=== PATIENT | female | born 1985 | race Caucasian/White ===

== ENCOUNTER 2021-10-23 22:48 | Inpatient (IN) | payer OTHER, MEDICAID, SELFPAY ==
[2021-10-23 22:56] VITALS: BP 143/85; PULSE 89; RESP 16; TEMP 36.6; O2SAT 99; BMI 27.4
[2021-10-23] MEDS: LORazepam 1 MG TABLET PO (23:15)
--- NOTE | 2021-10-23 23:35 | ED.PSYCH ---
HPI - Psych General Chief Complaint: Psychiatric Symptoms Stated Complaint: anxiety Time Seen by Provider: 10/23/21 23:09 Source: EMS and police Mode of arrival: EMS Limitations: other History of Present Illness HPI Narrative: This is a 36-year-old female unknown medical history presenting via ambulance with EMS and police on board who state patient is having emotional dysregulation, she is hypo verbal, and depressed. Patient was placed on a Section 12 by police. Patient appears anxious, refusing to answer questions. When I ask her if she has any medical complaints she nods her head no. She appears to be in no acute distress. When I asked her if she suicidal she nods her head no. Related Data Home Medications Medication Instructions Recorded Confirmed multivitamin with folic acid 400 1 tab PO DAILY 10/23/21 10/23/21 mcg tablet (Daily-Galina (with folic acid)) multivitamin with folic acid 400 1 tab PO DAILY 10/23/21 10/23/21 mcg tablet (Daily-Galina (with folic acid)) olanzapine 5 mg tablet 1 tab PO DAILY PRN 10/23/21 10/23/21 sertraline 25 mg tablet 1 tab PO DAILY 10/23/21 10/24/21 trazodone 50 mg tablet 1 tab PO BEDTIME PRN 10/23/21 10/24/21 Allergies Allergy/AdvReac Type Severity Reaction Status Date / Time Sulfa (Sulfonamide AdvReac Rash Verified 10/23/21 23:08 Antibiotics) Review of Systems Review of Systems: Patient refusing to answer questions however nodding her head no when I ask her if she has any medical complaints. Yes Unobtainable due to mental status PMFSH Past Medical History Attestation statement: The following information was validated with the patient. Source: old records reviewed and nursing notes reviewed Social History Social History Advance Directives: No Physical Exam Vital Signs: Vital Signs: Last Vital Signs Temp 97.8 F 10/23/21 22:56 Pulse 89 10/23/21 22:56 Resp 16 10/23/21 22:56 BP 143/85 H 10/23/21 22:56 Pulse Ox 99 10/23/21 22:56 BMI result Body Mass Index 27.4 Vital signs stable Appearance: Alert.? Awake. No acute distress.? Head: Normocephalic, atraumatic, no step-offs or deformities Eyes: Pupils equal, round and reactive to light.? ENT: Pharynx normal.? Neck: Normal inspection.? Neck supple.? CVS: Normal heart rate and rhythm.? Pulses normal.? Respiratory: No respiratory distress.? Breath sounds normal.? Abdomen: Soft and nontender.? Skin: Skin warm and dry.? Normal skin color.? Normal skin turgor.? Extremities: No lower extremity edema.? No calf ttp. 5/5 strength to bilateral upper and lower extremities Neuro: Awake, alert, moving all extremities. Patient refusing to answer questions however she is answering with head nods when appropriate. Ambulating with steady gait Course Reevaluation(s) Reevaluation #1: CBC with a slight microcytic anemia. No leukocytosis. No acute electrolyte abnormalities requiring intervention. Urine positive for infection, no cva tenderness unlikley pylo. Patient will be started on Ceftin 250 mg p.o. b.i.d. x7 days. Urine toxicology negative. Ethanol negative. COVID negative. At this time patient will be placed in physician observation to allow more time to be evaluated by the behavioral health team. At time observation was started patient common cooperative no acute distress. Still refusing to answer questions. Will continue to monitor Time: 00:52 MDM - Psych MDM Narrative Medical decision making narrative: 2309 36-year-old female presents for emotional dysregulation, depression, and hypo verbal via ambulance and the police. Refusing to answer questions, only answering with head nods. Physical examination for a female refusing to answer questions only answering with head nods appears to be in no acute distress awake, alert. Appears anxious. Regular rate and rhythm. Lungs clear. Abdomen soft nontender nondistended. Neuro exam nonfocal ambulating with steady gait. Plan at this time is medical clearance, Ativan. Evaluation by the behavioral health team. Medical Records Attestation: I reviewed the patient's medical records. Lab Data Attestation: I reviewed the patient's lab results. Result diagrams: 10/24/21 00:07 10/24/21 00:07 Labs: Lab Results 10/23/21 10/23/21 10/23/21 Range/Units 23:28 23:28 23:28 WBC (4.8-10.8) X10*3/uL RBC (4.20-5.50) X10*6/uL Hgb (12.0-16.0) g/dl Hct (37.0-47.0) % MCV (80.0-98.0) fL MCH (27.0-33.0) pg MCHC (31.0-35.0) g/dl RDW (11.0-16.0) % Plt Count (160-400) X10*3/uL MPV (9.4-12.3) fL Immature Gran % (Auto) (0.0-0.4) % Neut % (Auto) (45-73) % Lymph % (Auto) (20-40) % [place] % (Auto) (2-11) % Eos % (Auto) (0-4) % Baso % (Auto) (0-2) % Lymph # (Auto) (1.2-4.9) X10*3/uL [place] # (Auto) (0.1-1.2) X10*3/uL Eos # (Auto) (0.0-0.4) X10*3/uL Baso # (Auto) (0.0-0.2) X10*3/uL Abs Immat Gran (auto) (0.00-0.03) X10*3/uL Absolute Neuts (auto) (2.0-8.3) x10*3/uL Absolute Nucleated RBC (0.0-0.012) X10*3/uL Nucleated RBC % (auto) (0.0-0.2) /100WBC Sodium (135-145) mmol/L Potassium (3.3-5.1) mmol/L Chloride (96-108) mmol/L Carbon Dioxide (22-29) mmol/L Anion Gap (12-20) BUN (9-16) mg/dL Creatinine (0.5-1.4) mg/dL Estim Creat Clear Calc Estimated GFR Random Glucose (60-115) mg/dL Calcium (8.4-10.2) mg/dL Total Bilirubin (0.0-1.0) mg/dL AST (5-31) U/L ALT (0-31) U/L Alkaline Phosphatase (39-117) U/L Total Protein (6.5-8.0) g/dL Albumin (3.5-5.0) g/dL Urine Color DK YELLOW Urine Appearance CLOUDY Urine pH 6.0 (5.0-8.0) Ur Specific [place] >= 1.030 H (1.005-1.025) Urine Protein 2+ H (NEG-TRACE) MG/DL Urine Glucose (UA) NEG (NEG) MG/DL Urine Ketones 15 (NEG) MG/DL Urine Blood 3+ H (NEG) Urine Nitrite POS H (NEG) Ur Leukocyte Esterase 2+ H (NEG) Urine RBC TNTC H (0) /HPF Urine WBC 1-4 (0-4) /HPF Ur Squamous Epith Cells 4+ /LPF Urine Bacteria 4+ /LPF Urine Mucus 2+ /LPF Urine Test NEGATIVE (NEGATIVE) Urine Opiates Screen (Not Detect) Urine Fentanyl Screen (Not Detect) Ur Barbiturates Screen (Not Detect) Ur Phencyclidine Scrn (Not Detect) Ur Amphetamines Screen (Not Detect) U Benzodiazepines Scrn (Not Detect) Urine Cocaine Screen (Not Detect) U Marijuana (THC) Screen (Not Detect) Ethyl Alcohol mg/dL COVID-19 (LUCIANO) Negative (Negative) COVID-19 Clin Com See Note 10/23/21 10/24/21 10/24/21 Range/Units 23:28 00:07 00:07 WBC 7.2 (4.8-10.8) X10*3/uL RBC 4.37 (4.20-5.50) X10*6/uL Hgb 10.4 L (12.0-16.0) g/dl Hct 32.6 L (37.0-47.0) % MCV 74.6 L (80.0-98.0) fL MCH 23.8 L (27.0-33.0) pg MCHC 31.9 (31.0-35.0) g/dl RDW 21.4 H (11.0-16.0) % Plt Count 345 (160-400) X10*3/uL MPV 9.9 (9.4-12.3) fL Immature Gran % (Auto) 0.3 (0.0-0.4) % Neut % (Auto) 72.9 (45-73) % Lymph % (Auto) 18.0 L (20-40) % [place] % (Auto) 8.3 (2-11) % Eos % (Auto) 0.1 (0-4) % Baso % (Auto) 0.4 (0-2) % Lymph # (Auto) 1.3 (1.2-4.9) X10*3/uL [place] # (Auto) 0.6 (0.1-1.2) X10*3/uL Eos # (Auto) 0.0 (0.0-0.4) X10*3/uL Baso # (Auto) 0.0 (0.0-0.2) X10*3/uL Abs Immat Gran (auto) 0.02 (0.00-0.03) X10*3/uL Absolute Neuts (auto) 5.2 (2.0-8.3) x10*3/uL Absolute Nucleated RBC 0.000 (0.0-0.012) X10*3/uL Nucleated RBC % (auto) 0.0 (0.0-0.2) /100WBC Sodium 139 (135-145) mmol/L Potassium 3.6 (3.3-5.1) mmol/L Chloride 106 (96-108) mmol/L Carbon Dioxide 24 (22-29) mmol/L Anion Gap 13 (12-20) BUN 8 L (9-16) mg/dL Creatinine 0.61 (0.5-1.4) mg/dL Estim Creat Clear Calc 131.1 Estimated GFR > 60 Random Glucose 118 H (60-115) mg/dL Calcium 9.4 (8.4-10.2) mg/dL Total Bilirubin 1.1 H (0.0-1.0) mg/dL AST 26 (5-31) U/L ALT 23 (0-31) U/L Alkaline Phosphatase 49 (39-117) U/L Total Protein 7.4 (6.5-8.0) g/dL Albumin 4.2 (3.5-5.0) g/dL Urine Color Urine Appearance Urine pH (5.0-8.0) Ur Specific [place] (1.005-1.025) Urine Protein (NEG-TRACE) MG/DL Urine Glucose (UA) (NEG) MG/DL Urine Ketones (NEG) MG/DL Urine Blood (NEG) Urine Nitrite (NEG) Ur Leukocyte Esterase (NEG) Urine RBC (0) /HPF Urine WBC (0-4) /HPF Ur Squamous Epith Cells /LPF Urine Bacteria /LPF Urine Mucus /LPF Urine Test (NEGATIVE) Urine Opiates Screen Not Detected (Not Detect) Urine Fentanyl Screen Not Detected (Not Detect) Ur Barbiturates Screen Not Detected (Not Detect) Ur Phencyclidine Scrn Not Detected (Not Detect) Ur Amphetamines Screen Not Detected (Not Detect) U Benzodiazepines Scrn Not Detected (Not Detect) Urine Cocaine Screen Not Detected (Not Detect) U Marijuana (THC) Screen Not Detected (Not Detect) Ethyl Alcohol mg/dL COVID-19 (LUCIANO) (Negative) COVID-19 Clin Com 10/24/21 Range/Units 00:07 WBC (4.8-10.8) X10*3/uL RBC (4.20-5.50) X10*6/uL Hgb (12.0-16.0) g/dl Hct (37.0-47.0) % MCV (80.0-98.0) fL MCH (27.0-33.0) pg MCHC (31.0-35.0) g/dl RDW (11.0-16.0) % Plt Count (160-400) X10*3/uL MPV (9.4-12.3) fL Immature Gran % (Auto) (0.0-0.4) % Neut % (Auto) (45-73) % Lymph % (Auto) (20-40) % [place] % (Auto) (2-11) % Eos % (Auto) (0-4) % Baso % (Auto) (0-2) % Lymph # (Auto) (1.2-4.9) X10*3/uL [place] # (Auto) (0.1-1.2) X10*3/uL Eos # (Auto) (0.0-0.4) X10*3/uL Baso # (Auto) (0.0-0.2) X10*3/uL Abs Immat Gran (auto) (0.00-0.03) X10*3/uL Absolute Neuts (auto) (2.0-8.3) x10*3/uL Absolute Nucleated RBC (0.0-0.012) X10*3/uL Nucleated RBC % (auto) (0.0-0.2) /100WBC Sodium (135-145) mmol/L Potassium (3.3-5.1) mmol/L Chloride (96-108) mmol/L Carbon Dioxide (22-29) mmol/L Anion Gap (12-20) BUN (9-16) mg/dL Creatinine (0.5-1.4) mg/dL Estim Creat Clear Calc Estimated GFR Random Glucose (60-115) mg/dL Calcium (8.4-10.2) mg/dL Total Bilirubin (0.0-1.0) mg/dL AST (5-31) U/L ALT (0-31) U/L Alkaline Phosphatase (39-117) U/L Total Protein (6.5-8.0) g/dL Albumin (3.5-5.0) g/dL Urine Color Urine Appearance Urine pH (5.0-8.0) Ur Specific [place] (1.005-1.025) Urine Protein (NEG-TRACE) MG/DL Urine Glucose (UA) (NEG) MG/DL Urine Ketones (NEG) MG/DL Urine Blood (NEG) Urine Nitrite (NEG) Ur Leukocyte Esterase (NEG) Urine RBC (0) /HPF Urine WBC (0-4) /HPF Ur Squamous Epith Cells /LPF Urine Bacteria /LPF Urine Mucus /LPF Urine Test (NEGATIVE) Urine Opiates Screen (Not Detect) Urine Fentanyl Screen (Not Detect) Ur Barbiturates Screen (Not Detect) Ur Phencyclidine Scrn (Not Detect) Ur Amphetamines Screen (Not Detect) U Benzodiazepines Scrn (Not Detect) Urine Cocaine Screen (Not Detect) U Marijuana (THC) Screen (Not Detect) Ethyl Alcohol < 10 mg/dL COVID-19 (LUCIANO) (Negative) COVID-19 Clin Com Critical Care Time Critical Care Time Critical Care Time: No Discharge Plan Discharge Clinical Impression: Depression, UTI (urinary tract infection) Patient Disposition: Still a Patient Instructions: Urinary Tract Infection in Women (ED), Depression (ED) Additional Instructions: Please discharge patient home on antibiotics for UTI receiving Ceftin here. Prescriptions: No Action trazodone 50 mg tablet 1 tab PO BEDTIME PRN (Reason: insomnia) 0RF olanzapine 5 mg tablet 1 tab PO DAILY PRN (Reason: Agitation) 0RF sertraline 25 mg tablet 1 tab PO DAILY 0RF multivitamin with folic acid [Daily-Galina (with folic acid)] 400 mcg tablet 1 tab PO DAILY 0RF multivitamin with folic acid [Daily-Galina (with folic acid)] 400 mcg tablet 1 tab PO DAILY 0RF
[2021-10-23 23:37] LABS: Appearance Urine CLOUDY; Color Urine DK YELLOW; Glucose Urine UA NEG (NEG); Leukocyte Esterase Urine 2+ (NEG); Nitrite Urine POS (NEG); Specific Gravity - Urine >= 1.030 (1.005-1.025); Urine Blood 3+ (NEG); Urine Ketones 15 MG/DL (NEG); Urine Protein 2+ MG/DL (NEG-TRACE)
[2021-10-23 23:52] LABS: COVID-19 Test Negative (Negative)
[2021-10-23 23:55] LABS: Amphetamine Screen Urine Not Detected (Not Detect); Bacteria Urine 4+ /LPF; Barbiturates, Urine Not Detected (Not Detect); Benzodiazepines Screen Urine Not Detected (Not Detect); Cannabinoid Screen Urine Not Detected (Not Detect); Cocaine Screen Urine Not Detected (Not Detect); Fentanyl, urine Not Detected (Not Detect); Mucus Urine 2+ /LPF; Opiate Screen Urine Not Detected (Not Detect); Phencyclidine Screen Urine Not Detected (Not Detect); RBC Urine TNTC /HPF (0); Squamous Epithelial Cell Urine 4+ /LPF
[2021-10-24] LABS: UPreg QC Valid YES; Urine Pregnancy NEGATIVE (NEGATIVE)
[2021-10-24 00:12] LABS: MANUAL DIFF FLAG NO
[2021-10-24 00:13] LABS: Basophils Percent Auto 0.4 % (0-2); Eosinophils Percent Auto 0.1 % (0-4); Hematocrit 32.6 % (37.0-47.0); Hemoglobin 10.4 g/dl (12.0-16.0); Imm Gran Abs Auto 0.02 X10*3/uL (0.00-0.03); Imm Gran Pct Auto 0.3 % (0.0-0.4); Lymphocytes Absolute Auto 1.3 X10*3/uL (1.2-4.9); Mean Corpuscular HGB Conc 31.9 g/dl (31.0-35.0); Mean Corpuscular Hemoglobin 23.8 pg (27.0-33.0); Mean Corpuscular Volume 74.6 fL (80.0-98.0); Mean Platelet Volume 9.9 fL (9.4-12.3); Monocytes Absolute Auto 0.6 X10*3/uL (0.1-1.2); Monocytes Percent Auto 8.3 % (2-11); Neutrophils Absolute Auto 5.2 x10*3/uL (2.0-8.3); Neutrophils Percent Auto 72.9 % (45-73); Platelet Count 345 X10*3/uL (160-400); Red Blood Count 4.37 X10*6/uL (4.20-5.50); Red Cell Distribution Width 21.4 % (11.0-16.0); White Blood Count 7.2 X10*3/uL (4.8-10.8)
[2021-10-24 00:24] LABS: Ethanol < 10 mg/dL
[2021-10-24 00:27] LABS: Alanine Aminotransferase 23 U/L (0-31); Albumin Level 4.2 g/dL (3.5-5.0); Alkaline Phosphatase 49 U/L (39-117); Anion Gap 13 (12-20); Aspartate Amino Transferase 26 U/L (5-31); Bilirubin Total 1.1 mg/dL (0.0-1.0); Blood Urea Nitrogen 8 mg/dL (9-16); Calcium 9.4 mg/dL (8.4-10.2); Carbon Dioxide 24 mmol/L (22-29); Chloride 106 mmol/L (96-108); Creatinine Clr Calc Pharmacy 131.1; Estimated Glomerular Filt Rate > 60; Glucose Random 118 mg/dL (60-115); Potassium 3.6 mmol/L (3.3-5.1); Sodium 139 mmol/L (135-145); Total Protein 7.4 g/dL (6.5-8.0)
[2021-10-24] MEDS: Ibuprofen 600 MG TABLET PO (04:09)
--- NOTE | 2021-10-24 06:25 | PC.NURSE ---
Patient slept intermittently, depressed and tearful, + for UTI, Ceftin 250 mg BID ordered/administered first dose last night, [facility] referral completed/confirmed pending ETA, behavior non concerning, med rec completed/patient off her medication for months/Psych consult ordered to review meds, medication compliant, VSS, will continue to monitor.
[2021-10-24 06:33] VITALS: BP 140/79; PULSE 74; RESP 14; TEMP 36.6; O2SAT 99
--- NOTE | 2021-10-24 07:14 | PC.NURSE ---
patient appears to remain asleep at present respirations are even and unlabored patient appears in no distress
--- NOTE | 2021-10-24 07:40 | PHA.MEDREC ---
Pharmacy Consult ? Medication Reconciliation Pharmacy has reviewed the medication reconciliation completed by Amrik. Georgina Oneill, PorshaD
[2021-10-24 17:42] VITALS: BP 125/84; PULSE 84; RESP 18; TEMP 36.8; O2SAT 99
[2021-10-24 20:20] VITALS: BP 146/89; PULSE 96; RESP 18; TEMP 36.7; O2SAT 95; BMI 25.6
[2021-10-24] MEDS: OLANZapine 10 MG TABLET PO (20:44)
[2021-10-24] MEDS: Loperamide HCl 2 MG CAPSULE PO (21:02)
[2021-10-24] MEDS: Acetaminophen 325 MG TABLET 650 MG PO (21:06)
[2021-10-24] MEDS: hydrOXYzine HCL 25 MG TABLET PO (22:05)
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
[2021-10-25] MEDS: hydrOXYzine HCL 50 MG TABLET PO ×2 (04:14→19:17)
[2021-10-25] MEDS: LORazepam 1 MG TABLET 2 MG PO (04:14)
[2021-10-25] MEDS: OLANZapine ODT 10 MG TAB.RAPDIS TRANSLINGU (13:07)
[2021-10-25] MEDS: Multivitamin TABLET 1 TAB PO (13:07)
[2021-10-25] MEDS: Ferrous Sulfate 324 MG TABLET.DR PO (13:57)
[2021-10-25] MEDS: Ibuprofen 600 MG TABLET PO (14:02)
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
[2021-10-25] MEDS: hydrOXYzine HCL 25 MG TABLET PO (22:02)
[2021-10-25 22:10] VITALS: BP 156/89; PULSE 91; RESP 18; TEMP 36.6; O2SAT 97
[2021-10-26] MEDS: Ibuprofen 600 MG TABLET PO ×2 (00:59→17:38)
[2021-10-26] MEDS: Melatonin 3 MG TABLET 6 MG PO (01:29)
[2021-10-26 08:28] VITALS: BP 130/70; PULSE 86; RESP 15; TEMP 36.4; O2SAT 99
[2021-10-26] MEDS: Ferrous Sulfate 324 MG TABLET.DR PO (10:02)
[2021-10-26] MEDS: Multivitamin TABLET 1 TAB PO (10:02)
[2021-10-26] MEDS: hydrOXYzine HCL 50 MG TABLET PO ×3 (11:38→21:28)
--- NOTE | 2021-10-26 15:26 | HO.PSYCHPN ---
Subjective Subjective Date of Service: 10/26/21 Reason For Visit: Anjali Interim History: pt hyper-intense, seeking out MD. angry, irritable, verbally aggressive, condescending, demanding. states she has 3 diagnoses only: highly intelligent, anxiety, and a little ADHD for sprinkles. states she will not take lithium and demands it be cancelled. she explains she does not need to take it. MD attempts to engage pt in discussion on the [place] for the Rx but pt talks over MD, yelling at MD that all she needs is sertraline and that MD should prescribe her sertraline, then stomps out of room. MD entirely unable to get a word in edgewise to even begin a rational discussion with pt. pt noted to glare at MD each time within direct line of sight and door slamming in the immediate time surrounding visual encounters. per staff, pt slept until 1 pm yesterday, c/o cramps. ibuprofen was helpful. pleasant and isolative. difficulty falling asleep last night. upset and agitated that lithium had been Rx'ed. per staff, paranoid and delusional that her friends and others have arranged for her to be hospitalized bcse they like to play games. Mental Status Exam Mental Status Exam Narrative: hospital nate, disheveled. not cooperative. pacing, hypermotoric, agitated, strong gesticulations. speech incr in rate, loudness, amount. decr latency. thoughts loose, wandering. affect hyper-intense, labile, constricted. mood not assessed, SI/HI/AVH not assessed. Diagnostics Vital Signs (24Hr): Vital Signs - 24 hr 10/25/21 22:10 10/26/21 08:28 Temperature 97.9 F 97.6 F Pulse Rate 91 86 Respiratory Rate 18 15 Blood Pressure 156/89 H 130/70 Pulse Oximetry 97 99 BMI result Body Mass Index 25.6 Labs Results: 10/24/21 00:07 10/24/21 00:07 Medications Medications Current Medications Acetaminophen (Acetaminophen 325 Mg Tablet) 650 mg PO Q6H PRN PRN Reason: Headache/Pain Mild Scale (1-3) Last Admin: 10/24/21 21:06 Dose: 650 mg Documented by: Al Hydroxide/Mg Hydroxide (Magnesium Hydrox/Alum Hydrox 30 Ml Oral.Susp) 30 ml PO Q6H PRN PRN Reason: Heartburn/Nausea Cefuroxime Axetil (Cefuroxime Axetil 250 Mg Tablet) 250 mg PO BID [facility] Last Admin: 10/26/21 10:02 Dose: 250 mg Documented by: Ferrous Sulfate (Ferrous Sulfate 324 Mg Tablet.Dr) 324 mg PO DAILY [facility] Last Admin: 10/26/21 10:02 Dose: 324 mg Documented by: Hydroxyzine HCl (Hydroxyzine Hcl 25 Mg Tablet) 25 mg PO BEDTIME PRN PRN Reason: Anxiety Last Admin: 10/25/21 22:02 Dose: 25 mg Documented by: Hydroxyzine HCl (Hydroxyzine Hcl 50 Mg Tablet) 50 mg PO Q4H PRN PRN Reason: anxiety/agitation Last Admin: 10/26/21 11:38 Dose: 50 mg Documented by: Ibuprofen (Ibuprofen 600 Mg Tablet) 600 mg PO Q6H PRN PRN Reason: cramps Last Admin: 10/26/21 00:59 Dose: 600 mg Documented by: [place] Carbonate ([place] Carbonate Er 450 Mg Tablet.Er) 450 mg PO BID [facility] Last Admin: 10/26/21 10:02 Dose: Not Given Documented by: Loperamide HCl (Loperamide Hcl 2 Mg Capsule) 2 mg PO Q6H PRN PRN Reason: Diarrhea Last Admin: 10/24/21 21:02 Dose: 2 mg Documented by: Magnesium Hydroxide (Milk Of Magnesia 30 Ml Oral.Susp) 30 ml PO DAILY PRN PRN Reason: Constipation Multivitamins/Vitamin C (Multivitamin Tablet) 1 tab PO DAILY [facility] Last Admin: 10/26/21 10:02 Dose: 1 tab Documented by: Nicotine Polacrilex (Nicotine Polacrilex 2 Mg Gum) 2 mg BUCCAL Q2H PRN PRN Reason: Nicotine Cravings Olanzapine (Olanzapine Odt 10 Mg Tab.Rapdis) 10 mg TRANSLINGU BID PRN PRN Reason: agitation Last Admin: 10/25/21 13:07 Dose: 10 mg Documented by: Olanzapine (Olanzapine 10 Mg Tablet) 10 mg PO BEDTIME [facility] Last Admin: 10/25/21 22:08 Dose: Not Given Documented by: Trazodone HCl (Trazodone Hcl 50 Mg Tablet) 50 mg PO BEDTIME PRN PRN Reason: Insomnia Allergies Allergies Allergy/AdvReac Type Severity Reaction Status Date / Time Sulfa (Sulfonamide AdvReac Rash Verified 10/23/21 23:08 Antibiotics) Assessment & Plan Assessment & Plan (1) Anjali: Status: Acute Code(s): F30.9 - Manic episode, unspecified (2) UTI (urinary tract infection): Status: Acute Code(s): N39.0 - Urinary tract infection, site not specified Plan anjali - olanzapine. stopped zoloft as could be manigenic. added lithium 10/25, which pt has been declining, angrily. UTI - antibx control anjali, collect collateral. I spent __20____ minutes with the patient and/or on the patient floor today, greater than?50% of which was spent counseling/coordinating care. Reason for contiued inpatient stay Substantial Risk for: harm to self, harm to others and inability to function
[2021-10-26] MEDS: Acetaminophen 325 MG TABLET 650 MG PO (15:32)
[2021-10-26] MEDS: Loperamide HCl 2 MG CAPSULE PO (17:02)
[2021-10-26 20:27] VITALS: BP 126/86; PULSE 87; RESP 18; TEMP 36.7; O2SAT 99
[2021-10-27] MEDS: hydrOXYzine HCL 25 MG TABLET PO (00:05)
[2021-10-27] MEDS: Melatonin 3 MG TABLET 9 MG PO (00:34)
[2021-10-27] MEDS: Multivitamin TABLET 1 TAB PO (08:30)
[2021-10-27] MEDS: Ferrous Sulfate 324 MG TABLET.DR PO (08:30)
[2021-10-27] MEDS: hydrOXYzine HCL 50 MG TABLET PO ×3 (08:31→23:50)
[2021-10-27 09:00] VITALS: BP 130/81; PULSE 92; RESP 18; TEMP 36.6; O2SAT 97
[2021-10-27] MEDS: Loperamide HCl 2 MG CAPSULE PO (13:24)
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
[2021-10-27 20:00] VITALS: BP 129/77; PULSE 112; RESP 18; TEMP 36.6; O2SAT 98
[2021-10-27] MEDS: Acetaminophen 325 MG TABLET 650 MG PO (20:21)
[2021-10-28] MEDS: Ibuprofen 600 MG TABLET PO (01:13)
[2021-10-28] MEDS: Loperamide HCl 2 MG CAPSULE PO ×2 (01:30→18:39)
[2021-10-28 08:15] VITALS: BP 114/65; PULSE 78; RESP 18; TEMP 36.4; O2SAT 99
[2021-10-28] MEDS: Multivitamin TABLET 1 TAB PO (08:24)
[2021-10-28] MEDS: hydrOXYzine HCL 50 MG TABLET PO ×3 (08:24→21:04)
[2021-10-28] MEDS: Ferrous Sulfate 324 MG TABLET.DR PO (08:24)
[2021-10-28] MEDS: OLANZapine ODT 10 MG TAB.RAPDIS TRANSLINGU (11:44)
--- NOTE | 2021-10-28 15:11 | HO.PSYCHPN ---
Subjective Subjective Date of Service: 10/28/21 Reason For Visit: Anjali Interim History: As per staff- loud and labile at some points, asking for a diaper ref mentrual pads. Poor sleep and paranoid ref room mate- accepted olanzapine. Ongoing frustration around med regimen- aware that discussing overall medication regimen with her primary team in the context of a three-day notice is important and appropriate. Adamantly denies thoughts of suicide or hurting others. Medication Compliance: No Side effects from medications: No Attending Groups: No Review of Systems Acute medical concerns: No Review of Systems Review of Systems Yes all other systems are reviewed and are negative Mental Status Exam Mental Status Exam Narrative: In sensory room. Appropriate dress. Fair hygiene. Organized. Pressured and intense. Irritable and frustrated. Denied depression. Denied SI or HI. Denied overt paranoia or hallucinations on the unit. Diagnostics Vital Signs (24Hr): Vital Signs - 24 hr 10/27/21 20:00 10/28/21 08:15 Temperature 97.9 F 97.6 F Pulse Rate 112 H 78 Respiratory Rate 18 18 Blood Pressure 129/77 114/65 Pulse Oximetry 98 99 BMI result Body Mass Index 25.6 Labs Results: 10/24/21 00:07 10/24/21 00:07 Medications Medications Current Medications Acetaminophen (Acetaminophen 325 Mg Tablet) 650 mg PO Q6H PRN PRN Reason: Headache/Pain Mild Scale (1-3) Last Admin: 10/27/21 20:21 Dose: 650 mg Documented by: Al Hydroxide/Mg Hydroxide (Magnesium Hydrox/Alum Hydrox 30 Ml Oral.Susp) 30 ml PO Q6H PRN PRN Reason: Heartburn/Nausea Cefuroxime Axetil (Cefuroxime Axetil 250 Mg Tablet) 250 mg PO BID [facility] Last Admin: 10/28/21 08:23 Dose: 250 mg Documented by: Ferrous Sulfate (Ferrous Sulfate 324 Mg Tablet.) 324 mg PO DAILY [facility] Last Admin: 10/28/21 08:24 Dose: 324 mg Documented by: Hydroxyzine HCl (Hydroxyzine Hcl 25 Mg Tablet) 25 mg PO BEDTIME PRN PRN Reason: Anxiety Last Admin: 10/27/21 00:05 Dose: 25 mg Documented by: Hydroxyzine HCl (Hydroxyzine Hcl 50 Mg Tablet) 50 mg PO Q4H PRN PRN Reason: anxiety/agitation Last Admin: 10/28/21 08:24 Dose: 50 mg Documented by: Ibuprofen (Ibuprofen 600 Mg Tablet) 600 mg PO Q6H PRN PRN Reason: cramps Last Admin: 10/28/21 01:13 Dose: 600 mg Documented by: [place] Carbonate ([place] Carbonate Er 450 Mg Tablet.Er) 450 mg PO BID [facility] Last Admin: 10/28/21 10:33 Dose: Not Given Documented by: Loperamide HCl (Loperamide Hcl 2 Mg Capsule) 2 mg PO Q6H PRN PRN Reason: Diarrhea Last Admin: 10/28/21 01:30 Dose: 2 mg Documented by: Magnesium Hydroxide (Milk Of Magnesia 30 Ml Oral.Susp) 30 ml PO DAILY PRN PRN Reason: Constipation Melatonin (Melatonin 3 Mg Tablet) 9 mg PO BEDTIME [facility] Last Admin: 10/27/21 00:34 Dose: 9 mg Documented by: Multivitamins/Vitamin C (Multivitamin Tablet) 1 tab PO DAILY [facility] Last Admin: 10/28/21 08:24 Dose: 1 tab Documented by: Nicotine Polacrilex (Nicotine Polacrilex 2 Mg Gum) 2 mg BUCCAL Q2H PRN PRN Reason: Nicotine Cravings Olanzapine (Olanzapine Odt 10 Mg Tab.Rapdis) 10 mg TRANSLINGU BID PRN PRN Reason: agitation Last Admin: 10/28/21 11:44 Dose: 10 mg Documented by: Olanzapine (Olanzapine 10 Mg Tablet) 10 mg PO BEDTIME [facility] Last Admin: 10/27/21 22:12 Dose: Not Given Documented by: Trazodone HCl (Trazodone Hcl 50 Mg Tablet) 50 mg PO BEDTIME PRN PRN Reason: Insomnia Allergies Allergies Allergy/AdvReac Type Severity Reaction Status Date / Time Sulfa (Sulfonamide AdvReac Rash Verified 10/23/21 23:08 Antibiotics) Assessment & Plan Assessment & Plan (1) Anjali: Status: Acute Code(s): F30.9 - Manic episode, unspecified (2) UTI (urinary tract infection): Status: Acute Code(s): N39.0 - Urinary tract infection, site not specified Plan anjali - olanzapine. stopped zoloft as could be manigenic. added lithium 10/25, which pt has been declining, angrily. UTI - antibx control anjali, collect collateral. 10/28: no changes to treatment plan. Declining lithium. Three-day notice expires Friday10/29/2021 I spent minutes with the patient and/or on the patient floor today, greater than?50% of which was spent counseling/coordinating care. Reason for contiued inpatient stay Substantial Risk for: inability to function
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
[2021-10-28 18:00] VITALS: BP 129/72; PULSE 75; RESP 18; TEMP 36.6; O2SAT 98
[2021-10-28] MEDS: Melatonin 3 MG TABLET 9 MG PO (21:02)
[2021-10-28] MEDS: LORazepam 1 MG TABLET 2 MG PO (22:28)
[2021-10-29] MEDS: Multivitamin TABLET 1 TAB PO (09:04)
[2021-10-29] MEDS: Ferrous Sulfate 324 MG TABLET.DR PO (09:04)
[2021-10-29 09:53] VITALS: BP 124/69; PULSE 77; RESP 18; TEMP 36.6; O2SAT 100
[2021-10-29] MEDS: Ibuprofen 600 MG TABLET PO ×2 (12:07→21:29)
[2021-10-29] MEDS: lamoTRIgine 25 MG TABLET PO ×2 (12:54→21:43)
[2021-10-29] MEDS: hydrOXYzine HCL 50 MG TABLET PO ×3 (14:15→23:38)
--- NOTE | 2021-10-29 14:24 | HO.PSYCHPN ---
Subjective Subjective Date of Service: 10/29/21 Reason For Visit: Anjali Interim History: pt seen twice, both times with PASTOR morocho. pt generally labile, irritable, angry, accusatory, derisive. pt demanding to be put back on sertraline and states in return would be willing to start lamictal. informs pt that zoloft is not indicated for her at the moment, as she appears to be in a manic episode, and she denies anjali and states she has PTSD and her current state is a manifestation of that. informs pt that lamictal is not an adequately evidence-based mood stabilizer and he would recommend she take lithium, tegretol, or depakote. she declines to take all three. initially the decision is made to discharge pt as the discussion broke down and pt unilaterally left the interview. pt reconsidered and during subsequent interview pt agreed to take lamictal without sertraline. she denied any h/o SJS or other adverse rxn to lamictal and reported having taken it for a long time and at many doses. she agreed to start it at 25 mg BID, somewhat higher than recommended starting dose. she withdrew her 3-day notice. per staff, 3-day notice up today. denies dep/SI/HI/AVH. anx 10. pacing, exercising, listening to music. after 1030 pm got angry and agitated. slept after having gotten ativan 2 mg. Mental Status Exam Mental Status Exam Narrative: [facility], [facility]. minimally cooperative. pacing, hypermotoric, agitated, strong gesticulations. speech incr in rate, loudness, amount. decr latency. thoughts loose, wandering. affect hyper-intense, labile, constricted. mood not assessed, SI/HI/AVH not assessed. Diagnostics Vital Signs (24Hr): Vital Signs - 24 hr 10/28/21 18:00 10/29/21 09:53 Temperature 97.8 F 97.8 F Pulse Rate 75 77 Respiratory Rate 18 18 Blood Pressure 129/72 124/69 Pulse Oximetry 98 100 BMI result Body Mass Index 25.6 Labs Results: 10/24/21 00:07 10/24/21 00:07 Medications Medications Current Medications Acetaminophen (Acetaminophen 325 Mg Tablet) 650 mg PO Q6H PRN PRN Reason: Headache/Pain Mild Scale (1-3) Last Admin: 10/27/21 20:21 Dose: 650 mg Documented by: Al Hydroxide/Mg Hydroxide (Magnesium Hydrox/Alum Hydrox 30 Ml Oral.Susp) 30 ml PO Q6H PRN PRN Reason: Heartburn/Nausea Cefuroxime Axetil (Cefuroxime Axetil 250 Mg Tablet) 250 mg PO BID [facility] Last Admin: 10/29/21 09:04 Dose: 250 mg Documented by: Ferrous Sulfate (Ferrous Sulfate 324 Mg Tablet.) 324 mg PO DAILY [facility] Last Admin: 10/29/21 09:04 Dose: 324 mg Documented by: Hydroxyzine HCl (Hydroxyzine Hcl 25 Mg Tablet) 25 mg PO BEDTIME PRN PRN Reason: Anxiety Last Admin: 10/27/21 00:05 Dose: 25 mg Documented by: Hydroxyzine HCl (Hydroxyzine Hcl 50 Mg Tablet) 50 mg PO Q4H PRN PRN Reason: anxiety/agitation Last Admin: 10/29/21 14:15 Dose: 50 mg Documented by: Ibuprofen (Ibuprofen 600 Mg Tablet) 600 mg PO Q6H PRN PRN Reason: cramps Last Admin: 10/29/21 12:07 Dose: 600 mg Documented by: Lamotrigine (Lamotrigine 25 Mg Tablet) 25 mg PO BID [facility] Last Admin: 10/29/21 12:54 Dose: 25 mg Documented by: Loperamide HCl (Loperamide Hcl 2 Mg Capsule) 2 mg PO Q6H PRN PRN Reason: Diarrhea Last Admin: 10/28/21 18:39 Dose: 2 mg Documented by: Magnesium Hydroxide (Milk Of Magnesia 30 Ml Oral.Susp) 30 ml PO DAILY PRN PRN Reason: Constipation Melatonin (Melatonin 3 Mg Tablet) 9 mg PO BEDTIME [facility] Last Admin: 10/28/21 21:02 Dose: 9 mg Documented by: Multivitamins/Vitamin C (Multivitamin Tablet) 1 tab PO DAILY [facility] Last Admin: 10/29/21 09:04 Dose: 1 tab Documented by: Nicotine Polacrilex (Nicotine Polacrilex 2 Mg Gum) 2 mg BUCCAL Q2H PRN PRN Reason: Nicotine Cravings Olanzapine (Olanzapine Odt 10 Mg Tab.Rapdis) 10 mg TRANSLINGU BID PRN PRN Reason: agitation Last Admin: 10/28/21 11:44 Dose: 10 mg Documented by: Olanzapine (Olanzapine 5 Mg Tablet) 5 mg PO BEDTIME [facility] Trazodone HCl (Trazodone Hcl 50 Mg Tablet) 50 mg PO BEDTIME PRN PRN Reason: Insomnia Allergies Allergies Allergy/AdvReac Type Severity Reaction Status Date / Time Sulfa (Sulfonamide AdvReac Rash Verified 10/23/21 23:08 Antibiotics) Assessment & Plan Assessment & Plan (1) Anjali: Status: Acute Code(s): F30.9 - Manic episode, unspecified (2) UTI (urinary tract infection): Status: Acute Code(s): N39.0 - Urinary tract infection, site not specified Plan anjali - olanzapine. stopped zoloft as could be manigenic. added lithium 10/25, which pt has been declining, angrily. rescinded 3-day notice 10/29, started lamictal 25 BID. UTI - antibx control anjali, collect collateral. I spent __35____ minutes with the patient and/or on the patient floor today, greater than?50% of which was spent counseling/coordinating care. Reason for contiued inpatient stay Substantial Risk for: inability to function and rapid decompensation
[2021-10-29] MEDS: OLANZapine ODT 10 MG TAB.RAPDIS TRANSLINGU (17:28)
[2021-10-29 20:15] VITALS: BP 113/62; PULSE 92; RESP 18; TEMP 36.4; O2SAT 100
[2021-10-29] MEDS: Melatonin 3 MG TABLET 9 MG PO (21:29)
[2021-10-30] MEDS: OLANZapine ODT 10 MG TAB.RAPDIS TRANSLINGU ×3 (00:31→22:32)
[2021-10-30] MEDS: Ferrous Sulfate 324 MG TABLET.DR PO (08:34)
[2021-10-30] MEDS: Multivitamin TABLET 1 TAB PO (08:35)
[2021-10-30] MEDS: lamoTRIgine 25 MG TABLET PO ×2 (08:35→21:14)
[2021-10-30 08:51] VITALS: BP 118/87; PULSE 84; RESP 18; TEMP 36.3; O2SAT 98
[2021-10-30] MEDS: hydrOXYzine HCL 50 MG TABLET PO ×3 (11:45→22:31)
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
[2021-10-30 19:50] VITALS: BP 126/86; PULSE 82; RESP 18; TEMP 36.8; O2SAT 99
[2021-10-30] MEDS: Melatonin 3 MG TABLET 9 MG PO (21:15)
[2021-10-30] MEDS: OLANZapine 5 MG TABLET PO (21:15)
[2021-10-30] MEDS: hydrOXYzine HCL 25 MG TABLET PO (22:31)
[2021-10-30] MEDS: diphenhydrAMINE HCL 50 MG/ML VIAL IM (23:00)
[2021-10-30] MEDS: Haloperidol Lactate 5 MG/ML VIAL IM (23:02)
[2021-10-30] MEDS: LORazepam 2 MG/ML VIAL IM (23:02)
--- NOTE | 2021-10-30 23:27 | PC.NURSE ---
At approximately 2230, Pt became extremely agitated and was threatening several peers on unit. Security was called and present on the unit. inbound call center agent provider Mely ordered IM medication restraint. Pt went to room voluntarily and received IM medication with no issues.
[2021-10-31 10:17] VITALS: BP 134/63; PULSE 102; RESP 17; TEMP 36.8; O2SAT 98
[2021-10-31] MEDS: lamoTRIgine 25 MG TABLET PO (10:18)
[2021-10-31] MEDS: Ferrous Sulfate 324 MG TABLET.DR PO (10:18)
[2021-10-31] MEDS: Multivitamin TABLET 1 TAB PO (10:18)
[2021-10-31] MEDS: hydrOXYzine HCL 50 MG TABLET PO (14:08)
--- NOTE | 2021-10-31 15:09 | P.PNPSI_ITS ---
Subjective Subjective Date of Service: 10/31/21 Reason For Visit: Anjali Interim History: pt seen with SW present, at her request. generally abrasive, rejecting, insulting, and critical. once again after some confrontational conversation pt unilaterally leaves the interview. SW contacts MD later in the day and states that pt was willing to try some of the recommendations MD had made during the interivew, such as trying tegretol instead of lamictal for mood stabilization and adding cogentin to olanzapine to reduce what sounds like akathisia. per staff, 3-day up tomorrow. talkative, pleasant with staff. anx 2. 10-10:30 pm screaming, threatening peers. received haldol, ativan, and benadryl IM. paranoid her roommate is trying to kill her so roommate slept in the sensory r oom. Mental Status Exam Mental Status Exam Narrative: [facility], disheveled. minimally cooperative. hypermotoric, agitated, strong gesticulations. speech incr in rate, loudness, amount. decr latency. thoughts loose, wandering. affect hyper-intense, labile, constricted. mood unable to be assessed, SI/HI/AVH not expressed. Diagnostics Vital Signs (24Hr): Vital Signs - 24 hr 10/30/21 19:50 10/31/21 10:17 Temperature 98.2 F 98.2 F Pulse Rate 82 102 H Respiratory Rate 18 17 Blood Pressure 126/86 134/63 Pulse Oximetry 99 98 BMI result Body Mass Index 25.6 Labs Results: 10/24/21 00:07 10/24/21 00:07 Medications Medications Current Medications Acetaminophen (Acetaminophen 325 Mg Tablet) 650 mg PO Q6H PRN PRN Reason: Headache/Pain Mild Scale (1-3) Last Admin: 10/27/21 20:21 Dose: 650 mg Documented by: Al Hydroxide/Mg Hydroxide (Magnesium Hydrox/Alum Hydrox 30 Ml Oral.Susp) 30 ml PO Q6H PRN PRN Reason: Heartburn/Nausea Benztropine Mesylate (Benztropine Mesylate 1 Mg Tablet) 1 mg PO BEDTIME [facility] Carbamazepine (Carbamazepine Er 200 Mg Tab.Er.12h) 200 mg PO BID [facility] Ferrous Sulfate (Ferrous Sulfate 324 Mg Tablet.) 324 mg PO DAILY [facility] Last Admin: 10/31/21 10:18 Dose: 324 mg Documented by: Hydroxyzine HCl (Hydroxyzine Hcl 25 Mg Tablet) 25 mg PO BEDTIME PRN PRN Reason: Anxiety Last Admin: 10/30/21 22:31 Dose: 25 mg Documented by: Hydroxyzine HCl (Hydroxyzine Hcl 50 Mg Tablet) 50 mg PO Q4H PRN PRN Reason: anxiety/agitation Last Admin: 10/31/21 14:08 Dose: 50 mg Documented by: Ibuprofen (Ibuprofen 600 Mg Tablet) 600 mg PO Q6H PRN PRN Reason: cramps Last Admin: 10/29/21 21:29 Dose: 600 mg Documented by: Loperamide HCl (Loperamide Hcl 2 Mg Capsule) 2 mg PO Q6H PRN PRN Reason: Diarrhea Last Admin: 10/28/21 18:39 Dose: 2 mg Documented by: Magnesium Hydroxide (Milk Of Magnesia 30 Ml Oral.Susp) 30 ml PO DAILY PRN PRN Reason: Constipation Melatonin (Melatonin 3 Mg Tablet) 9 mg PO BEDTIME ON LICENSE OF [facility] Last Admin: 10/30/21 21:15 Dose: 9 mg Documented by: Multivitamins/Vitamin C (Multivitamin Tablet) 1 tab PO DAILY [facility] Last Admin: 10/31/21 10:18 Dose: 1 tab Documented by: Nicotine Polacrilex (Nicotine Polacrilex 2 Mg Gum) 2 mg BUCCAL Q2H PRN PRN Reason: Nicotine Cravings Olanzapine (Olanzapine Odt 10 Mg Tab.Rapdis) 10 mg TRANSLINGU BID PRN PRN Reason: agitation Last Admin: 10/30/21 22:32 Dose: 10 mg Documented by: Olanzapine (Olanzapine 5 Mg Tablet) 5 mg PO BEDTIME [facility] Last Admin: 10/30/21 21:15 Dose: 5 mg Documented by: Trazodone HCl (Trazodone Hcl 50 Mg Tablet) 50 mg PO BEDTIME PRN PRN Reason: Insomnia Allergies Allergies Allergy/AdvReac Type Severity Reaction Status Date / Time Sulfa (Sulfonamide AdvReac Rash Verified 10/23/21 23:08 Antibiotics) Assessment & Plan Assessment & Plan (1) Anjali: Status: Acute Code(s): F30.9 - Manic episode, unspecified (2) UTI (urinary tract infection): Status: Acute Code(s): N39.0 - Urinary tract infection, site not specified Plan anjali - olanzapine. stopped zoloft as could be manigenic. added lithium 10/25, which pt has been declining, angrily. rescinded 3-day notice 10/29, started lamictal 25 BID on 10/29. titration per label suggests 25 mg/day x 2 wks, then 50 mg/day x 2 wks. 10/31 pt agreed to tegretol trial, started at 200 BID 10/31. lamictal DCed 10/31. cogentin 1 mg added to HS to counteract what sounds like perhaps akathisia. UTI - antibx control anjali, collect collateral. pt refusing lithium, depakote. I spent ___35___ minutes with the patient and/or on the patient floor today, greater than?50% of which was spent counseling/coordinating care. Reason for contiued inpatient stay Substantial Risk for: harm to others, inability to function and rapid decompensation
[2021-10-31] MEDS: Loperamide HCl 2 MG CAPSULE PO (15:49)
[2021-10-31] MEDS: carBAMazepine ER 200 MG TAB.ER.12H PO ×2 (15:56→21:25)
[2021-10-31] MEDS: OLANZapine ODT 10 MG TAB.RAPDIS TRANSLINGU (18:11)
[2021-10-31 21:16] VITALS: BP 136/80; PULSE 105; TEMP 36.6; O2SAT 98
[2021-10-31] MEDS: Benztropine Mesylate 1 MG TABLET PO (21:25)
[2021-10-31] MEDS: OLANZapine 5 MG TABLET PO (21:25)
[2021-10-31] MEDS: Melatonin 3 MG TABLET 9 MG PO (21:25)
[2021-11-01 08:44] VITALS: BP 123/76; PULSE 78; RESP 17; TEMP 36.6; O2SAT 98
[2021-11-01] MEDS: carBAMazepine ER 200 MG TAB.ER.12H PO (08:47)
[2021-11-01] MEDS: Multivitamin TABLET 1 TAB PO (08:47)
[2021-11-01] MEDS: Ferrous Sulfate 324 MG TABLET.DR PO (08:47)
[2021-11-01 10:59] VITALS: BMI 26.2
[2021-11-01] MEDS: hydrOXYzine HCL 50 MG TABLET PO ×2 (13:44→17:21)
--- NOTE | 2021-11-01 14:25 | P.PNPSI_ITS ---
Subjective Subjective Date of Service: 11/01/21 Reason For Visit: Shamar Interim History: seen with PASTOR morocho. pt much more calm and personable today. no verbal attacks, nearly pleasant with MD. states she is feeling better than she has for 20 years. agreeable to keep her zyprexa and cogentin as they are for the time being - cogentin may have been marginally helpful for akathisia - but to increase tegretol from 200 BID to 300 BID. no other requests or complaints. wants to remain here until she is reliably better. per staff, slept well. less labile, irritable, and reactive. taking tegretol, pleasant, appreciative. Mental Status Exam Mental Status Exam Narrative: hospital nate, disheveled. cooperative. mild fidgetiness. speech incr in rate, amount. decr latency. thoughts more linear and logical. affect hyper- intense, non-labile, constricted. mood described as stable, SI/HI/AVH not expressed. Diagnostics Vital Signs (24Hr): Vital Signs - 24 hr 10/31/21 21:16 11/01/21 08:44 Temperature 97.9 F 97.8 F Pulse Rate 105 H 78 Respiratory Rate 17 Blood Pressure 136/80 123/76 Pulse Oximetry 98 98 BMI result Body Mass Index 26.2 Labs Results: 10/24/21 00:07 10/24/21 00:07 Medications Medications Current Medications Acetaminophen (Acetaminophen 325 Mg Tablet) 650 mg PO Q6H PRN PRN Reason: Headache/Pain Mild Scale (1-3) Last Admin: 10/27/21 20:21 Dose: 650 mg Documented by: Al Hydroxide/Mg Hydroxide (Magnesium Hydrox/Alum Hydrox 30 Ml Oral.Susp) 30 ml PO Q6H PRN PRN Reason: Heartburn/Nausea Benztropine Mesylate (Benztropine Mesylate 1 Mg Tablet) 1 mg PO BEDTIME [facility] Last Admin: 10/31/21 21:25 Dose: 1 mg Documented by: Carbamazepine (Carbamazepine Er 100 Mg Tab.Er.12h) 300 mg PO BID [facility] Ferrous Sulfate (Ferrous Sulfate 324 Mg Tablet.) 324 mg PO DAILY [facility] Last Admin: 11/01/21 08:47 Dose: 324 mg Documented by: Hydroxyzine HCl (Hydroxyzine Hcl 25 Mg Tablet) 25 mg PO BEDTIME PRN PRN Reason: Anxiety Last Admin: 10/30/21 22:31 Dose: 25 mg Documented by: Hydroxyzine HCl (Hydroxyzine Hcl 50 Mg Tablet) 50 mg PO Q4H PRN PRN Reason: anxiety/agitation Last Admin: 11/01/21 13:44 Dose: 50 mg Documented by: Ibuprofen (Ibuprofen 600 Mg Tablet) 600 mg PO Q6H PRN PRN Reason: cramps Last Admin: 10/29/21 21:29 Dose: 600 mg Documented by: Loperamide HCl (Loperamide Hcl 2 Mg Capsule) 2 mg PO Q6H PRN PRN Reason: Diarrhea Last Admin: 10/31/21 15:49 Dose: 2 mg Documented by: Magnesium Hydroxide (Milk Of Magnesia 30 Ml Oral.Susp) 30 ml PO DAILY PRN PRN Reason: Constipation Melatonin (Melatonin 3 Mg Tablet) 9 mg PO BEDTIME [facility] Last Admin: 10/31/21 21:25 Dose: 9 mg Documented by: Multivitamins/Vitamin C (Multivitamin Tablet) 1 tab PO DAILY [facility] Last Admin: 11/01/21 08:47 Dose: 1 tab Documented by: Nicotine Polacrilex (Nicotine Polacrilex 2 Mg Gum) 2 mg BUCCAL Q2H PRN PRN Reason: Nicotine Cravings Olanzapine (Olanzapine Odt 10 Mg Tab.Rapdis) 10 mg TRANSLINGU BID PRN PRN Reason: agitation Last Admin: 10/31/21 18:11 Dose: 10 mg Documented by: Olanzapine (Olanzapine 5 Mg Tablet) 5 mg PO BEDTIME [facility] Last Admin: 10/31/21 21:25 Dose: 5 mg Documented by: Trazodone HCl (Trazodone Hcl 50 Mg Tablet) 50 mg PO BEDTIME PRN PRN Reason: Insomnia Allergies Allergies Allergy/AdvReac Type Severity Reaction Status Date / Time Sulfa (Sulfonamide AdvReac Rash Verified 10/23/21 23:08 Antibiotics) Assessment & Plan Assessment & Plan (1) Shamar: Status: Acute Code(s): F30.9 - Manic episode, unspecified (2) UTI (urinary tract infection): Status: Acute Code(s): N39.0 - Urinary tract infection, site not specified Plan shamar - olanzapine. stopped zoloft as could be manigenic. added lithium 10/25, which pt has been declining, angrily. rescinded 3-day notice 10/29, started lamictal 25 BID on 10/29. titration per label suggests 25 mg/day x 2 wks, then 50 mg/day x 2 wks. 10/31 pt agreed to tegretol trial, started at 200 BID 10/31. lamictal DCed 10/31. cogentin 1 mg added to HS to counteract what sounds like perhaps akathisia. tegretol increased to 300 BID as of 11/01. UTI - antibx control shamar, collect collateral. pt refusing lithium, depakote. I spent ___35___ minutes with the patient and/or on the patient floor today, greater than?50% of which was spent counseling/coordinating care. Reason for contiued inpatient stay Substantial Risk for: inability to function and rapid decompensation
[2021-11-01] MEDS: OLANZapine ODT 10 MG TAB.RAPDIS TRANSLINGU (15:20)
[2021-11-01 21:00] VITALS: BP 110/60; PULSE 83; TEMP 36.6; O2SAT 99
[2021-11-01] MEDS: carBAMazepine ER 100 MG TAB.ER.12H 300 MG PO (21:14)
[2021-11-01] MEDS: OLANZapine 5 MG TABLET PO (21:14)
[2021-11-01] MEDS: Melatonin 3 MG TABLET 9 MG PO (21:14)
[2021-11-01] MEDS: Benztropine Mesylate 1 MG TABLET PO (21:15)
[2021-11-02] MEDS: hydrOXYzine HCL 25 MG TABLET PO (01:02)
[2021-11-02 08:00] VITALS: BP 127/66; PULSE 100; TEMP 36.6; O2SAT 99
[2021-11-02] MEDS: Multivitamin TABLET 1 TAB PO (09:09)
[2021-11-02] MEDS: carBAMazepine ER 100 MG TAB.ER.12H 300 MG PO ×2 (09:09→20:51)
[2021-11-02] MEDS: Ferrous Sulfate 324 MG TABLET.DR PO (09:09)
[2021-11-02] MEDS: Acetaminophen 325 MG TABLET 650 MG PO (12:12)
--- NOTE | 2021-11-02 13:02 | P.PNPSI_ITS ---
Subjective Subjective Date of Service: 11/02/21 Reason For Visit: Anjali Interim History: pt seen with PASTOR. somewhat loose and pressured. states her mood continues better, she is in more control. states she slept a little too much last night, doesn't want to have to sleep more than 8 hours or so. advised to be patient with current dosing and plan to meet again on friday to evaluate progress and adjust meds. per staff, 3-day up 11/07. feeling better. less labile, pacing. attending groups. angry with new patient for causing a ruckus all night. Mental Status Exam Mental Status Exam Narrative: hospital nate, disheveled. cooperative. mild fidgetiness. speech incr in rate, amount. decr latency. thoughts loose, tangential. affect hyper-intense, non-labile, constricted. mood described as stable, SI/HI/AVH not expressed. Diagnostics Vital Signs (24Hr): Vital Signs - 24 hr 11/01/21 21:00 11/02/21 08:00 Temperature 97.9 F 97.8 F Pulse Rate 83 100 Blood Pressure 110/60 127/66 Pulse Oximetry 99 99 BMI result Body Mass Index 26.2 Labs Results: 10/24/21 00:07 10/24/21 00:07 Medications Medications Current Medications Acetaminophen (Acetaminophen 325 Mg Tablet) 650 mg PO Q6H PRN PRN Reason: Headache/Pain Mild Scale (1-3) Last Admin: 11/02/21 12:12 Dose: 650 mg Documented by: Al Hydroxide/Mg Hydroxide (Magnesium Hydrox/Alum Hydrox 30 Ml Oral.Susp) 30 ml PO Q6H PRN PRN Reason: Heartburn/Nausea Benztropine Mesylate (Benztropine Mesylate 1 Mg Tablet) 1 mg PO BEDTIME [facility] Last Admin: 11/01/21 21:15 Dose: 1 mg Documented by: Carbamazepine (Carbamazepine Er 100 Mg Tab.Er.12h) 300 mg PO BID [facility] Last Admin: 11/02/21 09:09 Dose: 300 mg Documented by: Ferrous Sulfate (Ferrous Sulfate 324 Mg Tablet.) 324 mg PO DAILY [facility] Last Admin: 11/02/21 09:09 Dose: 324 mg Documented by: Hydroxyzine HCl (Hydroxyzine Hcl 25 Mg Tablet) 25 mg PO BEDTIME PRN PRN Reason: Anxiety Last Admin: 11/02/21 01:02 Dose: 25 mg Documented by: Hydroxyzine HCl (Hydroxyzine Hcl 50 Mg Tablet) 50 mg PO Q4H PRN PRN Reason: anxiety/agitation Last Admin: 11/01/21 13:44 Dose: 50 mg Documented by: Ibuprofen (Ibuprofen 600 Mg Tablet) 600 mg PO Q6H PRN PRN Reason: cramps Last Admin: 10/29/21 21:29 Dose: 600 mg Documented by: Loperamide HCl (Loperamide Hcl 2 Mg Capsule) 2 mg PO Q6H PRN PRN Reason: Diarrhea Last Admin: 10/31/21 15:49 Dose: 2 mg Documented by: Magnesium Hydroxide (Milk Of Magnesia 30 Ml Oral.Susp) 30 ml PO DAILY PRN PRN Reason: Constipation Melatonin (Melatonin 3 Mg Tablet) 9 mg PO BEDTIME [facility] Last Admin: 11/01/21 21:14 Dose: 9 mg Documented by: Multivitamins/Vitamin C (Multivitamin Tablet) 1 tab PO DAILY [facility] Last Admin: 11/02/21 09:09 Dose: 1 tab Documented by: Nicotine Polacrilex (Nicotine Polacrilex 2 Mg Gum) 2 mg BUCCAL Q2H PRN PRN Reason: Nicotine Cravings Olanzapine (Olanzapine Odt 10 Mg Tab.Rapdis) 10 mg TRANSLINGU BID PRN PRN Reason: agitation Last Admin: 11/01/21 15:20 Dose: 10 mg Documented by: Olanzapine (Olanzapine 5 Mg Tablet) 5 mg PO BEDTIME [facility] Last Admin: 11/01/21 21:14 Dose: 5 mg Documented by: Trazodone HCl (Trazodone Hcl 50 Mg Tablet) 50 mg PO BEDTIME PRN PRN Reason: Insomnia Allergies Allergies Allergy/AdvReac Type Severity Reaction Status Date / Time Sulfa (Sulfonamide AdvReac Rash Verified 10/23/21 23:08 Antibiotics) Assessment & Plan Assessment & Plan (1) Anjali: Status: Acute Code(s): F30.9 - Manic episode, unspecified (2) UTI (urinary tract infection): Status: Acute Code(s): N39.0 - Urinary tract infection, site not specified Plan anjali - olanzapine. stopped zoloft as could be manigenic. added lithium 10/25, which pt has been declining, angrily. rescinded 3-day notice 10/29, started lamictal 25 BID on 10/29. titration per label suggests 25 mg/day x 2 wks, then 50 mg/day x 2 wks. 10/31 pt agreed to tegretol trial, started at 200 BID 10/31. lamictal DCed 10/31. cogentin 1 mg added to HS to counteract what sounds like perhaps akathisia. tegretol increased to 300 BID as of 11/01. plan to keep meds as they are through the weekend, reassess on friday. UTI - antibx control anjali, collect collateral. pt refusing lithium, depakote. I spent __25____ minutes with the patient and/or on the patient floor today, greater than?50% of which was spent counseling/coordinating care. Reason for contiued inpatient stay Substantial Risk for: harm to self, harm to others, inability to function and rapid decompensation
[2021-11-02] MEDS: hydrOXYzine HCL 50 MG TABLET PO (14:06)
[2021-11-02] MEDS: Ibuprofen 600 MG TABLET PO (15:46)
[2021-11-02] MEDS: OLANZapine ODT 10 MG TAB.RAPDIS TRANSLINGU (15:46)
[2021-11-02] MEDS: LORazepam 1 MG TABLET 2 MG PO (17:06)
[2021-11-02 18:00] VITALS: BP 129/69; PULSE 100; RESP 17; TEMP 36.6; O2SAT 99
[2021-11-02] MEDS: Melatonin 3 MG TABLET 9 MG PO (20:52)
[2021-11-02] MEDS: Benztropine Mesylate 1 MG TABLET PO (20:54)
[2021-11-02] MEDS: OLANZapine 5 MG TABLET PO (20:54)
[2021-11-03] MEDS: Multivitamin TABLET 1 TAB PO (08:23)
[2021-11-03] MEDS: Ferrous Sulfate 324 MG TABLET.DR PO (08:23)
[2021-11-03] MEDS: carBAMazepine ER 100 MG TAB.ER.12H 300 MG PO ×2 (08:24→21:36)
[2021-11-03 08:30] VITALS: BP 126/79; PULSE 98; RESP 20; TEMP 36.4; O2SAT 98
--- NOTE | 2021-11-03 10:52 | HO.PSYCHPN ---
Subjective Subjective Date of Service: 11/03/21 Reason For Visit: Anjali Subjective Notes: Conditional Voluntary Interim History: The nursing staff reported the patient has been pacing in the hallway at times. She slept well but she looked confused early in the morning. On interview the patient denies exacerbation of anjali but she looks slightly readable. She was angry Vish's she could not sleep well due to her roommate who was a little loud. No safety concerns. Mental Status Exam Mental Status Exam Patient Appearance: Well Grooomed Patient Orientation: Person and Situation Level of Consciousness: Awake Mood Description: Withdrawn Affect Description: Labile Patient Cognition Impaired: No Ability to Follow Directions: Good Speech Pattern: Clear Hallucinations: None Delusions: Not Present Thought Process: Distracted Thought Content: positive for [place] and positive for Circumstantial Judgement: Fair Diagnostics Vital Signs (24Hr): Vital Signs - 24 hr 11/02/21 18:00 11/03/21 08:30 Temperature 97.8 F 97.5 F Pulse Rate 100 98 Respiratory Rate 17 20 Blood Pressure 129/69 126/79 Pulse Oximetry 99 98 BMI result Body Mass Index 26.2 Labs Results: 10/24/21 00:07 10/24/21 00:07 Medications Medications Current Medications Acetaminophen (Acetaminophen 325 Mg Tablet) 650 mg PO Q6H PRN PRN Reason: Headache/Pain Mild Scale (1-3) Last Admin: 11/02/21 12:12 Dose: 650 mg Documented by: Al Hydroxide/Mg Hydroxide (Magnesium Hydrox/Alum Hydrox 30 Ml Oral.Susp) 30 ml PO Q6H PRN PRN Reason: Heartburn/Nausea Benztropine Mesylate (Benztropine Mesylate 1 Mg Tablet) 1 mg PO BEDTIME [facility] Last Admin: 11/02/21 20:54 Dose: 1 mg Documented by: Carbamazepine (Carbamazepine Er 100 Mg Tab.Er.12h) 300 mg PO BID [facility] Last Admin: 11/03/21 08:24 Dose: 300 mg Documented by: Ferrous Sulfate (Ferrous Sulfate 324 Mg Tablet.) 324 mg PO DAILY [facility] Last Admin: 11/03/21 08:23 Dose: 324 mg Documented by: Hydroxyzine HCl (Hydroxyzine Hcl 25 Mg Tablet) 25 mg PO BEDTIME PRN PRN Reason: Anxiety Last Admin: 11/02/21 01:02 Dose: 25 mg Documented by: Hydroxyzine HCl (Hydroxyzine Hcl 50 Mg Tablet) 50 mg PO Q4H PRN PRN Reason: anxiety/agitation Last Admin: 11/02/21 14:06 Dose: 50 mg Documented by: Ibuprofen (Ibuprofen 600 Mg Tablet) 600 mg PO Q6H PRN PRN Reason: cramps Last Admin: 11/02/21 15:46 Dose: 600 mg Documented by: Loperamide HCl (Loperamide Hcl 2 Mg Capsule) 2 mg PO Q6H PRN PRN Reason: Diarrhea Last Admin: 10/31/21 15:49 Dose: 2 mg Documented by: Magnesium Hydroxide (Milk Of Magnesia 30 Ml Oral.Susp) 30 ml PO DAILY PRN PRN Reason: Constipation Melatonin (Melatonin 3 Mg Tablet) 9 mg PO BEDTIME [facility] Last Admin: 11/02/21 20:52 Dose: 9 mg Documented by: Multivitamins/Vitamin C (Multivitamin Tablet) 1 tab PO DAILY [facility] Last Admin: 11/03/21 08:23 Dose: 1 tab Documented by: Nicotine Polacrilex (Nicotine Polacrilex 2 Mg Gum) 2 mg BUCCAL Q2H PRN PRN Reason: Nicotine Cravings Olanzapine (Olanzapine Odt 10 Mg Tab.Rapdis) 10 mg TRANSLINGU BID PRN PRN Reason: agitation Last Admin: 11/02/21 15:46 Dose: 10 mg Documented by: Olanzapine (Olanzapine 5 Mg Tablet) 5 mg PO BEDTIME [facility] Last Admin: 11/02/21 20:54 Dose: 5 mg Documented by: Trazodone HCl (Trazodone Hcl 50 Mg Tablet) 50 mg PO BEDTIME PRN PRN Reason: Insomnia Allergies Allergies Allergy/AdvReac Type Severity Reaction Status Date / Time Sulfa (Sulfonamide AdvReac Rash Verified 10/23/21 23:08 Antibiotics) Assessment & Plan Assessment & Plan (1) Anjali: Status: Acute Code(s): F30.9 - Manic episode, unspecified (2) UTI (urinary tract infection): Status: Acute Code(s): N39.0 - Urinary tract infection, site not specified Plan anjali - olanzapine. stopped zoloft as could be manigenic. added lithium 10/25, which pt has been declining, angrily. rescinded 3-day notice 10/29, started lamictal 25 BID on 10/29. titration per label suggests 25 mg/day x 2 wks, then 50 mg/day x 2 wks. 10/31 pt agreed to tegretol trial, started at 200 BID 10/31. lamictal DCed 10/31. cogentin 1 mg added to HS to counteract what sounds like perhaps akathisia. tegretol increased to 300 BID as of 11/01. plan to keep meds as they are through the weekend, reassess on friday. UTI - antibx control anjali, collect collateral. pt refusing lithium, depakote. I spent __20____ minutes with the patient and/or on the patient floor today, greater than?50% of which was spent counseling/coordinating care. Reason for contiued inpatient stay Substantial Risk for: inability to function, rapid decompensation and med/psych decompensation
[2021-11-03] MEDS: OLANZapine ODT 10 MG TAB.RAPDIS TRANSLINGU ×2 (13:56→19:46)
[2021-11-03] MEDS: hydrOXYzine HCL 50 MG TABLET PO (16:39)
[2021-11-03 19:24] VITALS: BP 120/79; PULSE 96; RESP 20; TEMP 36.6; O2SAT 98
[2021-11-03] MEDS: Melatonin 3 MG TABLET 9 MG PO (21:35)
[2021-11-03] MEDS: Benztropine Mesylate 1 MG TABLET PO (21:36)
[2021-11-03] MEDS: OLANZapine 5 MG TABLET PO (21:36)
[2021-11-04] MEDS: Ferrous Sulfate 324 MG TABLET.DR PO (09:35)
[2021-11-04] MEDS: Multivitamin TABLET 1 TAB PO (09:35)
[2021-11-04] MEDS: carBAMazepine ER 100 MG TAB.ER.12H 300 MG PO ×2 (09:36→20:52)
[2021-11-04 10:00] VITALS: BP 119/87; PULSE 100; RESP 20; TEMP 36.1; O2SAT 99
[2021-11-04] MEDS: OLANZapine ODT 10 MG TAB.RAPDIS TRANSLINGU ×2 (10:42→14:13)
--- NOTE | 2021-11-04 14:08 | P.PNPSI_ITS ---
Subjective Subjective Date of Service: 11/04/21 Reason For Visit: Anjali Subjective Notes: Conditional Voluntary Interim History: The nursing staff reported the patient has been more irritable and angry with other peers. Today on interview she was angry and sad, she explained that she used to go to charge with her children on Friday and now she is here. She does not want to take any that is addictive so she agreed to take Zyprexa Zydis x1 to see how it works for her anxiety. Mental Status Exam Mental Status Exam Patient Appearance: Appropriate Patient Orientation: Person and Situation Level of Consciousness: Appropriate Patient Behavior: Guarded and Aggressive Mood Description: Labile Affect Description: Constricted Patient Cognition Impaired: No Ability to Follow Directions: Good Speech Pattern: Clear Hallucinations: None Delusions: Not Present Thought Process: Illogical and Distracted Thought Content: positive for [place] and positive for Tangential Judgement: Fair Diagnostics Vital Signs (24Hr): Vital Signs - 24 hr 11/03/21 19:24 11/04/21 10:00 Temperature 97.9 F 97.0 F Pulse Rate 96 100 Respiratory Rate 20 20 Blood Pressure 120/79 119/87 Pulse Oximetry 98 99 BMI result Body Mass Index 26.2 Labs Results: 10/24/21 00:07 10/24/21 00:07 Medications Medications Current Medications Acetaminophen (Acetaminophen 325 Mg Tablet) 650 mg PO Q6H PRN PRN Reason: Headache/Pain Mild Scale (1-3) Last Admin: 11/02/21 12:12 Dose: 650 mg Documented by: Al Hydroxide/Mg Hydroxide (Magnesium Hydrox/Alum Hydrox 30 Ml Oral.Susp) 30 ml PO Q6H PRN PRN Reason: Heartburn/Nausea Benztropine Mesylate (Benztropine Mesylate 1 Mg Tablet) 1 mg PO BEDTIME [facility] Last Admin: 11/03/21 21:36 Dose: 1 mg Documented by: Carbamazepine (Carbamazepine Er 100 Mg Tab.Er.12h) 300 mg PO BID [facility] Last Admin: 11/04/21 09:36 Dose: 300 mg Documented by: Ferrous Sulfate (Ferrous Sulfate 324 Mg Tablet.) 324 mg PO DAILY [facility] Last Admin: 11/04/21 09:35 Dose: 324 mg Documented by: Hydroxyzine HCl (Hydroxyzine Hcl 25 Mg Tablet) 25 mg PO BEDTIME PRN PRN Reason: Anxiety Last Admin: 11/02/21 01:02 Dose: 25 mg Documented by: Hydroxyzine HCl (Hydroxyzine Hcl 50 Mg Tablet) 50 mg PO Q4H PRN PRN Reason: anxiety/agitation Last Admin: 11/03/21 16:39 Dose: 50 mg Documented by: Ibuprofen (Ibuprofen 600 Mg Tablet) 600 mg PO Q6H PRN PRN Reason: cramps Last Admin: 11/02/21 15:46 Dose: 600 mg Documented by: Loperamide HCl (Loperamide Hcl 2 Mg Capsule) 2 mg PO Q6H PRN PRN Reason: Diarrhea Last Admin: 10/31/21 15:49 Dose: 2 mg Documented by: Magnesium Hydroxide (Milk Of Magnesia 30 Ml Oral.Susp) 30 ml PO DAILY PRN PRN Reason: Constipation Melatonin (Melatonin 3 Mg Tablet) 9 mg PO BEDTIME [facility] Last Admin: 11/03/21 21:35 Dose: 9 mg Documented by: Multivitamins/Vitamin C (Multivitamin Tablet) 1 tab PO DAILY [facility] Last Admin: 11/04/21 09:35 Dose: 1 tab Documented by: Nicotine Polacrilex (Nicotine Polacrilex 2 Mg Gum) 2 mg BUCCAL Q2H PRN PRN Reason: Nicotine Cravings Olanzapine (Olanzapine Odt 10 Mg Tab.Rapdis) 10 mg TRANSLINGU BID PRN PRN Reason: agitation Last Admin: 11/04/21 10:42 Dose: 10 mg Documented by: Olanzapine (Olanzapine 5 Mg Tablet) 5 mg PO BEDTIME [facility] Last Admin: 11/03/21 21:36 Dose: 5 mg Documented by: Olanzapine (Olanzapine Odt 10 Mg Tab.Rapdis) 10 mg TRANSLINGU ONCE ONE Stop: 11/04/21 14:07 Trazodone HCl (Trazodone Hcl 50 Mg Tablet) 50 mg PO BEDTIME PRN PRN Reason: Insomnia Allergies Allergies Allergy/AdvReac Type Severity Reaction Status Date / Time Sulfa (Sulfonamide AdvReac Rash Verified 10/23/21 23:08 Antibiotics) Assessment & Plan Assessment & Plan (1) Anjali: Status: Acute Code(s): F30.9 - Manic episode, unspecified (2) UTI (urinary tract infection): Status: Acute Code(s): N39.0 - Urinary tract infection, site not specified Plan anjali - olanzapine. stopped zoloft as could be manigenic. added lithium 10/25, which pt has been declining, angrily. rescinded 3-day notice 10/29, started lamictal 25 BID on 10/29. titration per label suggests 25 mg/day x 2 wks, then 50 mg/day x 2 wks. 10/31 pt agreed to tegretol trial, started at 200 BID 10/31. lamictal DCed 10/31. cogentin 1 mg added to HS to counteract what sounds like perhaps akathisia. tegretol increased to 300 BID as of 11/01. plan to keep meds as they are through the weekend, reassess on friday. UTI - antibx control anjali, collect collateral. pt refusing lithium, depakote. Try 1 time Zydis 10 now I spent __20____ minutes with the patient and/or on the patient floor today, greater than?50% of which was spent counseling/coordinating care. Reason for contiued inpatient stay Substantial Risk for: inability to function, rapid decompensation and med/psych decompensation
[2021-11-04] MEDS: hydrOXYzine HCL 50 MG TABLET PO (20:01)
[2021-11-04 20:43] VITALS: BP 119/60; PULSE 94; RESP 16; TEMP 36.4; O2SAT 99
[2021-11-04] MEDS: OLANZapine 5 MG TABLET PO (20:52)
[2021-11-04] MEDS: Benztropine Mesylate 1 MG TABLET PO (20:52)
[2021-11-04] MEDS: Melatonin 3 MG TABLET 9 MG PO (20:52)
[2021-11-05 08:12] VITALS: BP 116/59; PULSE 79; RESP 18; TEMP 36.4; O2SAT 99
[2021-11-05] MEDS: carBAMazepine ER 100 MG TAB.ER.12H 300 MG PO ×2 (08:14→20:52)
[2021-11-05] MEDS: Multivitamin TABLET 1 TAB PO (08:15)
[2021-11-05] MEDS: Ferrous Sulfate 324 MG TABLET.DR PO (08:15)
[2021-11-05] MEDS: OLANZapine ODT 10 MG TAB.RAPDIS TRANSLINGU ×2 (09:58→16:50)
--- NOTE | 2021-11-05 11:58 | HO.PSYCHPN ---
Subjective Subjective Date of Service: 11/05/21 Reason For Visit: Anjali Subjective Notes: Conditional Voluntary Interim History: The nursing staff reported the patient was irritable since yesterday. She took Zydis with good effect in the afternoon and she was slightly sedated the night. She slept well. On interview she feels less irritable, we discussed options and she agreed increase Zyprexa tonight and check Tegretol tomorrow morning. Mental Status Exam Mental Status Exam Patient Appearance: Well Grooomed Patient Orientation: Person and Situation Level of Consciousness: Awake Patient Behavior: Appropriate Mood Description: Calm Affect Description: Constricted Patient Cognition Impaired: No Ability to Follow Directions: Good Speech Pattern: Clear Hallucinations: None Delusions: Not Present Thought Process: Linear Thought Content: positive for [place] and positive for Circumstantial Judgement: Fair Diagnostics Vital Signs (24Hr): Vital Signs - 24 hr 11/04/21 20:43 11/05/21 08:12 Temperature 97.6 F 97.6 F Pulse Rate 94 79 Respiratory Rate 16 18 Blood Pressure 119/60 116/59 L Pulse Oximetry 99 99 BMI result Body Mass Index 26.2 Labs Results: 10/24/21 00:07 10/24/21 00:07 Medications Medications Current Medications Acetaminophen (Acetaminophen 325 Mg Tablet) 650 mg PO Q6H PRN PRN Reason: Headache/Pain Mild Scale (1-3) Last Admin: 11/02/21 12:12 Dose: 650 mg Documented by: Al Hydroxide/Mg Hydroxide (Magnesium Hydrox/Alum Hydrox 30 Ml Oral.Susp) 30 ml PO Q6H PRN PRN Reason: Heartburn/Nausea Benztropine Mesylate (Benztropine Mesylate 1 Mg Tablet) 1 mg PO BEDTIME [facility] Last Admin: 11/04/21 20:52 Dose: 1 mg Documented by: Carbamazepine (Carbamazepine Er 100 Mg Tab.Er.12h) 300 mg PO BID [facility] Last Admin: 11/05/21 08:14 Dose: 300 mg Documented by: Ferrous Sulfate (Ferrous Sulfate 324 Mg Tablet.) 324 mg PO DAILY [facility] Last Admin: 11/05/21 08:15 Dose: 324 mg Documented by: Hydroxyzine HCl (Hydroxyzine Hcl 25 Mg Tablet) 25 mg PO BEDTIME PRN PRN Reason: Anxiety Last Admin: 11/02/21 01:02 Dose: 25 mg Documented by: Hydroxyzine HCl (Hydroxyzine Hcl 50 Mg Tablet) 50 mg PO Q4H PRN PRN Reason: anxiety/agitation Last Admin: 11/04/21 20:01 Dose: 50 mg Documented by: Ibuprofen (Ibuprofen 600 Mg Tablet) 600 mg PO Q6H PRN PRN Reason: cramps Last Admin: 11/02/21 15:46 Dose: 600 mg Documented by: Loperamide HCl (Loperamide Hcl 2 Mg Capsule) 2 mg PO Q6H PRN PRN Reason: Diarrhea Last Admin: 10/31/21 15:49 Dose: 2 mg Documented by: Magnesium Hydroxide (Milk Of Magnesia 30 Ml Oral.Susp) 30 ml PO DAILY PRN PRN Reason: Constipation Melatonin (Melatonin 3 Mg Tablet) 9 mg PO BEDTIME [facility] Last Admin: 11/04/21 20:52 Dose: 9 mg Documented by: Multivitamins/Vitamin C (Multivitamin Tablet) 1 tab PO DAILY [facility] Last Admin: 11/05/21 08:15 Dose: 1 tab Documented by: Nicotine Polacrilex (Nicotine Polacrilex 2 Mg Gum) 2 mg BUCCAL Q2H PRN PRN Reason: Nicotine Cravings Olanzapine (Olanzapine Odt 10 Mg Tab.Rapdis) 10 mg TRANSLINGU BID PRN PRN Reason: agitation Last Admin: 11/05/21 09:58 Dose: 10 mg Documented by: Trazodone HCl (Trazodone Hcl 50 Mg Tablet) 50 mg PO BEDTIME PRN PRN Reason: Insomnia Allergies Allergies Allergy/AdvReac Type Severity Reaction Status Date / Time Sulfa (Sulfonamide AdvReac Rash Verified 10/23/21 23:08 Antibiotics) Assessment & Plan Assessment & Plan (1) Anjali: Status: Acute Code(s): F30.9 - Manic episode, unspecified (2) UTI (urinary tract infection): Status: Acute Code(s): N39.0 - Urinary tract infection, site not specified Plan anjali - olanzapine. stopped zoloft as could be manigenic. added lithium 10/25, which pt has been declining, angrily. rescinded 3-day notice 10/29, started lamictal 25 BID on 10/29. titration per label suggests 25 mg/day x 2 wks, then 50 mg/day x 2 wks. 10/31 pt agreed to tegretol trial, started at 200 BID 10/31. lamictal DCed 10/31. cogentin 1 mg added to HS to counteract what sounds like perhaps akathisia. tegretol increased to 300 BID as of 11/01. plan to keep meds as they are through the weekend, reassess on friday. UTI - antibx control anjali, collect collateral. pt refusing lithium, depakote. 11/05/2021 Zyprexa increased up to 10 mg p.o. q.h.s., keep Zydis p.r.n. and get a Tegretol level for tomorrow morning. I spent minutes with the patient and/or on the patient floor today, greater than?50% of which was spent counseling/coordinating care. Reason for contiued inpatient stay Substantial Risk for: inability to function, rapid decompensation and med/psych decompensation
[2021-11-05] MEDS: hydrOXYzine HCL 50 MG TABLET PO (15:11)
[2021-11-05 20:05] VITALS: BP 108/65; PULSE 84; RESP 16; TEMP 36.4; O2SAT 97
[2021-11-05] MEDS: Benztropine Mesylate 1 MG TABLET PO (20:52)
[2021-11-05] MEDS: Melatonin 3 MG TABLET 9 MG PO (20:52)
[2021-11-05] MEDS: OLANZapine 10 MG TABLET PO (20:52)
[2021-11-06] MEDS: OLANZapine ODT 10 MG TAB.RAPDIS TRANSLINGU ×2 (03:07→13:52)
[2021-11-06] MEDS: Ferrous Sulfate 324 MG TABLET.DR PO (08:53)
[2021-11-06] MEDS: carBAMazepine ER 100 MG TAB.ER.12H 300 MG PO (08:53)
[2021-11-06] MEDS: Multivitamin TABLET 1 TAB PO (08:53)
[2021-11-06 09:53] VITALS: BP 112/75; PULSE 89; RESP 17; TEMP 36.3; O2SAT 99
[2021-11-06] MEDS: hydrOXYzine HCL 50 MG TABLET PO ×2 (11:36→17:46)
[2021-11-06 13:20] LABS: Carbamazepine Tegretol 7.4 mcg/mL (5.0-12.0)
--- NOTE | 2021-11-06 14:05 | HO.PSYCHPN ---
Subjective Subjective Date of Service: 11/06/21 Reason For Visit: Anjali Interim History: pt seen with SW. pt pressured, irritable, delusional, critical, dismissive, condescending. in short, back to how she was early last week. she appears to tell MD to do whatever he thinks he needs to do and then gets up and unilaterally exits the interview. per staff, 3-day up tomorrow. showered, having positive interactions with others. feels safe. mild depression of 3/10. anxiety 5/10. watching TV, pacing, listening to music. sleeping well, non-sensical at times. c/o AH last night of people screaming. Mental Status Exam Mental Status Exam Narrative: hospital nate, disheveled. minimally cooperative. hypermotoric, agitated, strong gesticulations. speech incr in rate, loudness, amount. decr latency. thoughts loose, wandering, delusional. affect hyper-intense, labile, constricted. mood unable to be assessed, SI/HI/AVH not expressed. Diagnostics Vital Signs (24Hr): Vital Signs - 24 hr 11/05/21 20:05 11/06/21 09:53 Temperature 97.6 F 97.4 F Pulse Rate 84 89 Respiratory Rate 16 17 Blood Pressure 108/65 112/75 Pulse Oximetry 97 99 BMI result Body Mass Index 26.2 Labs Results: 10/24/21 00:07 10/24/21 00:07 Labs: Laboratory Results - last 48 hr 11/06/21 08:54 Carbamazepine 7.4 Medications Medications Current Medications Acetaminophen (Acetaminophen 325 Mg Tablet) 650 mg PO Q6H PRN PRN Reason: Headache/Pain Mild Scale (1-3) Last Admin: 11/02/21 12:12 Dose: 650 mg Documented by: Al Hydroxide/Mg Hydroxide (Magnesium Hydrox/Alum Hydrox 30 Ml Oral.Susp) 30 ml PO Q6H PRN PRN Reason: Heartburn/Nausea Benztropine Mesylate (Benztropine Mesylate 1 Mg Tablet) 1 mg PO BEDTIME [facility] Last Admin: 11/05/21 20:52 Dose: 1 mg Documented by: Carbamazepine (Carbamazepine Er 200 Mg Tab.Er.12h) 400 mg PO BID [facility] Ferrous Sulfate (Ferrous Sulfate 324 Mg Tablet.) 324 mg PO DAILY [facility] Last Admin: 11/06/21 08:53 Dose: 324 mg Documented by: Hydroxyzine HCl (Hydroxyzine Hcl 25 Mg Tablet) 25 mg PO BEDTIME PRN PRN Reason: Anxiety Last Admin: 11/02/21 01:02 Dose: 25 mg Documented by: Hydroxyzine HCl (Hydroxyzine Hcl 50 Mg Tablet) 50 mg PO Q4H PRN PRN Reason: anxiety/agitation Last Admin: 11/06/21 11:36 Dose: 50 mg Documented by: Ibuprofen (Ibuprofen 600 Mg Tablet) 600 mg PO Q6H PRN PRN Reason: cramps Last Admin: 11/02/21 15:46 Dose: 600 mg Documented by: Loperamide HCl (Loperamide Hcl 2 Mg Capsule) 2 mg PO Q6H PRN PRN Reason: Diarrhea Last Admin: 10/31/21 15:49 Dose: 2 mg Documented by: Magnesium Hydroxide (Milk Of Magnesia 30 Ml Oral.Susp) 30 ml PO DAILY PRN PRN Reason: Constipation Melatonin (Melatonin 3 Mg Tablet) 9 mg PO BEDTIME [facility] Last Admin: 11/05/21 20:52 Dose: 9 mg Documented by: Multivitamins/Vitamin C (Multivitamin Tablet) 1 tab PO DAILY [facility] Last Admin: 11/06/21 08:53 Dose: 1 tab Documented by: Nicotine Polacrilex (Nicotine Polacrilex 2 Mg Gum) 2 mg BUCCAL Q2H PRN PRN Reason: Nicotine Cravings Olanzapine (Olanzapine Odt 10 Mg Tab.Rapdis) 10 mg TRANSLINGU BID PRN PRN Reason: agitation Last Admin: 11/06/21 13:52 Dose: 10 mg Documented by: Olanzapine (Olanzapine 10 Mg Tablet) 10 mg PO BEDTIME [facility] Last Admin: 11/05/21 20:52 Dose: 10 mg Documented by: Trazodone HCl (Trazodone Hcl 50 Mg Tablet) 50 mg PO BEDTIME PRN PRN Reason: Insomnia Allergies Allergies Allergy/AdvReac Type Severity Reaction Status Date / Time Sulfa (Sulfonamide AdvReac Rash Verified 10/23/21 23:08 Antibiotics) Assessment & Plan Assessment & Plan (1) Anjali: Status: Acute Code(s): F30.9 - Manic episode, unspecified (2) UTI (urinary tract infection): Status: Acute Code(s): N39.0 - Urinary tract infection, site not specified Plan anjali - olanzapine. stopped zoloft as could be manigenic. added lithium 10/25, which pt has been declining, angrily. rescinded 3-day notice 10/29, started lamictal 25 BID on 10/29. titration per label suggests 25 mg/day x 2 wks, then 50 mg/day x 2 wks. 10/31 pt agreed to tegretol trial, started at 200 BID 10/31. lamictal DCed 10/31. cogentin 1 mg added to HS to counteract what sounds like perhaps akathisia. tegretol increased to 300 BID as of 11/01. pt worse 11/06 than previous, tegretol dosing increased to 400 mg BID. UTI - antibx control anjali, collect collateral. pt refusing lithium, depakote. 11/05/2021 Zyprexa increased up to 10 mg p.o. q.h.s., keep Zydis p.r.n. and get a Tegretol level for tomorrow morning. I spent ____20__ minutes with the patient and/or on the patient floor today, greater than?50% of which was spent counseling/coordinating care. Reason for contiued inpatient stay Substantial Risk for: inability to function and rapid decompensation
[2021-11-06] MEDS: carBAMazepine ER 200 MG TAB.ER.12H 400 MG PO (19:58)
[2021-11-06] MEDS: Melatonin 3 MG TABLET 9 MG PO (19:58)
[2021-11-06] MEDS: Benztropine Mesylate 1 MG TABLET PO (19:58)
[2021-11-06] MEDS: OLANZapine 10 MG TABLET PO (19:58)
[2021-11-06 20:04] VITALS: BP 118/80; PULSE 110; RESP 18; TEMP 36.8; O2SAT 95
[2021-11-07 06:00] VITALS: BP 97/46; PULSE 90; RESP 16; TEMP 36.3; O2SAT 98
[2021-11-07] MEDS: carBAMazepine ER 200 MG TAB.ER.12H 400 MG PO ×2 (09:01→20:32)
[2021-11-07] MEDS: Multivitamin TABLET 1 TAB PO (09:01)
[2021-11-07] MEDS: Ferrous Sulfate 324 MG TABLET.DR PO (09:02)
[2021-11-07] MEDS: hydrOXYzine HCL 50 MG TABLET PO (12:41)
--- NOTE | 2021-11-07 18:44 | P.PNPSI_ITS ---
Subjective Subjective Date of Service: 11/07/21 Reason For Visit: Anjali Interim History: pt seen with SW. more personable today than yesterday. has retracted her 3-day and signed another. feels her mood has improved a bit since yesterday. willing to invest the time here to get her medications right so she doesn't need to return. c/o weight gain with zyprexa, agrees to trial of neuroleptic less likely to cause weight gain. pt tells MD, dealer's choice as MD attempts to engage her in a discussion to choose a particular agent. per staff, 3-day up today. per staff, pt was up and down all night. she informed staff she felt she slept well. anx 10/16. med-compliant. Mental Status Exam Mental Status Exam Narrative: hospital nate, disheveled. cooperative. mild fidgetiness. speech incr in rate, amount. decr latency. thoughts more linear and logical. affect hyper-intense, min-labile, constricted. mood described as better than yesterday, SI/HI/AVH not expressed. Diagnostics Vital Signs (24Hr): Vital Signs - 24 hr 11/06/21 20:04 11/07/21 06:00 Temperature 98.3 F 97.3 F Pulse Rate 110 H 90 Respiratory Rate 18 16 Blood Pressure 118/80 97/46 L Pulse Oximetry 95 98 BMI result Body Mass Index 26.2 Labs Results: 10/24/21 00:07 10/24/21 00:07 Labs: Laboratory Results - last 48 hr 11/06/21 08:54 Carbamazepine 7.4 Medications Medications Current Medications Acetaminophen (Acetaminophen 325 Mg Tablet) 650 mg PO Q6H PRN PRN Reason: Headache/Pain Mild Scale (1-3) Last Admin: 11/02/21 12:12 Dose: 650 mg Documented by: Al Hydroxide/Mg Hydroxide (Magnesium Hydrox/Alum Hydrox 30 Ml Oral.Susp) 30 ml PO Q6H PRN PRN Reason: Heartburn/Nausea Benztropine Mesylate (Benztropine Mesylate 1 Mg Tablet) 1 mg PO BEDTIME [facility] Last Admin: 11/06/21 19:58 Dose: 1 mg Documented by: Benztropine Mesylate (Benztropine Mesylate 1 Mg Tablet) 1 mg PO BEDTIME [facility] Carbamazepine (Carbamazepine Er 200 Mg Tab.Er.12h) 400 mg PO BID [facility] Last Admin: 11/07/21 09:01 Dose: 400 mg Documented by: Diphenhydramine HCl (Diphenhydramine Hcl 25 Mg Tablet) 50 mg PO Q4H PRN PRN Reason: EPS Ferrous Sulfate (Ferrous Sulfate 324 Mg Tablet.) 324 mg PO DAILY [facility] Last Admin: 11/07/21 09:02 Dose: 324 mg Documented by: Fluphenazine HCl (Fluphenazine Hcl 5 Mg Tablet) 5 mg PO BEDTIME [facility] Fluphenazine HCl (Fluphenazine Hcl 2.5 Mg Tablet) 2.5 mg PO BEDTIME PRN PRN Reason: insomnia Hydroxyzine HCl (Hydroxyzine Hcl 25 Mg Tablet) 25 mg PO BEDTIME PRN PRN Reason: Anxiety Last Admin: 11/02/21 01:02 Dose: 25 mg Documented by: Hydroxyzine HCl (Hydroxyzine Hcl 50 Mg Tablet) 50 mg PO Q4H PRN PRN Reason: anxiety/agitation Last Admin: 11/07/21 12:41 Dose: 50 mg Documented by: Ibuprofen (Ibuprofen 600 Mg Tablet) 600 mg PO Q6H PRN PRN Reason: cramps Last Admin: 11/02/21 15:46 Dose: 600 mg Documented by: Loperamide HCl (Loperamide Hcl 2 Mg Capsule) 2 mg PO Q6H PRN PRN Reason: Diarrhea Last Admin: 10/31/21 15:49 Dose: 2 mg Documented by: Magnesium Hydroxide (Milk Of Magnesia 30 Ml Oral.Susp) 30 ml PO DAILY PRN PRN Reason: Constipation Melatonin (Melatonin 3 Mg Tablet) 9 mg PO BEDTIME [facility] Last Admin: 11/06/21 19:58 Dose: 9 mg Documented by: Multivitamins/Vitamin C (Multivitamin Tablet) 1 tab PO DAILY [facility] Last Admin: 11/07/21 09:01 Dose: 1 tab Documented by: Nicotine Polacrilex (Nicotine Polacrilex 2 Mg Gum) 2 mg BUCCAL Q2H PRN PRN Reason: Nicotine Cravings Trazodone HCl (Trazodone Hcl 50 Mg Tablet) 50 mg PO BEDTIME PRN PRN Reason: Insomnia Allergies Allergies Allergy/AdvReac Type Severity Reaction Status Date / Time Sulfa (Sulfonamide AdvReac Rash Verified 10/23/21 23:08 Antibiotics) Assessment & Plan Assessment & Plan (1) Anjali: Status: Acute Code(s): F30.9 - Manic episode, unspecified (2) UTI (urinary tract infection): Status: Acute Code(s): N39.0 - Urinary tract infection, site not specified Plan anjali - olanzapine. stopped zoloft as could be manigenic. added lithium 10/25, which pt has been declining, angrily. rescinded 3-day notice 10/29, started lamictal 25 BID on 10/29. titration per label suggests 25 mg/day x 2 wks, then 50 mg/day x 2 wks. 10/31 pt agreed to tegretol trial, started at 200 BID 10/31. lamictal DCed 10/31. cogentin 1 mg added to HS to counteract what sounds like perhaps akathisia. tegretol increased to 300 BID as of 11/01. pt worse 11/06 than previous, tegretol dosing increased to 400 mg BID. UTI - antibx control anjali, collect collateral. pt refusing lithium, depakote. 11/05/2021 Zyprexa increased up to 10 mg p.o. q.h.s., keep Zydis p.r.n. and get a Tegretol level for tomorrow morning. 11/07: zyprexa DCed due to weight gain. prolixin 5 mg QHS started 11/07, along with cogentin 1 mg QHS. I spent ___25___ minutes with the patient and/or on the patient floor today, greater than?50% of which was spent counseling/coordinating care. Reason for contiued inpatient stay Substantial Risk for: inability to function and rapid decompensation
[2021-11-07] MEDS: Ibuprofen 600 MG TABLET PO (18:58)
[2021-11-07] MEDS: Melatonin 3 MG TABLET 9 MG PO (20:32)
[2021-11-07] MEDS: fluPHENAZine HCl 5 MG TABLET PO (20:32)
[2021-11-07] MEDS: Benztropine Mesylate 1 MG TABLET PO (20:33)
[2021-11-07 20:39] VITALS: BP 118/66; PULSE 80; RESP 18; TEMP 36.7; O2SAT 100
[2021-11-08 08:29] VITALS: BP 132/101; PULSE 89; RESP 17; TEMP 36.4; O2SAT 97
[2021-11-08] MEDS: carBAMazepine ER 200 MG TAB.ER.12H 400 MG PO ×2 (08:30→21:09)
[2021-11-08] MEDS: Multivitamin TABLET 1 TAB PO (08:30)
[2021-11-08] MEDS: Ferrous Sulfate 324 MG TABLET.DR PO (08:30)
[2021-11-08] MEDS: Acetaminophen 325 MG TABLET 650 MG PO (15:14)
[2021-11-08 15:27] VITALS: BMI 27.2
--- NOTE | 2021-11-08 15:57 | P.PNPSI_ITS ---
Subjective Subjective Date of Service: 11/08/21 Reason For Visit: Shamar Interim History: asking for friday discharge. reluctantly agrees when both MD and SW encourage her to stay the weekend. makes some comments which appear delusional and likely indicating AH. will check labs friday morning. states she feels better having stopped taking the zyprexa yesterday ebony. denies any side effects from prolixin and cogentin. Mental Status Exam Mental Status Exam Narrative: hospital nate, disheveled. cooperative. mild fidgetiness. speech incr in rate, amount. decr latency. thoughts more linear and logical. paranoid delusions evident. affect hyper-intense, min-labile, constricted. mood described as generally improved, SI/HI/AVH not expressed. Diagnostics Vital Signs (24Hr): Vital Signs - 24 hr 11/07/21 20:39 11/08/21 08:29 Temperature 98.0 F 97.5 F Pulse Rate 80 89 Respiratory Rate 18 17 Blood Pressure 118/66 132/101 H Pulse Oximetry 100 97 BMI result Body Mass Index 27.2 Labs Results: 10/24/21 00:07 10/24/21 00:07 Medications Medications Current Medications Acetaminophen (Acetaminophen 325 Mg Tablet) 650 mg PO Q6H PRN PRN Reason: Headache/Pain Mild Scale (1-3) Last Admin: 11/08/21 15:14 Dose: 650 mg Documented by: Al Hydroxide/Mg Hydroxide (Magnesium Hydrox/Alum Hydrox 30 Ml Oral.Susp) 30 ml PO Q6H PRN PRN Reason: Heartburn/Nausea Benztropine Mesylate (Benztropine Mesylate 1 Mg Tablet) 1 mg PO BEDTIME [facility] Last Admin: 11/07/21 20:33 Dose: 1 mg Documented by: Carbamazepine (Carbamazepine Er 200 Mg Tab.Er.12h) 400 mg PO BID [facility] Last Admin: 11/08/21 08:30 Dose: 400 mg Documented by: Diphenhydramine HCl (Diphenhydramine Hcl 25 Mg Tablet) 50 mg PO Q4H PRN PRN Reason: EPS Ferrous Sulfate (Ferrous Sulfate 324 Mg Tablet.) 324 mg PO DAILY [facility] Last Admin: 11/08/21 08:30 Dose: 324 mg Documented by: Fluphenazine HCl (Fluphenazine Hcl 5 Mg Tablet) 5 mg PO BEDTIME [facility] Last Admin: 11/07/21 20:32 Dose: 5 mg Documented by: Fluphenazine HCl (Fluphenazine Hcl 2.5 Mg Tablet) 2.5 mg PO BEDTIME PRN PRN Reason: insomnia Hydroxyzine HCl (Hydroxyzine Hcl 25 Mg Tablet) 25 mg PO BEDTIME PRN PRN Reason: Anxiety Last Admin: 11/02/21 01:02 Dose: 25 mg Documented by: Hydroxyzine HCl (Hydroxyzine Hcl 50 Mg Tablet) 50 mg PO Q4H PRN PRN Reason: anxiety/agitation Last Admin: 11/07/21 12:41 Dose: 50 mg Documented by: Ibuprofen (Ibuprofen 600 Mg Tablet) 600 mg PO Q6H PRN PRN Reason: cramps Last Admin: 11/07/21 18:58 Dose: 600 mg Documented by: Loperamide HCl (Loperamide Hcl 2 Mg Capsule) 2 mg PO Q6H PRN PRN Reason: Diarrhea Last Admin: 10/31/21 15:49 Dose: 2 mg Documented by: Magnesium Hydroxide (Milk Of Magnesia 30 Ml Oral.Susp) 30 ml PO DAILY PRN PRN Reason: Constipation Melatonin (Melatonin 3 Mg Tablet) 9 mg PO BEDTIME [facility] Last Admin: 11/07/21 20:32 Dose: 9 mg Documented by: Multivitamins/Vitamin C (Multivitamin Tablet) 1 tab PO DAILY [facility] Last Admin: 11/08/21 08:30 Dose: 1 tab Documented by: Nicotine Polacrilex (Nicotine Polacrilex 2 Mg Gum) 2 mg BUCCAL Q2H PRN PRN Reason: Nicotine Cravings Trazodone HCl (Trazodone Hcl 50 Mg Tablet) 50 mg PO BEDTIME PRN PRN Reason: Insomnia Allergies Allergies Allergy/AdvReac Type Severity Reaction Status Date / Time Sulfa (Sulfonamide AdvReac Rash Verified 10/23/21 23:08 Antibiotics) Assessment & Plan Assessment & Plan (1) Shamar: Status: Acute Code(s): F30.9 - Manic episode, unspecified (2) UTI (urinary tract infection): Status: Acute Code(s): N39.0 - Urinary tract infection, site not specified Plan shamar - olanzapine. stopped zoloft as could be manigenic. added lithium 10/25, which pt has been declining, angrily. rescinded 3-day notice 10/29, started lamictal 25 BID on 10/29. titration per label suggests 25 mg/day x 2 wks, then 50 mg/day x 2 wks. 10/31 pt agreed to tegretol trial, started at 200 BID 10/31. lamictal DCed 10/31. cogentin 1 mg added to HS to counteract what sounds like perhaps akathisia. tegretol increased to 300 BID as of 11/01. pt worse 11/06 than previous, tegretol dosing increased to 400 mg BID. UTI - antibx control shamar, collect collateral. pt refusing lithium, depakote. 11/05/2021 Zyprexa increased up to 10 mg p.o. q.h.s., keep Zydis p.r.n. and get a Tegretol level for tomorrow morning. 11/07: zyprexa DCed due to weight gain. prolixin 5 mg QHS started 11/07, along with cogentin 1 mg QHS. 11/08: happy with changes, although presents as somewhat paranoid and delusional. planning for friday DC. I spent ___25___ minutes with the patient and/or on the patient floor today, greater than?50% of which was spent counseling/coordinating care. Reason for contiued inpatient stay Substantial Risk for: inability to function and rapid decompensation
[2021-11-08 16:45] LABS: Appearance Urine CLEAR; Color Urine YELLOW; Glucose Urine UA NEG (NEG); Leukocyte Esterase Urine NEG (NEG); Nitrite Urine NEG (NEG); Specific Gravity - Urine <= 1.005 (1.005-1.025); Urine Blood NEG (NEG); Urine Ketones NEG (NEG); Urine Protein NEG (NEG-TRACE)
[2021-11-08] MEDS: hydrOXYzine HCL 50 MG TABLET PO (17:12)
[2021-11-08 21:06] VITALS: BP 121/71; PULSE 88; TEMP 36.7; O2SAT 98
[2021-11-08] MEDS: Melatonin 3 MG TABLET 9 MG PO (21:09)
[2021-11-08] MEDS: fluPHENAZine HCl 5 MG TABLET PO (21:09)
[2021-11-08] MEDS: Benztropine Mesylate 1 MG TABLET PO (21:10)
[2021-11-09] MEDS: hydrOXYzine HCL 50 MG TABLET PO (05:54)
[2021-11-09 09:00] VITALS: BP 149/94; PULSE 85; RESP 17; TEMP 36.4; O2SAT 100
[2021-11-09] MEDS: Acetaminophen 325 MG TABLET 650 MG PO ×2 (09:07→17:00)
[2021-11-09] MEDS: Multivitamin TABLET 1 TAB PO (09:08)
[2021-11-09] MEDS: Ferrous Sulfate 324 MG TABLET.DR PO (09:08)
[2021-11-09] MEDS: carBAMazepine ER 200 MG TAB.ER.12H 400 MG PO ×2 (09:08→20:26)
--- NOTE | 2021-11-09 11:54 | HO.PSYCHPN ---
Subjective Subjective Date of Service: 11/09/21 Reason For Visit: Anjali Interim History: calm, cooperative. in a good mood. seen with SW. reports her mood is relatively stable and she is suffering no side effects from the prolixin and cogentin she is prescribed at . on being asked about her unusual awakenings last night she reported that it was likely just getting used to a new roommate. planning to DC friday. discharge planning discussed with MD and PASTOR. per staff, visible, social, happy, listening to music. feels more stable. less reactive and labile. frequent awakenings last night that felt different than usual. Mental Status Exam Mental Status Exam Narrative: street clothes, adequately groomed. cooperative. no PMA/PMR. speech incr in rate, amount. decr latency. thoughts linear and logical. no paranoid delusions. affect hyper-intense, non-labile, constricted. mood described as generally stable, SI/HI/AVH not expressed. Diagnostics Vital Signs (24Hr): Vital Signs - 24 hr 11/08/21 21:06 11/09/21 09:00 Temperature 98.1 F 97.6 F Pulse Rate 88 85 Respiratory Rate 17 Blood Pressure 121/71 149/94 H Pulse Oximetry 98 100 BMI result Body Mass Index 27.2 Labs Results: 10/24/21 00:07 10/24/21 00:07 Labs: Laboratory Results - last 48 hr 11/08/21 16:35 Urine Color YELLOW Urine Appearance CLEAR Urine pH 6.0 Ur Specific [place] <= 1.005 Urine Protein NEG Urine Glucose (UA) NEG Urine Ketones NEG Urine Blood NEG Urine Nitrite NEG Ur Leukocyte Esterase NEG Medications Medications Current Medications Acetaminophen (Acetaminophen 325 Mg Tablet) 650 mg PO Q6H PRN PRN Reason: Headache/Pain Mild Scale (1-3) Last Admin: 11/09/21 09:07 Dose: 650 mg Documented by: Al Hydroxide/Mg Hydroxide (Magnesium Hydrox/Alum Hydrox 30 Ml Oral.Susp) 30 ml PO Q6H PRN PRN Reason: Heartburn/Nausea Benztropine Mesylate (Benztropine Mesylate 1 Mg Tablet) 1 mg PO BEDTIME [facility] Last Admin: 11/08/21 21:10 Dose: 1 mg Documented by: Carbamazepine (Carbamazepine Er 200 Mg Tab.Er.12h) 400 mg PO BID [facility] Last Admin: 11/09/21 09:08 Dose: 400 mg Documented by: Diphenhydramine HCl (Diphenhydramine Hcl 25 Mg Tablet) 50 mg PO Q4H PRN PRN Reason: EPS Ferrous Sulfate (Ferrous Sulfate 324 Mg Tablet.) 324 mg PO DAILY [facility] Last Admin: 11/09/21 09:08 Dose: 324 mg Documented by: Fluphenazine HCl (Fluphenazine Hcl 5 Mg Tablet) 5 mg PO BEDTIME [facility] Last Admin: 11/08/21 21:09 Dose: 5 mg Documented by: Fluphenazine HCl (Fluphenazine Hcl 2.5 Mg Tablet) 2.5 mg PO BEDTIME PRN PRN Reason: insomnia Hydroxyzine HCl (Hydroxyzine Hcl 25 Mg Tablet) 25 mg PO BEDTIME PRN PRN Reason: Anxiety Last Admin: 11/02/21 01:02 Dose: 25 mg Documented by: Hydroxyzine HCl (Hydroxyzine Hcl 50 Mg Tablet) 50 mg PO Q4H PRN PRN Reason: anxiety/agitation Last Admin: 11/09/21 05:54 Dose: 50 mg Documented by: Ibuprofen (Ibuprofen 600 Mg Tablet) 600 mg PO Q6H PRN PRN Reason: cramps Last Admin: 11/07/21 18:58 Dose: 600 mg Documented by: Loperamide HCl (Loperamide Hcl 2 Mg Capsule) 2 mg PO Q6H PRN PRN Reason: Diarrhea Last Admin: 10/31/21 15:49 Dose: 2 mg Documented by: Magnesium Hydroxide (Milk Of Magnesia 30 Ml Oral.Susp) 30 ml PO DAILY PRN PRN Reason: Constipation Melatonin (Melatonin 3 Mg Tablet) 9 mg PO BEDTIME [facility] Last Admin: 11/08/21 21:09 Dose: 9 mg Documented by: Multivitamins/Vitamin C (Multivitamin Tablet) 1 tab PO DAILY [facility] Last Admin: 11/09/21 09:08 Dose: 1 tab Documented by: Nicotine Polacrilex (Nicotine Polacrilex 2 Mg Gum) 2 mg BUCCAL Q2H PRN PRN Reason: Nicotine Cravings Trazodone HCl (Trazodone Hcl 50 Mg Tablet) 50 mg PO BEDTIME PRN PRN Reason: Insomnia Allergies Allergies Allergy/AdvReac Type Severity Reaction Status Date / Time Sulfa (Sulfonamide AdvReac Rash Verified 10/23/21 23:08 Antibiotics) Assessment & Plan Assessment & Plan (1) Anjali: Status: Acute Code(s): F30.9 - Manic episode, unspecified (2) UTI (urinary tract infection): Status: Acute Code(s): N39.0 - Urinary tract infection, site not specified Plan anjali - olanzapine. stopped zoloft as could be manigenic. added lithium 10/25, which pt has been declining, angrily. rescinded 3-day notice 10/29, started lamictal 25 BID on 10/29. titration per label suggests 25 mg/day x 2 wks, then 50 mg/day x 2 wks. 10/31 pt agreed to tegretol trial, started at 200 BID 10/31. lamictal DCed 10/31. cogentin 1 mg added to HS to counteract what sounds like perhaps akathisia. tegretol increased to 300 BID as of 11/01. pt worse 11/06 than previous, tegretol dosing increased to 400 mg BID. UTI - antibx control anjali, collect collateral. pt refusing lithium, depakote. 11/05/2021 Zyprexa increased up to 10 mg p.o. q.h.s., keep Zydis p.r.n. and get a Tegretol level for tomorrow morning. 11/07: zyprexa DCed due to weight gain. prolixin 5 mg QHS started 11/07, along with cogentin 1 mg QHS. 11/08: happy with changes, although presents as somewhat paranoid and delusional. planning for friday DC. 11/09: less labile, irritable, and paranoid/delusional. continue current mgmt. I spent ___25___ minutes with the patient and/or on the patient floor today, greater than?50% of which was spent counseling/coordinating care. Reason for contiued inpatient stay Substantial Risk for: harm to self, harm to others, inability to function and rapid decompensation
[2021-11-09 14:19] LABS: COVID-19 Test Negative (Negative); IDNOW Serial# 16C4AD1C
[2021-11-09] MEDS: fluPHENAZine HCl 5 MG TABLET PO (20:25)
[2021-11-09] MEDS: Melatonin 3 MG TABLET 9 MG PO (20:26)
[2021-11-09] MEDS: Benztropine Mesylate 1 MG TABLET PO (20:26)
[2021-11-09 20:30] VITALS: BP 113/69; PULSE 76; RESP 16; TEMP 36.6; O2SAT 98
[2021-11-10] MEDS: Ferrous Sulfate 324 MG TABLET.DR PO (08:31)
[2021-11-10] MEDS: carBAMazepine ER 200 MG TAB.ER.12H 400 MG PO ×2 (08:31→21:06)
[2021-11-10] MEDS: Multivitamin TABLET 1 TAB PO (08:32)
[2021-11-10] MEDS: Acetaminophen 325 MG TABLET 650 MG PO (08:33)
[2021-11-10 09:00] VITALS: BP 126/65; PULSE 87; RESP 18; TEMP 36.6; O2SAT 98
--- NOTE | 2021-11-10 09:35 | P.PNPSI_ITS ---
Subjective Subjective Date of Service: 11/10/21 Reason For Visit: Anjali Subjective Notes: Conditional Voluntary and 3 Day Healthcare Proxy: No Guardianship: No Medical Problems Affecting Mental Status: No Interim History: Patient was seen and discussed in rounds today. Records and plans were reviewed. She has put in a 3 day notice. Overall she is doing much better. She is brighter, more calm and feels like a ?new person?. Eating and sleeping adequately. No complaints or side effects. No changes were made today Medication Compliance: Yes Review of Systems Review of Systems Yes all other systems are reviewed and are negative Diagnostics Vital Signs (24Hr): Vital Signs - 24 hr 11/09/21 20:30 11/10/21 09:00 Temperature 97.8 F 97.8 F Pulse Rate 76 87 Respiratory Rate 16 18 Blood Pressure 113/69 126/65 Pulse Oximetry 98 98 BMI result Body Mass Index 27.2 Labs Results: 10/24/21 00:07 10/24/21 00:07 Labs: Laboratory Results - last 48 hr 11/08/21 11/09/21 16:35 13:55 Urine Color YELLOW Urine Appearance CLEAR Urine pH 6.0 Ur Specific [place] <= 1.005 Urine Protein NEG Urine Glucose (UA) NEG Urine Ketones NEG Urine Blood NEG Urine Nitrite NEG Ur Leukocyte Esterase NEG COVID-19 ([facility]) Negative COVID-19 Clin Com See Note Medications Medications Current Medications Acetaminophen (Acetaminophen 325 Mg Tablet) 650 mg PO Q6H PRN PRN Reason: Headache/Pain Mild Scale (1-3) Last Admin: 11/10/21 08:33 Dose: 650 mg Documented by: Al Hydroxide/Mg Hydroxide (Magnesium Hydrox/Alum Hydrox 30 Ml Oral.Susp) 30 ml PO Q6H PRN PRN Reason: Heartburn/Nausea Benztropine Mesylate (Benztropine Mesylate 1 Mg Tablet) 1 mg PO BEDTIME [facility] Last Admin: 11/09/21 20:26 Dose: 1 mg Documented by: Carbamazepine (Carbamazepine Er 200 Mg Tab.Er.12h) 400 mg PO BID [facility] Last Admin: 11/10/21 08:31 Dose: 400 mg Documented by: Diphenhydramine HCl (Diphenhydramine Hcl 25 Mg Tablet) 50 mg PO Q4H PRN PRN Reason: EPS Ferrous Sulfate (Ferrous Sulfate 324 Mg Tablet.) 324 mg PO DAILY [facility] Last Admin: 11/10/21 08:31 Dose: 324 mg Documented by: Fluphenazine HCl (Fluphenazine Hcl 5 Mg Tablet) 5 mg PO BEDTIME [facility] Last Admin: 11/09/21 20:25 Dose: 5 mg Documented by: Fluphenazine HCl (Fluphenazine Hcl 2.5 Mg Tablet) 2.5 mg PO BEDTIME PRN PRN Reason: insomnia Hydroxyzine HCl (Hydroxyzine Hcl 25 Mg Tablet) 25 mg PO BEDTIME PRN PRN Reason: Anxiety Last Admin: 11/02/21 01:02 Dose: 25 mg Documented by: Hydroxyzine HCl (Hydroxyzine Hcl 50 Mg Tablet) 50 mg PO Q4H PRN PRN Reason: anxiety/agitation Last Admin: 11/09/21 05:54 Dose: 50 mg Documented by: Ibuprofen (Ibuprofen 600 Mg Tablet) 600 mg PO Q6H PRN PRN Reason: cramps Last Admin: 11/07/21 18:58 Dose: 600 mg Documented by: Loperamide HCl (Loperamide Hcl 2 Mg Capsule) 2 mg PO Q6H PRN PRN Reason: Diarrhea Last Admin: 10/31/21 15:49 Dose: 2 mg Documented by: Magnesium Hydroxide (Milk Of Magnesia 30 Ml Oral.Susp) 30 ml PO DAILY PRN PRN Reason: Constipation Melatonin (Melatonin 3 Mg Tablet) 9 mg PO BEDTIME [facility] Last Admin: 11/09/21 20:26 Dose: 9 mg Documented by: Multivitamins/Vitamin C (Multivitamin Tablet) 1 tab PO DAILY [facility] Last Admin: 11/10/21 08:32 Dose: 1 tab Documented by: Nicotine Polacrilex (Nicotine Polacrilex 2 Mg Gum) 2 mg BUCCAL Q2H PRN PRN Reason: Nicotine Cravings Trazodone HCl (Trazodone Hcl 50 Mg Tablet) 50 mg PO BEDTIME PRN PRN Reason: Insomnia Allergies Allergies Allergy/AdvReac Type Severity Reaction Status Date / Time Sulfa (Sulfonamide AdvReac Rash Verified 10/23/21 23:08 Antibiotics) Assessment & Plan Assessment & Plan (1) Anjali: Status: Acute Code(s): F30.9 - Manic episode, unspecified (2) UTI (urinary tract infection): Status: Acute Code(s): N39.0 - Urinary tract infection, site not specified Plan anjali - olanzapine. stopped zoloft as could be manigenic. added lithium 10/25, which pt has been declining, angrily. rescinded 3-day notice 10/29, started lamictal 25 BID on 10/29. titration per label suggests 25 mg/day x 2 wks, then 50 mg/day x 2 wks. 10/31 pt agreed to tegretol trial, started at 200 BID 10/31. lamictal DCed 10/31. cogentin 1 mg added to HS to counteract what sounds like perhaps akathisia. tegretol increased to 300 BID as of 11/01. pt worse 11/06 than previous, tegretol dosing increased to 400 mg BID. UTI - antibx control anjali, collect collateral. pt refusing lithium, depakote. 11/05/2021 Zyprexa increased up to 10 mg p.o. q.h.s., keep Zydis p.r.n. and get a Tegretol level for tomorrow morning. 11/07: zyprexa DCed due to weight gain. prolixin 5 mg QHS started 11/07, along with cogentin 1 mg QHS. 11/08: happy with changes, although presents as somewhat paranoid and delusional. planning for friday DC. 11/09: less labile, irritable, and paranoid/delusional. continue current mgmt. 11/10: Continue current regimen plans I spent minutes with the patient and/or on the patient floor today, greater than?50% of which was spent counseling/coordinating care. Reason for contiued inpatient stay Substantial Risk for: med/psych decompensation
[2021-11-10 20:10] VITALS: BP 114/77; PULSE 90; RESP 18; TEMP 36.6; O2SAT 99
[2021-11-10] MEDS: fluPHENAZine HCl 5 MG TABLET PO (21:06)
[2021-11-10] MEDS: Melatonin 3 MG TABLET 9 MG PO (21:06)
[2021-11-10] MEDS: Benztropine Mesylate 1 MG TABLET PO (21:06)
[2021-11-11 08:11] VITALS: BP 124/68; PULSE 77; RESP 18; TEMP 36.6; O2SAT 99
[2021-11-11] MEDS: Ferrous Sulfate 324 MG TABLET.DR PO (08:13)
[2021-11-11] MEDS: carBAMazepine ER 200 MG TAB.ER.12H 400 MG PO ×2 (08:13→21:19)
[2021-11-11] MEDS: Multivitamin TABLET 1 TAB PO (08:13)
[2021-11-11] MEDS: Ibuprofen 600 MG TABLET PO (09:17)
--- NOTE | 2021-11-11 10:14 | P.PNPSI_ITS ---
Subjective Subjective Date of Service: 11/11/21 Reason For Visit: Anjali Subjective Notes: Conditional Voluntary and 3 Day Interim History: Patient was seen and discussed in rounds today. Records and plans were reviewed. She states that she is doing very well and feels that the medication, Zyprexa has been extremely helpful to her. No PRNs have been used. Eating and sleeping well. No side effects reported no changes were made today Review of Systems Review of Systems Yes all other systems are reviewed and are negative Mental Status Exam Mental Status Exam Narrative: street clothes, adequately groomed. cooperative. no PMA/PMR. speech incr in rate, amount. decr latency. thoughts linear and logical. no paranoid delusions. affect hyper-intense, non-labile, constricted. mood described as generally stable, SI/HI/AVH not expressed. Diagnostics Vital Signs (24Hr): Vital Signs - 24 hr 11/10/21 20:10 11/11/21 08:11 Temperature 97.9 F 97.8 F Pulse Rate 90 77 Respiratory Rate 18 18 Blood Pressure 114/77 124/68 Pulse Oximetry 99 99 BMI result Body Mass Index 27.2 Labs Results: 10/24/21 00:07 10/24/21 00:07 Labs: Laboratory Results - last 48 hr 11/09/21 13:55 COVID-19 ([facility]) Negative COVID-19 Clin Com See Note Medications Medications Current Medications Acetaminophen (Acetaminophen 325 Mg Tablet) 650 mg PO Q6H PRN PRN Reason: Headache/Pain Mild Scale (1-3) Last Admin: 11/10/21 08:33 Dose: 650 mg Documented by: Al Hydroxide/Mg Hydroxide (Magnesium Hydrox/Alum Hydrox 30 Ml Oral.Susp) 30 ml PO Q6H PRN PRN Reason: Heartburn/Nausea Benztropine Mesylate (Benztropine Mesylate 1 Mg Tablet) 1 mg PO BEDTIME [facility] Last Admin: 11/10/21 21:06 Dose: 1 mg Documented by: Carbamazepine (Carbamazepine Er 200 Mg Tab.Er.12h) 400 mg PO BID [facility] Last Admin: 11/11/21 08:13 Dose: 400 mg Documented by: Diphenhydramine HCl (Diphenhydramine Hcl 25 Mg Tablet) 50 mg PO Q4H PRN PRN Reason: EPS Ferrous Sulfate (Ferrous Sulfate 324 Mg Tablet.) 324 mg PO DAILY [facility] Last Admin: 11/11/21 08:13 Dose: 324 mg Documented by: Fluphenazine HCl (Fluphenazine Hcl 5 Mg Tablet) 5 mg PO BEDTIME [facility] Last Admin: 11/10/21 21:06 Dose: 5 mg Documented by: Fluphenazine HCl (Fluphenazine Hcl 2.5 Mg Tablet) 2.5 mg PO BEDTIME PRN PRN Reason: insomnia Hydroxyzine HCl (Hydroxyzine Hcl 25 Mg Tablet) 25 mg PO BEDTIME PRN PRN Reason: Anxiety Last Admin: 11/02/21 01:02 Dose: 25 mg Documented by: Hydroxyzine HCl (Hydroxyzine Hcl 50 Mg Tablet) 50 mg PO Q4H PRN PRN Reason: anxiety/agitation Last Admin: 11/09/21 05:54 Dose: 50 mg Documented by: Ibuprofen (Ibuprofen 600 Mg Tablet) 600 mg PO Q6H PRN PRN Reason: cramps Last Admin: 11/11/21 09:17 Dose: 600 mg Documented by: Loperamide HCl (Loperamide Hcl 2 Mg Capsule) 2 mg PO Q6H PRN PRN Reason: Diarrhea Last Admin: 10/31/21 15:49 Dose: 2 mg Documented by: Magnesium Hydroxide (Milk Of Magnesia 30 Ml Oral.Susp) 30 ml PO DAILY PRN PRN Reason: Constipation Melatonin (Melatonin 3 Mg Tablet) 9 mg PO BEDTIME [facility] Last Admin: 11/10/21 21:06 Dose: 9 mg Documented by: Multivitamins/Vitamin C (Multivitamin Tablet) 1 tab PO DAILY [facility] Last Admin: 11/11/21 08:13 Dose: 1 tab Documented by: Nicotine Polacrilex (Nicotine Polacrilex 2 Mg Gum) 2 mg BUCCAL Q2H PRN PRN Reason: Nicotine Cravings Trazodone HCl (Trazodone Hcl 50 Mg Tablet) 50 mg PO BEDTIME PRN PRN Reason: Insomnia Allergies Allergies Allergy/AdvReac Type Severity Reaction Status Date / Time Sulfa (Sulfonamide AdvReac Rash Verified 10/23/21 23:08 Antibiotics) Assessment & Plan Assessment & Plan (1) Anjali: Status: Acute Code(s): F30.9 - Manic episode, unspecified (2) UTI (urinary tract infection): Status: Acute Code(s): N39.0 - Urinary tract infection, site not specified Plan anjali - olanzapine. stopped zoloft as could be manigenic. added lithium 10/25, which pt has been declining, angrily. rescinded 3-day notice 10/29, started lamictal 25 BID on 10/29. titration per label suggests 25 mg/day x 2 wks, then 50 mg/day x 2 wks. 10/31 pt agreed to tegretol trial, started at 200 BID 10/31. lamictal DCed 10/31. cogentin 1 mg added to HS to counteract what sounds like perhaps akathisia. tegretol increased to 300 BID as of 11/01. pt worse 11/06 than previous, tegretol dosing increased to 400 mg BID. UTI - antibx control anjali, collect collateral. pt refusing lithium, depakote. 11/05/2021 Zyprexa increased up to 10 mg p.o. q.h.s., keep Zydis p.r.n. and get a Tegretol level for tomorrow morning. 11/07: zyprexa DCed due to weight gain. prolixin 5 mg QHS started 11/07, along with cogentin 1 mg QHS. 11/08: happy with changes, although presents as somewhat paranoid and delusional. planning for friday DC. 11/09: less labile, irritable, and paranoid/delusional. continue current mgmt. 11/10: Continue current regimen plans 11/11: Continue current plans and regimen. She is looking forward to discharge this week I spent minutes with the patient and/or on the patient floor today, greater than?50% of which was spent counseling/coordinating care. Reason for contiued inpatient stay Substantial Risk for: other
[2021-11-11] MEDS: hydrOXYzine HCL 50 MG TABLET PO (16:10)
[2021-11-11] MEDS: Melatonin 3 MG TABLET 9 MG PO (21:19)
[2021-11-11] MEDS: Benztropine Mesylate 1 MG TABLET PO (21:19)
[2021-11-11] MEDS: fluPHENAZine HCl 5 MG TABLET PO (21:19)
[2021-11-11 21:24] VITALS: PULSE 95; RESP 18; TEMP 36.5; O2SAT 98
[2021-11-12] MEDS: Ferrous Sulfate 324 MG TABLET.DR PO (08:43)
[2021-11-12] MEDS: carBAMazepine ER 200 MG TAB.ER.12H 400 MG PO (08:43)
[2021-11-12] MEDS: Multivitamin TABLET 1 TAB PO (08:43)
[2021-11-12 08:50] LABS: MANUAL DIFF FLAG NO
[2021-11-12 08:53] LABS: Basophils Percent Auto 0.7 % (0-2); Eosinophils Absolute Auto 0.2 X10*3/uL (0.0-0.4); Hematocrit 35.4 % (37.0-47.0); Hemoglobin 10.8 g/dl (12.0-16.0); Imm Gran Abs Auto 0.02 X10*3/uL (0.00-0.03); Imm Gran Pct Auto 0.4 % (0.0-0.4); Lymphocytes Absolute Auto 1.6 X10*3/uL (1.2-4.9); Lymphocytes Percent Auto 29.7 % (20-40); Mean Corpuscular HGB Conc 30.5 g/dl (31.0-35.0); Mean Corpuscular Hemoglobin 24.1 pg (27.0-33.0); Mean Platelet Volume 9.5 fL (9.4-12.3); Monocytes Absolute Auto 0.4 X10*3/uL (0.1-1.2); Monocytes Percent Auto 7.7 % (2-11); Neutrophils Absolute Auto 3.2 x10*3/uL (2.0-8.3); Neutrophils Percent Auto 58.5 % (45-73); Platelet Count 327 X10*3/uL (160-400); Red Blood Count 4.48 X10*6/uL (4.20-5.50); Red Cell Distribution Width 21.4 % (11.0-16.0); White Blood Count 5.4 X10*3/uL (4.8-10.8)
[2021-11-12 09:11] LABS: Alanine Aminotransferase 20 U/L (0-31); Alkaline Phosphatase 45 U/L (39-117); Anion Gap 12 (12-20); Aspartate Amino Transferase 19 U/L (5-31); Bilirubin Direct < 0.2 mg/dL (0.0-0.5); Bilirubin Total 0.3 mg/dL (0.0-1.0); Blood Urea Nitrogen 15 mg/dL (9-16); Calcium 8.9 mg/dL (8.4-10.2); Carbon Dioxide 25 mmol/L (22-29); Chloride 106 mmol/L (96-108); Cholesterol 187 mg/dL; Creatinine Clr Calc Pharmacy 128.5; Estimated Glomerular Filt Rate > 60; Glucose Random 90 mg/dL (60-115); HDL Cholesterol 59 mg/dL; LDL Cholesterol Calculated 116 mg/dl; Potassium 4.9 mmol/L (3.3-5.1); Sodium 138 mmol/L (135-145); Triglycerides 60 mg/dL
[2021-11-12 10:18] VITALS: BP 121/71; PULSE 82; RESP 18; TEMP 36.4; O2SAT 99
[2021-11-12 10:57] LABS: Estimated Average Glucose 94 mg/dL; Hemoglobin A1c % 4.9 %
[2021-11-12 11:17] LABS: Carbamazepine Tegretol 7.6 mcg/mL (5.0-12.0)
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
[2021-11-12] MEDS: hydrOXYzine HCL 50 MG TABLET PO (12:47)
--- NOTE | 2021-11-12 14:18 | PC.NURSE ---
Patient alert, oriented x3. Denies SI/HI, denies AH/VH. Patient reported some anxieties about being able to enter her house- spoke w/ SW. Patient reports she is safe to be discharged. Reviewed belongings, discharge instructions w/ pt- pt verbalized understanding of instructions. No concerns reported.
== END 2021-11-12 14:10 | disposition home or self-care (01) | DRG 753 ==
LOC: HO.ED 10-24 00:47 → HO.PADLT16 10-24 19:52
PROVIDERS: Physician Assistant; Psychiatry & Neurology Psychiatry; Admitting Provider Psychiatry & Neurology Psychiatry; Emergency Provider Student in an Organized Health Care Education/Training Program; Visit Provider Psychiatry & Neurology Psychiatry
DX: F30.9 Manic episode, unspecified (principal); N39.0 Urinary tract infection, site not specified; Z88.2 Allergy status to sulfonamides; Z79.899 Other long term (current) drug therapy
CPT/HCPCS: 36415; 80048; 80053; 80061; 80076; 80156; 80307; 81001; 81003; 81025; 82077; 83036; 85025; 87635; 99285; J1200; J2060

== ENCOUNTER 2021-11-28 19:42 | Inpatient (IN) | payer OTHER, MEDICAID, SELFPAY ==
[2021-11-28 20:01] VITALS: BP 143/87; PULSE 150; RESP 18; TEMP 36.2; O2SAT 97; BMI 28.2
[2021-11-28 20:10] VITALS: RESP 20
[2021-11-28] MEDS: LORazepam 2 MG/ML VIAL IM (20:10)
[2021-11-28] MEDS: diphenhydrAMINE HCL 50 MG/ML VIAL IM (20:10)
[2021-11-28] MEDS: Haloperidol Lactate 5 MG/ML VIAL IM (20:10)
--- NOTE | 2021-11-28 20:14 | ED_ITS ---
HPI - Psych General Chief Complaint: Psychiatric Symptoms Stated Complaint: section 12 AMS Time Seen by Provider: 11/28/21 20:10 Source: EMS Mode of arrival: EMS Limitations: other (Manic) History of Present Illness HPI Narrative: Patient comes to the emergency room via EMS and PD on board. Patient's boyfriend called 911 because the patient was having a manic episode, yelling, throwing things in her apartment. Patient was to be aggressive, manic, not coherent, patient had to be physically restrained. On arrival to the emergency room, patient remained manic, screaming, initially nonverbal, pretending to com municate with made-up sign language Related Data Home Medications Medication Instructions Recorded Confirmed multivitamin with folic acid 400 1 tab PO DAILY 10/23/21 10/23/21 mcg tablet (Daily-Galina (with folic acid)) Previous Rx's Medication Instructions Recorded benztropine 1 mg tablet 1 mg PO BEDTIME 30 days #30 tabs 11/12/21 carbamazepine 200 mg 400 mg PO BID 30 days #120 tabs 11/12/21 tablet,extended release,12 hr ferrous sulfate 324 mg (65 mg 324 mg PO DAILY 30 days #30 tabs 11/12/21 iron) tablet,delayed release fluphenazine HCl 5 mg tablet 5 mg PO BEDTIME 30 days #30 tabs 11/12/21 melatonin 3 mg tablet 9 mg PO BEDTIME 30 days #90 tabs 11/12/21 Allergies Allergy/AdvReac Type Severity Reaction Status Date / Time Sulfa (Sulfonamide AdvReac Rash Verified 10/23/21 23:08 Antibiotics) Review of Systems Review of Systems: Yes Unobtainable due to mental condition [facility] Past Medical History Medical History (Updated 11/28/21 @ 20:27 by Izzy Vargas MD) Depression Anjali Social History Social History Household Members: Unknown / Unable to assess Housing: Unknown / Unable to assess Do you presently have visiting nurse or other home services: No Patient Tobacco Use Status: Never used Tobacco Second Hand Smoke Exposure: No Advance Directives: No Advance Directives Information Provided: No service: No Sexual orientation: Did not discuss. Physical Exam Vital Signs: Vital Signs: Last Vital Signs Temp 97.1 F 11/28/21 20:01 Pulse 150 H 11/28/21 20:01 Resp 18 11/28/21 20:01 BP 143/87 H 11/28/21 20:01 Pulse Ox 97 11/28/21 20:01 O2 Del Method 11/28/21 20:01 BMI result Body Mass Index 28.2 Const: Other: Appearance: Alert. Agitated , not answering any questions, being hostile towards staff and security Eyes: Pupils equal, round and reactive to light. ENT: Pharynx normal. Neck: Normal inspection. CVS tachycardic, normal S1-S2 Respiratory: No respiratory distress. Abdomen: No distention. Skin: Skin warm and dry. Extremities: Moves all extremities Neuro: OCN 2 through 12 grossly intact Psych: Hostile, agitated, combative, trying to communicate inmate up sign language Course Course Course Narrative: Patient is on a Section 12, patient had to be chemically restrained with 2 mg of Ativan, 50 mg of IM Benadryl and 5 mg of Haldol Patient will likely need inpatient treatment. [facility] network consult pending. Physician observation started at 20:15 Sign-out to given to Dr. Holland Discharge Plan Discharge Clinical Impression: Acute psychosis Patient Disposition: Still a Patient Prescriptions: No Action multivitamin with folic acid [Daily-Galina (with folic acid)] 400 mcg tablet 1 tab PO DAILY ferrous sulfate 324 mg (65 mg iron) Tablet,Delayed Release (Dr/Ec) 324 mg PO DAILY 30 Days Qty: 30 0RF benztropine 1 mg Tablet 1 mg PO BEDTIME 30 Days Qty: 30 0RF carbamazepine 200 mg Tablet Extended Release 12 Hr 400 mg PO BID 30 Days Qty: 120 0RF fluphenazine HCl 5 mg Tablet 5 mg PO BEDTIME 30 Days Qty: 30 0RF melatonin 3 mg Tablet 9 mg PO BEDTIME 30 Days Qty: 90 0RF
[2021-11-28 20:23] LABS: COVID-19 Test Negative (Negative)
[2021-11-28 20:25] VITALS: RESP 18
[2021-11-28 20:40] VITALS: PULSE 98; RESP 18; O2SAT 95
[2021-11-28 20:55] VITALS: RESP 18
[2021-11-28 21:10] VITALS: PULSE 83; RESP 18; O2SAT 95
[2021-11-29 01:46] LABS: Appearance Urine HAZY; Color Urine YELLOW; Glucose Urine UA NEG (NEG); Leukocyte Esterase Urine NEG (NEG); Nitrite Urine POS (NEG); Specific Gravity - Urine >= 1.030 (1.005-1.025); Urine Blood NEG (NEG); Urine Ketones 15 MG/DL (NEG); Urine Protein NEG (NEG-TRACE)
[2021-11-29 01:48] LABS: UPreg QC Valid YES; Urine Pregnancy NEGATIVE (NEGATIVE)
[2021-11-29 01:52] LABS: Bacteria Urine 3+ /LPF; Mucus Urine 4+ /LPF; RBC Urine 0-2 /HPF (0); Renal Epithelial Cells Urine 1+ /LPF; Squamous Epithelial Cell Urine 2+ /LPF
[2021-11-29 01:54] VITALS: BP 112/69; PULSE 95; RESP 16; TEMP 36.7; O2SAT 96
[2021-11-29 02:00] LABS: Amphetamine Screen Urine Not Detected (Not Detect); Barbiturates, Urine Not Detected (Not Detect); Benzodiazepines Screen Urine Not Detected (Not Detect); Cannabinoid Screen Urine Not Detected (Not Detect); Cocaine Screen Urine Not Detected (Not Detect); Fentanyl, urine Not Detected (Not Detect); Opiate Screen Urine Not Detected (Not Detect); Phencyclidine Screen Urine Not Detected (Not Detect)
--- NOTE | 2021-11-29 06:10 | PC.NURSE ---
Patient slept though the night, no distress observed/reported, patient was S/p restraint, well engaged with [facility] clinician, disposition section 12 inpatient bed search, patient's thought content is clearing up, coherent, follows direction well, VSS, will continue to monitor.
[2021-11-29 07:37] VITALS: BP 112/79; PULSE 104; RESP 14; TEMP 36.8; O2SAT 98
--- NOTE | 2021-11-29 08:16 | PC.NURSE ---
pt wants to go home, informed of sect 12, pt states she is misdiagnosed bipolar and actually has a diagnosis of highly intelligent , doesn't want to go upstairs as she has done this before and it doesn't help ,
[2021-11-29] MEDS: Multivitamin TABLET 1 TAB PO (09:07)
[2021-11-29] MEDS: carBAMazepine ER 200 MG TAB.ER.12H 400 MG PO ×2 (09:07→21:54)
[2021-11-29] MEDS: Ferrous Sulfate 324 MG TABLET.DR PO (09:07)
[2021-11-29 10:07] LABS: MANUAL DIFF FLAG NO
[2021-11-29 10:11] LABS: Basophils Percent Auto 0.5 % (0-2); Eosinophils Absolute Auto 0.1 X10*3/uL (0.0-0.4); Eosinophils Percent Auto 1.6 % (0-4); Hematocrit 35.8 % (37.0-47.0); Hemoglobin 11.3 g/dl (12.0-16.0); Imm Gran Abs Auto 0.01 X10*3/uL (0.00-0.03); Imm Gran Pct Auto 0.2 % (0.0-0.4); Lymphocytes Absolute Auto 1.5 X10*3/uL (1.2-4.9); Lymphocytes Percent Auto 26.4 % (20-40); Mean Corpuscular HGB Conc 31.6 g/dl (31.0-35.0); Mean Corpuscular Hemoglobin 25.1 pg (27.0-33.0); Mean Corpuscular Volume 79.6 fL (80.0-98.0); Mean Platelet Volume 9.4 fL (9.4-12.3); Monocytes Absolute Auto 0.5 X10*3/uL (0.1-1.2); Monocytes Percent Auto 9.2 % (2-11); Neutrophils Absolute Auto 3.4 x10*3/uL (2.0-8.3); Neutrophils Percent Auto 62.1 % (45-73); Platelet Count 317 X10*3/uL (160-400); Red Cell Distribution Width 18.7 % (11.0-16.0); White Blood Count 5.5 X10*3/uL (4.8-10.8)
[2021-11-29 10:24] LABS: Anion Gap 13 (12-20); Blood Urea Nitrogen 11 mg/dL (9-16); Calcium 9.2 mg/dL (8.4-10.2); Carbon Dioxide 24 mmol/L (22-29); Chloride 101 mmol/L (96-108); Estimated Glomerular Filt Rate > 60; Glucose Random 153 mg/dL (60-115); Potassium 3.5 mmol/L (3.3-5.1); Sodium 134 mmol/L (135-145)
[2021-11-29] MEDS: Ondansetron ODT 4 MG TAB.RAPDIS TRANSLINGU (10:39)
[2021-11-29] MEDS: Loperamide HCl 2 MG CAPSULE PO (13:37)
[2021-11-29 14:57] VITALS: BP 130/82; PULSE 102; RESP 17; TEMP 36.6; O2SAT 97
--- NOTE | 2021-11-29 16:04 | PC.NURSE ---
Patient arrived to [facility] from [facility] at 14:57. Patient has a legal status of a CV, then signed a 3 day notice. Prior to admission per crisis patient was presenting in a manic episode, yelling, and throwing objects in her apartment . Upon arrival to ED patient was agressive, manic, and not coherent . Patient required a restraint of 50 mg of benadryl, 2 mg of ativan, and 5 mg of haldol. Patient is pleasant and cooperative during the admission process. Patient is A & Ox3. Insight into the situation is poor. ?I am only here because I have a misdiagnosis and need to get things right in my body, not my mind. I have a diagnosis of Bipolar but that is not what I have. I have high intelligence and I have done a lot of research on that diagnosis. I am not opposed to medicine but it may not be right for me. I just need to make sure the medications are right for my diagnosis of high intelligence?. Per crisis evaluation patient has been non compliant with meds for sometime. During the interview the patient had appropriate eye contact and speech was within normal limits. Steph was observed to be gesturing with her hands throughout interview. ?I am using this language I made up to communicate with not only my mouth but my eyes so everyone can understand?. When asked what her goals for discharge were, the patient responded ?I need to have the freedom from old diagnosis and to be diagnosed with the correct diagnosis. I do not have bipolar I, I have high intelligence?. Reportedly the only meds that worked were ?ferrous sulfate and multivitamin just like everyone else?. Patient reports ?No Anxiety or depression, just frustration because of the misdiagnosis?. Denies SI/HI/AH/VH. Reports sleeping well and eating well. Patient reported an unknown number of falls prior to admission. When asked how many she replied ?Too many?. Toxicology was negative. Patient denies acute physical complaints at this time. 15 minute safety checks initiated.
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
[2021-11-29] MEDS: fluPHENAZine HCl 5 MG TABLET PO (21:54)
[2021-11-29] MEDS: Benztropine Mesylate 1 MG TABLET PO (21:54)
[2021-11-29] MEDS: traZODone HCL 50 MG TABLET PO (21:54)
[2021-11-29] MEDS: Melatonin 3 MG TABLET 9 MG PO (21:54)
[2021-11-30] MEDS: hydrOXYzine HCL 50 MG TABLET PO ×2 (00:46→11:09)
[2021-11-30] MEDS: carBAMazepine ER 200 MG TAB.ER.12H 400 MG PO ×2 (07:42→21:19)
[2021-11-30] MEDS: Ferrous Sulfate 324 MG TABLET.DR PO (07:43)
[2021-11-30] MEDS: Multivitamin TABLET 1 TAB PO (07:43)
[2021-11-30 07:46] VITALS: BP 130/78; PULSE 110; RESP 17; TEMP 36.5; O2SAT 97
--- NOTE | 2021-11-30 10:29 | P.PNPSI_ITS ---
Subjective Subjective Date of Service: 11/30/21 Reason For Visit: section 12 AMS Interim History: pt seen with SW. calm and cooperative. when speaking also moving her hands in the air in a stereotyped way, as if using sign language. disorganized, unable to engage, unable to answer questions cogently. per staff, signed 3-day notice. taking tegretol and prolixin since arriving. huggins warning provided. denies she has bipolar disorder or any mental illness. Mental Status Exam Mental Status Exam Narrative: Alert. good eye contact. No Tics or Tremors. No abnormal involuntary movements. Pt is mildly agitated, speaking quickly and moving her hands when speaking as if using sign language. Non-pressured speech, spontaneous with regular incr rate and amount, normal loudness and prosody. No prolonged speech latency or dysarthria. affect is hyper-intense, min-labile, anxious. no SI/HI/AVH expressed. Thoughts are disorganized. No known cognitive or memory impairment. Insight/ Judgment poor. Diagnostics Vital Signs (24Hr): Vital Signs - 24 hr 11/29/21 14:57 11/30/21 07:46 Temperature 97.9 F 97.7 F Pulse Rate 102 H 110 H Respiratory Rate 17 17 Blood Pressure 130/82 130/78 Pulse Oximetry 97 97 Oxygen Delivery Method Room Air Room Air BMI result Body Mass Index 28.2 Labs Results: 11/29/21 10:02 11/29/21 10:02 Labs: Laboratory Results - last 48 hr 11/28/21 11/29/21 11/29/21 20:00 01:39 01:39 WBC RBC Hgb Hct MCV MCH MCHC RDW Plt Count MPV Immature Gran % (Auto) Neut % (Auto) Lymph % (Auto) [place] % (Auto) Eos % (Auto) Baso % (Auto) Lymph # (Auto) [place] # (Auto) Eos # (Auto) Baso # (Auto) Abs Immat Gran (auto) Absolute Neuts (auto) Absolute Nucleated RBC Nucleated RBC % (auto) Sodium Potassium Chloride Carbon Dioxide Anion Gap BUN Creatinine Estim Creat Clear Calc Estimated GFR Random Glucose Calcium Urine Color Urine Appearance Urine pH Ur Specific [place] Urine Protein Urine Glucose (UA) Urine Ketones Urine Blood Urine Nitrite Ur Leukocyte Esterase Urine RBC Urine WBC Ur Squamous Epith Cells Ur Renal Epithelial Cell Urine Bacteria Urine Mucus Urine Test NEGATIVE Urine Opiates Screen Not Detected Urine Fentanyl Screen Not Detected Ur Barbiturates Screen Not Detected Ur Phencyclidine Scrn Not Detected Ur Amphetamines Screen Not Detected U Benzodiazepines Scrn Not Detected Urine Cocaine Screen Not Detected U Marijuana (THC) Screen Not Detected COVID-19 ([facility]) Negative COVID-19 Clin Com See Note 11/29/21 11/29/21 11/29/21 01:39 10:02 10:02 WBC 5.5 RBC 4.50 Hgb 11.3 L Hct 35.8 L MCV 79.6 L MCH 25.1 L MCHC 31.6 RDW 18.7 H Plt Count 317 MPV 9.4 Immature Gran % (Auto) 0.2 Neut % (Auto) 62.1 Lymph % (Auto) 26.4 [place] % (Auto) 9.2 Eos % (Auto) 1.6 Baso % (Auto) 0.5 Lymph # (Auto) 1.5 [place] # (Auto) 0.5 Eos # (Auto) 0.1 Baso # (Auto) 0.0 Abs Immat Gran (auto) 0.01 Absolute Neuts (auto) 3.4 Absolute Nucleated RBC 0.000 Nucleated RBC % (auto) 0.0 Sodium 134 L Potassium 3.5 D Chloride 101 Carbon Dioxide 24 Anion Gap 13 BUN 11 Creatinine 0.75 Estim Creat Clear Calc 108.0 Estimated GFR > 60 Random Glucose 153 H Calcium 9.2 Urine Color YELLOW Urine Appearance HAZY Urine pH 6.0 Ur Specific [place] >= 1.030 H Urine Protein NEG Urine Glucose (UA) NEG Urine Ketones 15 Urine Blood NEG Urine Nitrite POS H Ur Leukocyte Esterase NEG Urine RBC 0-2 Urine WBC 5-9 H Ur Squamous Epith Cells 2+ Ur Renal Epithelial Cell 1+ Urine Bacteria 3+ Urine Mucus 4+ Urine Test Urine Opiates Screen Urine Fentanyl Screen Ur Barbiturates Screen Ur Phencyclidine Scrn Ur Amphetamines Screen U Benzodiazepines Scrn Urine Cocaine Screen U Marijuana (THC) Screen COVID-19 ([facility]) COVID-19 Clin Com Medications Medications Current Medications Acetaminophen (Acetaminophen 325 Mg Tablet) 650 mg PO Q6H PRN PRN Reason: Headache/Pain Mild Scale (1-3) Al Hydroxide/Mg Hydroxide (Magnesium Hydrox/Alum Hydrox 30 Ml Oral.Susp) 30 ml PO Q6H PRN PRN Reason: Heartburn/Nausea Benztropine Mesylate (Benztropine Mesylate 1 Mg Tablet) 1 mg PO BEDTIME [facility] Last Admin: 11/29/21 21:54 Dose: 1 mg Carbamazepine (Carbamazepine Er 200 Mg Tab.Er.12h) 400 mg PO BID [facility] Last Admin: 11/30/21 07:42 Dose: 400 mg Ferrous Sulfate (Ferrous Sulfate 324 Mg Tablet.Dr) 324 mg PO DAILY [facility] Last Admin: 11/30/21 07:43 Dose: 324 mg Fluphenazine HCl (Fluphenazine Hcl 5 Mg Tablet) 5 mg PO BEDTIME [facility] Last Admin: 11/29/21 21:54 Dose: 5 mg Fluphenazine HCl (Fluphenazine Hcl 2.5 Mg Tablet) 2.5 mg PO BEDTIME PRN PRN Reason: insomnia Hydroxyzine HCl (Hydroxyzine Hcl 50 Mg Tablet) 50 mg PO Q4H PRN PRN Reason: Anxiety Last Admin: 11/30/21 00:46 Dose: 50 mg Loperamide HCl (Loperamide Hcl 2 Mg Capsule) 2 mg PO Q4H PRN PRN Reason: Loose Stool Magnesium Hydroxide (Milk Of Magnesia 30 Ml Oral.Susp) 30 ml PO DAILY PRN PRN Reason: Constipation Melatonin (Melatonin 3 Mg Tablet) 9 mg PO BEDTIME [facility] Last Admin: 11/29/21 21:54 Dose: 9 mg Multivitamins/Vitamin C (Multivitamin Tablet) 1 tab PO DAILY [facility] Last Admin: 11/30/21 07:43 Dose: 1 tab Nicotine Polacrilex (Nicotine Polacrilex 2 Mg Gum) 4 mg BUCCAL Q2H PRN PRN Reason: Nicotine Cravings Sodium Chloride (Sodium Chloride 0.65 % Nasal 44 Ml Sprbtl) 1 spray NOSTRIL-B Q1H PRN PRN Reason: Dryness Trazodone HCl (Trazodone Hcl 50 Mg Tablet) 50 mg PO BEDTIME PRN PRN Reason: Insomnia Last Admin: 11/29/21 21:54 Dose: 50 mg Allergies Allergies Allergy/AdvReac Type Severity Reaction Status Date / Time Sulfa (Sulfonamide AdvReac Rash Verified 10/23/21 23:08 Antibiotics) Assessment & Plan Assessment & Plan (1) Bipolar 1 disorder: Status: Acute Code(s): F31.9 - Bipolar disorder, unspecified Plan Steph is a 36 y.o. Female who carries a dx of Bipolar I DO. She presented to [facility] on 11/28/21. Pt recently admitted to [facility] on 10/23-11/12/21. During previous admission, she refused lithium, depakote. Pt on olanzapine but this was discontinued due to wt gain. She was stabilized on tegretol 400 mg BID, fluphen azine 5 mg HS. She re-presented to [facility] ED on 11/28/21 due to pt?s boyfriend calling 911 because the patient was having a manic episode, yelling, throwing things in her apartment. 11/29: Pt says she has been med-adherent, unclear. Will continue med regimen from recent discharge on [facility]. 11/30: continue outpt regimen. observe for improvement. I spent __25____ minutes with the patient and/or on the patient floor today, greater than?50% of which was spent counseling/coordinating care. Reason for contiued inpatient stay Substantial Risk for: harm to others, inability to function and rapid decompensation
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
[2021-11-30] MEDS: HaloperidoL 5 MG TABLET 10 MG PO (11:39)
[2021-11-30] MEDS: LORazepam 1 MG TABLET 2 MG PO (11:39)
[2021-11-30 15:22] LABS: Carbamazepine Tegretol 4.5 mcg/mL (5.0-12.0)
[2021-11-30 21:14] VITALS: BP 132/64; PULSE 123; RESP 18; TEMP 36.2; O2SAT 97
[2021-11-30] MEDS: Melatonin 3 MG TABLET 9 MG PO (21:19)
[2021-11-30] MEDS: Benztropine Mesylate 1 MG TABLET PO (21:19)
[2021-11-30] MEDS: fluPHENAZine HCl 5 MG TABLET PO (21:19)
[2021-11-30] MEDS: traZODone HCL 50 MG TABLET PO (21:19)
[2021-12-01] MEDS: Acetaminophen 325 MG TABLET 650 MG PO ×2 (06:17→15:11)
[2021-12-01] MEDS: Ferrous Sulfate 324 MG TABLET.DR PO (08:35)
[2021-12-01] MEDS: carBAMazepine ER 200 MG TAB.ER.12H 400 MG PO ×2 (08:35→22:28)
[2021-12-01] MEDS: Multivitamin TABLET 1 TAB PO (08:35)
[2021-12-01 08:37] VITALS: BP 106/57; PULSE 81; RESP 17; TEMP 36.5; O2SAT 98
[2021-12-01] MEDS: hydrOXYzine HCL 50 MG TABLET PO ×2 (09:43→17:22)
[2021-12-01] MEDS: Loperamide HCl 2 MG CAPSULE PO (09:43)
--- NOTE | 2021-12-01 11:06 | HO.PSYCHPN ---
Subjective Subjective Date of Service: 12/01/21 Reason For Visit: section 12 AMS Subjective Notes: 3 Day Interim History: pt calm and cooperative. pt still disorganized with thoughts, when speaking moving her hands in the air in a stereotyped way, as if using sign language. unable to paticipate in conversation; unable to answer questions; taking tegretol and prolixin since arriving. denies she has bipolar disorder or any mental illness. 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 good eye contact. No Tics or Tremors. No abnormal involuntary movements. Pt is mildly agitated, speaking quickly and moving her hands when speaking as if using sign language. Non-pressured speech, spontaneous with regular incr rate and amount, normal loudness and prosody. No prolonged speech latency or dysarthria. affect is hyper-intense, min-labile, anxious. no SI/HI/AVH expressed. Thoughts are disorganized. No known cognitive or memory impairment. Insight/ Judgment poor. Diagnostics Vital Signs (24Hr): Vital Signs - 24 hr 11/30/21 21:14 12/01/21 08:37 Temperature 97.2 F 97.7 F Pulse Rate 123 H 81 Respiratory Rate 18 17 Blood Pressure 132/64 106/57 L Pulse Oximetry 97 98 Oxygen Delivery Method Room Air Room Air BMI result Body Mass Index 28.2 Labs Results: 11/29/21 10:02 11/29/21 10:02 Labs: Laboratory Results - last 48 hr 11/30/21 14:17 Carbamazepine 4.5 L Medications Medications Current Medications Acetaminophen (Acetaminophen 325 Mg Tablet) 650 mg PO Q6H PRN PRN Reason: Headache/Pain Mild Scale (1-3) Last Admin: 12/01/21 06:17 Dose: 650 mg Al Hydroxide/Mg Hydroxide (Magnesium Hydrox/Alum Hydrox 30 Ml Oral.Susp) 30 ml PO Q6H PRN PRN Reason: Heartburn/Nausea Benztropine Mesylate (Benztropine Mesylate 1 Mg Tablet) 1 mg PO BEDTIME [facility] Last Admin: 11/30/21 21:19 Dose: 1 mg Carbamazepine (Carbamazepine Er 200 Mg Tab.Er.12h) 400 mg PO BID [facility] Last Admin: 12/01/21 08:35 Dose: 400 mg Ferrous Sulfate (Ferrous Sulfate 324 Mg Tablet.Dr) 324 mg PO DAILY [facility] Last Admin: 12/01/21 08:35 Dose: 324 mg Fluphenazine HCl (Fluphenazine Hcl 5 Mg Tablet) 5 mg PO BEDTIME [facility] Last Admin: 11/30/21 21:19 Dose: 5 mg Fluphenazine HCl (Fluphenazine Hcl 2.5 Mg Tablet) 2.5 mg PO BEDTIME PRN PRN Reason: insomnia Hydroxyzine HCl (Hydroxyzine Hcl 50 Mg Tablet) 50 mg PO Q4H PRN PRN Reason: Anxiety Last Admin: 12/01/21 09:43 Dose: 50 mg Loperamide HCl (Loperamide Hcl 2 Mg Capsule) 2 mg PO Q4H PRN PRN Reason: Loose Stool Last Admin: 12/01/21 09:43 Dose: 2 mg Magnesium Hydroxide (Milk Of Magnesia 30 Ml Oral.Susp) 30 ml PO DAILY PRN PRN Reason: Constipation Melatonin (Melatonin 3 Mg Tablet) 9 mg PO BEDTIME [facility] Last Admin: 11/30/21 21:19 Dose: 9 mg Multivitamins/Vitamin C (Multivitamin Tablet) 1 tab PO DAILY [facility] Last Admin: 12/01/21 08:35 Dose: 1 tab Nicotine Polacrilex (Nicotine Polacrilex 2 Mg Gum) 4 mg BUCCAL Q2H PRN PRN Reason: Nicotine Cravings Sodium Chloride (Sodium Chloride 0.65 % Nasal 44 Ml Sprbtl) 1 spray NOSTRIL-B Q1H PRN PRN Reason: Dryness Trazodone HCl (Trazodone Hcl 50 Mg Tablet) 50 mg PO BEDTIME PRN PRN Reason: Insomnia Last Admin: 11/30/21 21:19 Dose: 50 mg Allergies Allergies Allergy/AdvReac Type Severity Reaction Status Date / Time Sulfa (Sulfonamide AdvReac Rash Verified 10/23/21 23:08 Antibiotics) Assessment & Plan Assessment & Plan (1) Bipolar 1 disorder: Status: Acute Code(s): F31.9 - Bipolar disorder, unspecified Plan Steph is a 36 y.o. Female who carries a dx of Bipolar I DO. She presented to [facility] on 11/28/21. Pt recently admitted to [facility] on 10/23-11/12/21. During previous admission, she refused lithium, depakote. Pt on olanzapine but this was discontinued due to wt gain. She was stabilized on tegretol 400 mg BID, fluphenazine 5 mg HS. She re-presented to [facility] ED on 11/28/21 due to pt?s boyfriend calling 911 because the patient was having a manic episode, yelling, throwing things in her apartment. 11/29: Pt says she has been med-adherent, unclear. Will continue med regimen from recent discharge on [facility]. 11/30: continue outpt regimen. observe for improvement. 12/01: continue treatment plan; add urinalysis and reflex culture and sensitivity I spent ____15__ minutes with the patient and/or on the patient floor today, greater than?50% of which was spent counseling/coordinating care. Reason for contiued inpatient stay Substantial Risk for: harm to self, inability to function and med/psych decompensation
[2021-12-01 15:27] LABS: Appearance Urine CLEAR; Color Urine YELLOW; Glucose Urine UA NEG (NEG); Leukocyte Esterase Urine NEG (NEG); Nitrite Urine NEG (NEG); Specific Gravity - Urine 1.015 (1.005-1.025); Urine Blood NEG (NEG); Urine Ketones NEG (NEG); Urine Protein NEG (NEG-TRACE)
[2021-12-01] MEDS: LORazepam 1 MG TABLET 2 MG PO (18:08)
[2021-12-01] MEDS: HaloperidoL 5 MG TABLET 10 MG PO (18:08)
[2021-12-01 22:25] VITALS: BP 112/64; PULSE 86; RESP 16; TEMP 36.2; O2SAT 97
[2021-12-01] MEDS: Melatonin 3 MG TABLET 9 MG PO (22:28)
[2021-12-01] MEDS: traZODone HCL 50 MG TABLET PO (22:28)
[2021-12-01] MEDS: Benztropine Mesylate 1 MG TABLET PO (22:28)
[2021-12-01] MEDS: fluPHENAZine HCl 5 MG TABLET PO (22:28)
[2021-12-02 08:22] VITALS: BP 101/62; PULSE 74; RESP 17; TEMP 36.2; O2SAT 98
[2021-12-02] MEDS: Ferrous Sulfate 324 MG TABLET.DR PO (08:24)
[2021-12-02] MEDS: carBAMazepine ER 200 MG TAB.ER.12H 400 MG PO ×2 (08:24→20:32)
[2021-12-02] MEDS: Multivitamin TABLET 1 TAB PO (08:24)
[2021-12-02] MEDS: hydrOXYzine HCL 50 MG TABLET PO ×2 (09:03→18:04)
--- NOTE | 2021-12-02 12:10 | HO.PSYCHPN ---
Subjective Subjective Date of Service: 12/02/21 Reason For Visit: section 12 AMS Interim History: pt anxious agitated; moving her hands in sterotypic way; rubbing palms on thighs; rocking stating she is anxious and upset; making paranoid statements; wanting to go home; stating others are against her. pt still disorganized with thoughts, when speaking moving her hands in the air in a stereotyped way, as if using sign language. unable to paticipate in conversation; unable to answer questions- making non-sensical responses; taking tegretol and prolixin since arriving. denies she has bipolar disorder or any mental illness. 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 good eye contact. No Tics or Tremors. No abnormal involuntary movements. Pt is agitated, speaking quickly and moving her hands when speaking as if using sign language. Non-pressured speech, spontaneous with regular incr rate and amount, normal loudness and prosody. No prolonged speech latency or dysarthria. affect is hyper-intense, min-labile, anxious. no SI/HI/AVH expressed. Thoughts are disorganized. No known cognitive or memory impairment. Insight/ Judgment poor. Diagnostics Vital Signs (24Hr): Vital Signs - 24 hr 12/01/21 22:25 12/02/21 08:22 Temperature 97.2 F 97.1 F Pulse Rate 86 74 Respiratory Rate 16 17 Blood Pressure 112/64 101/62 Pulse Oximetry 97 98 Oxygen Delivery Method Room Air Room Air BMI result Body Mass Index 28.2 Labs Results: 11/29/21 10:02 11/29/21 10:02 Labs: Laboratory Results - last 48 hr 11/30/21 12/01/21 14:17 12:40 Urine Color YELLOW Urine Appearance CLEAR Urine pH 6.0 Ur Specific [place] 1.015 Urine Protein NEG Urine Glucose (UA) NEG Urine Ketones NEG Urine Blood NEG Urine Nitrite NEG Ur Leukocyte Esterase NEG Carbamazepine 4.5 L Medications Medications Current Medications Acetaminophen (Acetaminophen 325 Mg Tablet) 650 mg PO Q6H PRN PRN Reason: Headache/Pain Mild Scale (1-3) Last Admin: 12/01/21 15:11 Dose: 650 mg Al Hydroxide/Mg Hydroxide (Magnesium Hydrox/Alum Hydrox 30 Ml Oral.Susp) 30 ml PO Q6H PRN PRN Reason: Heartburn/Nausea Benztropine Mesylate (Benztropine Mesylate 1 Mg Tablet) 1 mg PO BEDTIME [facility] Last Admin: 12/01/21 22:28 Dose: 1 mg Carbamazepine (Carbamazepine Er 200 Mg Tab.Er.12h) 400 mg PO BID [facility] Last Admin: 12/02/21 08:24 Dose: 400 mg Ferrous Sulfate (Ferrous Sulfate 324 Mg Tablet.Dr) 324 mg PO DAILY [facility] Last Admin: 12/02/21 08:24 Dose: 324 mg Fluphenazine HCl (Fluphenazine Hcl 5 Mg Tablet) 5 mg PO BEDTIME [facility] Last Admin: 12/01/21 22:28 Dose: 5 mg Fluphenazine HCl (Fluphenazine Hcl 2.5 Mg Tablet) 2.5 mg PO BEDTIME PRN PRN Reason: insomnia Hydroxyzine HCl (Hydroxyzine Hcl 50 Mg Tablet) 50 mg PO Q4H PRN PRN Reason: Anxiety Last Admin: 12/02/21 09:03 Dose: 50 mg Loperamide HCl (Loperamide Hcl 2 Mg Capsule) 2 mg PO Q4H PRN PRN Reason: Loose Stool Last Admin: 12/01/21 09:43 Dose: 2 mg Magnesium Hydroxide (Milk Of Magnesia 30 Ml Oral.Susp) 30 ml PO DAILY PRN PRN Reason: Constipation Melatonin (Melatonin 3 Mg Tablet) 9 mg PO BEDTIME [facility] Last Admin: 12/01/21 22:28 Dose: 9 mg Multivitamins/Vitamin C (Multivitamin Tablet) 1 tab PO DAILY [facility] Last Admin: 12/02/21 08:24 Dose: 1 tab Nicotine Polacrilex (Nicotine Polacrilex 2 Mg Gum) 4 mg BUCCAL Q2H PRN PRN Reason: Nicotine Cravings Sodium Chloride (Sodium Chloride 0.65 % Nasal 44 Ml Sprbtl) 1 spray NOSTRIL-B Q1H PRN PRN Reason: Dryness Trazodone HCl (Trazodone Hcl 50 Mg Tablet) 50 mg PO BEDTIME PRN PRN Reason: Insomnia Last Admin: 12/01/21 22:28 Dose: 50 mg Allergies Allergies Allergy/AdvReac Type Severity Reaction Status Date / Time Sulfa (Sulfonamide AdvReac Rash Verified 10/23/21 23:08 Antibiotics) Assessment & Plan Assessment & Plan (1) Bipolar 1 disorder: Status: Acute Code(s): F31.9 - Bipolar disorder, unspecified Plan Steph is a 36 y.o. Female who carries a dx of Bipolar I DO. She presented to [facility] [place] on 11/28/21. Pt recently admitted to on 10/23-11/12/21. During previous admission, she refused lithium, depakote. Pt on olanzapine but this was discontinued due to wt gain. She was stabilized on tegretol 400 mg BID, fluphenazine 5 mg HS. She re-presented to [facility] [place] [facility] on 11/28/21 due to pt?s boyfriend calling 911 because the patient was having a manic episode, yelling, throwing things in her apartment. 11/29: Pt says she has been med-adherent, unclear. Will continue med regimen from recent discharge on [facility]. 11/30: continue outpt regimen. observe for improvement. 12/01: continue treatment plan; add urinalysis and reflex culture and sensitivity 12/02: haldol 5mg daily prn and ativan 1 mg daily prn for agitation, psychosis I spent ___15___ minutes with the patient and/or on the patient floor today, greater than?50% of which was spent counseling/coordinating care. Reason for contiued inpatient stay Substantial Risk for: harm to self, inability to function and rapid decompensation
[2021-12-02] MEDS: Acetaminophen 325 MG TABLET 650 MG PO (12:18)
[2021-12-02] MEDS: HaloperidoL 5 MG TABLET PO (14:36)
[2021-12-02] MEDS: LORazepam 1 MG TABLET PO (14:36)
[2021-12-02 20:25] VITALS: BP 117/69; PULSE 89; RESP 18; TEMP 36.6; O2SAT 98
[2021-12-02] MEDS: fluPHENAZine HCl 5 MG TABLET PO (20:32)
[2021-12-02] MEDS: Benztropine Mesylate 1 MG TABLET PO (20:32)
[2021-12-02] MEDS: traZODone HCL 50 MG TABLET PO (20:32)
[2021-12-02] MEDS: Melatonin 3 MG TABLET 9 MG PO (20:32)
[2021-12-03] MEDS: carBAMazepine ER 200 MG TAB.ER.12H 400 MG PO ×2 (07:53→20:37)
[2021-12-03] MEDS: Ferrous Sulfate 324 MG TABLET.DR PO (07:54)
[2021-12-03] MEDS: Multivitamin TABLET 1 TAB PO (07:54)
[2021-12-03 08:00] VITALS: BP 122/72; PULSE 107; RESP 16; TEMP 36.1; O2SAT 98
[2021-12-03] MEDS: Loperamide HCl 2 MG CAPSULE PO (09:09)
[2021-12-03] MEDS: HaloperidoL 5 MG TABLET PO ×2 (11:50→12:06)
[2021-12-03] MEDS: LORazepam 1 MG TABLET PO ×3 (11:50→19:20)
--- NOTE | 2021-12-03 12:08 | PC.NURSE ---
Pt became increasingly agitated with staff when she was told she wasn't being discharged today. She started screaming and said I am not staying another night here. If I don't leave now, this entire place will look like ruins. That's not a threat that's a promise sweetheart. Pt was difficult to redirect and she began pushing on the exit doors demanding to be let out. Pt received PRN Ativan 1mg and Haldol 5mg. Pt took the Haldol but the Ativan fell out of the cup and onto the floor, when this RN went to pick it up she dumped water on the ground/on this RN's head. RN wasted the Ativan and retrieved another tab, pt took it without any issues. Dr. Gonzalez notified and ordered an additional Ativan 1mg Haldol 5mg. When this RN offered it to her, pt asked what is this, adderall or ? She took the medication without any issues after that. Pt eventually was able to calm herself down and walk with staff down the [place].
--- NOTE | 2021-12-03 15:13 | P.PNPSI_ITS ---
Subjective Subjective Date of Service: 12/03/21 Reason For Visit: section 12 AMS Interim History: calm and pleasant at first, then largely calm but vaguely threatening verbally once she was told she would not be discharged today. some strange behavior, pouring the contents of her water bottle (water, presumably) onto the table in the interview room and spreading the water across the table, encroaching on MD's laptop computer and paperwork, both positioned on the table at the time. f rankly delusional, referring to herself as wilma and god's (literal) daughter. she walked out of the interview, which was conducted with SW present. per staff, pt was later very agitated, banging on doors, demanding to be discharged, yelling in staff and peer's face, accusing peer of having taken her baby 8 years ago. received haldol 5 and ativan 1 twice in short succession. report from the weekend describes pt as delusional and non-sensical. using hand gestures as if sign language when speaking. tangential. generally taking medications. Mental Status Exam Mental Status Exam Narrative: Alert. good eye contact. No Tics or Tremors. No abnormal involuntary movements. Pt is mildly agitated, speaking quickly and moving her hands when speaking as if using sign language. Non-pressured speech, spontaneous with incr rate and amount, normal loudness and prosody. No prolonged speech latency or dysarthria. affect is hyper-intense, min-labile, irritable. no SI/HI/AVH expressed. Thoughts are disorganized. No known cognitive or memory impairment. Insight/ Judgment poor. Diagnostics Vital Signs (24Hr): Vital Signs - 24 hr 12/02/21 20:25 12/03/21 08:00 Temperature 97.8 F 97 F Pulse Rate 89 107 H Respiratory Rate 18 16 Blood Pressure 117/69 122/72 Pulse Oximetry 98 98 Oxygen Delivery Method Room Air Room Air BMI result Body Mass Index 28.2 Labs Results: 11/29/21 10:02 11/29/21 10:02 Labs: Laboratory Results - last 48 hr 12/01/21 12:40 Urine Color YELLOW Urine Appearance CLEAR Urine pH 6.0 Ur Specific [place] 1.015 Urine Protein NEG Urine Glucose (UA) NEG Urine Ketones NEG Urine Blood NEG Urine Nitrite NEG Ur Leukocyte Esterase NEG Medications Medications Current Medications Acetaminophen (Acetaminophen 325 Mg Tablet) 650 mg PO Q6H PRN PRN Reason: Headache/Pain Mild Scale (1-3) Last Admin: 12/02/21 12:18 Dose: 650 mg Al Hydroxide/Mg Hydroxide (Magnesium Hydrox/Alum Hydrox 30 Ml Oral.Susp) 30 ml PO Q6H PRN PRN Reason: Heartburn/Nausea Benztropine Mesylate (Benztropine Mesylate 1 Mg Tablet) 1 mg PO BEDTIME [facility] Last Admin: 12/02/21 20:32 Dose: 1 mg Carbamazepine (Carbamazepine Er 200 Mg Tab.Er.12h) 400 mg PO BID [facility] Last Admin: 12/03/21 07:53 Dose: 400 mg Ferrous Sulfate (Ferrous Sulfate 324 Mg Tablet.Dr) 324 mg PO DAILY [facility] Last Admin: 12/03/21 07:54 Dose: 324 mg Fluphenazine HCl (Fluphenazine Hcl 5 Mg Tablet) 5 mg PO BEDTIME [facility] Last Admin: 12/02/21 20:32 Dose: 5 mg Fluphenazine HCl (Fluphenazine Hcl 2.5 Mg Tablet) 2.5 mg PO BEDTIME PRN PRN Reason: insomnia Haloperidol (Haloperidol 5 Mg Tablet) 5 mg PO DAILY PRN PRN Reason: Psychosis/delusional thinking Last Admin: 12/03/21 11:50 Dose: 5 mg Hydroxyzine HCl (Hydroxyzine Hcl 50 Mg Tablet) 50 mg PO Q4H PRN PRN Reason: Anxiety Last Admin: 12/02/21 18:04 Dose: 50 mg Loperamide HCl (Loperamide Hcl 2 Mg Capsule) 2 mg PO Q4H PRN PRN Reason: Loose Stool Last Admin: 12/03/21 09:09 Dose: 2 mg Lorazepam (Lorazepam 1 Mg Tablet) 1 mg PO BID PRN PRN Reason: Anxiety Last Admin: 12/03/21 11:50 Dose: 1 mg Magnesium Hydroxide (Milk Of Magnesia 30 Ml Oral.Susp) 30 ml PO DAILY PRN PRN Reason: Constipation Melatonin (Melatonin 3 Mg Tablet) 9 mg PO BEDTIME [facility] Last Admin: 12/02/21 20:32 Dose: 9 mg Multivitamins/Vitamin C (Multivitamin Tablet) 1 tab PO DAILY [facility] Last Admin: 12/03/21 07:54 Dose: 1 tab Nicotine Polacrilex (Nicotine Polacrilex 2 Mg Gum) 4 mg BUCCAL Q2H PRN PRN Reason: Nicotine Cravings Sodium Chloride (Sodium Chloride 0.65 % Nasal 44 Ml Sprbtl) 1 spray NOSTRIL-B Q1H PRN PRN Reason: Dryness Trazodone HCl (Trazodone Hcl 50 Mg Tablet) 50 mg PO BEDTIME PRN PRN Reason: Insomnia Last Admin: 12/02/21 20:32 Dose: 50 mg Allergies Allergies Allergy/AdvReac Type Severity Reaction Status Date / Time Sulfa (Sulfonamide AdvReac Rash Verified 10/23/21 23:08 Antibiotics) Assessment & Plan Assessment & Plan (1) Bipolar 1 disorder: Status: Acute Code(s): F31.9 - Bipolar disorder, unspecified Plan Steph is a 36 y.o. Female who carries a dx of Bipolar I DO. She presented to [facility] on 11/28/21. Pt recently admitted to on 10/23-11/12/21. During previous admission, she refused lithium, depakote. Pt on olanzapine but this was d iscontinued due to wt gain. She was stabilized on tegretol 400 mg BID, fluphenazine 5 mg HS. She re-presented to [facility] on 11/28/21 due to pt?s boyfriend calling 911 because the patient was having a manic episode, yelling, throwing things in her apartment. 11/29: Pt says she has been med-adherent, unclear. Will continue med regimen from recent discharge on . 11/30: continue outpt regimen. observe for improvement. 12/01: continue treatment plan; add urinalysis and reflex culture and sensitivity 12/02: haldol 5mg daily prn and ativan 1 mg daily prn for agitation, psychosis 12/03: haldol 5 and ativan 1 twice in the morning. agitation, screaming in staff and peer's faces, banging on doors, demanding discharge, accusing peer of having stolen her baby 8 years ago and menacing peer, causing her substantial distress. I spent ___35___ minutes with the patient and/or on the patient floor today, greater than?50% of which was spent counseling/coordinating care. Reason for contiued inpatient stay Substantial Risk for: harm to self, harm to others, inability to function and rapid decompensation
[2021-12-03 20:30] VITALS: BP 142/71; PULSE 94; RESP 18; TEMP 36.6; O2SAT 97
[2021-12-03] MEDS: traZODone HCL 50 MG TABLET PO (20:37)
[2021-12-03] MEDS: Melatonin 3 MG TABLET 9 MG PO (20:37)
[2021-12-03] MEDS: Benztropine Mesylate 1 MG TABLET PO (20:37)
[2021-12-03] MEDS: hydrOXYzine HCL 50 MG TABLET PO (20:38)
[2021-12-03] MEDS: fluPHENAZine HCl 5 MG TABLET PO (20:45)
[2021-12-04 08:00] VITALS: BP 118/71; PULSE 83; RESP 16; TEMP 36.7; O2SAT 98
[2021-12-04] MEDS: LORazepam 1 MG TABLET PO ×2 (08:37→14:20)
[2021-12-04] MEDS: Multivitamin TABLET 1 TAB PO (08:37)
[2021-12-04] MEDS: carBAMazepine ER 200 MG TAB.ER.12H 400 MG PO ×2 (08:37→20:23)
[2021-12-04] MEDS: Ferrous Sulfate 324 MG TABLET.DR PO (08:37)
[2021-12-04] MEDS: HaloperidoL 5 MG TABLET PO ×2 (08:38→19:17)
[2021-12-04] MEDS: hydrOXYzine HCL 50 MG TABLET PO ×2 (11:00→19:16)
--- NOTE | 2021-12-04 15:55 | HO.PSYCHPN ---
Subjective Subjective Date of Service: 12/04/21 Reason For Visit: section 12 AMS Interim History: pt seen with PASTOR kurtz. pt reports she is doing reasonably well, denies any side effects from the medications, asks to discharge. informs pt that commitment papers have been filed, which angers pt. explains rationale, which pt does not accept. she makes some negative statements about this creative writer and then leaves the interview room. per staff, pt was access rep yesterday morning. then she was told she was not going to be discharged yesterday, after which time she began screaming loudly on the unit, demanding discharge, demanding staff's badges so she could let herself out, banging on doors. also poured water on staff, yelled in peer's face that the peer had stolen her baby 8 years ago, terrifying said peer. pt's body language and verbalizations were extremely aggressive and menacing. pt slept about 3 hours overnight. med-compliant. screaming in security operations center operator's face as well. Mental Status Exam Mental Status Exam Narrative: Alert. good eye contact. No Tics or Tremors. No abnormal involuntary movements. Pt goes from calm to moderately agitated, speaking quickly and moving her hands when speaking as if using sign language. Non-pressured speech, spontaneous with incr rate and amount, normal to increased loudness, normal prosody. No prolonged speech latency or dysarthria. affect is hyper-intense, mod-labile, irritable. no SI/HI/AVH expressed. Thoughts more organized but remain delusional. No known cognitive or memory impairment. Insight/ Judgment poor. Diagnostics Vital Signs (24Hr): Vital Signs - 24 hr 12/03/21 20:30 12/04/21 08:00 Temperature 97.8 F 98.1 F Pulse Rate 94 83 Respiratory Rate 18 16 Blood Pressure 142/71 H 118/71 Pulse Oximetry 97 98 Oxygen Delivery Method Room Air Room Air BMI result Body Mass Index 28.2 Labs Results: 11/29/21 10:02 11/29/21 10:02 Medications Medications Current Medications Acetaminophen (Acetaminophen 325 Mg Tablet) 650 mg PO Q6H PRN PRN Reason: Headache/Pain Mild Scale (1-3) Last Admin: 12/02/21 12:18 Dose: 650 mg Al Hydroxide/Mg Hydroxide (Magnesium Hydrox/Alum Hydrox 30 Ml Oral.Susp) 30 ml PO Q6H PRN PRN Reason: Heartburn/Nausea Benztropine Mesylate (Benztropine Mesylate 1 Mg Tablet) 1 mg PO BEDTIME [facility] Last Admin: 12/03/21 20:37 Dose: 1 mg Carbamazepine (Carbamazepine Er 200 Mg Tab.Er.12h) 400 mg PO BID [facility] Last Admin: 12/04/21 08:37 Dose: 400 mg Ferrous Sulfate (Ferrous Sulfate 324 Mg Tablet.Dr) 324 mg PO DAILY [facility] Last Admin: 12/04/21 08:37 Dose: 324 mg Fluphenazine HCl (Fluphenazine Hcl 5 Mg Tablet) 5 mg PO BEDTIME [facility] Last Admin: 12/03/21 20:45 Dose: 5 mg Fluphenazine HCl (Fluphenazine Hcl 2.5 Mg Tablet) 2.5 mg PO BEDTIME PRN PRN Reason: insomnia Haloperidol (Haloperidol 5 Mg Tablet) 5 mg PO Q4H PRN PRN Reason: Psychosis/delusional thinking Hydroxyzine HCl (Hydroxyzine Hcl 50 Mg Tablet) 50 mg PO Q4H PRN PRN Reason: Anxiety Last Admin: 12/04/21 11:00 Dose: 50 mg Loperamide HCl (Loperamide Hcl 2 Mg Capsule) 2 mg PO Q4H PRN PRN Reason: Loose Stool Last Admin: 12/03/21 09:09 Dose: 2 mg Lorazepam (Lorazepam 1 Mg Tablet) 1 mg PO BID PRN PRN Reason: Anxiety Last Admin: 12/04/21 14:20 Dose: 1 mg Magnesium Hydroxide (Milk Of Magnesia 30 Ml Oral.Susp) 30 ml PO DAILY PRN PRN Reason: Constipation Melatonin (Melatonin 3 Mg Tablet) 9 mg PO BEDTIME [facility] Last Admin: 12/03/21 20:37 Dose: 9 mg Multivitamins/Vitamin C (Multivitamin Tablet) 1 tab PO DAILY [facility] Last Admin: 12/04/21 08:37 Dose: 1 tab Nicotine Polacrilex (Nicotine Polacrilex 2 Mg Gum) 4 mg BUCCAL Q2H PRN PRN Reason: Nicotine Cravings Sodium Chloride (Sodium Chloride 0.65 % Nasal 44 Ml Sprbtl) 1 spray NOSTRIL-B Q1H PRN PRN Reason: Dryness Trazodone HCl (Trazodone Hcl 50 Mg Tablet) 50 mg PO BEDTIME PRN PRN Reason: Insomnia Last Admin: 12/03/21 20:37 Dose: 50 mg Allergies Allergies Allergy/AdvReac Type Severity Reaction Status Date / Time Sulfa (Sulfonamide AdvReac Rash Verified 10/23/21 23:08 Antibiotics) Assessment & Plan Assessment & Plan (1) Bipolar 1 disorder: Status: Acute Code(s): F31.9 - Bipolar disorder, unspecified Plan Steph is a 36 y.o. Female who carries a dx of Bipolar I DO. She presented [place] [facility] [place]. Pt recently admitted to on 10/23-11/12/21. During previous admission, she refused lithium, depakote. Pt on olanzapine but this was discontinued due to wt gain. She was stabilized on tegretol 400 mg BID, fluphenazine 5 mg HS. She re-presented to [facility] on 11/28/21 due to pt?s boyfriend calling 911 because the patient was having a manic episode, yelling, throwing things in her apartment. 11/29: Pt says she has been med-adherent, unclear. Will continue med regimen from recent discharge on [facility]. 11/30: continue outpt regimen. observe for improvement. 12/01: continue treatment plan; add urinalysis and reflex culture and sensitivity 12/02: haldol 5mg daily prn and ativan 1 mg daily prn for agitation, psychosis 12/03: haldol 5 and ativan 1 twice in the morning. agitation, screaming in staff and peer's faces, banging on doors, demanding discharge, accusing peer of having stolen her baby 8 years ago and menacing peer, causing her substantial distress. 12/04: commitment paperwork filed. labile, delusional, butmore organized. I spent ___45___ minutes with the patient and/or on the patient floor today, greater than?50% of which was spent counseling/coordinating care. Reason for contiued inpatient stay Substantial Risk for: harm to self, inability to function and rapid decompensation
[2021-12-04] MEDS: Benztropine Mesylate 1 MG TABLET PO (20:22)
[2021-12-04] MEDS: fluPHENAZine HCl 5 MG TABLET PO (20:23)
[2021-12-04] MEDS: Melatonin 3 MG TABLET 9 MG PO (20:23)
[2021-12-04 20:26] VITALS: PULSE 91; TEMP 36.6; O2SAT 97
[2021-12-05] MEDS: Magnesium Hydrox/Alum Hydrox 30 ML ORAL.SUSP PO (07:45)
[2021-12-05 08:00] VITALS: BP 125/76; PULSE 94; RESP 16; TEMP 36.4; O2SAT 98
[2021-12-05] MEDS: Ferrous Sulfate 324 MG TABLET.DR PO (08:43)
[2021-12-05] MEDS: carBAMazepine ER 200 MG TAB.ER.12H 400 MG PO ×2 (08:43→20:33)
[2021-12-05] MEDS: Multivitamin TABLET 1 TAB PO (08:43)
[2021-12-05] MEDS: Loperamide HCl 2 MG CAPSULE PO (09:32)
[2021-12-05] MEDS: LORazepam 1 MG TABLET PO ×2 (12:50→19:55)
[2021-12-05] MEDS: HaloperidoL 5 MG TABLET PO ×2 (12:50→19:55)
--- NOTE | 2021-12-05 13:51 | HO.PSYCHPN ---
Subjective Subjective Date of Service: 12/05/21 Reason For Visit: section 12 AMS Interim History: initially calm and cooperative, although as the interview progresses pt gets progressively more irate and dysregulated, ending the interview by standing, yelling, and slamming the door shut. 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 denied any problems with the medications. seen with PASTOR kurtz. per staff, anx 5. redirectable. no longer upset about being kept here. feeling safe, appetite good. less labile on eves. haldol and ativan PRNs helpful. slept. Mental Status Exam Mental Status Exam Narrative: Alert. good eye contact. No Tics or Tremors. No abnormal involuntary movements. Pt goes from calm to agitated, speaking quickly and moving her hands when speaking as if using sign language. Non-pressured speech, spontaneous with incr rate and amount, normal to increased loudness, normal prosody. No prolonged speech latency or dysarthria. affect is hyper-intense, labile, irritable. no SI/HI/AVH expressed. Thoughts more organized but remain delusional. No known cognitive or memory impairment. Insight/ Judgment poor. Diagnostics Vital Signs (24Hr): Vital Signs - 24 hr 12/04/21 20:26 Temperature 97.9 F Pulse Rate 91 Pulse Oximetry 97 Oxygen Delivery Method Room Air BMI result Body Mass Index 28.2 Labs Results: 11/29/21 10:02 11/29/21 10:02 Medications Medications Current Medications Acetaminophen (Acetaminophen 325 Mg Tablet) 650 mg PO Q6H PRN PRN Reason: Headache/Pain Mild Scale (1-3) Last Admin: 12/02/21 12:18 Dose: 650 mg Al Hydroxide/Mg Hydroxide (Magnesium Hydrox/Alum Hydrox 30 Ml Oral.Susp) 30 ml PO Q6H PRN PRN Reason: Heartburn/Nausea Last Admin: 12/05/21 07:45 Dose: 30 ml Benztropine Mesylate (Benztropine Mesylate 1 Mg Tablet) 1 mg PO BEDTIME [facility] Last Admin: 12/04/21 20:22 Dose: 1 mg Carbamazepine (Carbamazepine Er 200 Mg Tab.Er.12h) 400 mg PO BID [facility] Last Admin: 12/05/21 08:43 Dose: 400 mg Ferrous Sulfate (Ferrous Sulfate 324 Mg Tablet.) 324 mg PO DAILY [facility] Last Admin: 12/05/21 08:43 Dose: 324 mg Fluphenazine HCl (Fluphenazine Hcl 5 Mg Tablet) 5 mg PO BEDTIME [facility] Last Admin: 12/04/21 20:23 Dose: 5 mg Fluphenazine HCl (Fluphenazine Hcl 2.5 Mg Tablet) 2.5 mg PO BEDTIME PRN PRN Reason: insomnia Haloperidol (Haloperidol 5 Mg Tablet) 5 mg PO Q4H PRN PRN Reason: Psychosis/delusional thinking Last Admin: 12/05/21 12:50 Dose: 5 mg Hydroxyzine HCl (Hydroxyzine Hcl 50 Mg Tablet) 50 mg PO Q4H PRN PRN Reason: Anxiety Last Admin: 12/04/21 19:16 Dose: 50 mg Loperamide HCl (Loperamide Hcl 2 Mg Capsule) 2 mg PO Q4H PRN PRN Reason: Loose Stool Last Admin: 12/05/21 09:32 Dose: 2 mg Lorazepam (Lorazepam 1 Mg Tablet) 1 mg PO BID PRN PRN Reason: Anxiety Last Admin: 12/05/21 12:50 Dose: 1 mg Magnesium Hydroxide (Milk Of Magnesia 30 Ml Oral.Susp) 30 ml PO DAILY PRN PRN Reason: Constipation Melatonin (Melatonin 3 Mg Tablet) 9 mg PO BEDTIME [facility] Last Admin: 12/04/21 20:23 Dose: 9 mg Multivitamins/Vitamin C (Multivitamin Tablet) 1 tab PO DAILY [facility] Last Admin: 12/05/21 08:43 Dose: 1 tab Nicotine Polacrilex (Nicotine Polacrilex 2 Mg Gum) 4 mg BUCCAL Q2H PRN PRN Reason: Nicotine Cravings Sodium Chloride (Sodium Chloride 0.65 % Nasal 44 Ml Sprbtl) 1 spray NOSTRIL-B Q1H PRN PRN Reason: Dryness Trazodone HCl (Trazodone Hcl 50 Mg Tablet) 50 mg PO BEDTIME PRN PRN Reason: Insomnia Last Admin: 12/03/21 20:37 Dose: 50 mg Allergies Allergies Allergy/AdvReac Type Severity Reaction Status Date / Time Sulfa (Sulfonamide AdvReac Rash Verified 10/23/21 23:08 Antibiotics) Assessment & Plan Assessment & Plan (1) Bipolar 1 disorder: Status: Acute Code(s): F31.9 - Bipolar disorder, unspecified Plan Steph is a 36 y.o. Female who carries a dx of Bipolar I DO. She presented [place] [facility] [place]. Pt recently admitted to [facility] on 10/23-11/12/21. During previous admission, she refused lithium, depakote. Pt on olanzapine but this was discontinued due to wt gain. She was stabilized on tegretol 400 mg BID, fluphenazine 5 mg HS. She re-presented to [facility] on 11/28/21 due to pt?s boyfriend calling 911 because the patient was having a manic episode, yelling, throwing things in her apartment. 11/29: Pt says she has been med-adherent, unclear. Will continue med regimen from recent discharge on [facility]. 11/30: continue outpt regimen. observe for improvement. 12/01: continue treatment plan; add urinalysis and reflex culture and sensitivity 12/02: haldol 5mg daily prn and ativan 1 mg daily prn for agitation, psychosis 12/03: haldol 5 and ativan 1 twice in the morning. agitation, screaming in staff and peer's faces, banging on doors, demanding discharge, accusing peer of having stolen her baby 8 years ago and menacing peer, causing her substantial distress. 12/04: commitment paperwork filed. labile, delusional, but more organized. 12/05: no change from yesterday's presentation. LM for pt's mother at her request ([phone]). I spent ___25___ minutes with the patient and/or on the patient floor today, greater than?50% of which was spent counseling/coordinating care. Reason for contiued inpatient stay Substantial Risk for: harm to self, inability to function and rapid decompensation
[2021-12-05] MEDS: hydrOXYzine HCL 50 MG TABLET PO ×2 (15:45→20:33)
[2021-12-05 20:00] VITALS: BP 120/82; PULSE 91; TEMP 36.6; O2SAT 98
[2021-12-05] MEDS: fluPHENAZine HCl 5 MG TABLET PO (20:33)
[2021-12-05] MEDS: Melatonin 3 MG TABLET 9 MG PO (20:33)
[2021-12-05] MEDS: traZODone HCL 50 MG TABLET PO (20:33)
[2021-12-05] MEDS: Benztropine Mesylate 1 MG TABLET PO (20:33)
[2021-12-06 06:00] VITALS: BP 104/68; PULSE 68; RESP 18; TEMP 36.3; O2SAT 98
[2021-12-06 07:00] VITALS: BMI 27.0
[2021-12-06] MEDS: Ferrous Sulfate 324 MG TABLET.DR PO (08:48)
[2021-12-06] MEDS: carBAMazepine ER 200 MG TAB.ER.12H 400 MG PO ×2 (08:48→20:21)
[2021-12-06] MEDS: Multivitamin TABLET 1 TAB PO (08:49)
[2021-12-06] MEDS: Acetaminophen 325 MG TABLET 650 MG PO (08:49)
[2021-12-06] MEDS: HaloperidoL 5 MG TABLET PO ×3 (10:58→15:33)
[2021-12-06] MEDS: LORazepam 1 MG TABLET PO (11:01)
--- NOTE | 2021-12-06 16:07 | HO.PSYCHPN ---
Subjective Subjective Date of Service: 12/06/21 Reason For Visit: section 12 AMS Interim History: pt calm and cooperative today, at least initially. less labile, more linear in thoughts. remains delusional, believes she is with twins. informed preg test from 7 days ago was neg. pt declines another test today. does end the interview by storming out and slamming the door, although less emphatically than yesterday. per staff, attending groups on days. requesting haldol/ativan. reports she is with twins, of which she is aware bcse she found evelina stickers in her navel. sleeping and eating well. Mental Status Exam Mental Status Exam Narrative: Alert. good eye contact. No Tics or Tremors. No abnormal involuntary movements. Pt goes from calm to somewhat agitated by end of interview, although more slowly than previous. not moving her hands when speaking as if using sign language today. Non-pressured speech, spontaneous with nml rate and amount, normal to increased loudness, normal prosody. No prolonged speech latency or dysarthria. affect is hyper-intense, mod-labile, irritable. no SI/HI/AVH expressed. Thoughts more organized but remain delusional. No known cognitive or memory impairment. Insight/ Judgment poor. Diagnostics Vital Signs (24Hr): Vital Signs - 24 hr 12/05/21 20:00 12/06/21 06:00 Temperature 97.8 F 97.4 F Pulse Rate 91 68 Respiratory Rate 18 Blood Pressure 120/82 104/68 Pulse Oximetry 98 98 Oxygen Delivery Method Room Air Room Air BMI result Body Mass Index 27.0 Labs Results: 11/29/21 10:02 11/29/21 10:02 Medications Medications Current Medications Acetaminophen (Acetaminophen 325 Mg Tablet) 650 mg PO Q6H PRN PRN Reason: Headache/Pain Mild Scale (1-3) Last Admin: 12/06/21 08:49 Dose: 650 mg Al Hydroxide/Mg Hydroxide (Magnesium Hydrox/Alum Hydrox 30 Ml Oral.Susp) 30 ml PO Q6H PRN PRN Reason: Heartburn/Nausea Last Admin: 12/05/21 07:45 Dose: 30 ml Benztropine Mesylate (Benztropine Mesylate 1 Mg Tablet) 1 mg PO BEDTIME [facility] Last Admin: 12/05/21 20:33 Dose: 1 mg Carbamazepine (Carbamazepine Er 200 Mg Tab.Er.12h) 400 mg PO BID [facility] Last Admin: 12/06/21 08:48 Dose: 400 mg Ferrous Sulfate (Ferrous Sulfate 324 Mg Tablet.Dr) 324 mg PO DAILY [facility] Last Admin: 12/06/21 08:48 Dose: 324 mg Fluphenazine HCl (Fluphenazine Hcl 5 Mg Tablet) 5 mg PO BEDTIME [facility] Last Admin: 12/05/21 20:33 Dose: 5 mg Fluphenazine HCl (Fluphenazine Hcl 2.5 Mg Tablet) 2.5 mg PO BEDTIME PRN PRN Reason: insomnia Haloperidol (Haloperidol 5 Mg Tablet) 5 mg PO Q4H PRN PRN Reason: Psychosis/delusional thinking Last Admin: 12/06/21 15:33 Dose: 5 mg Hydroxyzine HCl (Hydroxyzine Hcl 50 Mg Tablet) 50 mg PO Q4H PRN PRN Reason: Anxiety Last Admin: 12/05/21 20:33 Dose: 50 mg Loperamide HCl (Loperamide Hcl 2 Mg Capsule) 2 mg PO Q4H PRN PRN Reason: Loose Stool Last Admin: 12/05/21 09:32 Dose: 2 mg Lorazepam (Lorazepam 1 Mg Tablet) 1 mg PO BID PRN PRN Reason: Anxiety Last Admin: 12/06/21 11:01 Dose: 1 mg Magnesium Hydroxide (Milk Of Magnesia 30 Ml Oral.Susp) 30 ml PO DAILY PRN PRN Reason: Constipation Melatonin (Melatonin 3 Mg Tablet) 9 mg PO BEDTIME [facility] Last Admin: 12/05/21 20:33 Dose: 9 mg Multivitamins/Vitamin C (Multivitamin Tablet) 1 tab PO DAILY [facility] Last Admin: 12/06/21 08:49 Dose: 1 tab Nicotine Polacrilex (Nicotine Polacrilex 2 Mg Gum) 4 mg BUCCAL Q2H PRN PRN Reason: Nicotine Cravings Sodium Chloride (Sodium Chloride 0.65 % Nasal 44 Ml Sprbtl) 1 spray NOSTRIL-B Q1H PRN PRN Reason: Dryness Trazodone HCl (Trazodone Hcl 50 Mg Tablet) 50 mg PO BEDTIME PRN PRN Reason: Insomnia Last Admin: 12/05/21 20:33 Dose: 50 mg Allergies Allergies Allergy/AdvReac Type Severity Reaction Status Date / Time Sulfa (Sulfonamide AdvReac Rash Verified 10/23/21 23:08 Antibiotics) Assessment & Plan Assessment & Plan (1) Bipolar 1 disorder: Status: Acute Code(s): F31.9 - Bipolar disorder, unspecified Plan Steph is a 36 y.o. Female who carries a dx of Bipolar I DO. She presented to [facility] on 11/28/21. Pt recently admitted to on 10/23-11/12/21. During previous admission, she refused lithium, depakote. Pt on olanzapine but this was discontinued due to wt gain. She was stabilized on tegretol 400 mg BID, fluphenazine 5 mg HS. She re-presented to [facility] on 11/28/21 due to pt?s boyfriend calling 911 because the patient was having a manic episode, yelling, throwing things in her apartment. 11/29: Pt says she has been med-adherent, unclear. Will continue med regimen from recent discharge on [facility]3. 11/30: continue outpt regimen. observe for improvement. 12/01: continue treatment plan; add urinalysis and reflex culture and sensitivity 12/02: haldol 5mg daily prn and ativan 1 mg daily prn for agitation, psychosis 12/03: haldol 5 and ativan 1 twice in the morning. agitation, screaming in staff and peer's faces, banging on doors, demanding discharge, accusing peer of having stolen her baby 8 years ago and menacing peer, causing her substantial distress. 12/04: commitment paperwork filed. labile, delusional, but more organized. 12/05: no change from yesterday's presentation. LM for pt's mother at her request ([phone]). 12/06: less volatile. still delusional. spoke with pt's mother for 20+ minutes today, psychoeducation and history collection. I spent ___35___ minutes with the patient and/or on the patient floor today, greater than?50% of which was spent counseling/coordinating care. Reason for contiued inpatient stay Substantial Risk for: harm to self, inability to function and rapid decompensation
[2021-12-06 18:00] VITALS: BP 135/75; PULSE 93; TEMP 36.7; O2SAT 98
[2021-12-06] MEDS: hydrOXYzine HCL 50 MG TABLET PO (18:00)
[2021-12-06] MEDS: Melatonin 3 MG TABLET 9 MG PO (20:20)
[2021-12-06] MEDS: fluPHENAZine HCl 5 MG TABLET PO (20:20)
[2021-12-06] MEDS: traZODone HCL 50 MG TABLET PO (20:21)
[2021-12-06] MEDS: Benztropine Mesylate 1 MG TABLET PO (20:21)
[2021-12-07 08:45] VITALS: BP 120/73; PULSE 77; RESP 18; TEMP 36.4; O2SAT 97
[2021-12-07] MEDS: carBAMazepine ER 200 MG TAB.ER.12H 400 MG PO ×2 (08:46→21:35)
[2021-12-07] MEDS: Multivitamin TABLET 1 TAB PO (08:47)
[2021-12-07] MEDS: Ferrous Sulfate 324 MG TABLET.DR PO (08:47)
[2021-12-07] MEDS: hydrOXYzine HCL 50 MG TABLET PO ×2 (11:40→17:06)
--- NOTE | 2021-12-07 12:41 | HO.PSYCHPN ---
Subjective Subjective Date of Service: 12/07/21 Reason For Visit: section 12 AMS Subjective Notes: Section 7 Interim History: Pt tearful, stating that she agrees with plan to be in the hospital. She reports that she needs medication and will stay here for as long as recommended. She states she will take all medications recommended by treatment team. She reports she would rather do this than going to court. 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 She also states that she does not want her stay in psych unit to affect her children. She denies SI/HI. hypervebal but more organized and slightly improved insight as to need for psychiatric treatment. Medication Compliance: Yes Side effects from medications: No Review of Systems Review of Systems CVS: No c/o chest pain, palpitations, no SOB CO FOUNDER: No c/o dizziness, headache GI: No c/o Nausea, Vomiting, diarrhea, constipation or heartburn Yes Unobtainable due to mental condition Mental Status Exam Mental Status Exam Narrative: Alert. good eye contact. No Tics or Tremors. No abnormal involuntary movements. Behavior: cooperative Speech: Non-pressured speech but hyperverbal, spontaneous with nml rate and amount, normal to increased loudness, normal prosody. No prolonged speech latency or dysarthria. affect is hyper-intense, less labile, tearful. no SI/HI/AVH expressed. Thoughts more organized but remain delusional. Insight/ Judgment improving agreeing to receive psych treatment. Diagnostics Vital Signs (24Hr): Vital Signs - 24 hr 12/06/21 18:00 12/07/21 08:45 Temperature 98.1 F 97.6 F Pulse Rate 93 77 Respiratory Rate 18 Blood Pressure 135/75 120/73 Pulse Oximetry 98 97 Oxygen Delivery Method Room Air Room Air BMI result Body Mass Index 27.0 Labs Results: 11/29/21 10:02 11/29/21 10:02 Medications Medications Current Medications Acetaminophen (Acetaminophen 325 Mg Tablet) 650 mg PO Q6H PRN PRN Reason: Headache/Pain Mild Scale (1-3) Last Admin: 12/06/21 08:49 Dose: 650 mg Al Hydroxide/Mg Hydroxide (Magnesium Hydrox/Alum Hydrox 30 Ml Oral.Susp) 30 ml PO Q6H PRN PRN Reason: Heartburn/Nausea Last Admin: 12/05/21 07:45 Dose: 30 ml Benztropine Mesylate (Benztropine Mesylate 1 Mg Tablet) 1 mg PO BEDTIME [facility] Last Admin: 12/06/21 20:21 Dose: 1 mg Carbamazepine (Carbamazepine Er 200 Mg Tab.Er.12h) 400 mg PO BID [facility] Last Admin: 12/07/21 08:46 Dose: 400 mg Ferrous Sulfate (Ferrous Sulfate 324 Mg Tablet.Dr) 324 mg PO DAILY [facility] Last Admin: 12/07/21 08:47 Dose: 324 mg Fluphenazine HCl (Fluphenazine Hcl 5 Mg Tablet) 5 mg PO BEDTIME [facility] Last Admin: 12/06/21 20:20 Dose: 5 mg Fluphenazine HCl (Fluphenazine Hcl 2.5 Mg Tablet) 2.5 mg PO BEDTIME PRN PRN Reason: insomnia Haloperidol (Haloperidol 5 Mg Tablet) 5 mg PO Q4H PRN PRN Reason: Psychosis/delusional thinking Last Admin: 12/06/21 15:33 Dose: 5 mg Hydroxyzine HCl (Hydroxyzine Hcl 50 Mg Tablet) 50 mg PO Q4H PRN PRN Reason: Anxiety Last Admin: 12/07/21 11:40 Dose: 50 mg Loperamide HCl (Loperamide Hcl 2 Mg Capsule) 2 mg PO Q4H PRN PRN Reason: Loose Stool Last Admin: 12/05/21 09:32 Dose: 2 mg Magnesium Hydroxide (Milk Of Magnesia 30 Ml Oral.Susp) 30 ml PO DAILY PRN PRN Reason: Constipation Melatonin (Melatonin 3 Mg Tablet) 9 mg PO BEDTIME [facility] Last Admin: 12/06/21 20:20 Dose: 9 mg Multivitamins/Vitamin C (Multivitamin Tablet) 1 tab PO DAILY [facility] Last Admin: 12/07/21 08:47 Dose: 1 tab Nicotine Polacrilex (Nicotine Polacrilex 2 Mg Gum) 4 mg BUCCAL Q2H PRN PRN Reason: Nicotine Cravings Sodium Chloride (Sodium Chloride 0.65 % Nasal 44 Ml Sprbtl) 1 spray NOSTRIL-B Q1H PRN PRN Reason: Dryness Trazodone HCl (Trazodone Hcl 50 Mg Tablet) 50 mg PO BEDTIME PRN PRN Reason: Insomnia Last Admin: 12/06/21 20:21 Dose: 50 mg Allergies Allergies Allergy/AdvReac Type Severity Reaction Status Date / Time Sulfa (Sulfonamide AdvReac Rash Verified 10/23/21 23:08 Antibiotics) Assessment & Plan Assessment & Plan (1) Bipolar 1 disorder: Status: Acute Code(s): F31.9 - Bipolar disorder, unspecified Plan Steph is a 36 y.o. Female who carries a dx of Bipolar I DO. She presented to [facility] on 11/28/21. Pt recently admitted to on 10/23-11/12/21. During previous admission, she refused lithium, depakote. Pt on olanzapine but this was discontinued due to wt gain. She was stabilized on tegretol 400 mg BID, fluphenazine 5 mg HS. She re-presented to [facility] ED on 11/28/21 due to pt?s boyfriend calling 911 because the patient was having a manic episode, yelling, throwing things in her apartment. 11/29: Pt says she has been med-adherent, unclear. Will continue med regimen from recent discharge on M3. 11/30: continue outpt regimen. observe for improvement. 12/01: continue treatment plan; add urinalysis and reflex culture and sensitivity 12/02: haldol 5mg daily prn and ativan 1 mg daily prn for agitation, psychosis 12/03: haldol 5 and ativan 1 twice in the morning. agitation, screaming in staff and peer's faces, banging on doors, demanding discharge, accusing peer of having stolen her baby 8 years ago and menacing peer, causing her substantial distress. 12/04: commitment paperwork filed. labile, delusional, but more organized. 12/05: no change from yesterday's presentation. LM for pt's mother at her request ([phone]). 12/06: less volatile. still delusional. spoke with pt's mother for 20+ minutes today, psychoeducation and history collection. 12/07 continue current medications. I spent minutes with the patient and/or on the patient floor today, greater than?50% of which was spent counseling/coordinating care. Reason for contiued inpatient stay Substantial Risk for: inability to function
[2021-12-07 18:00] VITALS: BP 120/81; PULSE 74; RESP 14; TEMP 36.4; O2SAT 98
[2021-12-07] MEDS: Acetaminophen 325 MG TABLET 650 MG PO (19:16)
[2021-12-07] MEDS: fluPHENAZine HCl 5 MG TABLET PO (21:36)
[2021-12-07] MEDS: Melatonin 3 MG TABLET 9 MG PO (21:36)
[2021-12-07] MEDS: Benztropine Mesylate 1 MG TABLET PO (21:36)
[2021-12-08] MEDS: hydrOXYzine HCL 50 MG TABLET PO ×2 (01:07→19:44)
[2021-12-08] MEDS: traZODone HCL 50 MG TABLET PO ×2 (01:07→22:52)
[2021-12-08 08:24] VITALS: BP 118/69; PULSE 70; RESP 16; TEMP 36.4; O2SAT 98
[2021-12-08] MEDS: carBAMazepine ER 200 MG TAB.ER.12H 400 MG PO ×2 (08:42→20:11)
[2021-12-08] MEDS: Multivitamin TABLET 1 TAB PO (08:42)
[2021-12-08] MEDS: Ferrous Sulfate 324 MG TABLET.DR PO (08:42)
[2021-12-08] MEDS: clonazePAM 0.5 MG TABLET PO ×2 (12:42→20:11)
[2021-12-08] MEDS: fluPHENAZine HCl 5 MG TABLET PO (20:10)
[2021-12-08] MEDS: Benztropine Mesylate 1 MG TABLET PO (20:11)
[2021-12-08 21:14] VITALS: BP 148/72; PULSE 94; TEMP 36.6; O2SAT 97
--- NOTE | 2021-12-08 21:50 | HO.PSYCHPN ---
Subjective Subjective Date of Service: 12/08/21 Reason For Visit: section 12 AMS Interim History: Patient seen and discussed with team. Patient evaluated today and upon interview she states I need to sleep, she is agitated about recent change in roommate, says this is affecting her sleep. Pt asks for klonopin 0.5 mg QHS for sleep, no known hx of substance use. In the milieu, patient is safe and visible, social. Says she feels safe. Medication Compliance: Yes Side effects from medications: No Attending Groups: Yes Review of Systems Acute medical concerns: No Medical Review of Systems: unchanged Mental Status Exam Mental Status Exam Narrative: Alert.? good eye contact. No Tics or Tremors. No abnormal involuntary movements. Pt mostly calm. no longer moving her hands when speaking as if using sign language today. Non-pressured speech, spontaneous with nml rate and amount, normal to increased loudness, normal prosody. No prolonged speech latency or dysarthria. affect is hyper-intense, mod-labile, irritable. no SI/HI/AVH expressed.? Thoughts more organized but remain delusional. No known cognitive or memory impairment. Insight/ Judgment poor Diagnostics Vital Signs (24Hr): Vital Signs - 24 hr 12/08/21 21:14 12/09/21 09:00 Temperature 97.9 F 97.8 F Pulse Rate 94 78 Blood Pressure 148/72 H 123/60 Pulse Oximetry 97 98 Oxygen Delivery Method Room Air Room Air BMI result Body Mass Index 27.0 Labs Results: 11/29/21 10:02 11/29/21 10:02 Medications Medications Current Medications Acetaminophen (Acetaminophen 325 Mg Tablet) 650 mg PO Q6H PRN PRN Reason: Headache/Pain Mild Scale (1-3) Last Admin: 12/07/21 19:16 Dose: 650 mg Al Hydroxide/Mg Hydroxide (Magnesium Hydrox/Alum Hydrox 30 Ml Oral.Susp) 30 ml PO Q6H PRN PRN Reason: Heartburn/Nausea Last Admin: 12/09/21 02:48 Dose: 30 ml Benzocaine (Throat Lozenge, Medicated Lozenge) 1 lozenge MUCOUS MEM Q2H PRN PRN Reason: Sore Throat Benztropine Mesylate (Benztropine Mesylate 1 Mg Tablet) 1 mg PO BEDTIME [facility] Last Admin: 12/08/21 20:11 Dose: 1 mg Carbamazepine (Carbamazepine Er 200 Mg Tab.Er.12h) 400 mg PO BID [facility] Last Admin: 12/09/21 09:09 Dose: 400 mg Clonazepam (Clonazepam 0.5 Mg Tablet) 0.5 mg PO BEDTIME [facility] Last Admin: 12/08/21 20:11 Dose: 0.5 mg Ferrous Sulfate (Ferrous Sulfate 324 Mg Tablet.Dr) 324 mg PO DAILY [facility] Last Admin: 12/09/21 09:10 Dose: 324 mg Fluphenazine HCl (Fluphenazine Hcl 5 Mg Tablet) 5 mg PO BEDTIME [facility] Last Admin: 12/08/21 20:10 Dose: 5 mg Fluphenazine HCl (Fluphenazine Hcl 2.5 Mg Tablet) 2.5 mg PO BEDTIME PRN PRN Reason: insomnia Last Admin: 12/09/21 01:53 Dose: 2.5 mg Haloperidol (Haloperidol 5 Mg Tablet) 5 mg PO Q4H PRN PRN Reason: Psychosis/delusional thinking Last Admin: 12/06/21 15:33 Dose: 5 mg Hydroxyzine HCl (Hydroxyzine Hcl 50 Mg Tablet) 50 mg PO Q4H PRN PRN Reason: Anxiety Last Admin: 12/09/21 01:53 Dose: 50 mg Loperamide HCl (Loperamide Hcl 2 Mg Capsule) 2 mg PO Q4H PRN PRN Reason: Loose Stool Last Admin: 12/09/21 07:02 Dose: 2 mg Magnesium Hydroxide (Milk Of Magnesia 30 Ml Oral.Susp) 30 ml PO DAILY PRN PRN Reason: Constipation Melatonin (Melatonin 3 Mg Tablet) 9 mg PO BEDTIME [facility] Last Admin: 12/08/21 22:52 Dose: 9 mg Multivitamins/Vitamin C (Multivitamin Tablet) 1 tab PO DAILY [facility] Last Admin: 12/09/21 09:10 Dose: 1 tab Nicotine Polacrilex (Nicotine Polacrilex 2 Mg Gum) 4 mg BUCCAL Q2H PRN PRN Reason: Nicotine Cravings Sodium Chloride (Sodium Chloride 0.65 % Nasal 44 Ml Sprbtl) 1 spray NOSTRIL-B Q1H PRN PRN Reason: Dryness Trazodone HCl (Trazodone Hcl 50 Mg Tablet) 50 mg PO BEDTIME PRN PRN Reason: Insomnia Last Admin: 12/09/21 01:53 Dose: 50 mg Allergies Allergies Allergy/AdvReac Type Severity Reaction Status Date / Time Sulfa (Sulfonamide AdvReac Rash Verified 10/23/21 23:08 Antibiotics) Assessment & Plan Assessment & Plan (1) Bipolar 1 disorder: Status: Acute Code(s): F31.9 - Bipolar disorder, unspecified Plan Steph is a 36 y.o. Female who carries a dx of Bipolar I DO. She presented to [facility] on 11/28/21. Pt recently admitted to on 10/23-11/12/21. During previous admission, she refused lithium, depakote. Pt on olanzapine but this was discontinued due to wt gain. She was stabilized on tegretol 400 mg BID, fluphenazine 5 mg HS. She re-presented to [facility] on 11/28/21 due to pt?s boyfriend calling 911 because the patient was having a manic episode, yelling, throwing things in her apartment. 11/29: Pt says she has been med-adherent, unclear. Will continue med regimen from recent discharge on M3. 11/30: continue outpt regimen. observe for improvement. 12/01: continue treatment plan; add urinalysis and reflex culture and sensitivity 12/02: haldol 5mg daily prn and ativan 1 mg daily prn for agitation, psychosis 12/03: haldol 5 and ativan 1 twice in the morning. agitation, screaming in staff and peer's faces, banging on doors, demanding discharge, accusing peer of having stolen her baby 8 years ago and menacing peer, causing her substantial distress. 12/04: commitment paperwork filed. labile, delusional, but more organized. 12/05: no change from yesterday's presentation. LM for pt's mother at her request ([phone]). 12/06: less volatile. still delusional. spoke with pt's mother for 20+ minutes today, psychoeducation and history collection. 12/07 continue current medications. 12/08 klonopin 0.5 mg HS I spent minutes with the patient and/or on the patient floor today, greater than?50% of which was spent counseling/coordinating care. Patient educated on: medication risk/benefits and therapeutic strategies Reason for contiued inpatient stay Substantial Risk for: inability to function, rapid decompensation and med/psych decompensation
[2021-12-08] MEDS: Melatonin 3 MG TABLET 9 MG PO (22:52)
[2021-12-09] MEDS: fluPHENAZine HCl 2.5 MG TABLET PO (01:53)
[2021-12-09] MEDS: traZODone HCL 50 MG TABLET PO (01:53)
[2021-12-09] MEDS: hydrOXYzine HCL 50 MG TABLET PO ×2 (01:53→12:53)
[2021-12-09] MEDS: Magnesium Hydrox/Alum Hydrox 30 ML ORAL.SUSP PO (02:48)
[2021-12-09] MEDS: Loperamide HCl 2 MG CAPSULE PO (07:02)
[2021-12-09 09:00] VITALS: BP 123/60; PULSE 78; TEMP 36.6; O2SAT 98
[2021-12-09] MEDS: carBAMazepine ER 200 MG TAB.ER.12H 400 MG PO ×2 (09:09→20:37)
[2021-12-09] MEDS: Multivitamin TABLET 1 TAB PO (09:10)
[2021-12-09] MEDS: Ferrous Sulfate 324 MG TABLET.DR PO (09:10)
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
[2021-12-09] MEDS: clonazePAM 0.5 MG TABLET 0.25 MG PO (16:18)
[2021-12-09] MEDS: Benztropine Mesylate 1 MG TABLET PO (20:36)
[2021-12-09] MEDS: Melatonin 3 MG TABLET 9 MG PO (20:36)
[2021-12-09] MEDS: clonazePAM 0.5 MG TABLET PO (20:36)
[2021-12-09] MEDS: fluPHENAZine HCl 5 MG TABLET PO (20:36)
[2021-12-09 20:40] VITALS: BP 119/69; PULSE 79; TEMP 36.6; O2SAT 98
[2021-12-10 08:20] VITALS: BP 121/74; PULSE 87; RESP 18; TEMP 36.4; O2SAT 99
[2021-12-10] MEDS: carBAMazepine ER 200 MG TAB.ER.12H 400 MG PO ×2 (08:45→20:44)
[2021-12-10] MEDS: Multivitamin TABLET 1 TAB PO (08:45)
[2021-12-10] MEDS: Ferrous Sulfate 324 MG TABLET.DR PO (08:45)
[2021-12-10] MEDS: Loperamide HCl 2 MG CAPSULE PO ×2 (11:11→14:57)
[2021-12-10] MEDS: hydrOXYzine HCL 50 MG TABLET PO ×2 (13:06→20:44)
[2021-12-10] MEDS: clonazePAM 0.5 MG TABLET 0.25 MG PO (16:53)
[2021-12-10 20:26] VITALS: BP 114/75; PULSE 99; RESP 18; TEMP 36.7; O2SAT 96
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
[2021-12-10] MEDS: traZODone HCL 50 MG TABLET PO (20:44)
[2021-12-10] MEDS: fluPHENAZine HCl 2.5 MG TABLET PO (20:44)
[2021-12-10] MEDS: Melatonin 3 MG TABLET 9 MG PO (20:44)
[2021-12-10] MEDS: fluPHENAZine HCl 5 MG TABLET PO (20:44)
[2021-12-10] MEDS: Benztropine Mesylate 1 MG TABLET PO (20:44)
[2021-12-10] MEDS: clonazePAM 0.5 MG TABLET PO (20:44)
[2021-12-11 08:50] VITALS: BP 131/76; PULSE 83; RESP 18; TEMP 36.2; O2SAT 98
[2021-12-11] MEDS: carBAMazepine ER 200 MG TAB.ER.12H 400 MG PO ×2 (09:00→20:05)
[2021-12-11] MEDS: Ferrous Sulfate 324 MG TABLET.DR PO (09:00)
[2021-12-11] MEDS: Multivitamin TABLET 1 TAB PO (09:00)
[2021-12-11] MEDS: hydrOXYzine HCL 50 MG TABLET PO ×2 (11:44→17:18)
[2021-12-11] MEDS: Loperamide HCl 2 MG CAPSULE PO (11:44)
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
[2021-12-11] MEDS: clonazePAM 0.5 MG TABLET 0.25 MG PO (15:01)
[2021-12-11] MEDS: HaloperidoL 5 MG TABLET PO (19:08)
[2021-12-11] MEDS: traZODone HCL 50 MG TABLET PO (20:05)
[2021-12-11] MEDS: fluPHENAZine HCl 2.5 MG TABLET PO (20:05)
[2021-12-11] MEDS: fluPHENAZine HCl 5 MG TABLET PO (20:05)
[2021-12-11] MEDS: clonazePAM 0.5 MG TABLET PO (20:05)
[2021-12-11] MEDS: Benztropine Mesylate 1 MG TABLET PO (20:05)
[2021-12-11] MEDS: Acetaminophen 325 MG TABLET 650 MG PO (20:05)
[2021-12-11] MEDS: Melatonin 3 MG TABLET 9 MG PO (20:05)
[2021-12-11 20:10] VITALS: BP 119/81; PULSE 98; RESP 18; TEMP 36.6; O2SAT 96
[2021-12-12 08:15] VITALS: BP 131/62; PULSE 90; RESP 17; TEMP 36.6; O2SAT 97
[2021-12-12] MEDS: Ferrous Sulfate 324 MG TABLET.DR PO (08:18)
[2021-12-12] MEDS: Multivitamin TABLET 1 TAB PO (08:18)
[2021-12-12] MEDS: hydrOXYzine HCL 50 MG TABLET PO ×3 (08:18→19:51)
[2021-12-12] MEDS: carBAMazepine ER 200 MG TAB.ER.12H 400 MG PO (08:50)
[2021-12-12 09:05] LABS: MANUAL DIFF FLAG NO
[2021-12-12 09:19] LABS: Basophils Percent Auto 0.7 % (0-2); Eosinophils Absolute Auto 0.2 X10*3/uL (0.0-0.4); Eosinophils Percent Auto 3.3 % (0-4); Hematocrit 35.6 % (37.0-47.0); Hemoglobin 11.4 g/dl (12.0-16.0); Imm Gran Abs Auto 0.02 X10*3/uL (0.00-0.03); Imm Gran Pct Auto 0.4 % (0.0-0.4); Lymphocytes Absolute Auto 1.4 X10*3/uL (1.2-4.9); Lymphocytes Percent Auto 30.4 % (20-40); Mean Corpuscular Hemoglobin 25.5 pg (27.0-33.0); Mean Corpuscular Volume 79.6 fL (80.0-98.0); Mean Platelet Volume 10.9 fL (9.4-12.3); Monocytes Absolute Auto 0.4 X10*3/uL (0.1-1.2); Monocytes Percent Auto 7.9 % (2-11); Neutrophils Absolute Auto 2.6 x10*3/uL (2.0-8.3); Neutrophils Percent Auto 57.3 % (45-73); Platelet Count 257 X10*3/uL (160-400); Red Blood Count 4.47 X10*6/uL (4.20-5.50); Red Cell Distribution Width 18.6 % (11.0-16.0); White Blood Count 4.5 X10*3/uL (4.8-10.8)
[2021-12-12 10:04] LABS: Alanine Aminotransferase 18 U/L (0-31); Albumin Level 4.3 g/dL (3.5-5.0); Alkaline Phosphatase 47 U/L (39-117); Anion Gap 10 (12-20); Aspartate Amino Transferase 29 U/L (5-31); Bilirubin Direct < 0.2 mg/dL (0.0-0.5); Bilirubin Total 0.3 mg/dL (0.0-1.0); Blood Urea Nitrogen 16 mg/dL (9-16); Calcium 9.1 mg/dL (8.4-10.2); Carbon Dioxide 28 mmol/L (22-29); Chloride 105 mmol/L (96-108); Creatinine Clr Calc Pharmacy 113.4; Estimated Glomerular Filt Rate > 60; Glucose Random 79 mg/dL (60-115); Potassium 4.4 mmol/L (3.3-5.1); Sodium 139 mmol/L (135-145); Total Protein 7.3 g/dL (6.5-8.0)
[2021-12-12] MEDS: HaloperidoL 5 MG TABLET PO (10:41)
[2021-12-12 11:02] LABS: Carbamazepine Tegretol 6.9 mcg/mL (5.0-12.0)
[2021-12-12] MEDS: carBAMazepine ER 200 MG TAB.ER.12H PO (13:22)
[2021-12-12] MEDS: clonazePAM 0.5 MG TABLET 0.25 MG PO (15:13)
[2021-12-12] MEDS: Loperamide HCl 2 MG CAPSULE PO (15:33)
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
[2021-12-12 20:30] VITALS: BP 136/84; PULSE 94; TEMP 36.3; O2SAT 98
[2021-12-12] MEDS: carBAMazepine ER 200 MG TAB.ER.12H 600 MG PO (20:47)
[2021-12-12] MEDS: Benztropine Mesylate 1 MG TABLET PO (20:48)
[2021-12-12] MEDS: traZODone HCL 50 MG TABLET PO (20:48)
[2021-12-12] MEDS: fluPHENAZine HCl 5 MG TABLET PO (20:48)
[2021-12-12] MEDS: clonazePAM 0.5 MG TABLET PO (20:48)
[2021-12-12] MEDS: Melatonin 3 MG TABLET 9 MG PO (20:48)
[2021-12-13] MEDS: carBAMazepine ER 200 MG TAB.ER.12H 600 MG PO ×2 (08:15→20:27)
[2021-12-13] MEDS: Ferrous Sulfate 324 MG TABLET.DR PO (08:15)
[2021-12-13] MEDS: Multivitamin TABLET 1 TAB PO (08:15)
[2021-12-13 08:41] VITALS: BP 108/70; PULSE 80; RESP 17; TEMP 36.6; O2SAT 97; BMI 27.0
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
[2021-12-13] MEDS: hydrOXYzine HCL 50 MG TABLET PO (15:30)
[2021-12-13] MEDS: Acetaminophen 325 MG TABLET 650 MG PO (16:41)
[2021-12-13] MEDS: HaloperidoL 5 MG TABLET PO (18:38)
[2021-12-13 20:25] VITALS: BP 119/71; PULSE 81; RESP 16; TEMP 36.6; O2SAT 95
[2021-12-13] MEDS: fluPHENAZine HCl 5 MG TABLET PO (20:27)
[2021-12-13] MEDS: Melatonin 3 MG TABLET 9 MG PO (20:27)
[2021-12-13] MEDS: Benztropine Mesylate 1 MG TABLET PO (20:28)
[2021-12-13] MEDS: clonazePAM 0.5 MG TABLET 0.25 MG PO (20:28)
[2021-12-14 08:20] VITALS: BP 117/63; PULSE 74; RESP 17; TEMP 36.3; O2SAT 97
[2021-12-14] MEDS: carBAMazepine ER 200 MG TAB.ER.12H 600 MG PO ×2 (08:35→20:22)
[2021-12-14] MEDS: Ferrous Sulfate 324 MG TABLET.DR PO (08:36)
[2021-12-14] MEDS: Multivitamin TABLET 1 TAB PO (08:36)
[2021-12-14] MEDS: Acetaminophen 325 MG TABLET 650 MG PO (10:12)
[2021-12-14] MEDS: Loperamide HCl 2 MG CAPSULE PO (12:10)
[2021-12-14] MEDS: Sertraline HCL 25 MG TABLET PO (13:24)
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
[2021-12-14] MEDS: clonazePAM 0.5 MG TABLET 0.25 MG PO ×3 (17:29→23:02)
[2021-12-14] MEDS: HaloperidoL 5 MG TABLET PO (17:29)
[2021-12-14 19:55] VITALS: BP 123/69; PULSE 89; RESP 16; TEMP 36.2; O2SAT 98
[2021-12-14] MEDS: Melatonin 3 MG TABLET 9 MG PO (20:22)
[2021-12-14] MEDS: Benztropine Mesylate 1 MG TABLET PO (20:22)
[2021-12-14] MEDS: fluPHENAZine HCl 5 MG TABLET PO (20:22)
[2021-12-14] MEDS: traZODone HCL 50 MG TABLET PO (23:02)
[2021-12-15 08:07] VITALS: BP 120/65; PULSE 70; RESP 18; TEMP 36.2; O2SAT 98
[2021-12-15] MEDS: hydrOXYzine HCL 50 MG TABLET PO ×3 (08:08→17:35)
[2021-12-15] MEDS: carBAMazepine ER 200 MG TAB.ER.12H 600 MG PO ×2 (08:08→20:06)
[2021-12-15] MEDS: Multivitamin TABLET 1 TAB PO (08:09)
[2021-12-15] MEDS: Ferrous Sulfate 324 MG TABLET.DR PO (08:09)
[2021-12-15] MEDS: Sertraline HCL 25 MG TABLET PO (08:09)
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
[2021-12-15] MEDS: Loperamide HCl 2 MG CAPSULE PO (16:28)
[2021-12-15] MEDS: HaloperidoL 5 MG TABLET PO (17:39)
[2021-12-15] MEDS: Acetaminophen 325 MG TABLET 650 MG PO (18:23)
[2021-12-15 19:58] VITALS: BP 124/78; PULSE 84; RESP 18; TEMP 36.3; O2SAT 96
[2021-12-15] MEDS: traZODone HCL 50 MG TABLET PO (20:06)
[2021-12-15] MEDS: Benztropine Mesylate 1 MG TABLET PO (20:06)
[2021-12-15] MEDS: fluPHENAZine HCl 5 MG TABLET PO (20:06)
[2021-12-15] MEDS: Melatonin 3 MG TABLET 9 MG PO (20:07)
[2021-12-16 06:00] VITALS: BP 120/71; PULSE 80; RESP 18; TEMP 36.5; O2SAT 95
[2021-12-16] MEDS: Multivitamin TABLET 1 TAB PO (07:59)
[2021-12-16] MEDS: carBAMazepine ER 200 MG TAB.ER.12H 600 MG PO ×2 (07:59→22:54)
[2021-12-16] MEDS: Ferrous Sulfate 324 MG TABLET.DR PO (07:59)
[2021-12-16] MEDS: Sertraline HCL 25 MG TABLET PO (07:59)
[2021-12-16] MEDS: Acetaminophen 325 MG TABLET 650 MG PO ×3 (08:47→22:57)
[2021-12-16] MEDS: hydrOXYzine HCL 50 MG TABLET PO (08:47)
[2021-12-16] MEDS: Loperamide HCl 2 MG CAPSULE PO ×2 (08:48→14:25)
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
[2021-12-16] MEDS: Ibuprofen 600 MG TABLET PO (18:29)
[2021-12-16 20:15] VITALS: BP 112/62; PULSE 66; RESP 18; TEMP 36.6; O2SAT 98
[2021-12-16] MEDS: Benztropine Mesylate 1 MG TABLET PO (22:54)
[2021-12-16] MEDS: fluPHENAZine HCl 5 MG TABLET PO (22:54)
[2021-12-16] MEDS: Melatonin 3 MG TABLET 9 MG PO (22:54)
[2021-12-16] MEDS: traZODone HCL 50 MG TABLET PO (22:54)
[2021-12-17 08:09] VITALS: BP 124/69; PULSE 80; RESP 16; TEMP 36.6; O2SAT 95
[2021-12-17] MEDS: carBAMazepine ER 200 MG TAB.ER.12H 600 MG PO ×2 (08:10→22:31)
[2021-12-17] MEDS: Acetaminophen 325 MG TABLET 650 MG PO ×2 (08:11→20:39)
[2021-12-17] MEDS: Ferrous Sulfate 324 MG TABLET.DR PO (08:12)
[2021-12-17] MEDS: Multivitamin TABLET 1 TAB PO (08:12)
[2021-12-17] MEDS: Sertraline HCL 25 MG TABLET PO (08:12)
[2021-12-17] MEDS: Ibuprofen 600 MG TABLET PO ×2 (10:26→21:22)
[2021-12-17] MEDS: hydrOXYzine HCL 50 MG TABLET PO (10:26)
[2021-12-17] MEDS: Loperamide HCl 2 MG CAPSULE PO (11:05)
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
[2021-12-17 20:50] VITALS: BP 133/89; PULSE 83; RESP 16; TEMP 36.8; O2SAT 97
[2021-12-17] MEDS: traZODone HCL 50 MG TABLET PO (22:32)
[2021-12-17] MEDS: Melatonin 3 MG TABLET 9 MG PO (22:32)
[2021-12-17] MEDS: fluPHENAZine HCl 5 MG TABLET PO (22:33)
[2021-12-17] MEDS: Benztropine Mesylate 1 MG TABLET PO (22:33)
[2021-12-18] MEDS: Ferrous Sulfate 324 MG TABLET.DR PO (08:10)
[2021-12-18] MEDS: carBAMazepine ER 200 MG TAB.ER.12H 600 MG PO ×2 (08:10→20:43)
[2021-12-18] MEDS: Multivitamin TABLET 1 TAB PO (08:10)
[2021-12-18] MEDS: Sertraline HCL 25 MG TABLET PO (08:10)
[2021-12-18] MEDS: Acetaminophen 325 MG TABLET 650 MG PO ×2 (08:11→18:26)
[2021-12-18] MEDS: Loperamide HCl 2 MG CAPSULE PO (09:12)
[2021-12-18 09:20] VITALS: BP 117/81; PULSE 80; RESP 18; TEMP 36.5; O2SAT 97
[2021-12-18] MEDS: hydrOXYzine HCL 50 MG TABLET PO ×2 (10:53→20:44)
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
[2021-12-18] MEDS: Ibuprofen 600 MG TABLET PO (15:08)
--- NOTE | 2021-12-18 15:33 | PC.NURSE ---
Patient signed conditional voluntary.
[2021-12-18 20:01] VITALS: BP 114/57; PULSE 73; RESP 16; TEMP 36.6; O2SAT 98
[2021-12-18] MEDS: traZODone HCL 50 MG TABLET PO (20:43)
[2021-12-18] MEDS: fluPHENAZine HCl 5 MG TABLET PO (20:43)
[2021-12-18] MEDS: Benztropine Mesylate 1 MG TABLET PO (20:43)
[2021-12-18] MEDS: Melatonin 3 MG TABLET 9 MG PO (20:44)
[2021-12-19 06:00] VITALS: PULSE 71; RESP 16; TEMP 36.4
[2021-12-19] MEDS: Ferrous Sulfate 324 MG TABLET.DR PO (08:11)
[2021-12-19] MEDS: Multivitamin TABLET 1 TAB PO (08:11)
[2021-12-19] MEDS: Sertraline HCL 25 MG TABLET PO (08:11)
[2021-12-19] MEDS: carBAMazepine ER 200 MG TAB.ER.12H 600 MG PO ×2 (08:11→21:37)
[2021-12-19] MEDS: hydrOXYzine HCL 50 MG TABLET PO (08:50)
[2021-12-19] MEDS: Loperamide HCl 2 MG CAPSULE PO ×3 (08:50→21:37)
[2021-12-19] MEDS: Ibuprofen 600 MG TABLET PO ×2 (08:50→18:17)
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
[2021-12-19] MEDS: Acetaminophen 325 MG TABLET 650 MG PO ×2 (14:37→21:37)
[2021-12-19] MEDS: LORazepam 1 MG TABLET PO ×2 (18:16→21:38)
[2021-12-19] MEDS: Melatonin 3 MG TABLET 9 MG PO (21:37)
[2021-12-19] MEDS: fluPHENAZine HCl 5 MG TABLET PO (21:38)
[2021-12-19] MEDS: traZODone HCL 50 MG TABLET PO (21:38)
[2021-12-19] MEDS: Benztropine Mesylate 1 MG TABLET PO (21:38)
[2021-12-19 21:41] VITALS: BP 106/56; PULSE 68; TEMP 36.2; O2SAT 96
[2021-12-20 07:00] VITALS: BMI 27.5
[2021-12-20 08:00] VITALS: BP 126/67; PULSE 90; RESP 16; TEMP 36.3; O2SAT 97
[2021-12-20] MEDS: Ferrous Sulfate 324 MG TABLET.DR PO (09:53)
[2021-12-20] MEDS: Multivitamin TABLET 1 TAB PO (09:53)
[2021-12-20] MEDS: Sertraline HCL 25 MG TABLET PO (09:53)
[2021-12-20] MEDS: carBAMazepine ER 200 MG TAB.ER.12H 600 MG PO ×2 (09:54→21:52)
[2021-12-20] MEDS: Acetaminophen 325 MG TABLET 650 MG PO ×2 (09:59→21:51)
[2021-12-20 11:49] LABS: Appearance Urine HAZY; Color Urine YELLOW; Glucose Urine UA NEG (NEG); Leukocyte Esterase Urine NEG (NEG); Nitrite Urine POS (NEG); Specific Gravity - Urine 1.015 (1.005-1.025); UACC Culture Trigger YES; Urine Blood NEG (NEG); Urine Ketones NEG (NEG); Urine Protein NEG (NEG-TRACE)
[2021-12-20] MEDS: Loperamide HCl 2 MG CAPSULE PO (12:11)
[2021-12-20 12:53] LABS: Bacteria Urine 4+ /LPF; Squamous Epithelial Cell Urine 2+ /LPF; WBC Urine 0-2 /HPF (0-4)
[2021-12-20 12:54] LABS: RBC Urine 0-2 /HPF (0)
[2021-12-20] MEDS: LORazepam 1 MG TABLET PO ×2 (13:03→21:52)
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
[2021-12-20] MEDS: hydrOXYzine HCL 50 MG TABLET PO (18:06)
[2021-12-20] MEDS: Ibuprofen 600 MG TABLET PO (18:07)
[2021-12-20] MEDS: traZODone HCL 50 MG TABLET PO (21:51)
[2021-12-20] MEDS: fluPHENAZine HCl 5 MG TABLET PO (21:52)
[2021-12-20] MEDS: Benztropine Mesylate 1 MG TABLET PO (21:52)
[2021-12-20] MEDS: Melatonin 3 MG TABLET 9 MG PO (21:52)
[2021-12-20 22:00] VITALS: BP 122/74; PULSE 75; RESP 18; TEMP 36.3; O2SAT 95
[2021-12-21] MEDS: Acetaminophen 325 MG TABLET 650 MG PO (08:29)
[2021-12-21] MEDS: Sertraline HCL 50 MG TABLET PO (08:29)
[2021-12-21] MEDS: carBAMazepine ER 200 MG TAB.ER.12H 600 MG PO ×2 (08:29→20:08)
[2021-12-21] MEDS: Multivitamin TABLET 1 TAB PO (08:29)
[2021-12-21] MEDS: Ferrous Sulfate 324 MG TABLET.DR PO (08:29)
[2021-12-21 08:30] VITALS: BP 128/73; PULSE 77; RESP 17; TEMP 36.6; O2SAT 95
[2021-12-21] MEDS: Loperamide HCl 2 MG CAPSULE PO (09:39)
[2021-12-21] MEDS: Ibuprofen 800 MG TABLET PO ×2 (10:55→17:13)
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
[2021-12-21] MEDS: Acetaminophen 325 MG TABLET 975 MG PO (15:10)
[2021-12-21] MEDS: LORazepam 1 MG TABLET PO ×2 (15:11→20:08)
[2021-12-21] MEDS: hydrOXYzine HCL 50 MG TABLET PO (17:14)
[2021-12-21 20:05] VITALS: BP 131/88; PULSE 81; TEMP 36.6; O2SAT 96
[2021-12-21] MEDS: traZODone HCL 50 MG TABLET PO (20:07)
[2021-12-21] MEDS: Benztropine Mesylate 1 MG TABLET PO (20:08)
[2021-12-21] MEDS: Melatonin 3 MG TABLET 9 MG PO (20:08)
[2021-12-21] MEDS: fluPHENAZine HCl 5 MG TABLET PO (20:08)
[2021-12-22 06:00] VITALS: BP 111/63; PULSE 78; RESP 18; TEMP 36.3; O2SAT 98
[2021-12-22] MEDS: Multivitamin TABLET 1 TAB PO (09:32)
[2021-12-22] MEDS: Sertraline HCL 50 MG TABLET PO (09:32)
[2021-12-22] MEDS: Ferrous Sulfate 324 MG TABLET.DR PO (09:32)
[2021-12-22] MEDS: carBAMazepine ER 200 MG TAB.ER.12H 600 MG PO ×2 (09:32→20:19)
[2021-12-22] MEDS: Ibuprofen 800 MG TABLET PO ×2 (09:36→16:37)
[2021-12-22] MEDS: Loperamide HCl 2 MG CAPSULE PO (11:08)
[2021-12-22] MEDS: hydrOXYzine HCL 50 MG TABLET PO (14:47)
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
[2021-12-22] MEDS: LORazepam 1 MG TABLET PO ×2 (16:48→20:19)
[2021-12-22 20:11] VITALS: BP 120/62; PULSE 82; TEMP 36.3; O2SAT 97
[2021-12-22] MEDS: fluPHENAZine HCl 5 MG TABLET PO (20:19)
[2021-12-22] MEDS: Acetaminophen 325 MG TABLET 975 MG PO (20:19)
[2021-12-22] MEDS: traZODone HCL 50 MG TABLET PO (20:19)
[2021-12-22] MEDS: Benztropine Mesylate 1 MG TABLET PO (20:19)
[2021-12-22] MEDS: Melatonin 3 MG TABLET 9 MG PO (20:20)
[2021-12-22] MEDS: Nitrofurantoin Monohyd/M-Cryst 100 MG CAPSULE PO (20:20)
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
[2021-12-23] MEDS: Nitrofurantoin Monohyd/M-Cryst 100 MG CAPSULE PO ×2 (09:48→20:48)
[2021-12-23] MEDS: Multivitamin TABLET 1 TAB PO (09:48)
[2021-12-23] MEDS: Ferrous Sulfate 324 MG TABLET.DR PO (09:48)
[2021-12-23] MEDS: carBAMazepine ER 200 MG TAB.ER.12H 600 MG PO ×2 (09:48→20:48)
[2021-12-23] MEDS: Sertraline HCL 50 MG TABLET PO (09:48)
[2021-12-23] MEDS: Acetaminophen 325 MG TABLET 975 MG PO (09:49)
[2021-12-23] MEDS: hydrOXYzine HCL 50 MG TABLET PO ×2 (09:49→17:29)
[2021-12-23] MEDS: Loperamide HCl 2 MG CAPSULE PO (09:49)
[2021-12-23 10:00] VITALS: BP 131/83; PULSE 86; RESP 18; TEMP 36.4; O2SAT 97
[2021-12-23] MEDS: LORazepam 1 MG TABLET PO ×2 (14:08→20:49)
[2021-12-23 18:00] VITALS: BP 121/68; PULSE 75; RESP 16; TEMP 36.1; O2SAT 98
[2021-12-23] MEDS: Benztropine Mesylate 1 MG TABLET PO (20:48)
[2021-12-23] MEDS: Melatonin 3 MG TABLET 9 MG PO (20:48)
[2021-12-23] MEDS: fluPHENAZine HCl 5 MG TABLET PO (20:48)
[2021-12-23] MEDS: traZODone HCL 50 MG TABLET PO (20:49)
[2021-12-24 09:20] VITALS: BP 119/73; PULSE 70; RESP 16; TEMP 36.4; O2SAT 98
[2021-12-24] MEDS: Sertraline HCL 50 MG TABLET PO (09:21)
[2021-12-24] MEDS: Nitrofurantoin Monohyd/M-Cryst 100 MG CAPSULE PO ×2 (09:21→20:35)
[2021-12-24] MEDS: Ferrous Sulfate 324 MG TABLET.DR PO (09:22)
[2021-12-24] MEDS: Multivitamin TABLET 1 TAB PO (09:22)
[2021-12-24] MEDS: carBAMazepine ER 200 MG TAB.ER.12H 600 MG PO ×2 (09:22→20:35)
[2021-12-24] MEDS: Acetaminophen 325 MG TABLET 975 MG PO (11:54)
[2021-12-24] MEDS: hydrOXYzine HCL 50 MG TABLET PO (11:54)
[2021-12-24] MEDS: Loperamide HCl 2 MG CAPSULE PO ×2 (11:54→16:26)
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
[2021-12-24] MEDS: LORazepam 1 MG TABLET PO ×2 (15:17→20:35)
[2021-12-24] MEDS: Melatonin 3 MG TABLET 9 MG PO (20:35)
[2021-12-24] MEDS: Benztropine Mesylate 1 MG TABLET PO (20:35)
[2021-12-24] MEDS: fluPHENAZine HCl 5 MG TABLET PO (20:35)
[2021-12-24] MEDS: traZODone HCL 50 MG TABLET PO (20:41)
[2021-12-25 08:20] VITALS: BP 114/75; PULSE 77; RESP 16; TEMP 36.4; O2SAT 97
[2021-12-25] MEDS: Multivitamin TABLET 1 TAB PO (08:21)
[2021-12-25] MEDS: carBAMazepine ER 200 MG TAB.ER.12H 600 MG PO ×2 (08:21→20:03)
[2021-12-25] MEDS: Nitrofurantoin Monohyd/M-Cryst 100 MG CAPSULE PO ×2 (08:22→20:02)
[2021-12-25] MEDS: Ferrous Sulfate 324 MG TABLET.DR PO (08:22)
[2021-12-25] MEDS: Sertraline HCL 50 MG TABLET PO (08:22)
[2021-12-25] MEDS: Loperamide HCl 2 MG CAPSULE PO ×2 (10:17→18:51)
[2021-12-25] MEDS: Acetaminophen 325 MG TABLET 975 MG PO ×2 (10:28→18:51)
[2021-12-25] MEDS: hydrOXYzine HCL 50 MG TABLET PO (15:18)
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
[2021-12-25 18:00] VITALS: BP 107/58; PULSE 70; RESP 16; TEMP 36.4; O2SAT 96
[2021-12-25] MEDS: Benztropine Mesylate 1 MG TABLET PO (20:02)
[2021-12-25] MEDS: fluPHENAZine HCl 5 MG TABLET PO (20:02)
[2021-12-25] MEDS: Melatonin 3 MG TABLET 9 MG PO (20:03)
[2021-12-25] MEDS: LORazepam 0.5 MG TABLET PO (20:03)
[2021-12-25] MEDS: traZODone HCL 50 MG TABLET PO (20:10)
[2021-12-26 08:45] VITALS: BP 124/81; PULSE 114; RESP 18; TEMP 36.6; O2SAT 96
[2021-12-26] MEDS: Sertraline HCL 50 MG TABLET PO (09:49)
[2021-12-26] MEDS: Ferrous Sulfate 324 MG TABLET.DR PO (09:49)
[2021-12-26] MEDS: carBAMazepine ER 200 MG TAB.ER.12H 600 MG PO ×2 (09:49→20:26)
[2021-12-26] MEDS: Multivitamin TABLET 1 TAB PO (09:50)
[2021-12-26] MEDS: Nitrofurantoin Monohyd/M-Cryst 100 MG CAPSULE PO ×2 (09:50→20:25)
[2021-12-26] MEDS: Acetaminophen 325 MG TABLET 975 MG PO (09:59)
[2021-12-26] MEDS: hydrOXYzine HCL 50 MG TABLET PO ×2 (12:00→18:08)
[2021-12-26] MEDS: Ibuprofen 800 MG TABLET PO (12:02)
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
[2021-12-26] MEDS: HaloperidoL 5 MG TABLET PO (18:08)
[2021-12-26] MEDS: Benztropine Mesylate 1 MG TABLET PO (20:25)
[2021-12-26] MEDS: traZODone HCL 50 MG TABLET PO (20:25)
[2021-12-26] MEDS: LORazepam 0.5 MG TABLET PO (20:25)
[2021-12-26] MEDS: fluPHENAZine HCl 5 MG TABLET PO (20:26)
[2021-12-26] MEDS: Melatonin 3 MG TABLET 9 MG PO (20:26)
[2021-12-26 20:30] VITALS: BP 119/73; PULSE 75; RESP 18; TEMP 36.3; O2SAT 97
[2021-12-27 07:00] VITALS: BMI 26.9
[2021-12-27] MEDS: Ibuprofen 800 MG TABLET PO (08:00)
[2021-12-27 08:30] VITALS: BP 136/55; PULSE 71; RESP 18; TEMP 36.3; O2SAT 99
[2021-12-27] MEDS: Ferrous Sulfate 324 MG TABLET.DR PO (08:33)
[2021-12-27] MEDS: Nitrofurantoin Monohyd/M-Cryst 100 MG CAPSULE PO ×2 (08:33→20:49)
[2021-12-27] MEDS: carBAMazepine ER 200 MG TAB.ER.12H 600 MG PO ×2 (08:33→20:49)
[2021-12-27] MEDS: Sertraline HCL 50 MG TABLET PO (08:33)
[2021-12-27] MEDS: Multivitamin TABLET 1 TAB PO (08:33)
[2021-12-27 09:03] LABS: MANUAL DIFF FLAG NO
[2021-12-27 09:09] LABS: Basophils Percent Auto 0.7 % (0-2); Eosinophils Absolute Auto 0.1 X10*3/uL (0.0-0.4); Eosinophils Percent Auto 2.5 % (0-4); Hematocrit 34.3 % (37.0-47.0); Hemoglobin 10.6 g/dl (12.0-16.0); Imm Gran Abs Auto 0.01 X10*3/uL (0.00-0.03); Imm Gran Pct Auto 0.2 % (0.0-0.4); Lymphocytes Absolute Auto 1.4 X10*3/uL (1.2-4.9); Lymphocytes Percent Auto 31.9 % (20-40); Mean Corpuscular HGB Conc 30.9 g/dl (31.0-35.0); Mean Corpuscular Hemoglobin 25.9 pg (27.0-33.0); Mean Corpuscular Volume 83.9 fL (80.0-98.0); Mean Platelet Volume 10.1 fL (9.4-12.3); Monocytes Absolute Auto 0.4 X10*3/uL (0.1-1.2); Neutrophils Absolute Auto 2.5 x10*3/uL (2.0-8.3); Neutrophils Percent Auto 56.7 % (45-73); Platelet Count 266 X10*3/uL (160-400); Red Blood Count 4.09 X10*6/uL (4.20-5.50); Red Cell Distribution Width 17.6 % (11.0-16.0); White Blood Count 4.4 X10*3/uL (4.8-10.8)
[2021-12-27 09:35] LABS: Alanine Aminotransferase 21 U/L (0-31); Albumin Level 4.1 g/dL (3.5-5.0); Alkaline Phosphatase 45 U/L (39-117); Anion Gap 10 (12-20); Aspartate Amino Transferase 17 U/L (5-31); Bilirubin Direct < 0.2 mg/dL (0.0-0.5); Bilirubin Total 0.2 mg/dL (0.0-1.0); Blood Urea Nitrogen 13 mg/dL (9-16); Calcium 8.9 mg/dL (8.4-10.2); Carbon Dioxide 29 mmol/L (22-29); Chloride 104 mmol/L (96-108); Creatinine Clr Calc Pharmacy 114.3; Estimated Glomerular Filt Rate > 60; Glucose Random 89 mg/dL (60-115); Potassium 4.4 mmol/L (3.3-5.1); Sodium 139 mmol/L (135-145); Total Protein 6.8 g/dL (6.5-8.0)
[2021-12-27 10:19] LABS: Carbamazepine Tegretol 7.6 mcg/mL (5.0-12.0)
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
[2021-12-27] MEDS: Loperamide HCl 2 MG CAPSULE PO (17:25)
[2021-12-27] MEDS: traZODone HCL 50 MG TABLET PO (20:49)
[2021-12-27] MEDS: Benztropine Mesylate 1 MG TABLET PO (20:49)
[2021-12-27] MEDS: LORazepam 0.5 MG TABLET PO (20:49)
[2021-12-27] MEDS: Melatonin 3 MG TABLET 9 MG PO (20:49)
[2021-12-27] MEDS: fluPHENAZine HCl 5 MG TABLET PO (20:49)
[2021-12-27 20:58] VITALS: BP 111/86; PULSE 78; RESP 18; TEMP 36.2; O2SAT 97
[2021-12-28 07:55] VITALS: BP 118/61; PULSE 70; RESP 16; TEMP 36.6; O2SAT 94
[2021-12-28] MEDS: Multivitamin TABLET 1 TAB PO (08:06)
[2021-12-28] MEDS: carBAMazepine ER 200 MG TAB.ER.12H 600 MG PO ×2 (08:06→22:40)
[2021-12-28] MEDS: Sertraline HCL 50 MG TABLET PO (08:07)
[2021-12-28] MEDS: Ferrous Sulfate 324 MG TABLET.DR PO (08:07)
[2021-12-28] MEDS: Loperamide HCl 2 MG CAPSULE PO ×2 (09:56→14:48)
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
[2021-12-28] MEDS: hydrOXYzine HCL 50 MG TABLET PO (21:05)
[2021-12-28 22:05] VITALS: BP 130/81; PULSE 68; RESP 16; TEMP 36.2; O2SAT 97
[2021-12-28] MEDS: Benztropine Mesylate 1 MG TABLET PO (22:39)
[2021-12-28] MEDS: fluPHENAZine HCl 5 MG TABLET PO (22:39)
[2021-12-28] MEDS: Melatonin 3 MG TABLET 9 MG PO (22:39)
[2021-12-28] MEDS: LORazepam 0.5 MG TABLET PO (22:40)
[2021-12-28] MEDS: traZODone HCL 50 MG TABLET PO (22:40)
[2021-12-29 08:50] VITALS: BP 110/71; PULSE 71; RESP 16; TEMP 36.6; O2SAT 99
[2021-12-29] MEDS: carBAMazepine ER 200 MG TAB.ER.12H 600 MG PO ×2 (09:01→21:55)
[2021-12-29] MEDS: Multivitamin TABLET 1 TAB PO (09:02)
[2021-12-29] MEDS: Sertraline HCL 50 MG TABLET PO (09:02)
[2021-12-29] MEDS: Ferrous Sulfate 324 MG TABLET.DR PO (09:02)
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
[2021-12-29] MEDS: Loperamide HCl 2 MG CAPSULE PO (11:44)
[2021-12-29] MEDS: hydrOXYzine HCL 50 MG TABLET PO (18:17)
[2021-12-29 21:40] VITALS: BP 104/70; PULSE 65; RESP 18; TEMP 36.2; O2SAT 99
[2021-12-29] MEDS: Melatonin 3 MG TABLET 9 MG PO (21:54)
[2021-12-29] MEDS: fluPHENAZine HCl 5 MG TABLET PO (21:54)
[2021-12-29] MEDS: LORazepam 0.5 MG TABLET PO (21:55)
[2021-12-29] MEDS: traZODone HCL 50 MG TABLET PO (21:55)
[2021-12-29] MEDS: Benztropine Mesylate 1 MG TABLET PO (21:55)
[2021-12-30 08:06] VITALS: BP 120/72; PULSE 73; RESP 16; TEMP 36.2; O2SAT 98
[2021-12-30] MEDS: carBAMazepine ER 200 MG TAB.ER.12H 600 MG PO (08:30)
[2021-12-30] MEDS: Sertraline HCL 50 MG TABLET PO (08:30)
[2021-12-30] MEDS: Ferrous Sulfate 324 MG TABLET.DR PO (08:31)
[2021-12-30] MEDS: Multivitamin TABLET 1 TAB PO (08:31)
[2021-12-30] MEDS: Loperamide HCl 2 MG CAPSULE PO (08:34)
[2021-12-30] MEDS: hydrOXYzine HCL 50 MG TABLET PO (09:46)
--- NOTE | 2021-12-30 12:01 | PC.NURSE ---
A & Ox4. In agreement with discharge and discharge teachings. Patient denies acute physical complaints at this time. Patient reports anxiety is kind of high today because I am worried about transitioning back to everyday life. But it will be good for me . Patient denies SI/HI/AH/VH.
== END 2021-12-30 11:05 | disposition home or self-care (01) | DRG 753 ==
LOC: HO.ED 20:27 → HO.PADLT16 11-29 14:35
PROVIDERS: Clinical Nurse Specialist Psychiatric/Mental Health; Physician Assistant Medical; Admitting Provider Psychiatry & Neurology Psychiatry; Emergency Provider Emergency Medicine; Visit Provider Psychiatry & Neurology Psychiatry
DX: F31.10 Bipolar disorder, current episode manic without psychotic features, unspecified (principal); Z20.822 Contact with and (suspected) exposure to COVID-19; Z88.2 Allergy status to sulfonamides; Z79.899 Other long term (current) drug therapy
CPT/HCPCS: 36415; 80048; 80076; 80156; 80307; 81001; 81003; 81025; 85025; 87086; 87088; 87186; 87635; 96372; 99285; J1200; J2060

== ENCOUNTER 2022-10-05 07:21 | Outpatient (REF) | payer OTHER, SELFPAY ==
[2022-10-05 07:36] LABS: MANUAL DIFF FLAG NO
[2022-10-05 08:08] LABS: Basophils Percent Auto 0.8 % (0-2); Eosinophils Absolute Auto 0.1 X10*3/uL (0.0-0.4); Eosinophils Percent Auto 2.6 % (0-4); Hematocrit 22.6 % (37.0-47.0); Imm Gran Abs Auto 0.01 X10*3/uL (0.00-0.03); Imm Gran Pct Auto 0.2 % (0.0-0.4); Lymphocytes Absolute Auto 1.2 X10*3/uL (1.2-4.9); Lymphocytes Percent Auto 22.8 % (20-40); Mean Corpuscular HGB Conc 26.1 g/dl (31.0-35.0); Mean Corpuscular Hemoglobin 17.9 pg (27.0-33.0); Mean Corpuscular Volume 68.7 fL (80.0-98.0); Mean Platelet Volume 11.2 fL (9.4-12.3); Monocytes Absolute Auto 0.4 X10*3/uL (0.1-1.2); Monocytes Percent Auto 8.3 % (2-11); Neutrophils Absolute Auto 3.3 x10*3/uL (2.0-8.3); Neutrophils Percent Auto 65.3 % (45-73); Platelet Count 456 X10*3/uL (160-400); Red Blood Count 3.29 X10*6/uL (4.20-5.50); White Blood Count 5.1 X10*3/uL (4.8-10.8)
[2022-10-05 08:30] LABS: Estimated Average Glucose 94 mg/dL; Hemoglobin A1c % 4.9 %
[2022-10-05 08:56] LABS: Alanine Aminotransferase 18 U/L (0-31); Alkaline Phosphatase 46 U/L (39-117); Anion Gap 12 (12-20); Aspartate Amino Transferase 21 U/L (5-31); Bilirubin Total 0.2 mg/dL (0.0-1.0); Blood Urea Nitrogen 11 mg/dL (9-16); Calcium 8.7 mg/dL (8.4-10.2); Carbon Dioxide 23 mmol/L (22-29); Chloride 107 mmol/L (96-108); Cholesterol 190 mg/dL; Estimated Glomerular Filt Rate > 60; Glucose Random 86 mg/dL (60-115); HDL Cholesterol 47 mg/dL; Potassium 4.2 mmol/L (3.3-5.1); Sodium 138 mmol/L (135-145); Total Protein 6.6 g/dL (6.5-8.0)
[2022-10-05 13:22] LABS: Hemoglobin 5.9 g/dl (12.0-16.0)
[2022-10-05 16:00] LABS: LDL Cholesterol Calculated 127 mg/dl; Triglycerides 84 mg/dL
== END 2022-10-05 07:22 | disposition home or self-care (01) ==
LOC: HO.LAB 07:21
PROVIDERS: Visit Provider Registered Nurse
DX: F31.13 Bipolar disorder, current episode manic without psychotic features, severe (principal); Z79.899 Other long term (current) drug therapy
CPT/HCPCS: 36415; 80053; 80061; 80156; 83036; 85007; 85025; 85027

== ENCOUNTER 2022-10-05 14:35 | Inpatient (IN) | payer OTHER, SELFPAY ==
[2022-10-05] VITALS (10 sets, daily range): BP systolic 105–144; BP diastolic 52–75; PULSE 73–90; RESP 16–20; TEMP 36.4–36.8; O2SAT 96–98; BMI 29.0
--- NOTE | ~2022-10-05 | XR_ITS ---
EXAMINATION: XR CHEST CLINICAL INFORMATION: Severe anemia COMPARISON: None available. TECHNIQUE: Frontal view of the chest was obtained. FINDINGS: No significant abnormality is noted involving the heart, lungs, mediastinum, bony thorax or soft tissues. XR/XR chest 1V IMPRESSION: Unremarkable examination.
--- NOTE | 2022-10-05 14:43 | ED.GENADULT ---
HPI - General Adult General Chief complaint: Recheck/Abnormal Lab/Rx <KEY Resendez - Last Filed: 10/05/22 14:46> Stated complaint: abd labs <KEY Resendez - Last Filed: 10/05/22 14:46> Time Seen by Provider: 10/05/22 15:26 <KEY Resendez - Last Filed: 10/05/22 14:46> Source: patient <Jatin Baum MD - Last Filed: 10/05/22 16:06> Mode of arrival: ambulatory <Jatin Baum MD - Last Filed: 10/05/22 16:06> Limitations: no limitations <Jatin Baum MD - Last Filed: 10/05/22 16:06> History of Present Illness HPI narrative: 37-year-old female presented with abnormal blood workup. Patient found to be anemic with low hemoglobin on a routine blood workup done as an outpatient, patient been having shortness of breath with exertion. Patient also noticed that she has been having black stool patient is taking iron, last menstrual period last month did not report any heavy bleeding. <Jatin Baum MD - Last Filed: 10/05/22 16:06> Related Data Home medications: Previous Rx's Medication Instructions Recorded benztropine 1 mg tablet 1 mg PO BEDTIME 30 days #30 tabs 12/28/21 carbamazepine 200 mg 600 mg PO BID 30 days #180 tabs 12/28/21 tablet,extended release,12 hr ferrous sulfate 324 mg (65 mg 324 mg PO DAILY 30 days #30 tabs 12/28/21 iron) tablet,delayed release fluphenazine HCl 5 mg tablet 5 mg PO BEDTIME 30 days #30 tabs 12/28/21 melatonin 3 mg tablet 9 mg PO BEDTIME 30 days #90 tabs 12/28/21 multivitamin with folic acid 400 1 tab PO DAILY 30 days #30 tabs 12/28/21 mcg tablet (Daily-Galina (with folic acid)) sertraline 50 mg tablet 50 mg PO DAILY 30 days #30 tabs 12/28/21 trazodone 50 mg tablet 50 mg PO BEDTIME 30 days #30 tabs 12/28/21 <KEY Resendez - Last Filed: 10/05/22 14:46> Allergies/adverse reactions: Allergies Allergy/AdvReac Type Severity Reaction Status Date / Time Sulfa (Sulfonamide AdvReac Rash Verified 10/23/21 23:08 Antibiotics) <KEY Resendez - Last Filed: 10/05/22 14:46> Review of Systems Review of Systems: All other systems are reviewed and are negative Constitutional: Reports as per HPI and Reports no additional constitutional complaints Eyes: Reports as per HPI and Reports no additional eye complaints Reports system reviewed and no additional complaints, except as documented Cardiovascular: Reports as per HPI and Reports no additional cardiovascular complaints Respiratory: Reports as per HPI and Reports no additional respiratory complaints Gastrointestinal: Reports as per HPI and Reports no additional gastrointestinal complaints Genitourinary: Reports no additional female genitourinary complaints Musculoskeletal: Reports no additional musculoskeletal complaints Skin/Breast: Reports system reviewed and no additional complaints, except as docu Psychiatric: Reports no additional psychiatric complaints Endocrine: Reports no additional endocrine complaints Hematologic/Lymphatic: Reports no additional hematologic/lymphatic complaints Allergic/Immunologic: Reports no additional allergic/immunologic complaints Reports system reviewed and no additional complaints, except as documented and Reports Abnormal speech present <Jatin Baum MD - Last Filed: 10/05/22 16:06> [facility] Past Medical History Medical History: Medical History Depression Anjali <KEY Resendez - Last Filed: 10/05/22 14:46> Social History Social History: Social History Household Members: None Household Members Other:: I live by myself Housing: House Do you presently have visiting nurse or other home services: No Patient Tobacco Use Status: Never used Tobacco Second Hand Smoke Exposure: No Advance Directives: No Advance Directives Information Provided: Yes service: No Sexual orientation: Straight/Heterosexual <KEY Resendez - Last Filed: 10/05/22 14:46> Physical Exam ED Vital Signs: Vital Signs - 24 hr 10/05/22 14:41 Temperature 98.3 F Pulse Rate 90 Respiratory Rate 20 Blood Pressure 118/67 Pulse Oximetry 97 Oxygen Delivery Method Room Air BMI result Body Mass Index 29.0 <KEY Resendez - Last Filed: 10/05/22 14:46> Vital Signs - 24 hr 10/05/22 14:41 Temperature 98.3 F Pulse Rate 90 Respiratory Rate 20 Blood Pressure 118/67 Pulse Oximetry 97 Oxygen Delivery Method Room Air BMI result Body Mass Index 29.0 Vital signs have been reviewed as appeared to be correct. Blood pressure normal. Heart rate normal. Respiration rate normal. Temperature normal. Oxygen saturation normal. <Jatin Baum MD - Last Filed: 10/05/22 16:06> Appearance: Alert. Oriented X3. No acute distress. Pale with pale conjunctiva. Head: Normal external exam. Normocephalic. Atraumatic. No Davila signs noted. No raccoon eyes noted Eyes: PERRLA. EOMI. Conjunctiva and sclera normal. Eyelids normal. ENT: TM's Normal. Pharynx normal. Uvula midline. Moist mucous membranes. No trismus noted. No drooling noted. No muffled voice noted. Neck: Normal inspection. Neck supple. FROM. No adenopathy. Thyroid Normal. No meningeal signs. No neck mass noted. CVS: Normal heart rate and rhythm. Heart sound normal. No murmurs noted. Pulses normal throughout. Respiratory: No respiratory distress. Painless inspiration. Breath sounds normal. No wheezes/rales/rhonchi noted. Chest nontender. No accessory muscle usage noted or decreased air movement noted. Abdomen: Soft and nontender. Bowel sounds normal in all 4 quadrants. No distention noted. No organomegaly noted. No visible injury noted. Rectal exam: No stool in the vault, no external or internal hemorrhoids. Back: No CVA tenderness. Full range of motion noted. Skin: Skin warm and dry. Normal skin color. Normal skin turgor. No rashes/lesions/lacerations noted. Extremities: No lower extremity edema. Extremities exhibit normal range of motion. Extremities nontender. Neuro: Oriented X 3. Cranial nerve exam: II-XII are grossly intact No motor deficit. No sensory deficit. Reflexes normal. <Jatin Baum MD - Last Filed: 10/05/22 16:06> Course Course Course Narrative: This is an RME: Additional HPI, ROS, PE not included below will be deferred to primary provider. This is a 8-cmag-bdd-female, hx of iron deficiency anemia, who presents to the emergency department as an expect due to hemoglobin level 5.9. She reports black, loose stool x 6 months. Has had some dizziness and shortness of breath with exertion over the last month. She does not feel dizzy when standing up. Had a blood transfusion 14 years ago after giving , no other transfusions. On exam, patient has pale conjunctiva and skin is pale. She appears stable, very pale, VSS. Plan: repeat labs, she agrees for transfusion if needed. <KEY Resendez - Last Filed: 10/05/22 14:46> Medical Decision Making Medical Decision Making [facility] Narrative: Severe anemia, black stool (patient takes iron), will transfuse 2 units of blood, will check iron profile, and admit. <Jatin Baum MD - Last Filed: 10/05/22 16:06> Differential Diagnosis Differential Diagnoses: The differential diagnosis associated with the presentation includes (GI bleed, menorrhagia, blood transfusion.) <Jatin Baum MD - Last Filed: 10/05/22 16:06> Lab Data [facility] Lab Attestation statement: I reviewed the patient's lab results. <Jatin Baum MD - Last Filed: 10/05/22 16:06> Result Diagrams: 10/05/22 15:06 10/05/22 15:06 <KEY Resendez - Last Filed: 10/05/22 14:46> Labs: Lab Results 10/05/22 10/05/22 10/05/22 Range/Units 15:06 15:06 15:06 WBC 3.9 L (4.8-10.8) X10*3/uL RBC 3.08 L (4.20-5.50) X10*6/uL Hgb 5.6 L* (12.0-16.0) g/dl Hct 21.0 L* (37.0-47.0) % MCV 68.2 L (80.0-98.0) fL MCH 18.2 L (27.0-33.0) pg MCHC 26.7 L (31.0-35.0) g/dl RDW 17.9 H (11.0-16.0) % Plt Count 389 (160-400) X10*3/uL MPV 10.6 (9.4-12.3) fL Immature Gran % (Auto) 0.3 (0.0-0.4) % Neut % (Auto) 58.4 (45-73) % Lymph % (Auto) 27.6 (20-40) % Williamson % (Auto) 10.1 (2-11) % Eos % (Auto) 2.8 (0-4) % Baso % (Auto) 0.8 (0-2) % Lymph # (Auto) 1.1 L (1.2-4.9) X10*3/uL Williamson # (Auto) 0.4 (0.1-1.2) X10*3/uL Eos # (Auto) 0.1 (0.0-0.4) X10*3/uL Baso # (Auto) 0.0 (0.0-0.2) X10*3/uL Abs Immat Gran (auto) 0.01 (0.00-0.03) X10*3/uL Absolute Neuts (auto) 2.3 (2.0-8.3) x10*3/uL Absolute Nucleated RBC 0.000 (0.0-0.012) X10*3/uL Nucleated RBC % (auto) 0.0 (0.0-0.2) /100WBC Absolute Retic (0.026-0.095) X10*6/uL Percent Retic (0.5-1.8) % Immature Retic Fraction (3.0-15.9) % Retic Hgb Equivalent (30.0-35.0) pg PT 11.6 (10.0-13.1) SEC INR 1.0 (0.9-1.1) APTT 27.5 (26.0-36.4) SEC Sodium 140 (135-145) mmol/L Potassium 4.0 (3.3-5.1) mmol/L Chloride 109 H (96-108) mmol/L Carbon Dioxide 22 (22-29) mmol/L Anion Gap 13 (12-20) BUN 10 (9-16) mg/dL Creatinine 0.60 (0.5-1.4) mg/dL Estim Creat Clear Calc 135.6 Estimated GFR > 60 Random Glucose 99 (60-115) mg/dL Calcium 8.9 (8.4-10.2) mg/dL Magnesium 1.9 (1.6-2.6) mg/dL Iron 6 L (30-160) mcg/dL TIBC 313 (228-428) mcg/dL % Saturation 2 L (15-50) % Unsat Iron Binding 307 ug/dL Total Bilirubin 0.2 (0.0-1.0) mg/dL Direct Bilirubin < 0.2 (0.0-0.5) mg/dL AST 20 (5-31) U/L ALT 17 (0-31) U/L Alkaline Phosphatase 44 (39-117) U/L Total Protein 6.6 (6.5-8.0) g/dL Albumin 4.0 (3.5-5.0) g/dL 10/05/22 Range/Units 15:06 WBC (4.8-10.8) X10*3/uL RBC (4.20-5.50) X10*6/uL Hgb (12.0-16.0) g/dl Hct (37.0-47.0) % MCV (80.0-98.0) fL MCH (27.0-33.0) pg MCHC (31.0-35.0) g/dl RDW (11.0-16.0) % Plt Count (160-400) X10*3/uL MPV (9.4-12.3) fL Immature Gran % (Auto) (0.0-0.4) % Neut % (Auto) (45-73) % Lymph % (Auto) (20-40) % Williamson % (Auto) (2-11) % Eos % (Auto) (0-4) % Baso % (Auto) (0-2) % Lymph # (Auto) (1.2-4.9) X10*3/uL Williamson # (Auto) (0.1-1.2) X10*3/uL Eos # (Auto) (0.0-0.4) X10*3/uL Baso # (Auto) (0.0-0.2) X10*3/uL Abs Immat Gran (auto) (0.00-0.03) X10*3/uL Absolute Neuts (auto) (2.0-8.3) x10*3/uL Absolute Nucleated RBC (0.0-0.012) X10*3/uL Nucleated RBC % (auto) (0.0-0.2) /100WBC Absolute Retic 0.052 (0.026-0.095) X10*6/uL Percent Retic 1.7 (0.5-1.8) % Immature Retic Fraction 27.7 H (3.0-15.9) % Retic Hgb Equivalent 16.4 L (30.0-35.0) pg PT (10.0-13.1) SEC INR (0.9-1.1) APTT (26.0-36.4) SEC Sodium (135-145) mmol/L Potassium (3.3-5.1) mmol/L Chloride (96-108) mmol/L Carbon Dioxide (22-29) mmol/L Anion Gap (12-20) BUN (9-16) mg/dL Creatinine (0.5-1.4) mg/dL Estim Creat Clear Calc Estimated GFR Random Glucose (60-115) mg/dL Calcium (8.4-10.2) mg/dL Magnesium (1.6-2.6) mg/dL Iron (30-160) mcg/dL TIBC (228-428) mcg/dL % Saturation (15-50) % Unsat Iron Binding ug/dL Total Bilirubin (0.0-1.0) mg/dL Direct Bilirubin (0.0-0.5) mg/dL AST (5-31) U/L ALT (0-31) U/L Alkaline Phosphatase (39-117) U/L Total Protein (6.5-8.0) g/dL Albumin (3.5-5.0) g/dL <KEY Resendez - Last Filed: 10/05/22 14:46> Lab Results 10/05/22 10/05/22 10/05/22 Range/Units 15:06 15:06 15:06 WBC 3.9 L (4.8-10.8) X10*3/uL RBC 3.08 L (4.20-5.50) X10*6/uL Hgb 5.6 L* (12.0-16.0) g/dl Hct 21.0 L* (37.0-47.0) % MCV 68.2 L (80.0-98.0) fL MCH 18.2 L (27.0-33.0) pg MCHC 26.7 L (31.0-35.0) g/dl RDW 17.9 H (11.0-16.0) % Plt Count 389 (160-400) X10*3/uL MPV 10.6 (9.4-12.3) fL Immature Gran % (Auto) 0.3 (0.0-0.4) % Neut % (Auto) 58.4 (45-73) % Lymph % (Auto) 27.6 (20-40) % Williamson % (Auto) 10.1 (2-11) % Eos % (Auto) 2.8 (0-4) % Baso % (Auto) 0.8 (0-2) % Lymph # (Auto) 1.1 L (1.2-4.9) X10*3/uL Williamson # (Auto) 0.4 (0.1-1.2) X10*3/uL Eos # (Auto) 0.1 (0.0-0.4) X10*3/uL Baso # (Auto) 0.0 (0.0-0.2) X10*3/uL Abs Immat Gran (auto) 0.01 (0.00-0.03) X10*3/uL Absolute Neuts (auto) 2.3 (2.0-8.3) x10*3/uL Absolute Nucleated RBC 0.000 (0.0-0.012) X10*3/uL Nucleated RBC % (auto) 0.0 (0.0-0.2) /100WBC Absolute Retic (0.026-0.095) X10*6/uL Percent Retic (0.5-1.8) % Immature Retic Fraction (3.0-15.9) % Retic Hgb Equivalent (30.0-35.0) pg PT 11.6 (10.0-13.1) SEC INR 1.0 (0.9-1.1) APTT 27.5 (26.0-36.4) SEC Sodium 140 (135-145) mmol/L Potassium 4.0 (3.3-5.1) mmol/L Chloride 109 H (96-108) mmol/L Carbon Dioxide 22 (22-29) mmol/L Anion Gap 13 (12-20) BUN 10 (9-16) mg/dL Creatinine 0.60 (0.5-1.4) mg/dL Estim Creat Clear Calc 135.6 Estimated GFR > 60 Random Glucose 99 (60-115) mg/dL Calcium 8.9 (8.4-10.2) mg/dL Magnesium 1.9 (1.6-2.6) mg/dL Iron 6 L (30-160) mcg/dL TIBC 313 (228-428) mcg/dL % Saturation 2 L (15-50) % Unsat Iron Binding 307 ug/dL Total Bilirubin 0.2 (0.0-1.0) mg/dL Direct Bilirubin < 0.2 (0.0-0.5) mg/dL AST 20 (5-31) U/L ALT 17 (0-31) U/L Alkaline Phosphatase 44 (39-117) U/L Total Protein 6.6 (6.5-8.0) g/dL Albumin 4.0 (3.5-5.0) g/dL 10/05/22 Range/Units 15:06 WBC (4.8-10.8) X10*3/uL RBC (4.20-5.50) X10*6/uL Hgb (12.0-16.0) g/dl Hct (37.0-47.0) % MCV (80.0-98.0) fL MCH (27.0-33.0) pg MCHC (31.0-35.0) g/dl RDW (11.0-16.0) % Plt Count (160-400) X10*3/uL MPV (9.4-12.3) fL Immature Gran % (Auto) (0.0-0.4) % Neut % (Auto) (45-73) % Lymph % (Auto) (20-40) % Williamson % (Auto) (2-11) % Eos % (Auto) (0-4) % Baso % (Auto) (0-2) % Lymph # (Auto) (1.2-4.9) X10*3/uL Williamson # (Auto) (0.1-1.2) X10*3/uL Eos # (Auto) (0.0-0.4) X10*3/uL Baso # (Auto) (0.0-0.2) X10*3/uL Abs Immat Gran (auto) (0.00-0.03) X10*3/uL Absolute Neuts (auto) (2.0-8.3) x10*3/uL Absolute Nucleated RBC (0.0-0.012) X10*3/uL Nucleated RBC % (auto) (0.0-0.2) /100WBC Absolute Retic 0.052 (0.026-0.095) X10*6/uL Percent Retic 1.7 (0.5-1.8) % Immature Retic Fraction 27.7 H (3.0-15.9) % Retic Hgb Equivalent 16.4 L (30.0-35.0) pg PT (10.0-13.1) SEC INR (0.9-1.1) APTT (26.0-36.4) SEC Sodium (135-145) mmol/L Potassium (3.3-5.1) mmol/L Chloride (96-108) mmol/L Carbon Dioxide (22-29) mmol/L Anion Gap (12-20) BUN (9-16) mg/dL Creatinine (0.5-1.4) mg/dL Estim Creat Clear Calc Estimated GFR Random Glucose (60-115) mg/dL Calcium (8.4-10.2) mg/dL Magnesium (1.6-2.6) mg/dL Iron (30-160) mcg/dL TIBC (228-428) mcg/dL % Saturation (15-50) % Unsat Iron Binding ug/dL Total Bilirubin (0.0-1.0) mg/dL Direct Bilirubin (0.0-0.5) mg/dL AST (5-31) U/L ALT (0-31) U/L Alkaline Phosphatase (39-117) U/L Total Protein (6.5-8.0) g/dL Albumin (3.5-5.0) g/dL <Jatin Baum MD - Last Filed: 10/05/22 16:06> Independent Interpretation I performed an independent interpretation of an: Plain X-Ray (No acute intrathoracic pathology.) <Jatin Baum MD - Last Filed: 10/05/22 16:06> Radiology Impression Discussion of test interpretation with radiology: I have reviewed the radiologist's reading. <Jatin Baum MD - Last Filed: 10/05/22 16:06> Discharge Plan Discharge Clinical Impression: Anemia <KEY Resendez - Last Filed: 10/05/22 14:46> Patient Disposition: Admitted As Inpatient <KEY Resendez - Last Filed: 10/05/22 14:46> Prescriptions: No Action trazodone 50 mg Tablet 50 mg PO BEDTIME 30 Days Qty: 30 0RF carbamazepine 200 mg Tablet Extended Release 12 Hr 600 mg PO BID 30 Days Qty: 180 0RF sertraline 50 mg Tablet 50 mg PO DAILY 30 Days Qty: 30 0RF melatonin 3 mg Tablet 9 mg PO BEDTIME 30 Days Qty: 90 0RF benztropine 1 mg Tablet 1 mg PO BEDTIME 30 Days Qty: 30 0RF fluphenazine HCl 5 mg Tablet 5 mg PO BEDTIME 30 Days Qty: 30 0RF ferrous sulfate 324 mg (65 mg iron) Tablet,Delayed Release (Dr/Ec) 324 mg PO DAILY 30 Days Qty: 30 0RF multivitamin with folic acid [Daily-Galina (with folic acid)] 400 mcg tablet 1 tab PO DAILY 30 Days Qty: 30 0RF <KEY Resendez - Last Filed: 10/05/22 14:46>
[2022-10-05 15:10] LABS: MANUAL DIFF FLAG NO
[2022-10-05 15:12] LABS: Basophils Percent Auto 0.8 % (0-2); Imm Gran Abs Auto 0.01 X10*3/uL (0.00-0.03); Imm Gran Pct Auto 0.3 % (0.0-0.4); Immature Retic Fraction 27.7 % (3.0-15.9); Retic HGB Equivalent 16.4 pg (30.0-35.0); Reticulocyte Percent 1.7 % (0.5-1.8); Reticulocytes Absolute 0.052 X10*6/uL (0.026-0.095)
[2022-10-05 15:17] LABS: Eosinophils Absolute Auto 0.1 X10*3/uL (0.0-0.4); Eosinophils Percent Auto 2.8 % (0-4); Lymphocytes Absolute Auto 1.1 X10*3/uL (1.2-4.9); Lymphocytes Percent Auto 27.6 % (20-40); Mean Corpuscular HGB Conc 26.7 g/dl (31.0-35.0); Mean Corpuscular Hemoglobin 18.2 pg (27.0-33.0); Mean Corpuscular Volume 68.2 fL (80.0-98.0); Mean Platelet Volume 10.6 fL (9.4-12.3); Monocytes Absolute Auto 0.4 X10*3/uL (0.1-1.2); Monocytes Percent Auto 10.1 % (2-11); Neutrophils Absolute Auto 2.3 x10*3/uL (2.0-8.3); Neutrophils Percent Auto 58.4 % (45-73); Platelet Count 389 X10*3/uL (160-400); Prothrombin Time 11.6 SEC (10.0-13.1); Red Blood Count 3.08 X10*6/uL (4.20-5.50); Red Cell Distribution Width 17.9 % (11.0-16.0); White Blood Count 3.9 X10*3/uL (4.8-10.8)
[2022-10-05 15:19] LABS: Partial Thromboplastin Time 27.5 SEC (26.0-36.4)
[2022-10-05 15:20] LABS: Hemoglobin 5.6 g/dl (12.0-16.0)
--- NOTE | 2022-10-05 15:26 | PC.NURSE ---
Alert and oriented, resp even and unlabored. Pt denies any dizziness, shortness of breath. Reports feeling tired over past few weeks. Bilateral IV's established, placed on buttonhole maker.
[2022-10-05 15:31] LABS: Alanine Aminotransferase 17 U/L (0-31); Alkaline Phosphatase 44 U/L (39-117); Anion Gap 13 (12-20); Aspartate Amino Transferase 20 U/L (5-31); Bilirubin Direct < 0.2 mg/dL (0.0-0.5); Bilirubin Total 0.2 mg/dL (0.0-1.0); Blood Urea Nitrogen 10 mg/dL (9-16); Calcium 8.9 mg/dL (8.4-10.2); Carbon Dioxide 22 mmol/L (22-29); Chloride 109 mmol/L (96-108); Creatinine Clr Calc Pharmacy 135.6; Estimated Glomerular Filt Rate > 60; Glucose Random 99 mg/dL (60-115); Iron 6 mcg/dL (30-160); Magnesium 1.9 mg/dL (1.6-2.6); Percent Iron Saturation 2 % (15-50); Sodium 140 mmol/L (135-145); Total Iron Binding Capacity 313 mcg/dL (228-428); Total Protein 6.6 g/dL (6.5-8.0); Unsaturated Iron Binding 307 ug/dL
--- NOTE | 2022-10-05 16:00 | ECG_ITS ---
Test Reason : WEAK Blood Pressure : / mmHG Vent. Rate : 074 BPM Atrial Rate : 074 BPM P-R Int : 168 ms QRS Dur : 080 ms QT Int : 384 ms P-R-T Axes : 036 019 019 degrees QTc Int : 426 ms Normal sinus rhythm Normal ECG No previous ECGs available Referred By: Jatin Baum Electronically Signed By:Keith Ball
[2022-10-05 16:01] LABS: OBS Int Ctl Valid YES; OBS1 POSITIVE (NEGATIVE)
--- NOTE | 2022-10-05 16:38 | PM.IMHP ---
History of Present Illness Date of Service: 10/05/22 Attending physician on admission: Dustin Sahu Chief Complaint: Shortness of breath with exertion 37-year-old female patient with past medical history significant for bipolar disorder/shamar came to [facility] for routine blood work for Tegretol and noted to have significant iron deficiency anemia, on further questioning patient provided history of shortness of breath with excision, denies chest pain, no orthopnea, no PND, denies nausea, vomiting, no hematemesis, but has noticed stool mixed with blood clots, and dark colored stools of 6 months duration, patient has history of iron deficiency anemia in the past required blood transfusion 14 years ago post , also has history of heavy periods, denies heavy periods now denies abdominal pain no family history of ulcerative colitis or Crohn's disease, no recent weight loss denies smoking or alcohol intake,no nsaids, denies epigastric discomfort,scheduled to receive 2 units of blood, hematocrit 22.6, with a hemoglobin of 5.9, repeat hemotocrit 21 and hemoglobin 5.6, MCV of 68.2 WBC 3.9, iron 6, TIBC 313 saturation 2,iron binding 307, ferritin not obtained, patient being admitted to [facility] for further evaluation and treatment for profound symptomatic anemia. Review of Systems Review of Systems: General no headache, no dizziness no fever chills. CVS no chest pain, no palpitation. Respiratory no cough, sob with exertion. Gastrointestinal no nausea no vomiting, no abdominal pain, no hematemesis Musculoskeletal no pain no urgency, no frequency PMFSH Medical History Depression Shamar Social History Household Members: Significant Other Household Members Other:: I live by myself Housing: House Do you presently have visiting nurse or other home services: No Patient Tobacco Use Status: Never used Tobacco Second Hand Smoke Exposure: No Use of substances other than those prescribed or required for medical reasons: No Currently Displaying Signs/Symptoms of Drug Intoxication Withdrawal: No Have you been hit, kicked, punched, or otherwise hurt by someone within the past year? If so, by whom?: No Do you feel safe in your current relationship?: No Is there a partner from a previous relationship who is making you feel unsafe now?: No Advance Directives: No Advance Directives Information Provided: Yes Do you have thoughts of harming others: None Do you have a plan to hurt others: No Plan Recently lost weight without trying: No Eating poorly because of decreased appetite: No Patient : No : No Poor oral hygiene: No service: No Current occupational status: unemployed Sexual orientation: Straight/Heterosexual Meds Allergies Allergy/AdvReac Type Severity Reaction Status Date / Time Sulfa (Sulfonamide AdvReac Rash Verified 10/23/21 23:08 Antibiotics) Active Medications: Current Medications Pharmacy Consult (Consult Rx Perform Med Rec) 1 each MISCELLANE ONCE PRN PRN Reason: Consult order Home Medications Medication Instructions Recorded Confirmed Last Taken Type carbamazepine 200 mg tablet 600 mg PO BID 10/05/22 10/05/22 Unknown History melatonin 5 mg tablet 5 mg PO BEDTIME 10/05/22 10/05/22 Unknown History sertraline 50 mg tablet 125 mg PO DAILY 10/05/22 10/05/22 10/05/22 History Physical Exam Vital Signs and Narrative: Vital Signs: Last Vital Signs Temp 98.3 F 10/05/22 14:41 Pulse 79 10/05/22 16:27 Resp 18 10/05/22 16:27 BP 105/52 L 10/05/22 16:27 Pulse Ox 98 10/05/22 16:27 O2 Del Method Room Air 10/05/22 14:41 BMI result Body Mass Index 29.0 Const: Other: General awake alert x3 resting comfortably in no acute distress. Conjunctiva pale Neck supple no JVD. CVS regular rate rhythm, Respiratory lungs clear to auscultation, no respiratory distress, no wheeze, no rhonchi. Gastrointestinal abdomen soft, nontender, bowel sounds audible,no guarding , no rigidity. Extremities no edema. Neuro nonfocal Skin pallor Psych appropriate affect Results Labs 10/05/22 15:06 10/05/22 15:06 Labs: Laboratory Results - last 24 hr 10/05/22 10/05/22 10/05/22 15:06 15:06 15:06 MCV 68.2 L MCH 18.2 L MCHC 26.7 L RDW 17.9 H Plt Count 389 MPV 10.6 Immature Gran % (Auto) 0.3 Neut % (Auto) 58.4 Lymph % (Auto) 27.6 [place] % (Auto) 10.1 Eos % (Auto) 2.8 Baso % (Auto) 0.8 Lymph # (Auto) 1.1 L [place] # (Auto) 0.4 Eos # (Auto) 0.1 Baso # (Auto) 0.0 Abs Immat Gran (auto) 0.01 Absolute Neuts (auto) 2.3 Absolute Nucleated RBC 0.000 Nucleated RBC % (auto) 0.0 Absolute Retic Percent Retic Immature Retic Fraction Retic Hgb Equivalent PT 11.6 INR 1.0 APTT 27.5 Anion Gap 13 Estim Creat Clear Calc 135.6 Estimated GFR > 60 Random Glucose 99 Calcium 8.9 Magnesium 1.9 Iron 6 L TIBC 313 % Saturation 2 L Unsat Iron Binding 307 Total Bilirubin 0.2 Direct Bilirubin < 0.2 AST 20 ALT 17 Alkaline Phosphatase 44 Total Protein 6.6 Albumin 4.0 Stool Occult Blood Blood Type Antibody Screen Crossmatch 10/05/22 10/05/22 10/05/22 15:06 15:06 15:45 MCV MCH MCHC RDW Plt Count MPV Immature Gran % (Auto) Neut % (Auto) Lymph % (Auto) [place] % (Auto) Eos % (Auto) Baso % (Auto) Lymph # (Auto) [place] # (Auto) Eos # (Auto) Baso # (Auto) Abs Immat Gran (auto) Absolute Neuts (auto) Absolute Nucleated RBC Nucleated RBC % (auto) Absolute Retic 0.052 Percent Retic 1.7 Immature Retic Fraction 27.7 H Retic Hgb Equivalent 16.4 L PT INR APTT Anion Gap Estim Creat Clear Calc Estimated GFR Random Glucose Calcium Magnesium Iron TIBC % Saturation Unsat Iron Binding Total Bilirubin Direct Bilirubin AST ALT Alkaline Phosphatase Total Protein Albumin Stool Occult Blood POSITIVE Blood Type A Positive Antibody Screen NEGATIVE Crossmatch See Detail Assessment and Plan (1) Anemia: Status: Acute (2) Bipolar 1 disorder: Status: Acute Plan 37-year-old female patient with known history of iron deficiency anemia presented to [facility] for follow-up on abnormal labs noted to have significant anemia with low iron saturation, with dark colored stool mixed with fresh blood clots patient will be admitted for continued monitoring and treatment of profound symptomatic anemia. Profound symptomatic iron deficiency anemia Likely due to combination of heavy periods and LGi blood loss Transfuse 2 units of block repeat CBC, check TSH Shortness of breath due to anemia. GI consult Recommend outpatient OBGYN follow-up for heavy periods Bipolar disorder continue home medication Code status full code DVT prophylaxis low risk early ambulation Patient will require 2 night inpatient stay for further workup and treatment of profound symptomatic anemia requiring blood transfusion and expert consultation. Time Spent With Patient Time: Total time managing care of this patient today ____ minutes. Quality Stroke Does the patient have a stroke diagnosis?: No VTE Prior VTE?: No VTE Risk Level:: Medical - low VTE Device Contraindication: Treatment Not Indicated VTE Drug Contraindication: Treatment Not Indicated
--- NOTE | 2022-10-05 17:01 | PHA.MEDREC ---
Addendum entered by Jan Juárez RPh 10/05/22 17:39: SPOKE TO PHARMACY AND THEN PATIENT, ON 600 MG BID OF THE IR Original Note: Pharmacy Consult ? Medication Reconciliation Pharmacy has completed the medication reconciliation. spoke with patient. she was able to tell me her medications. Her carbamazepine is prescribed for twice daily however she says she only takes the 600mg once daily. She states she took her medications today except for the night time melatonin.
--- NOTE | 2022-10-05 17:09 | PC.NURSE ---
First unit of blood infusing, patient offering no complaints, afebrile, NSR on monitor.
[2022-10-05] MEDS: 0.9 % Sodium Chloride Flush 3 ML SYRINGE IVFLUSH (21:02)
[2022-10-05] MEDS: Melatonin 3 MG TABLET 6 MG PO (21:50)
[2022-10-05] MEDS: guaiFENesin 100 MG/5 ML LIQUID PO (21:50)
[2022-10-05 21:52] LABS: Appearance Urine Clear; Color Urine Yellow; Glucose Urine UA Negative (Negative); Leukocyte Esterase Urine Negative (Negative); Nitrite Urine Positive (Negative); Specific Gravity - Urine 1.015 (1.005-1.025); UMIC TRIGGER UACC YES; Urine Blood Negative (Negative); Urine Ketones Trace mg/dL (Negative); Urine Protein Negative (Neg-Trace)
[2022-10-05 21:55] LABS: Bacteria Urine 4+ (None Seen); Hyaline Casts Urine 0-2 /LPF (0-2); RBC Urine 0-2 /HPF (0-2); UACC Culture Trigger YES; WBC Urine 0-5 /HPF (0-5)
--- NOTE | 2022-10-05 22:17 | PM.EVENT ---
Event Note Date of Service: 10/05/22 Event Note: GI-Consult noted--Chart reviewed-I will see patient on 10/06 It looks like she will need a colonoscopy. I will keep her on clear liquids and plan to schedule the colonoscopy for 10/07 if she is agreeable. Thanks. Time Spent With Patient Time: Total time managing care of this patient today ____ minutes.
[2022-10-06 00:12] VITALS: BP 115/64; PULSE 83; RESP 18; TEMP 36.8
[2022-10-06 03:40] VITALS: BP 118/59; PULSE 63; RESP 16; TEMP 36.3; O2SAT 100
[2022-10-06 06:53] LABS: Hematocrit 26.8 % (37.0-47.0); Hemoglobin 7.8 g/dl (12.0-16.0); Mean Corpuscular HGB Conc 29.1 g/dl (31.0-35.0); Mean Corpuscular Volume 72.2 fL (80.0-98.0); Mean Platelet Volume 10.6 fL (9.4-12.3); NRBC Pct Auto 0.4 /100WBC (0.0-0.2); Platelet Count 373 X10*3/uL (160-400); Red Blood Count 3.71 X10*6/uL (4.20-5.50); Red Cell Distribution Width 21.3 % (11.0-16.0); White Blood Count 5.6 X10*3/uL (4.8-10.8)
[2022-10-06] MEDS: Sertraline HCL 25 MG TABLET 125 MG PO (07:52)
[2022-10-06] MEDS: carBAMazepine 200 MG TABLET 600 MG PO ×2 (07:52→22:17)
[2022-10-06] MEDS: 0.9 % Sodium Chloride Flush 3 ML SYRINGE IVFLUSH ×2 (07:52→22:18)
[2022-10-06 08:07] VITALS: BP 127/70; PULSE 68; RESP 18; TEMP 36.2; O2SAT 96
--- NOTE | 2022-10-06 08:53 | MHC.CM.PN ---
PATIENT IS INDEPENDENT WITH ALL ADLS SHE RECENTLY OBTAINED NEW INSURANCE AND HER PCP DOES NOT ACCEPT SHE WILL SECURE A NEW PCP. PATIENT DOES HAVE A MENTAL HEALTH PROVIDER THROUGH [facility] ([facility]), WHICH IS WHERE PATIENT REALIZED THAT HER HGB WAS LOW. NO DME OR VNA SERVICES SHE HAS HCP INFORMATION AND WILL COMPLETE THIS WHEN SHE GETS HOME SHE IS AWARE THAT CASE MANAGEMENT CAN ASSIST IF NEEDED. PLAN IS COLONOSCOPY ON FRIDAY 10/06 AND DC HOME
--- NOTE | 2022-10-06 09:25 | P.PNIM_ITS ---
Subjective Subjective Date of Service: 10/06/22 Interval History: Being followed for iron deficiency anemia offers no acute complaints, no nausea, no vomiting, no recurrent episode of bloody stools, no fevers, no chills, tolerating clear liquid diet. Review of Systems No shortness of breath No chest pain No abdominal pain Review of Systems: Yes all other systems are reviewed and are negative Physical Exam Vital Signs: Vital Signs: Last Vital Signs Temp 97.2 F 10/06/22 08:07 Pulse 68 10/06/22 08:07 Resp 18 10/06/22 08:07 BP 127/70 10/06/22 08:07 Pulse Ox 96 10/06/22 08:07 O2 Del Method Room Air 10/06/22 08:07 BMI result Body Mass Index 29.0 Const: Other: General awake alert x3 resting comfortably in no acute distress. Conjunctiva pale Neck? supple no JVD. CVS? regular rate rhythm, Respiratory lungs clear to auscultation, no respiratory distress, no wheeze, no rhonchi. Gastrointestinal abdomen soft, nontender, bowel sounds audible,no guarding , no rigidity. Extremities no edema. Neuro nonfocal Skin pallor Psych appropriate affect Objective Data Active Medications Acetaminophen (Acetaminophen 325 Mg Tablet) 650 mg PO Q6H PRN PRN Reason: Pain, Mild (Pain Scale 1-3) Carbamazepine (Carbamazepine 200 Mg Tablet) 600 mg PO BID [facility] Last Admin: 10/06/22 07:52 Dose: 600 mg Documented By: MELI Guaifenesin (Guaifenesin 100 Mg/5 Ml Liquid) 5 ml PO Q6H PRN PRN Reason: Cough Last Admin: 10/05/22 21:50 Dose: 5 ml Documented By: LESLEY Iron Sucrose 100 mg/ Sodium (Chloride) 55 mls @ 220 mls/hr IV DAILY [facility] Stop: 10/07/22 09:14 Melatonin (Melatonin 3 Mg Tablet) 6 mg PO BEDTIME PRN PRN Reason: Insomnia Last Admin: 10/05/22 21:50 Dose: 6 mg Documented By: LESLEY Ondansetron HCl (Ondansetron Hcl 4 Mg/2 Ml Vial) 4 mg IVPUSH Q8H PRN PRN Reason: Nausea and Vomiting Pharmacy Consult (Consult Rx Perform Med Rec) 1 each MISCELLANE ONCE PRN PRN Reason: Consult order Sertraline HCl (Sertraline Hcl 25 Mg Tablet) 125 mg PO DAILY [facility] Last Admin: 10/06/22 07:52 Dose: 125 mg Documented By: MELI Sodium Chloride (0.9 % Sodium Chloride Flush 3 Ml Syringe) 3 ml IVFLUSH QSHIFT [facility] Last Admin: 10/06/22 07:52 Dose: 3 ml Documented By: MELI Labs 10/06/22 06:04 10/05/22 15:06 Labs: Laboratory Results - last 24 hr 10/05/22 10/05/22 10/05/22 15:06 15:06 15:06 MCV 68.2 L MCH 18.2 L MCHC 26.7 L RDW 17.9 H Plt Count 389 MPV 10.6 Immature Gran % (Auto) 0.3 Neut % (Auto) 58.4 Lymph % (Auto) 27.6 [place] % (Auto) 10.1 Eos % (Auto) 2.8 Baso % (Auto) 0.8 Lymph # (Auto) 1.1 L [place] # (Auto) 0.4 Eos # (Auto) 0.1 Baso # (Auto) 0.0 Abs Immat Gran (auto) 0.01 Absolute Neuts (auto) 2.3 Absolute Nucleated RBC 0.000 Nucleated RBC % (auto) 0.0 Absolute Retic Percent Retic Immature Retic Fraction Retic Hgb Equivalent PT 11.6 INR 1.0 APTT 27.5 Anion Gap 13 Estim Creat Clear Calc 135.6 Estimated GFR > 60 Random Glucose 99 Calcium 8.9 Magnesium 1.9 Iron 6 L TIBC 313 % Saturation 2 L Unsat Iron Binding 307 Total Bilirubin 0.2 Direct Bilirubin < 0.2 AST 20 ALT 17 Alkaline Phosphatase 44 Total Protein 6.6 Albumin 4.0 Urine Color Urine Appearance Urine pH Ur Specific [place] Urine Protein Urine Glucose (UA) Urine Ketones Urine Blood Urine Nitrite Ur Leukocyte Esterase Urine RBC Urine WBC Ur Squamous Epith Cells Urine Bacteria Hyaline Casts Stool Occult Blood Blood Type Antibody Screen Crossmatch 10/05/22 10/05/22 10/05/22 15:06 15:06 15:45 MCV MCH MCHC RDW Plt Count MPV Immature Gran % (Auto) Neut % (Auto) Lymph % (Auto) [place] % (Auto) Eos % (Auto) Baso % (Auto) Lymph # (Auto) [place] # (Auto) Eos # (Auto) Baso # (Auto) Abs Immat Gran (auto) Absolute Neuts (auto) Absolute Nucleated RBC Nucleated RBC % (auto) Absolute Retic 0.052 Percent Retic 1.7 Immature Retic Fraction 27.7 H Retic Hgb Equivalent 16.4 L PT INR APTT Anion Gap Estim Creat Clear Calc Estimated GFR Random Glucose Calcium Magnesium Iron TIBC % Saturation Unsat Iron Binding Total Bilirubin Direct Bilirubin AST ALT Alkaline Phosphatase Total Protein Albumin Urine Color Urine Appearance Urine pH Ur Specific [place] Urine Protein Urine Glucose (UA) Urine Ketones Urine Blood Urine Nitrite Ur Leukocyte Esterase Urine RBC Urine WBC Ur Squamous Epith Cells Urine Bacteria Hyaline Casts Stool Occult Blood POSITIVE Blood Type A Positive Antibody Screen NEGATIVE Crossmatch See Detail 10/05/22 10/06/22 20:50 06:04 MCV 72.2 L MCH 21.0 L MCHC 29.1 L RDW 21.3 H Plt Count 373 MPV 10.6 Immature Gran % (Auto) Neut % (Auto) Lymph % (Auto) [place] % (Auto) Eos % (Auto) Baso % (Auto) Lymph # (Auto) [place] # (Auto) Eos # (Auto) Baso # (Auto) Abs Immat Gran (auto) Absolute Neuts (auto) Absolute Nucleated RBC 0.020 H Nucleated RBC % (auto) 0.4 H Absolute Retic Percent Retic Immature Retic Fraction Retic Hgb Equivalent PT INR APTT Anion Gap Estim Creat Clear Calc Estimated GFR Random Glucose Calcium Magnesium Iron TIBC % Saturation Unsat Iron Binding Total Bilirubin Direct Bilirubin AST ALT Alkaline Phosphatase Total Protein Albumin Urine Color Yellow Urine Appearance Clear Urine pH 6.0 Ur Specific [place] 1.015 Urine Protein Negative Urine Glucose (UA) Negative Urine Ketones Trace Urine Blood Negative Urine Nitrite Positive H Ur Leukocyte Esterase Negative Urine RBC 0-2 Urine WBC 0-5 Ur Squamous Epith Cells 3-5 Urine Bacteria 4+ Hyaline Casts 0-2 Stool Occult Blood Blood Type Antibody Screen Crossmatch Assessment and Plan (1) Anemia: Status: Acute (2) Bipolar 1 disorder: Status: Acute Plan 37-year-old female patient with known history of iron deficiency anemia presented to [facility] for follow-up on abnormal labs noted to have s ignificant anemia? with low iron saturation, with dark colored stool mixed with fresh blood clots patient will be admitted for continued monitoring and treatment of profound symptomatic anemia. Profound symptomatic iron deficiency anemia Likely due to combination of heavy periods and LGi blood loss recieved 2 units of blood repeat hct improved to 26.8, will give iv iron venofer x 2 days follow CBC, check TSH Shortness of breath resolved cont. clear liq diet GI rec colonoscopy 10/07 keep npo midnight Recommend outpatient OBGYN follow-up for heavy periods Bipolar disorder continue home medication,no exac. Code status full code DVT prophylaxis low risk early ambulation Patient will require cont.inpatient stay for further workup and treatment of profound symptomatic anemia requiring blood transfusion and expert consultation. Time Spent With Patient Time: Total time managing care of this patient today ____ minutes. Quality Stroke Does the patient have a stroke diagnosis?: No VTE Prior VTE?: No VTE Risk Level:: Medical - low VTE Device Contraindication: Treatment Not Indicated VTE Drug Contraindication: Treatment Not Indicated
[2022-10-06] MEDS: Iron Sucrose Complex 100 MG in 0.9 % Sodium Chloride 50 ML 220 MG IV (09:38)
--- NOTE | 2022-10-06 12:01 | PM.EVENT ---
Event Note Date of Service: 10/06/22 Event Note: GI Consult-Full note dictated Imp: 37yo female with chronic anemia felt to be due to her menses. She has been on chronic Iron supplements. However, she now comes in with a significant worsening of her anemia with at least several months of intermittent hematochezia. She does have chronically dark stools on her Iron. She does not use any aspirin nor NSAIDs. She denies diarrhea, abdominal pain, weight loss, or any UGI complaints. Diff dx: Lower GI bleeding and anemia due to possible polyps, neoplasm, AVM's, hemorrhoids. Her history does not sound c/w IBD. Rec: Colonoscopy 10/07. Full consent obtained from her for this, including risks of bleeding and perforation. Follow Hgb and would transfuse to keep Hgb > 8. D/W patient in detail and she is comfortable with the plan. Thanks Time Spent With Patient Time: Total time managing care of this patient today ____ minutes.
--- NOTE | 2022-10-06 12:08 | MHC.SHP ---
Pre-Procedural Eval Section A Date of Service: 10/07/22 The patient is an INPATIENT: Yes The History & Physical has been completed within 30 days and I have reviewed it.: Yes Section B Chief Complaint: Anemia Allergies: Allergies Allergy/AdvReac Type Severity Reaction Status Date / Time Sulfa (Sulfonamide AdvReac Rash Verified 10/23/21 23:08 Antibiotics) Plan I have reviewed the history and physical and performed a pertinent physical examination on my patient. No changes have occurred unless specified. Time Spent With Patient Time: Total time managing care of this patient today ____ minutes.
[2022-10-06] MEDS: bisacodyL 5 MG TABLET.DR 10 MG PO (13:17)
[2022-10-06] MEDS: PEG 3350/Na Sulf,Bicarb,Cl/KCL 4,000 ML SOLN.RECON 4000 ML PO (13:41)
--- NOTE | 2022-10-06 14:59 | CONS_ITS ---
DATE OF SERVICE: 10/06/2022 REASON FOR CONSULTATION: Lower GI bleeding and anemia. HISTORY OF PRESENT ILLNESS: The patient is a 37-year-old female, who describes a chronic anemia in relation to her menses but nothing particularly severe. She has been on chronic Iron supplements. She does describe a history of more severe anemia that needed transfusions at the time of her child's about 14 years ago. However she has not needed any transfusions since that time. She does describe an upper endoscopy and colonoscopy at approximately age 18 while living in [place] that was unremarkable as far as she knows. She cannot really recall the details of why she had that done. In any event, over the past several months at least, she describes intermittent hematochezia with bright red blood and blood clots with bowel movements. The bowel movements are chronically dark on iron. She denies any diarrhea, urgency, rectal pain, constipation, nor straining. The bleeding is not daily but does occur at least 2-3 times per week. She denies any upper GI complaints, such as heart burn, dysphagia, anorexia, nausea, nor vomiting. She denies any abdominal pain, jaundice, nor weight loss. She denies any known family history of colorectal cancer, nor inflammatory bowel disease. She does not use any chronic aspirin nor NSAIDs. MEDICATIONS: Her medications at home included carbamazepine, iron, melatonin, vitamins, and sertraline. Her medications here in the hospital include acetaminophen, carbamazepine, iron, melatonin, Zofran, and sertraline. PAST MEDICAL HISTORY: section and appendectomy. Anemia, bipolar disease, she denies history of diabetes, asthma, nor heart disease. SOCIAL HISTORY: She does not smoke nor use any significant amounts of alcohol. She is presently not working. FAMILY HISTORY: Noncontributory. REVIEW OF SYSTEMS: CONSTITUTIONAL: She has been feeling weak and short of breath recently. Skin: She denies any rash, nor pruritus. CARDIAC: No chest pain. PULMONARY: No coughing, no hemoptysis. GI: As above. URINARY: No dysuria, no hematuria. NEUROLOGIC: No headache or seizures. PSYCHIATRIC: She does have bipolar disease, but reports that things have been stable. PHYSICAL EXAMINATION: GENERAL: On exam, the patient is a pleasant pale, alert female. In no distress. SKIN: Warm and dry. HEENT: Anicteric sclerae. NECK: Supple without lymphadenopathy. CHEST: Clear. CARDIAC: Normal S1, S2. ABDOMEN: Soft, nondistended, nontender. EXTREMITIES: Without edema. NEUROLOGIC: She is alert and oriented. LABORATORY DATA: Sodium 140, potassium 4.0, chloride 109, CO2 of 22 BUN 10, creatinine 0.6, iron 6, TIBC 313, iron saturation 2%. Normal LFT's. Her admitting hemoglobin was 5.9 compared to 10.6 in December 2021. MCV is 69. Platelets 256,000. Most recent hemoglobin this morning was 7.8 after 2 units of blood. PT 11.6 with INR 1.0. Stool is heme positive. Chest x-ray was unremarkable. IMPRESSION: Given the patient's clinical history, this does seem consistent with chronic lower gastrointestinal bleeding. Her symptoms do not sound consistent with inflammatory bowel disease given no history of diarrhea. Other possibilities would include that of colon polyp, colon neoplasm, or angiodysplasia. Hemorrhoidal bleeding is a possibility, although she does not give any symptoms of constipation, straining, nor rectal pain. At this point, I would recommend a colonoscopy for further evaluation. This will be done tomorrow with monitored anesthesia care. Full consent has been obtained from her for this including risks of bleeding and perforation. Given the clinical history, I do not think an upper endoscopy is presently required. In the mean time, I would continue to follow her hemoglobin. Further recommendations will be made depending upon the results of the colonoscopy. If the colonoscopy is completely negative, she may need further evaluation with a small bowel video capsule study and/or upper endoscopy. This has all been discussed in detail with the patient, and she is comfortable with the plan. Thank you for the consultation. MD SEGUNDO Anglin/CLIFF / [phone] [email or web address]
[2022-10-06 15:49] VITALS: BP 140/82; PULSE 82; RESP 18; TEMP 36.5; O2SAT 100
[2022-10-06] MEDS: ondansetron HCL 4 MG/2 ML VIAL IVPUSH (16:17)
[2022-10-06 19:16] VITALS: BP 124/74; PULSE 77; RESP 18; TEMP 36.6; O2SAT 97
[2022-10-06] MEDS: Melatonin 3 MG TABLET 6 MG PO (23:22)
[2022-10-07] VITALS (8 sets, daily range): BP systolic 91–121; BP diastolic 47–70; PULSE 59–79; RESP 16–18; TEMP 35.9–37.1; O2SAT 95–100
[2022-10-07 07:08] LABS: Hemoglobin 7.5 g/dl (12.0-16.0); Mean Corpuscular HGB Conc 28.8 g/dl (31.0-35.0); Mean Corpuscular Hemoglobin 20.8 pg (27.0-33.0); Mean Corpuscular Volume 72.2 fL (80.0-98.0); Mean Platelet Volume 10.7 fL (9.4-12.3); Platelet Count 393 X10*3/uL (160-400); Red Cell Distribution Width 21.1 % (11.0-16.0); White Blood Count 5.7 X10*3/uL (4.8-10.8)
[2022-10-07 07:23] LABS: Anion Gap 14 (12-20); Blood Urea Nitrogen 4 mg/dL (9-16); Calcium 8.6 mg/dL (8.4-10.2); Carbon Dioxide 26 mmol/L (22-29); Chloride 106 mmol/L (96-108); Creatinine Clr Calc Pharmacy 137.9; Estimated Glomerular Filt Rate > 60; Glucose Fasting 83 mg/dL (60-99); Potassium 3.9 mmol/L (3.3-5.1); Sodium 142 mmol/L (135-145)
[2022-10-07 07:40] LABS: Thyroid Stimulating Hormone 1.36 uIU/mL (0.32-4.0)
[2022-10-07] MEDS: Sertraline HCL 25 MG TABLET 125 MG PO (08:53)
[2022-10-07] MEDS: Iron Sucrose Complex 100 MG in 0.9 % Sodium Chloride 50 ML 220 MG IV (08:53)
[2022-10-07] MEDS: carBAMazepine 200 MG TABLET 600 MG PO (08:53)
[2022-10-07] MEDS: Acetaminophen 325 MG TABLET 650 MG PO (08:57)
[2022-10-07] MEDS: 0.9 % Sodium Chloride Flush 3 ML SYRINGE IVFLUSH (08:57)
--- NOTE | 2022-10-07 09:16 | PC.NURSE ---
report called to short stay Ivan Lamas , pt made aware of procedure test time of 10:30
--- NOTE | 2022-10-07 10:48 | P.CONAN_ITS ---
HPI - Anesthesia Eval Consult details Narrative: for colonoscopy PMFSH Active Problems Active Problems: All Active Problems (Updated 10/05/22 @ 16:06 by Jatin Baum MD) Anemia (Acute) Bipolar 1 disorder (Acute) Past Medical History Medical History Depression Anjali Family History Family history of problems with anesthesia: No Surgical History History of Problems with Anesthesia: No Social History Social History Household Members: Significant Other Household Members Other:: I live by myself Housing: House Do you presently have visiting nurse or other home services: No Patient Tobacco Use Status: Never used Tobacco Second Hand Smoke Exposure: No service: No Current occupational status: unemployed Sexual orientation: Straight/Heterosexual Meds Allergies Allergy/AdvReac Type Severity Reaction Status Date / Time Sulfa (Sulfonamide AdvReac Rash Verified 10/23/21 23:08 Antibiotics) Active Medications: Current Medications Acetaminophen (Acetaminophen 325 Mg Tablet) 650 mg PO Q6H PRN PRN Reason: Pain, Mild (Pain Scale 1-3) Last Admin: 10/07/22 08:57 Dose: 650 mg Carbamazepine (Carbamazepine 200 Mg Tablet) 600 mg PO BID [facility] Last Admin: 10/07/22 08:53 Dose: 600 mg Guaifenesin (Guaifenesin 100 Mg/5 Ml Liquid) 5 ml PO Q6H PRN PRN Reason: Cough Last Admin: 10/05/22 21:50 Dose: 5 ml Melatonin (Melatonin 3 Mg Tablet) 6 mg PO BEDTIME PRN PRN Reason: Insomnia Last Admin: 10/06/22 23:22 Dose: 6 mg Ondansetron HCl (Ondansetron Hcl 4 Mg/2 Ml Vial) 4 mg IVPUSH Q8H PRN PRN Reason: Nausea and Vomiting Last Admin: 10/06/22 16:17 Dose: 4 mg Pharmacy Consult (Consult Rx Perform Med Rec) 1 each MISCELLANE ONCE PRN PRN Reason: Consult order Sertraline HCl (Sertraline Hcl 25 Mg Tablet) 125 mg PO DAILY [facility] Last Admin: 10/07/22 08:53 Dose: 125 mg Sodium Chloride (0.9 % Sodium Chloride Flush 3 Ml Syringe) 3 ml IVFLUSH QSHIFT [facility] Last Admin: 10/07/22 08:57 Dose: 3 ml Home Medications Medication Instructions Recorded Confirmed Last Taken Type carbamazepine 200 mg tablet 600 mg PO BID 10/05/22 10/05/22 Unknown History melatonin 5 mg tablet 5 mg PO BEDTIME 10/05/22 10/05/22 Unknown History sertraline 50 mg tablet 125 mg PO DAILY 10/05/22 10/05/22 10/05/22 History Exam Exam Date and Time: October 07, 2022 1048 Height,Weight and Vital Signs: Height 5 ft 6 in Weight 81.64 kg Last Vital Signs Temp 98.7 F 10/07/22 07:23 Pulse 67 10/07/22 07:23 Resp 18 10/07/22 07:23 BP 121/69 10/07/22 07:23 Pulse Ox 98 10/07/22 07:23 O2 Del Method Room Air 10/07/22 07:23 Pertinent Lab Results Pertinent Lab Results: Laboratory Tests 10/05/22 10/05/22 10/05/22 15:06 15:06 15:06 WBC 3.9 L RBC 3.08 L Hgb 5.6 L* Hct 21.0 L* MCV 68.2 L MCH 18.2 L MCHC 26.7 L RDW 17.9 H Plt Count 389 MPV 10.6 Immature Gran % (Auto) 0.3 Neut % (Auto) 58.4 Lymph % (Auto) 27.6 [place] % (Auto) 10.1 Eos % (Auto) 2.8 Baso % (Auto) 0.8 Lymph # (Auto) 1.1 L [place] # (Auto) 0.4 Eos # (Auto) 0.1 Baso # (Auto) 0.0 Abs Immat Gran (auto) 0.01 Absolute Neuts (auto) 2.3 Absolute Nucleated RBC 0.000 Nucleated RBC % (auto) 0.0 Absolute Retic Percent Retic Immature Retic Fraction Retic Hgb Equivalent PT 11.6 INR 1.0 APTT 27.5 Sodium 140 Potassium 4.0 Chloride 109 H Carbon Dioxide 22 Anion Gap 13 BUN 10 Creatinine 0.60 Estim Creat Clear Calc 135.6 Estimated GFR > 60 Random Glucose 99 Fasting Glucose Calcium 8.9 Magnesium 1.9 Iron 6 L TIBC 313 % Saturation 2 L Unsat Iron Binding 307 Total Bilirubin 0.2 Direct Bilirubin < 0.2 AST 20 ALT 17 Alkaline Phosphatase 44 Total Protein 6.6 Albumin 4.0 TSH Urine Color Urine Appearance Urine pH Ur Specific [place] Cbc Base Urine Protein Urine Glucose (UA) Urine Ketones Urine Blood Urine Nitrite Ur Leukocyte Esterase Urine RBC Urine WBC Ur Squamous Epith Cells Urine Bacteria Hyaline Casts Stool Occult Blood Blood Type Antibody Screen Crossmatch 10/05/22 10/05/22 10/05/22 15:06 15:06 15:45 WBC RBC Hgb Hct MCV MCH MCHC RDW Plt Count MPV Immature Gran % (Auto) Neut % (Auto) Lymph % (Auto) [place] % (Auto) Eos % (Auto) Baso % (Auto) Lymph # (Auto) [place] # (Auto) Eos # (Auto) Baso # (Auto) Abs Immat Gran (auto) Absolute Neuts (auto) Absolute Nucleated RBC Nucleated RBC % (auto) Absolute Retic 0.052 Percent Retic 1.7 Immature Retic Fraction 27.7 H Retic Hgb Equivalent 16.4 L PT INR APTT Sodium Potassium Chloride Carbon Dioxide Anion Gap BUN Creatinine Estim Creat Clear Calc Estimated GFR Random Glucose Fasting Glucose Calcium Magnesium Iron TIBC % Saturation Unsat Iron Binding Total Bilirubin Direct Bilirubin AST ALT Alkaline Phosphatase Total Protein Albumin TSH Urine Color Urine Appearance Urine pH Ur Specific [place] Cbc Base Urine Protein Urine Glucose (UA) Urine Ketones Urine Blood Urine Nitrite Ur Leukocyte Esterase Urine RBC Urine WBC Ur Squamous Epith Cells Urine Bacteria Hyaline Casts Stool Occult Blood POSITIVE Blood Type A Positive Antibody Screen NEGATIVE Crossmatch See Detail 10/05/22 10/06/22 10/07/22 20:50 06:04 06:00 WBC 5.6 RBC 3.71 L D Hgb 7.8 L D Hct 26.8 L D MCV 72.2 L MCH 21.0 L MCHC 29.1 L RDW 21.3 H Plt Count 373 MPV 10.6 Immature Gran % (Auto) Neut % (Auto) Lymph % (Auto) [place] % (Auto) Eos % (Auto) Baso % (Auto) Lymph # (Auto) [place] # (Auto) Eos # (Auto) Baso # (Auto) Abs Immat Gran (auto) Absolute Neuts (auto) Absolute Nucleated RBC 0.020 H Nucleated RBC % (auto) 0.4 H Absolute Retic Percent Retic Immature Retic Fraction Retic Hgb Equivalent PT INR APTT Sodium 142 Potassium 3.9 Chloride 106 Carbon Dioxide 26 Anion Gap 14 BUN 4 L Creatinine 0.59 Estim Creat Clear Calc 137.9 Estimated GFR > 60 Random Glucose Fasting Glucose 83 Calcium 8.6 Magnesium Iron TIBC % Saturation Unsat Iron Binding Total Bilirubin Direct Bilirubin AST ALT Alkaline Phosphatase Total Protein Albumin TSH 1.36 Urine Color Yellow Urine Appearance Clear Urine pH 6.0 Ur Specific [place] Cbc Base 1.015 Urine Protein Negative Urine Glucose (UA) Negative Urine Ketones Trace Urine Blood Negative Urine Nitrite Positive H Ur Leukocyte Esterase Negative Urine RBC 0-2 Urine WBC 0-5 Ur Squamous Epith Cells 3-5 Urine Bacteria 4+ Hyaline Casts 0-2 Stool Occult Blood Blood Type Antibody Screen Crossmatch 10/07/22 06:00 WBC 5.7 RBC 3.60 L Hgb 7.5 L Hct 26.0 L MCV 72.2 L MCH 20.8 L MCHC 28.8 L RDW 21.1 H Plt Count 393 MPV 10.7 Immature Gran % (Auto) Neut % (Auto) Lymph % (Auto) [place] % (Auto) Eos % (Auto) Baso % (Auto) Lymph # (Auto) [place] # (Auto) Eos # (Auto) Baso # (Auto) Abs Immat Gran (auto) Absolute Neuts (auto) Absolute Nucleated RBC 0.000 Nucleated RBC % (auto) 0.0 Absolute Retic Percent Retic Immature Retic Fraction Retic Hgb Equivalent PT INR APTT Sodium Potassium Chloride Carbon Dioxide Anion Gap BUN Creatinine Estim Creat Clear Calc Estimated GFR Random Glucose Fasting Glucose Calcium Magnesium Iron TIBC % Saturation Unsat Iron Binding Total Bilirubin Direct Bilirubin AST ALT Alkaline Phosphatase Total Protein Albumin TSH Urine Color Urine Appearance Urine pH Ur Specific [place] Cbc Base Urine Protein Urine Glucose (UA) Urine Ketones Urine Blood Urine Nitrite Ur Leukocyte Esterase Urine RBC Urine WBC Ur Squamous Epith Cells Urine Bacteria Hyaline Casts Stool Occult Blood Blood Type Antibody Screen Crossmatch Airway Mallampati Class: II TM Dist: >3cm Neck ROM: Full Heart: ok Lungs: ok Assessment and Plan Assessment Anesthesia Assessment: Anesthesia Plan Discussed and Chart Reviewed Final Anesthetic Review Family History of Problems with Anesthesia: No History of Problems with Anesthesia: No NPO: Yes ASA Class: II Final Preanesthetic Review: No Changes in Pt Med Stat, Meds/Allgs Chart Reviewed , Consent Obtained/Reviewed and Anes Risks/Benef Reviewed Patient Risk: Low Procedure Risk: Low Anesthetic Plan Anesthetic Plan: MAC: and Agree w/ Assess. and Plan Disposition: Standard PACU
--- NOTE | 2022-10-07 11:50 | PM.OP ---
Brief Operative Note Date of Service: 10/07/22 Pre-op diagnosis: Rectal bleeding, anemia Post-op diagnosis: other (Proctitis) Procedure: Colonoscopy to the cecum and TI with biopsies Surgeon: Aidan Weeks Anesthesia: MAC Was an Health Evaluator used for this Procedure?: No Estimated blood loss (mL): 2.0 Pathology: other (A. Rectum) Condition: stable Disposition: PACU
--- NOTE | 2022-10-07 11:52 | PM.EVENT ---
Event Note Date of Service: 10/07/22 Event Note: GI-Colonoscopy to the cecum and TI with biopsies-Full note dictated Findings: 1. Active proctitis with ulcerations and friability. Biopsies taken. 2. Colon from sigmoid to cecum, and the TI,was completely normal. 3. Internal hemorrhoids Rec: Start topical steroid. Advance diet.F/U Hgb.Continue Iron. I will arrange for outpatient followup. Avoid all aspirin and NSAIDs skilled nursing, Thanks Time Spent With Patient Time: Total time managing care of this patient today ____ minutes.
--- NOTE | 2022-10-07 12:05 | PC.NURSE ---
dr. lerma at bedside to updated patient regarding procedure, findings and post op f/u.
--- NOTE | 2022-10-07 12:24 | PC.NURSE ---
report given to natasha santoyo rn. aware of findings and biopsy taken during procedure. aware patient ambulated well to her bed. aware LR IV stil running at KVO. patient has her glasses.
--- NOTE | 2022-10-07 13:04 | MHC.CM.PN ---
per rounds pt not ready for dc today m will follow dc plan remains home no servcis
--- NOTE | 2022-10-07 13:44 | PM.DS ---
DS: Providers Provider Date of Service: 10/07/22 Date of admission: 10/05/22 16:36 Date of discharge: 10/07/22 Primary care physician: None Physician Consults: 10/05/22 16:52 Consult to Gastroenterology Routine Consulting Provider: Aidan Weeks Reason for consultation: iron def anemia Has provider been notified: No DS: Diagnosis Discharge Diagnosis (1) Anemia due to gastrointestinal blood loss: Status: Acute (2) Proctitis: Status: Acute DS: Summary Hospital Course Hospital Course: from admission H+P 4. by hospitalist Dustin Sahu MD: 37-year-old female patient with past medical history significant for bipolar disorder/shamar came to [facility] for routine blood work for Tegretol and noted to have significant iron deficiency anemia, on further questioning patient provided history of shortness of breath with excision, denies chest pain, no orthopnea, no PND, denies nausea, vomiting, no hematemesis, but has noticed stool mixed with blood clots, and dark colored stools of 6 months duration, patient has history of iron deficiency anemia in the past required blood transfusion 14 years ago post , also has history of heavy periods, denies heavy periods now denies abdominal pain no family history of ulcerative colitis or Crohn's disease, no recent weight loss denies smoking or alcohol intake,no nsaids, denies epigastric discomfort,scheduled to receive 2 units of blood, hematocrit 22.6, with a hemoglobin of 5.9, repeat hemotocrit 21 and hemoglobin 5.6, MCV of 68.2 WBC 3.9, iron 6, TIBC 313 saturation 2,iron binding 307, ferritin not obtained, patient being admitted to [facility] for further evaluation and treatment for profound symptomatic anemia. She was admitted to the medical-surgical floor and transfused with 2 units of packed red blood cells. She was also given IV iron for 2 days. Gastroenterology was consulted and Dr Aidan Weeks perfored a colonoscopy on 10/07/22, which showed active proctitis with ulcerations and friability. The colon itself from the sigmoid to the cecum was completely normal. Biopsies were taken and she was started on Proctofoam HC. She was discharged home with prescriptions for iron and Proctofoam HC and instructed to follow-up with Dr Weeks in 1-2 weeks. Repeat CBC was ordered for 10/11/22. She was also instructed to find a new primary care doctor who accepts her insurance. Time Spent with Patient Time attestation: Total time managing care of this patient today __35__ minutes. Discharge coordination time: Greater than 30 minutes Quality: Safe Use of Opioids Does Pt have an Active Cancer Diagnosis on the Problem List?: No Quality: Stroke Does the patient have a stroke diagnosis?: No Physical Exam Vital Signs: Vital Signs: Last Vital Signs Temp 98.4 F 10/07/22 12:19 Pulse 74 10/07/22 12:19 Resp 18 10/07/22 12:19 BP 117/70 10/07/22 12:19 Pulse Ox 100 10/07/22 12:19 O2 Del Method Room Air 10/07/22 12:19 BMI result Body Mass Index 29.0 Gen: in no acute distress HEENT: sclera anicteric, moist mucus membranes, pale mucosa Neck: supple Lungs: clear to auscultation bilaterally Heart: regular rate and rhythm, no murmurs Abd: soft, non-tender, non-distended Ext: no edema Skin: warm/well-perfused Neuro: alert and oriented x3, no focal findings Psych: appropriate affect DS: Data Data Completed and Pending Completed studies during hospitalization [Text1]: Laboratory Results WBC 5.7 X10*3/uL (4.8-10.8) 10/07/22 06:00 RBC 3.60 X10*6/uL (4.20-5.50) L 10/07/22 06:00 Hgb 7.5 g/dl (12.0-16.0) L 10/07/22 06:00 Hct 26.0 % (37.0-47.0) L 10/07/22 06:00 MCV 72.2 fL (80.0-98.0) L 10/07/22 06:00 MCH 20.8 pg (27.0-33.0) L 10/07/22 06:00 MCHC 28.8 g/dl (31.0-35.0) L 10/07/22 06:00 RDW 21.1 % (11.0-16.0) H 10/07/22 06:00 Plt Count 393 X10*3/uL (160-400) 10/07/22 06:00 MPV 10.7 fL (9.4-12.3) 10/07/22 06:00 Immature Gran % (Auto) 0.3 % (0.0-0.4) 10/05/22 15:06 Neut % (Auto) 58.4 % (45-73) 10/05/22 15:06 Lymph % (Auto) 27.6 % (20-40) 10/05/22 15:06 [place] % (Auto) 10.1 % (2-11) 10/05/22 15:06 Eos % (Auto) 2.8 % (0-4) 10/05/22 15:06 Baso % (Auto) 0.8 % (0-2) 10/05/22 15:06 Lymph # (Auto) 1.1 X10*3/uL (1.2-4.9) L 10/05/22 15:06 [place] # (Auto) 0.4 X10*3/uL (0.1-1.2) 10/05/22 15:06 Eos # (Auto) 0.1 X10*3/uL (0.0-0.4) 10/05/22 15:06 Baso # (Auto) 0.0 X10*3/uL (0.0-0.2) 10/05/22 15:06 Abs Immat Gran (auto) 0.01 X10*3/uL (0.00-0.03) 10/05/22 15:06 Absolute Neuts (auto) 2.3 x10*3/uL (2.0-8.3) 10/05/22 15:06 Absolute Nucleated RBC 0.000 X10*3/uL (0.0-0.012) 10/07/22 06:00 Nucleated RBC % (auto) 0.0 /100WBC (0.0-0.2) 10/07/22 06:00 Absolute Retic 0.052 X10*6/uL (0.026-0.095) 10/05/22 15:06 Percent Retic 1.7 % (0.5-1.8) 10/05/22 15:06 Immature Retic Fraction 27.7 % (3.0-15.9) H 10/05/22 15:06 Retic Hgb Equivalent 16.4 pg (30.0-35.0) L 10/05/22 15:06 PT 11.6 SEC (10.0-13.1) 10/05/22 15:06 INR 1.0 (0.9-1.1) 10/05/22 15:06 APTT 27.5 SEC (26.0-36.4) 10/05/22 15:06 Sodium 142 mmol/L (135-145) 10/07/22 06:00 Potassium 3.9 mmol/L (3.3-5.1) 10/07/22 06:00 Chloride 106 mmol/L (96-108) 10/07/22 06:00 Carbon Dioxide 26 mmol/L (22-29) 10/07/22 06:00 Anion Gap 14 (12-20) 10/07/22 06:00 BUN 4 mg/dL (9-16) L 10/07/22 06:00 Creatinine 0.59 mg/dL (0.5-1.4) 10/07/22 06:00 Estim Creat Clear Calc 137.9 10/07/22 06:00 Estimated GFR > 60 10/07/22 06:00 Random Glucose 99 mg/dL (60-115) 10/05/22 15:06 Fasting Glucose 83 mg/dL (60-99) 10/07/22 06:00 Calcium 8.6 mg/dL (8.4-10.2) 10/07/22 06:00 Magnesium 1.9 mg/dL (1.6-2.6) 10/05/22 15:06 Iron 6 mcg/dL (30-160) L 10/05/22 15:06 TIBC 313 mcg/dL (228-428) 10/05/22 15:06 % Saturation 2 % (15-50) L 10/05/22 15:06 Unsat Iron Binding 307 ug/dL 10/05/22 15:06 Total Bilirubin 0.2 mg/dL (0.0-1.0) 10/05/22 15:06 Direct Bilirubin < 0.2 mg/dL (0.0-0.5) 10/05/22 15:06 AST 20 U/L (5-31) 10/05/22 15:06 ALT 17 U/L (0-31) 10/05/22 15:06 Alkaline Phosphatase 44 U/L (39-117) 10/05/22 15:06 Total Protein 6.6 g/dL (6.5-8.0) 10/05/22 15:06 Albumin 4.0 g/dL (3.5-5.0) 10/05/22 15:06 TSH 1.36 uIU/mL (0.32-4.0) 10/07/22 06:00 Urine Color Yellow 10/05/22 20:50 Urine Appearance Clear 10/05/22 20:50 Urine pH 6.0 (5.0-9.0) 10/05/22 20:50 Ur Specific [place] 1.015 (1.005-1.025) 10/05/22 20:50 Urine Protein Negative mg/dL (Neg-Trace) 10/05/22 20:50 Urine Glucose (UA) Negative mg/dL (Negative) 10/05/22 20:50 Urine Ketones Trace mg/dL (Negative) 10/05/22 20:50 Urine Blood Negative (Negative) 10/05/22 20:50 Urine Nitrite Positive (Negative) H 10/05/22 20:50 Ur Leukocyte Esterase Negative (Negative) 10/05/22 20:50 Urine RBC 0-2 /HPF (0-2) 10/05/22 20:50 Urine WBC 0-5 /HPF (0-5) 10/05/22 20:50 Ur Squamous Epith Cells 3-5 /HPF (0-2) 10/05/22 20:50 Urine Bacteria 4+ (None Seen) 10/05/22 20:50 Hyaline Casts 0-2 /LPF (0-2) 10/05/22 20:50 Stool Occult Blood POSITIVE (NEGATIVE) 10/05/22 15:45 Blood Type A Positive 10/05/22 15:06 Antibody Screen NEGATIVE 10/05/22 15:06 Crossmatch See Detail 10/05/22 15:06 Impressions Chest X-Ray 10/05/22 16:27 IMPRESSION: Unremarkable examination. Pending studies at discharge: Pending at discharge 10/07/22 11:36 Surgical [PTH] Routine Discharge Plan Discharge Anticipated Discharge Date/Time: 10/07/22 13:33 Patient Disposition: Home, Self-Care Discharge Diagnosis: anemia due to lower GI bleed, proctitis Referrals: Mikaela Carlson [Provider Group] - 1 Week Physician,None [Primary Care Provider] - 1 Week Aidan Weeks [Physician] - 1 Week Discharge Medications: New Proctofoam HC 1-1 % foam 1 appl OR QID Qty: 10 0RF ferrous sulfate 325 mg (65 mg iron) tablet 325 mg PO BID Qty: 60 0RF Continued multivitamin with folic acid [Daily-Galina (with folic acid)] 400 mcg tablet 1 tab PO DAILY 30 Days Qty: 30 0RF melatonin 5 mg Tablet 5 mg PO BEDTIME sertraline 50 mg tablet 125 mg PO DAILY carbamazepine 200 mg tablet 600 mg PO BID Discontinued ferrous sulfate 324 mg (65 mg iron) Tablet,Delayed Release (Dr/Ec) 324 mg PO DAILY 30 Days Qty: 30 0RF Discharge Orders: Discharge Order (Routine); Ordered 10/07/22 Ordered By: Kyler Aguila Diet: Advance to usual diet Activity on Discharge: As tolerated Stand Alone Forms: Patient Portal Discharge page Other Ambulatory Orders: Complete Blood Count no Diff (Routine) Timeframe: 20221011 Facility: [facility] - Location: Laboratory Ordered By: Kyler Aguila Care Plan Goals: diagnosis and treatment of proctitis Health Concerns: anemia due to lower GI bleed, proctitis Plan of Treatment: use Proctofoam 1% 4x a day follow up with Dr Weeks in 1 week for results of biopsies if Proctofoam not covered by insurance, call Dr Weeks PEREZ: [phone] take iron twice daily eat iron-rich foods establish primary care PEREZ recheck CBC [blood count] on 10/11/22 Assessment: See Discharge Summary.
--- NOTE | 2022-10-07 14:01 | MHC.CM.PN ---
pt dcd no skilled servceis ordered by
--- NOTE | 2022-10-07 22:56 | OP_ITS ---
DATE OF SERVICE: 10/07/2022 SURGEON: Aidan Weeks MD INDICATIONS: The patient presents for evaluation of rectal bleeding and anemia. Full consent has been obtained from her for this, including risks of bleeding and perforation. PREOPERATIVE DIAGNOSIS: POSTOPERATIVE DIAGNOSIS: PROCEDURE PERFORMED: Colonoscopy to the cecum and terminal ileum with biopsies. ESTIMATED BLOOD LOSS: COMPLICATIONS: ANESTHESIA: Monitored anesthesia care. ASSISTANTS: SPECIMENS: PREOPERATIVE DIAGNOSES: Rectal bleeding and anemia. POSTOPERATIVE DIAGNOSES: Rectal bleeding and anemia, proctitis, internal hemorrhoids. DESCRIPTION OF PROCEDURE: The patient was placed in the left lateral decubitus position. The digital rectal exam revealed no perianal disease and no other abnormalities. The Olympus video pediatric colonoscope was entered into the rectum and advanced easily to the cecum. Once in the cecum, I did identify a normal-appearing cecal pouch with appendiceal orifice and a normal-appearing ileocecal valve. The terminal ileum was cannulated and appeared normal. There was no blood in the ileum. The scope was withdrawn back in the colon. The entire cecum and ileocecal valve appeared normal. There was no melena nor blood anywhere in the colon. The scope was then slowly withdrawn assessing all mucosal surface carefully. Preparation was excellent. I did not visualize any sign of polyps nor angiodysplasias. The only area of abnormality was in the rectum, which revealed an active proctitis with ulcerations and friability. There were no masses. Multiple biopsies were obtained. The scope was retroflexed visualizing the distal rectum which actually appeared to be free of any active inflammation although did show some hemorrhoids. The scope was straightened. The scope was withdrawn from the patient. She tolerated the procedure well and she was returned to the recovery area in stable condition. IMPRESSION: 1. Active proctitis. 2. Internal hemorrhoids. PLAN: The results of the biopsies will be checked. I will start her on a topical rectal steroids preparation that is on formulary in the hospital. However, this may need to be adjusted to a mesalamine suppository as an outpatient depending upon her response to that. She was not having any particular urgency or diarrhea at home before this admission, but was having fairly frequent episodes of bleeding. 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 I shall arrange for outpatient followup. MD SEGUNDO Anglin/CLIFF / [id number] CAROL
== END 2022-10-07 14:30 | disposition home or self-care (01) | DRG 386 ==
LOC: HO.ED 16:06 → HO.EDOVER 16:40 → HO.S3 17:16
PROVIDERS: Internal Medicine; Physician Assistant Medical; Admitting Provider Hospitalist; Emergency Provider Emergency Medicine; Visit Provider Family Medicine
PROC: 0DJD8ZZ Inspection of Lower Intestinal Tract, Via Natural or Artificial Opening Endoscopic (ICD-10-PCS; CPT 45378; principal; 2022-10-07 15:30)
DX: K51.211 Ulcerative (chronic) proctitis with rectal bleeding (principal); F31.12 Bipolar disorder, current episode manic without psychotic features, moderate; D50.0 Iron deficiency anemia secondary to blood loss (chronic); K64.8 Other hemorrhoids; N92.0 Excessive and frequent menstruation with regular cycle; Z88.2 Allergy status to sulfonamides; Z79.899 Other long term (current) drug therapy
CPT/HCPCS: 36415; 71045; 80048; 80076; 81001; 82272; 83540; 83735; 84443; 85025; 85027; 85045; 85610; 85730; 86850; 86900; 86901; 86923; 87086; 87088; 87186; 88305; 93005; 99285; J1756; J2405; P9016

== ENCOUNTER 2023-04-23 10:55 | Outpatient (REF) | payer OTHER, SELFPAY ==
[2023-04-23 11:05] LABS: MANUAL DIFF FLAG NO
[2023-04-23 11:43] LABS: Basophils Percent Auto 0.6 % (0-2); Eosinophils Absolute Auto 0.2 X10*3/uL (0.0-0.4); Eosinophils Percent Auto 2.7 % (0-4); Hematocrit 27.5 % (37.0-47.0); Hemoglobin 7.7 g/dl (12.0-16.0); Imm Gran Abs Auto 0.02 X10*3/uL (0.00-0.03); Imm Gran Pct Auto 0.3 % (0.0-0.4); Lymphocytes Absolute Auto 2.2 X10*3/uL (1.2-4.9); Lymphocytes Percent Auto 33.5 % (20-40); Mean Corpuscular Volume 71.4 fL (80.0-98.0); Mean Platelet Volume 10.8 fL (9.4-12.3); Monocytes Absolute Auto 0.5 X10*3/uL (0.1-1.2); Monocytes Percent Auto 7.8 % (2-11); Neutrophils Absolute Auto 3.6 x10*3/uL (2.0-8.3); Neutrophils Percent Auto 55.1 % (45-73); Platelet Count 418 X10*3/uL (160-400); Red Blood Count 3.85 X10*6/uL (4.20-5.50); Red Cell Distribution Width 16.2 % (11.0-16.0); White Blood Count 6.6 X10*3/uL (4.8-10.8)
[2023-04-23 12:27] LABS: Iron 15 mcg/dL (30-160); Percent Iron Saturation 5 % (15-50); Total Iron Binding Capacity 324 mcg/dL (228-428); Unsaturated Iron Binding 309 ug/dL
[2023-04-23 12:35] LABS: Ferritin 2 ng/mL (10-250)
[2023-04-23 12:45] LABS: Folate 14.5 ng/mL (> or = 4.0); Vitamin B12 350 pg/mL (200-900)
== END 2023-04-23 10:56 | disposition home or self-care (01) ==
LOC: HO.LAB 10:55
PROVIDERS: Visit Provider Internal Medicine
DX: K51.211 Ulcerative (chronic) proctitis with rectal bleeding (principal); D50.0 Iron deficiency anemia secondary to blood loss (chronic)
CPT/HCPCS: 36415; 82607; 82728; 82746; 83540; 85025

== ENCOUNTER 2023-08-12 06:02 | Outpatient (REF) | payer OTHER, SELFPAY ==
[2023-08-12 06:23] LABS: MANUAL DIFF FLAG NO
[2023-08-12 07:09] LABS: Basophils Percent Auto 0.4 % (0-2); Eosinophils Absolute Auto 0.1 X10*3/uL (0.0-0.4); Eosinophils Percent Auto 1.9 % (0-4); Hematocrit 22.4 % (37.0-47.0); Imm Gran Abs Auto 0.02 X10*3/uL (0.00-0.03); Imm Gran Pct Auto 0.3 % (0.0-0.4); Lymphocytes Absolute Auto 1.5 X10*3/uL (1.2-4.9); Lymphocytes Percent Auto 19.2 % (20-40); Mean Corpuscular HGB Conc 25.4 g/dl (31.0-35.0); Mean Corpuscular Hemoglobin 16.6 pg (27.0-33.0); Mean Corpuscular Volume 65.1 fL (80.0-98.0); Mean Platelet Volume 10.5 fL (9.4-12.3); Monocytes Absolute Auto 0.4 X10*3/uL (0.1-1.2); Monocytes Percent Auto 5.7 % (2-11); Neutrophils Absolute Auto 5.5 x10*3/uL (2.0-8.3); Neutrophils Percent Auto 72.5 % (45-73); Platelet Count 344 X10*3/uL (160-400); Red Blood Count 3.44 X10*6/uL (4.20-5.50); Red Cell Distribution Width 19.7 % (11.0-16.0); White Blood Count 7.6 X10*3/uL (4.8-10.8)
[2023-08-12 07:23] LABS: C Reactive Protein 0.26 mg/dL (< or = 0.50)
[2023-08-12 07:26] LABS: Alanine Aminotransferase 8 U/L (0-31); Albumin Level 4.1 g/dL (3.5-5.0); Alkaline Phosphatase 39 U/L (39-117); Anion Gap 12 (12-20); Aspartate Amino Transferase 15 U/L (5-31); Bilirubin Total 0.1 mg/dL (0.0-1.0); Blood Urea Nitrogen 10 mg/dL (9-16); Carbon Dioxide 25 mmol/L (22-29); Chloride 108 mmol/L (96-108); Cholesterol 176 mg/dL (<200); Estimated Glomerular Filt Rate > 60; Glucose Fasting 89 mg/dL (60-99); HDL Cholesterol 48 mg/dL (>40); LDL Cholesterol Calculated 103 mg/dL (<100); Potassium 3.7 mmol/L (3.3-5.1); Sodium 141 mmol/L (135-145); Triglycerides 125 mg/dL (<150)
[2023-08-12 07:27] LABS: Carbamazepine Tegretol 9.6 mcg/mL (5.0-12.0)
[2023-08-12 07:44] LABS: Erythrocyte Sedimentation Rate 10 MM/HR (0-20)
[2023-08-12 08:16] LABS: HBS Num1 0.17 mIU/mL (0-7.99); HBc Num1 0.22 S/CO (0.00-0.79); HBsAGNum1 0.38 S/CO (0.00-0.99); Hepatitis B Core Antibody Nonreactive (Nonreactive); Hepatitis B Surface Antigen Negative (Negative); ~Hepatitis B Surface Antibody NONREACTIVE (Nonreactive)
[2023-08-12 09:58] LABS: Hemoglobin 5.7 g/dl (12.0-16.0)
[2023-08-14 19:23] LABS: TS Negative Control Passed; TS Panel A 1; TS Panel B 1; TS Positive Control Passed; TSpotTB Negative (Negative)
== END 2023-08-12 06:03 | disposition home or self-care (01) ==
LOC: HO.LAB 06:02
PROVIDERS: Absent Provider Registered Nurse; Visit Provider Internal Medicine
DX: Z13.6 Encounter for screening for cardiovascular disorders (principal); Z11.1 Encounter for screening for respiratory tuberculosis; K51.211 Ulcerative (chronic) proctitis with rectal bleeding; D50.0 Iron deficiency anemia secondary to blood loss (chronic)
CPT/HCPCS: 36415; 80053; 80061; 80156; 83036; 85025; 85652; 86140; 86481; 86704; 86706; 87340

== ENCOUNTER 2023-08-12 12:14 | Inpatient (IN) | payer MEDICAID, SELFPAY ==
[2023-08-12] VITALS (13 sets, daily range): BP systolic 103–131; BP diastolic 45–75; PULSE 64–109; RESP 14–20; TEMP 36.5–37.2; O2SAT 96–99; BMI 29.0
--- NOTE | 2023-08-12 12:18 | ED_ITS ---
[facility] - General Adult General Chief complaint: GI Bleed Stated complaint: Critical Hemoglobin Level Time Seen by Provider: 08/12/23 12:41 Source: patient Mode of arrival: ambulatory History of Present Illness HPI narrative: 38-year-old female who presents with several bouts of rectal bleeding with clots and has been recently diagnosed with ulcerative colitis within the past year and is currently on oral and rectal mesalamine and is followed by Dr. Weeks. Patient also suffers from bipolar and has not been able to tolerate steroids as it makes her suffer from insomnia. Patient also reports that she has heavy menstrual bleeding and her LMP is 2 weeks ago. Related Data Home Medications Medication Instructions Recorded Confirmed carbamazepine 200 mg tablet 600 mg PO BID 10/05/22 08/12/23 melatonin 5 mg tablet 5 mg PO BEDTIME 10/05/22 08/12/23 sertraline 50 mg tablet 125 mg PO DAILY@1300 10/05/22 08/12/23 ascorbic acid (vitamin C) 1,000 mg 1,000 mg PO BID 08/12/23 08/12/23 tablet balsalazide 750 mg capsule 2,250 mg PO TID 08/12/23 08/12/23 fluphenazine HCl 5 mg tablet 5 mg PO DAILY 08/12/23 08/12/23 mesalamine 1,000 mg rectal 1,000 mg PA BEDTIME 08/12/23 08/12/23 suppository Previous Rx's Medication Instructions Recorded ferrous sulfate 325 mg (65 mg 325 mg PO BID #60 tabs 10/07/22 iron) tablet Allergies Allergy/AdvReac Type Severity Reaction Status Date / Time Sulfa (Sulfonamide AdvReac Rash Verified 10/23/21 23:08 Antibiotics) Review of Systems Review of Systems: Pertinent positives and negatives as stated in [facility] Past Medical History Source: nursing notes reviewed Medical History Bipolar 1 disorder Depression Anjali Social History Social History Household Members: Significant Other Household Members Other:: I live by myself Housing: House Do you presently have visiting nurse or other home services: No Patient Tobacco Use Status: Never used Tobacco Second Hand Smoke Exposure: No Advance Directives: No Advance Directives Information Provided: No service: No Current occupational status: unemployed Sexual orientation: Straight/Heterosexual Physical Exam ED Vital Signs: Vital Signs - 24 hr 08/12/23 12:17 Temperature 97.7 F Pulse Rate 109 H Respiratory Rate 16 Blood Pressure 131/75 Pulse Oximetry 96 Oxygen Delivery Method Room Air BMI result Body Mass Index 29.0 VITAL SIGNS: Reviewed. GENERAL: Well developed, well nourished, in no acute distress. HEAD: Normocephalic/atraumatic EYES: PERRLA, EOMI, pale conjunctiva EARS: Ext canals without abnormality NOSE: Nares patent bilateral OROPHARYNX: no oral lesions noted, posterior pharynx clear, pale mucosa NECK: Supple, no adenopathy LUNGS: Normal breath sounds. No adventitious sounds or accessory muscle use. SpO2<96> CARDIOVASCULAR: Tachycardic rate and rhythm without noted murmurs ABDOMEN: Soft, non-tender, non-distended with bowel sounds. MUSCULOSKELETAL: No tenderness, deformities, or effusions noted on gross inspection. EXTREMITIES: No cyanosis, clubbing or edema. SKIN: Inspection of the skin reveals no rashes, +pallor NEUROLOGIC: Alert and oriented x 4. Strength and sensation to light touch were grossly intact x 4. Course Course Course Narrative: RME- 38 year old female presents for evaluation of critical hemoglobin. She reports frequent bloody diarrhea related to ulcerative colitis. She sees Dr Rohan davidson and hemoglobin is 5.7. Plan for type and screen and likely transfusion. Medical Decision Making Medical Decision Making [facility] Narrative: 38-year-old female with history and clinical presentation, DDX: Bleeding secondary to ulcerative colitis and currently compliant on medications but arrives tachycardic with soft blood pressures and clinical findings significant for anemia. 1410: I discussed case with Dr. Weeks who agrees with admission in initiating hydrocortisone 100 mg every 8 hours. I did discuss patient's concerns regarding steroids with him and he will defer to her being agreeable, he also recommends consultation with Psychiatry to ensure stabilization from a mental health aspect while admitted. I reviewed all investigations and hematologic indices are negative for leukocytosis or left shift, there is a worsening microcytic anemia with history significant bleeding with clots and Dr. Weeks is aware proctitis. Patient received 2 units PRBCs. Coagulation studies are within normal limits. Chemistries indices negative for LUIS/electrolyte/liver enzyme derangements. High sensitivity troponin undetectable. And no acute changes on EKG. We briefly discussed the hydrocortisone with the patient at bedside and she is agreeable to pursue the hydrocortisone that Dr. Weeks is recommending. 1454: Discussed with inpatient hospitalist who accepts admission. Differential Diagnosis Differential Diagnoses: The differential diagnosis associated with the presentation includes Please see the discussion above Admission/Observation Consideration of admission/observation: Escalation of care including admission/observation considered CC the discussion above Consult Healthcare Provider Management of the patient was discussed with: Hospitalist and Healthcare Representative Please see the discussion above Lab Data MDM Lab Attestation statement: I reviewed the patient's lab results. Please see the discussion above Labs: Lab Results 08/12/23 Range/Units 12:33 PT 11.9 (11.1-13.3) SEC INR 1.0 (0.9-1.1) Iron 12 L (30-160) mcg/dL TIBC 339 (228-428) mcg/dL % Saturation 4 L (15-50) % Unsat Iron Binding 327 ug/dL Ferritin < 2 L (10-250) ng/mL Troponin I High Sens < 2.7 (<3.5-17.0) ng/L Independent Interpretation I performed an independent interpretation of an: EKG Interpretation: Normal sinus rhythm, HR-94, no STEMI, PA/QRS/QTC is within normal limits. External Record Review External record reviewed: Outpatient record and Prior outpatient labs Chronic Conditions Patient?s care impacted by: Other Bipolar Critical Care Time Critical Care Time Critical Care Time: Yes Total Critical Care Time: 60 Attestation: I personally attest to this time spent taking care of the patient. Discharge Plan Discharge Clinical Impression: Proctitis, Ulcerative colitis, ABLA (acute blood loss anemia) Patient Disposition: Admitted As Inpatient
--- NOTE | 2023-08-12 12:20 | ECG_ITS ---
Test Reason : gi bleed Blood Pressure : / mmHG Vent. Rate : 094 BPM Atrial Rate : 094 BPM P-R Int : 170 ms QRS Dur : 070 ms QT Int : 350 ms P-R-T Axes : 067 018 035 degrees QTc Int : 437 ms Normal sinus rhythm Low voltage QRS Borderline ECG When compared with ECG of 05-OCT-2022 16:28, Nonspecific T wave abnormality now evident in Anterior leads Referred By: Pedro Quiroz Electronically Signed By:Keith Ball
[2023-08-12 12:52] LABS: Prothrombin Time 11.9 SEC (11.1-13.3)
[2023-08-12 13:03] LABS: Iron 12 mcg/dL (30-160); Percent Iron Saturation 4 % (15-50); Total Iron Binding Capacity 339 mcg/dL (228-428); Unsaturated Iron Binding 327 ug/dL
[2023-08-12 13:13] LABS: Troponin-I High Sensitivity < 2.7 ng/L (<3.5-17.0)
[2023-08-12 13:21] LABS: Ferritin < 2 ng/mL (10-250)
--- NOTE | 2023-08-12 15:12 | PHA.MEDREC ---
Pharmacy Consult ? Medication Reconciliation Pharmacy has completed the medication reconciliation. Patient reported all medications sertraline 125 mg even though filling sertraline 100 mg take 1.5 tablets. patient aware to bring in mesalamine suppositories. Georgina Oneill, PorshaD
[2023-08-12] MEDS: Hydrocortisone Sod Succ/PF 100 MG VIAL IVPUSH ×2 (15:32→23:35)
[2023-08-12] MEDS: 0.9 % Sodium Chloride 1,000 ML 999 ML IV (15:33)
--- NOTE | 2023-08-12 15:38 | PM.IMHP ---
History of Present Illness Date of Service: 08/12/23 Attending physician on admission: Dustin Sahu Chief Complaint: rectal bleeding 38 year old female with history of bipolar disorder, ADD, PMDD, menorrhagia, PHANI, and ulcerative colitis presented to the ED earlier today for evaluation of rectal bleeding. She had blood work this morning with critical h/h of 5.7/22.4%, baseline is around 7.7/27.5%. Reports chronic constipation secondary to her ferrous sulfate which she takes for chronic PHANI, though despite compliance remains quite anemic chronically. Due to the constipation she often strains resulting in BRBPR with most bowel movements, sometimes with clots. She was also diagnosed with ulcerative colitis 1 year ago with colonoscopy and has been following with Dr. Weeks. For the last two weeks as been experiencing severe lower abdominal pain after eating (regarding of what she eats) which improves with hot baths and repositioning. Bleeding has worsening during this period. On top of her rectal bleeding she has a long history of menorrhagia and does not follow with a ETL APPLICATION DEVELOPER at this time. She has had recent stressors in her life including her mother having 2 back to back strokes about 3 months ago. Despite this she feels her mental health is stable with good support system, medication compliance, and her therapist whom she sees every other week. Denies any fevers, chills, nausea, vomiting, chest pain. Does endorse weakness, fatigue, pallor, FARR, palpitations. States she is primarily experiencing constipation recently but does have history of diarrhea/constipation alternating. On arrival, pt initially tachycardic to 109, vitals otherwise stable. H/H as above. Renal function and lytes WNL. Iron 12, TIBC 339, 4% saturation, <2ng ferritin. Trop below detectable limits. In the ED, has received 100mg hydrocortisone and 1 L IVF. She will be transfused 2 units PBRC. She does have concerns about taking steroids citing insomnia in the past but is agreeable to trialing hydrocortisone per Dr. Weeks's recommendation. Review of Systems Review of Systems: General: No fevers, malaise, unintentional weight loss HEENT: No blurred vision, diplopia. No sore throat, nasal congestion, rhinorrhea, sinus pain, ear pain Cardiovascular: +palpitations. No chest pain or leg edema Respiratory: +FARR. No shortness of breath at rest, wheezing, cough GI: +abd pain, +constipation, +BRBPR. No nausea, vomiting, diarrhea, melena : No dysuria, hematuria, increased urinary frequency, decreased urinary output MSK: No myalgia, back pain Neuro: No headaches, weakness, paresthesias Skin: No rashes or lesions [facility] Medical History PMDD (premenstrual dysphoric disorder) ADD (attention deficit disorder) Ulcerative colitis Bipolar 1 disorder Depression Anjali Social History Household Members: Significant Other Household Members Other:: I live by myself Housing: House Do you presently have visiting nurse or other home services: No Patient Tobacco Use Status: Never used Tobacco Second Hand Smoke Exposure: No service: No Current occupational status: unemployed Sexual orientation: Straight/Heterosexual Meds Allergies Allergy/AdvReac Type Severity Reaction Status Date / Time Sulfa (Sulfonamide AdvReac Rash Verified 10/23/21 23:08 Antibiotics) Active Medications: Current Medications Acetaminophen (Acetaminophen 325 Mg Tablet) 650 mg PO Q6H PRN PRN Reason: Pain, Mild (Pain Scale 1-3) Sodium Chloride (Ns) 1,000 mls @ 999 mls/hr IV .Q1H1M [facility] Stop: 08/12/23 15:45 Last Admin: 08/12/23 15:33 Dose: 999 mls/hr Ondansetron HCl (Ondansetron Hcl 4 Mg/2 Ml Vial) 4 mg IVPUSH Q8H PRN PRN Reason: Nausea and Vomiting Senna (Sennosides 8.6 Mg Tablet) 17.2 mg PO BEDTIME PRN PRN Reason: Constipation Sodium Chloride (0.9 % Sodium Chloride Flush 3 Ml Syringe) 3 ml IVFLUSH QSHIFT [facility] Home Medications Medication Instructions Recorded Confirmed Last Taken Type carbamazepine 200 mg tablet 600 mg PO BID 10/05/22 08/12/23 08/12/23 History melatonin 5 mg tablet 5 mg PO BEDTIME 10/05/22 08/12/23 08/11/23 History sertraline 50 mg tablet 125 mg PO DAILY@1300 10/05/22 08/12/23 10/05/22 History ascorbic acid (vitamin C) 1,000 mg 1,000 mg PO BID 08/12/23 08/12/23 08/12/23 History tablet balsalazide 750 mg capsule 2,250 mg PO TID 08/12/23 08/12/23 08/12/23 History fluphenazine HCl 5 mg tablet 5 mg PO DAILY 08/12/23 08/12/23 08/11/23 History mesalamine 1,000 mg rectal 1,000 mg VT BEDTIME 08/12/23 08/12/23 Unknown History suppository Physical Exam Vital Signs and Narrative: Vital Signs: Last Vital Signs Temp 98.9 F 08/12/23 15:36 Pulse 74 08/12/23 15:36 Resp 14 08/12/23 15:36 BP 104/57 L 08/12/23 15:36 Pulse Ox 99 08/12/23 15:36 O2 Del Method Room Air 08/12/23 15:36 BMI result Body Mass Index 29.0 Constitutional - Awake and Alert, No apparent distress, pallor Eyes - PERRLA, EOMI Cardiovascular - S1S2, RRR, No edema Respiratory - Normal lung expansion, Normal respiratory effort, No respiratory distress, CTA bilaterally Gastrointestinal - NT / ND; +BS; No rebound or guarding Extremities - no calf tenderness bilaterally, no swelling Skin - Warm/Dry Neurological - Alert & oriented x3 Psychological - Appropriate affect Results Labs 08/13/23 05:21 08/13/23 05:21 Labs: Laboratory Results - last 24 hr 08/12/23 12:33 PT 11.9 INR 1.0 Iron 12 L TIBC 339 % Saturation 4 L Unsat Iron Binding 327 Ferritin < 2 L Troponin I High Sens < 2.7 Assessment and Plan (1) ABLA (acute blood loss anemia): Status: Acute (2) Ulcerative colitis: Status: Acute Plan 38 year old female with history of bipolar disorder, ADD, PMDD, menorrhagia, PHANI, and ulcerative colitis admitted for management of UC flare with acute on chronic blood loss anemia. #Acute on chronic iron deficiency anemia- due to chronic blood loss -H/H 5.7/22.4% (baseline around 7.7/27.5%) -Iron 12, TIBC 339, 4%saturation, <2ng ferritin -Acute on chronic GI bleeding as well as menorrhagia -give 100mg venofer x1 -Transfused 2units PRBC in ED -hold ferrous sulfate due to constipation and lack of absorption -heme consult -Monitor on telemetry -follow cbc #Acute ulcerative colitis flare -Hydrocortisone 100mg q8h -Clear liquid diet -GI consult -continue mesalamine and balsalazide #Chronic constipation- complicated by above -hold ferrous sulfate as likely contributing to constipation and does not appear to be absorbing this well -Add miralax and docusate -GI consult #Bipolar disorder -pt reports very stable, coping well with stressors -declines psychiatry consult in hospital -continue zoloft, fluphenazine #Chronic menorrhagia -contributing to above -needs to establish with ETL APPLICATION DEVELOPER outpt DVT prophylaxis- SCPs Full code Pt requires inpt stay at least 2 midnights for management of severe blood loss anemia with UC flare requiring blood transfusion, IV steroid, and expert consultation. Quality Stroke Does the patient have a stroke diagnosis?: No VTE Prior VTE?: No VTE Risk Level:: Medical - moderate - high VTE Device Contraindication: N/A - Device Ordered VTE Drug Contraindication: Treatment Not Indicated
[2023-08-12 16:54] LABS: Appearance Urine Clear; Color Urine Yellow; Glucose Urine UA Negative (Negative); Leukocyte Esterase Urine Small (1+) (Negative); Nitrite Urine Positive (Negative); PH 6.5 (5.0-9.0); Specific Gravity - Urine 1.015 (1.005-1.025); UMIC TRIGGER UACC YES; Urine Blood Negative (Negative); Urine Ketones Negative (Negative); Urine Protein Negative (Neg-Trace)
[2023-08-12 17:05] LABS: Bacteria Urine 4+ (None Seen); Hyaline Casts Urine 0-2 /LPF (0-2); RBC Urine 0-2 /HPF (0-2); Squamous Epithelial Cell Urine 0-2 /HPF (0-2); UACC Culture Trigger YES; WBC Urine 0-5 /HPF (0-5)
--- NOTE | 2023-08-12 18:29 | PC.NURSE ---
pt resting quietly receiving RBCs per order- pt is aware plan is for admission to help manage UC flare, in addition pt to have BH support due to her BPD while on course of sterioids. Pt able to tolerate clear liquids, consumed 2 jello's,. no complaints of pain , vss, call page within reach.
[2023-08-12] MEDS: 0.9 % Sodium Chloride Flush 3 ML SYRINGE IVFLUSH (18:58)
--- NOTE | 2023-08-12 19:03 | PC.NURSE ---
Addendum entered by Tramaine Sim RN 08/12/23 19:05: R AC PRBC, not L, mistype Original Note: Assumed care of pt. Pt lying on stretcher, no acute distress at this time. PRBC running in L ac.
--- NOTE | 2023-08-12 19:04 | PC.NURSE ---
RE: late kristina admin- blood currently running
--- NOTE | 2023-08-12 19:26 | PC.NURSE ---
pt complains of diffuse nausea, Dr. Aggarwal notified via [employer], awaiting zofran order
--- NOTE | 2023-08-12 19:36 | PM.EVENT ---
Event Note Date of Service: 08/12/23 Event Note: GI Consult-Full note dictated. 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 anemia with a Hgb of 7.7 on 04/23/23 presenting with continued rectal bleeding with her BM's and worsening anemia. She does describe that the proctitis symptoms of diarrhea, rectal urgency, and frequent episodes of hematochezia have definitely improved on the Balsalazide pills and the Mesalamine suppository. She is now only having one formed BM daily but it is still mixed with fresh blood and clots. She does remain on po Iron BID but never made it to the Hematologists for IV iron infusions that I had tried to arrange for her in 04/2023. At this point, while things do seem improved re: the proctitis symptoms, her continued daily bleeding and significant anemia needs addressing. Rec: Continue clear liquids for now as I may want her to undergo a limited flex sig on , 08/13. Transfuse to Hgb of 8-9. Continue the tid 2.25Gm Balsalazide and the daily Mesalamine suppository(use her home supply if need be). Agree with the Iron infusion and Hematology consult while she is here. Start IV steroids with an eventual prednisone taper to try to quiet down the residual proctitis that is bleeding, as long as she tolerates the steroids from a psych standpoint. I will decide about a Flexsig for 08/13 when I see her on 08/12. We also reviewed possibly starting a biologic as an outpatient as well. D/W patient in detail and she is comfortable with this plan. Thanks Time Spent With Patient Time: Total time managing care of this patient today ____ minutes.
[2023-08-12] MEDS: Ondansetron ODT 8 MG TAB.RAPDIS TRANSLINGU (19:39)
[2023-08-12] MEDS: Melatonin 3 MG TABLET 6 MG PO (21:11)
[2023-08-12] MEDS: carBAMazepine 200 MG TABLET 600 MG PO (21:11)
[2023-08-12] MEDS: traZODone HCL 50 MG TABLET PO (21:11)
[2023-08-12] MEDS: Iron Sucrose Complex 100 MG in 0.9 % Sodium Chloride 50 ML 220 MG IV (23:35)
--- NOTE | 2023-08-13 00:16 | CONS_ITS ---
DATE OF SERVICE: REASON FOR CONSULTATION: Rectal bleeding, proctitis, and anemia. HISTORY OF PRESENT ILLNESS: This has been obtained from the patient and the medical record. The patient is a 38-year-old female, well known to me with an underlying history of known proctitis. This was diagnosed in September of 2022, when she was admitted with rectal bleeding and diarrhea with a hemoglobin of 5.9 at that time. She had iron deficiency. A colonoscopy on October 07, 2022 revealed a significant active proctitis with ulcerations and friability. The entire colon proximal to the rectum was all within normal limits, as was the terminal ileum. Biopsies of the rectum were negative for any malignancy and were consistent with active proctitis. She did receive blood transfusions and one iron transfusion during the 2022 admission. She was started on mesalamine suppositories after that admission, but then I did not see her until April of 2023. At that time, she remained with fairly significant proctitis symptoms with urgency, diarrhea, and continued bleeding. Hemoglobin in April of 2023 was 7.7 with continued iron deficiency. At that office visit in April of 2023, I recommended a course of prednisone, but she ultimately could not tolerate that due to some underlying psychiatric issues. However, I also started on balsalazide 2.25 g t.i.d. in addition to the daily mesalamine suppository. She was also started on iron twice a day. I did try to get her a hematology clinic appointment, but she could not make any of those and ultimately, had to go to [place] for 2 months due to her mother having had a stroke there. She was to have seen me in June to see how she was doing and possibly start a biologic agent, but she could not make that appointment. Over the last couple of months, she describes that she has been compliant with her balsalazide 2.25 g t.i.d., daily mesalamine suppository, and the iron twice a day. However, her hemoglobin today was down to 5.7, and she was referred to the ER for admission. She does describe that, since I last her, her proctitis symptoms have definitely improved with no further diarrhea nor urgency. However, she is having a fairly normal bowel movement, but with daily clots and bleeding associated with it. However, she is no longer having any bleeding otherwise during the day. She does have some abdominal cramps. She denies any nausea, vomiting, anorexia, nor weight loss. She denies any fevers. She is not using any aspirin nor NSAIDs. She has not been on any antibiotics. MEDICATIONS: Medications at home include balsalazide 2.25 g t.i.d., mesalamine suppository 1000 mg daily, iron twice a day, Tegretol and sertraline. Medications in the hospital include IV hydrocortisone 100 mg nightly, balsalazide, mesalamine suppository, and iron infusion. PAST MEDICAL HISTORY: Proctitis as above. Bipolar disease. Anemia. She denies any history of OH, diabetes, stroke, lung disease, nor kidney disease. PAST SURGICAL HISTORY: Include and appendectomy. FAMILY HISTORY: Negative for GI malignancy nor inflammatory bowel disease. SOCIAL HISTORY: She is single. She does not smoke nor use any significant amounts of alcohol. REVIEW OF SYSTEMS: CONSTITUTIONAL: She has been feeling tired and weak. SKIN: No rash. No pruritus. CARDIAC: No chest pain. PULMONARY: No cough. No hemoptysis. GI: As above. URINARY: No dysuria. No hematuria. NEUROLOGIC: No headache or seizures. PSYCHIATRIC: As above. PHYSICAL EXAMINATION: GENERAL: The patient is a pale, but alert and comfortable-appearing female. SKIN: Warm and dry. HEENT: Anicteric sclerae. NECK: Supple. CHEST: Clear. CARDIAC: Normal S1, S2. ABDOMEN: Soft. Normal bowel sounds. Nondistended, nontender. EXTREMITIES: Without edema. NEUROLOGICAL: She is alert and oriented. LABORATORY DATA: White blood cell count 7.6, hemoglobin 5.7, MCV 65, platelets 244,000. PT 11.9 with INR 1.0. Normal electrolytes. BUN 10, creatinine 0.7. Iron of 12, iron saturation 4%, ferritin less than 2. LFTs normal. C-reactive protein 0.3. Albumin 4.1. Tegretol level is 9.6. Hepatitis B antigen is negative. TB test is pending. IMPRESSION: The patient is a 38-year-old female with a known history of proctitis, presenting with worsening anemia. From a clinical standpoint other than appearing pale, she appears well. While she continues to have bleeding with a bowel movement, she is not having any significant active symptoms of proctitis at this point on her current regimen of balsalazide and mesalamine suppository. This is encouraging, but nonetheless, she continues to have significant bleeding that is causing her persistent and worsening anemia despite iron replacement. As such, we may need to definitely consider starting a biologic agent to further help the proctitis resolve and to further promote healing and resolution of her bleeding. At this point, I will continue clear liquids; as I suspect, I will plan to perform a flexible sigmoidoscopy to a limited degree in the next couple of days to reassess the degree of remaining proctitis. Based on that, I could then decide about an outpatient biologic agent. I would continue to transfuse her to maintain the hemoglobin between 8 and 9. I will continue her balsalazide, mesalamine suppository, and iron. I would agree with the Hematology consult and iron infusion while she is an inpatient. I have recommended IV steroids while she is in the hospital as long as she tolerates from a psychiatric standpoint and then we could start a prednisone taper as an outpatient as long as it is tolerated as well. These have all been discussed in detail with the patient and she is comfortable with this plan. Thanks for the consultation. MD SEGUNDO Anglin/CLIFF / [id number]
[2023-08-13 02:03] LABS: Basophils Percent Auto 0.4 % (0-2); Hematocrit 26.6 % (37.0-47.0); Hemoglobin 7.8 g/dl (12.0-16.0); Imm Gran Abs Auto 0.01 X10*3/uL (0.00-0.03); Imm Gran Pct Auto 0.2 % (0.0-0.4); Lymphocytes Absolute Auto 1.4 X10*3/uL (1.2-4.9); Lymphocytes Percent Auto 27.3 % (20-40); Mean Corpuscular HGB Conc 29.3 g/dl (31.0-35.0); Mean Corpuscular Hemoglobin 20.7 pg (27.0-33.0); Mean Corpuscular Volume 70.7 fL (80.0-98.0); Mean Platelet Volume 11.4 fL (9.4-12.3); Monocytes Absolute Auto 0.3 X10*3/uL (0.1-1.2); Monocytes Percent Auto 5.5 % (2-11); NRBC Pct Auto 0.4 /100WBC (0.0-0.2); Neutrophils Absolute Auto 3.4 x10*3/uL (2.0-8.3); Neutrophils Percent Auto 66.6 % (45-73); PLT ABN DIST 1; Platelet Count 296 X10*3/uL (160-400); Red Blood Count 3.76 X10*6/uL (4.20-5.50); Red Cell Distribution Width 21.8 % (11.0-16.0); SCAN SMEAR FLAG 1; White Blood Count 5.1 X10*3/uL (4.8-10.8)
[2023-08-13 02:04] LABS: MANUAL DIFF FLAG NO
[2023-08-13] MEDS: Acetaminophen 325 MG TABLET 650 MG PO (04:38)
[2023-08-13 06:44] LABS: MANUAL DIFF FLAG NO
[2023-08-13 06:49] LABS: Basophils Percent Auto 0.4 % (0-2); Hematocrit 28.2 % (37.0-47.0); Hemoglobin 8.2 g/dl (12.0-16.0); Imm Gran Abs Auto 0.05 X10*3/uL (0.00-0.03); Lymphocytes Absolute Auto 0.7 X10*3/uL (1.2-4.9); Lymphocytes Percent Auto 13.7 % (20-40); Mean Corpuscular HGB Conc 29.1 g/dl (31.0-35.0); Mean Corpuscular Hemoglobin 20.3 pg (27.0-33.0); Mean Platelet Volume 10.3 fL (9.4-12.3); Monocytes Absolute Auto 0.2 X10*3/uL (0.1-1.2); Monocytes Percent Auto 3.6 % (2-11); NRBC Pct Auto 0.4 /100WBC (0.0-0.2); Neutrophils Absolute Auto 4.3 x10*3/uL (2.0-8.3); Neutrophils Percent Auto 81.3 % (45-73); Platelet Count 301 X10*3/uL (160-400); Red Blood Count 4.03 X10*6/uL (4.20-5.50); Red Cell Distribution Width 21.7 % (11.0-16.0); White Blood Count 5.3 X10*3/uL (4.8-10.8)
[2023-08-13 07:10] LABS: Anion Gap 9 (12-20); Blood Urea Nitrogen 4 mg/dL (9-16); Calcium 8.3 mg/dL (8.4-10.2); Carbon Dioxide 25 mmol/L (22-29); Chloride 109 mmol/L (96-108); Creatinine Clr Calc Pharmacy 146.5; Estimated Glomerular Filt Rate > 60; Glucose Random 97 mg/dL (60-115); Potassium 3.6 mmol/L (3.3-5.1); Sodium 139 mmol/L (135-145)
--- NOTE | 2023-08-13 07:47 | P.CNHO_ITS ---
Subjective - Subjective Chief complaint: Weakness, rectal bleeding Patient: new to practice Consult date: 08/13/23 Primary Care Provider: None Physician Medical Summary: Diagnosis: Iron deficiency anemia HPI - Consult Narrative Reason for consult: Severe iron deficiency anemia Narrative: Steph Brady is a 38 year old female was admitted for acute worsening of chronic iron deficiency anemia related to rectal bleeding and menorrhagia. Patient was diagnosed with IBD/proctitis in September 2022. However even prior to that she has a history of menorrhagia and poor absorption of iron by mouth. She has received both oral iron supplements as well as parenteral iron therapy ever since her teenage years. She received blood transfusion in the remote past for both her deliveries, she has a 22-year-old and a 15-year-old. She was at one time told of possible thalassemia but later confirmed that she did not have it. There is no family history of anemia. She is being managed by Dr. Weeks for proctitis. She missed hematology appointment last year because her mother had a stroke and shared a flight to [place]. She does take oral iron twice a day with vitamin-C, she tolerates it well. She tolerated Venofer infusion well yesterday. She reports chronic fatigue and dizziness. She has shortness of breath with minimal exertion. Review of Systems - Constitutional Reports as per HPI, Reports lack of energy, Reports malaise, Reports weight loss - Cardiovascular Denies chest pain - Respiratory Denies cough - Gastrointestinal Reports as per HPI [facility] Medical History: Medical History (Last Reviewed 08/12/23 @ 15:54 by KEY Witt) ADD (attention deficit disorder) Bipolar 1 disorder Depression Anjali PMDD (premenstrual dysphoric disorder) Ulcerative colitis Social History: Social History (Last Reviewed 08/12/23 @ 15:54 by KEY Witt) Living Situation History: Household Members: Significant Other Household Members Other:: I live by myself Housing: House Do you presently have visiting nurse or other home services: No Alcohol History Details: 1. How often do you have a drink containing alcohol?: a. Never AUDIT-C Alcohol total score: 0 Tobacco History: Patient Tobacco Use Status: Never used Tobacco Smoked in Last 30 Days: No Second Hand Smoke Exposure: No Substance Use History: Use of substances other than those prescribed or required for medical reasons : No Advance Directives: Advance Directives: No Advance Directives Information Provided: No Nutrition Assessment: Nutrition Risks: No Nutritional Risk Occupation Assessmet: service: No Current occupational status: unemployed Sex/Gender Assessment: Sexual orientation: Straight/Heterosexual Home Medications and Allergies Current Medications: Current Medications Acetaminophen (Acetaminophen 325 Mg Tablet) 650 mg PO Q6H PRN PRN Reason: Pain, Mild (Pain Scale 1-3) Last Admin: 08/13/23 04:38 Dose: 650 mg Balsalazide (Balsalazide Disodium 750 Mg Capsule) 2,250 mg PO TID [facility] Last Admin: 08/12/23 23:39 Dose: Not Given Carbamazepine (Carbamazepine 200 Mg Tablet) 600 mg PO BID [facility] Last Admin: 08/12/23 21:11 Dose: 600 mg Docusate Sodium (Docusate Sodium 100 Mg Capsule) 100 mg PO BID [facility] Last Admin: 08/12/23 21:13 Dose: Not Given Fluphenazine HCl (Fluphenazine Hcl 5 Mg Tablet) 5 mg PO DAILY [facility] Hydrocortisone Sodium Succinate (Hydrocortisone Sod Succ/Pf 100 Mg Vial) 100 mg IVPUSH Q8H [facility] Last Admin: 08/12/23 23:35 Dose: 100 mg Melatonin (Melatonin 3 Mg Tablet) 6 mg PO BEDTIME [facility] Last Admin: 08/12/23 21:11 Dose: 6 mg Non-Formulary Medication (Mesalamine) 1,000 mg [place] BEDTIME [facility] Ondansetron HCl (Ondansetron Hcl 4 Mg/2 Ml Vial) 4 mg IVPUSH Q8H PRN PRN Reason: Nausea and Vomiting Polyethylene Glycol (Polyethylene Glycol 3350 17 Gm Powd.Pack) 17 gm PO DAILY@0730 PRN PRN Reason: Constipation Senna (Sennosides 8.6 Mg Tablet) 17.2 mg PO BEDTIME PRN PRN Reason: Constipation Sertraline HCl (Sertraline Hcl 50 Mg Tablet) 125 mg PO DAILY@1300 [facility] Sodium Chloride (0.9 % Sodium Chloride Flush 3 Ml Syringe) 3 ml IVFLUSH QSHIFT [facility] Last Admin: 08/13/23 00:16 Dose: Not Given Trazodone HCl (Trazodone Hcl 50 Mg Tablet) 50 mg PO BEDTIME MRX1 PRN PRN Reason: Insomnia Last Admin: 08/12/23 21:11 Dose: 50 mg Home Medications Medication Instructions Recorded Confirmed Type carbamazepine 200 mg tablet 600 mg PO BID 10/05/22 08/12/23 History melatonin 5 mg tablet 5 mg PO BEDTIME 10/05/22 08/12/23 History sertraline 50 mg tablet 125 mg PO DAILY@1300 10/05/22 08/12/23 History ascorbic acid (vitamin C) 1,000 mg 1,000 mg PO BID 08/12/23 08/12/23 History tablet balsalazide 750 mg capsule 2,250 mg PO TID 08/12/23 08/12/23 History fluphenazine HCl 5 mg tablet 5 mg PO DAILY 08/12/23 08/12/23 History mesalamine 1,000 mg rectal 1,000 mg GA BEDTIME 08/12/23 08/12/23 History suppository Allergies Allergy/AdvReac Type Severity Reaction Status Date / Time Sulfa (Sulfonamide AdvReac Rash Verified 10/23/21 23:08 Antibiotics) Physical Exam Vital signs: Vital Signs Temp 98.1 F 08/12/23 23:46 Pulse 72 08/12/23 23:46 Resp 18 08/12/23 23:46 BP 105/55 L 08/12/23 23:46 Pulse Ox 98 08/12/23 19:44 O2 Del Method Room Air 08/12/23 19:44 Intake & Output 08/12/23 08/13/23 08/13/23 18:59 06:59 18:59 Intake Total 135 / 5 60 / 1955 Balance 1350 / 5 60 / 1954 Intake: Intake (Blood Product) Amount 350 / 700 350 / 700 Red Blood Cells (E0336) Unit 350 / 350 [id number] Red Blood Cells (E0336) Unit 350 / 350 0 / 350 [id number] Intake, IV Amount 1000 / 1255 255 / 1255 0.9 % Sodium Chloride 1,000 ml 1000 / 1000 @ 999 mls/hr IV .Q1H1M [facility] Rx#: [id number] 0.9 % Sodium Chloride 100 ml @ 200 / 200 100 mls/hr IV ONCE ONE Rx#: [id number] Iron Sucrose Complex 100 mg In 55 / 55 0.9 % Sodium Chloride 50 ml @ 220 mls/hr IV ONCE ONE Rx#: [id number] Other: Weight 81.647 kg Weight 81.647 kg - Constitutional Present: no acute distress - Routine HEENT Exam Head: Present: normal inspection Eye: Present: EOMI - Routine Neck Exam Present: supple. Absent: lymphadenopathy - Routine Respiratory Exam Present: CTAB - Routine Cardiovascular Exam Cardiovascular: Present: RRR, S1, S2 Hem/Onc Consult Result - Labs CBC & Chem 7: 08/13/23 05:21 08/13/23 05:21 Labs: Short CBC 08/13/23 08/13/23 Range/Units 00:16 05:21 WBC 5.1 5.3 (4.8-10.8) X10*3/uL Hgb 7.8 L D 8.2 L (12.0-16.0) g/dl Hct 26.6 L 28.2 L (37.0-47.0) % Plt Count 296 301 (160-400) X10*3/uL BMP 08/13/23 05:21 Sodium 139 Potassium 3.6 Chloride 109 H Carbon Dioxide 25 BUN 4 L Creatinine 0.55 Calcium 8.3 L D Urine 08/12/23 Range/Units 16:45 Urine Color Yellow Urine Appearance Clear Urine pH 6.5 (5.0-9.0) Ur Specific [place] 1.015 (1.005-1.025) Urine Protein Negative (Neg-Trace) mg/dL Urine Glucose (UA) Negative (Negative) mg/dL Assessment and Plan Patient Active problem list reviewed?: Yes (1) Anemia Status: Acute Assessment and plan: 1. This is a 38-year-old woman with severe iron deficiency anemia secondary to rectal bleeding from proctitis in this well as chronic menorrhagia. She presented with hemoglobin of 5.7 gram/dL with TSAT of 4 % and depleted iron stores ferritin less than 2. Her calculated iron deficit would be over 2 g to bring her to a goal hemoglobin of 12 gram/dL. Vitamin B12 and folate levels are normal. She received 2 units PRBC She was given Venofer 100 mg IV yesterday which she tolerated well. I have ordered another dose of Venofer 400 mg IV x1 today to be administered as a slow infusion over 2 hours. She is being scheduled for sigmoidoscopy tomorrow. I have advised her to follow-up in Hematology Clinic upon discharge. I thank you for the consultation. - Time Spent With Patient Time Spent with Patient (in minutes): 25
[2023-08-13] MEDS: carBAMazepine 200 MG TABLET 600 MG PO ×2 (08:04→19:38)
[2023-08-13] MEDS: Hydrocortisone Sod Succ/PF 100 MG VIAL IVPUSH ×3 (08:05→22:30)
[2023-08-13] MEDS: fluPHENAZine HCl 5 MG TABLET PO (08:05)
[2023-08-13] MEDS: 0.9 % Sodium Chloride Flush 3 ML SYRINGE IVFLUSH ×3 (08:07→22:30)
--- NOTE | 2023-08-13 08:20 | PC.NURSE ---
Pt is alert and oriented, Speaking full sentences, denies pain or rectal bleeding at this time. SKin is pale, warm and dry. NSR on tele. Breathing even and unlabored. IV accidentally pulled out, new 20g placed to right AC site and now intact. Meds given however awaiting Colazal from pharmacy
[2023-08-13 08:50] VITALS: BP 110/67; PULSE 68; RESP 18; TEMP 36.7; O2SAT 96
[2023-08-13] MEDS: Balsalazide Disodium 750 MG CAPSULE 2250 MG PO ×3 (09:00→19:38)
[2023-08-13] MEDS: Iron Sucrose Complex 400 MG in 0.9 % Sodium Chloride 250 ML 180 MG IV (09:40)
[2023-08-13] MEDS: LORazepam 0.5 MG TABLET PO (09:51)
--- NOTE | 2023-08-13 10:54 | MHC.CM.PN ---
PT REPORTS SHE LIVES WITH HER S/O AND IS INDEPENDENT WITH CARE SHE HAS NO DME AND NO SERVICES PT STATES SHE HAS THE HCP INFO AND DOCUMENT AT HOME AND WILL COMPLETE THERE PT STATES SHE HAS BEEN WORKING ON GETTING A PCP SINCE HER INSURANCE CHANGED, SHE IS ON WAIT LISTS DCP: HOME NO SERVICES VIA PRIVATE TRANSPORT
[2023-08-13 12:40] VITALS: BP 134/80; PULSE 83; RESP 16; TEMP 36.8; O2SAT 98
[2023-08-13] MEDS: Sertraline HCL 50 MG TABLET 125 MG PO (14:07)
--- NOTE | 2023-08-13 14:37 | P.PNIM_ITS ---
Subjective Subjective Date of Service: 08/13/23 Interval History: Being followed for blood loss anemia, no recurrent episodes of rectal bleed, denies abdominal cramping, complaining of dysuria, no fevers, no chills, no other acute issues overnight hematocrit improved after 2 units of packed RBC. Review of Systems All other system reviewed and negative Physical Exam 2 Vital Signs: Vital Signs: Last Vital Signs Temp 98.3 F 08/13/23 12:40 Pulse 83 08/13/23 12:40 Resp 16 08/13/23 12:40 BP 134/80 08/13/23 12:40 Pulse Ox 98 08/13/23 12:40 O2 Del Method Room Air 08/13/23 12:40 BMI result Body Mass Index 29.0 Const: Other: General alert oriented x3, resting comfortably in no acute distress. Neck supple no JVD. CVS regular rate rhythm, Respiratory lungs clear to auscultation, no respiratory distress, no wheeze, no rhonchi. Gastrointestinal abdomen soft, non tender, bowel sounds audible, no guarding , no rigidity. Extremities no edema. Neuro nonfocal Skin pallor Psych appropriate affect Objective Data Active Medications Acetaminophen (Acetaminophen 325 Mg Tablet) 650 mg PO Q6H PRN PRN Reason: Pain, Mild (Pain Scale 1-3) Last Admin: 08/13/23 04:38 Dose: 650 mg Documented By: ISELA Balsalazide (Balsalazide Disodium 750 Mg Capsule) 2,250 mg PO TID [facility] Last Admin: 08/13/23 14:07 Dose: 2,250 mg Documented By: YOGI Carbamazepine (Carbamazepine 200 Mg Tablet) 600 mg PO BID [facility] Last Admin: 08/13/23 08:04 Dose: 600 mg Documented By: PANCHITO Docusate Sodium (Docusate Sodium 100 Mg Capsule) 100 mg PO BID [facility] Last Admin: 08/13/23 08:05 Dose: Not Given Documented By: PANCHITO Non-Admin Reason: Patient Refused Fluphenazine HCl (Fluphenazine Hcl 5 Mg Tablet) 5 mg PO DAILY [facility] Last Admin: 08/13/23 08:05 Dose: 5 mg Documented By: PANCHITO Hydrocortisone Sodium Succinate (Hydrocortisone Sod Succ/Pf 100 Mg Vial) 100 mg IVPUSH Q8H [facility] Last Admin: 08/13/23 14:07 Dose: 100 mg Documented By: YOGI Melatonin (Melatonin 3 Mg Tablet) 6 mg PO BEDTIME [facility] Last Admin: 08/12/23 21:11 Dose: 6 mg Documented By: ISELA Non-Formulary Medication (Mesalamine) 1,000 mg [place] BEDTIME [facility] Ondansetron HCl (Ondansetron Hcl 4 Mg/2 Ml Vial) 4 mg IVPUSH Q8H PRN PRN Reason: Nausea and Vomiting Polyethylene Glycol (Polyethylene Glycol 3350 17 Gm Powd.Pack) 17 gm PO DAILY@0730 PRN PRN Reason: Constipation Senna (Sennosides 8.6 Mg Tablet) 17.2 mg PO BEDTIME PRN PRN Reason: Constipation Sertraline HCl (Sertraline Hcl 50 Mg Tablet) 125 mg PO DAILY@1300 [facility] Last Admin: 08/13/23 14:07 Dose: 125 mg Documented By: YOGI Sodium Chloride (0.9 % Sodium Chloride Flush 3 Ml Syringe) 3 ml IVFLUSH QSHIFT [facility] Last Admin: 08/13/23 14:07 Dose: 3 ml Documented By: YOGI Trazodone HCl (Trazodone Hcl 50 Mg Tablet) 50 mg PO BEDTIME MRX1 PRN PRN Reason: Insomnia Last Admin: 08/12/23 21:11 Dose: 50 mg Documented By: ISELA Labs 08/13/23 05:21 08/13/23 05:21 Labs: Laboratory Results - last 24 hr 08/12/23 08/12/23 08/13/23 15:07 16:45 00:16 MCV 70.7 L D MCH 20.7 L MCHC 29.3 L RDW 21.8 H Plt Count 296 MPV 11.4 Immature Gran % (Auto) 0.2 Neut % (Auto) 66.6 Lymph % (Auto) 27.3 [place] % (Auto) 5.5 Eos % (Auto) 0.0 Baso % (Auto) 0.4 Lymph # (Auto) 1.4 [place] # (Auto) 0.3 Eos # (Auto) 0.0 Baso # (Auto) 0.0 Abs Immat Gran (auto) 0.01 Absolute Neuts (auto) 3.4 Absolute Nucleated RBC 0.020 H Nucleated RBC % (auto) 0.4 H Anion Gap Estim Creat Clear Calc Estimated GFR Random Glucose Calcium Urine Color Yellow Urine Appearance Clear Urine pH 6.5 Ur Specific [place] 1.015 Urine Protein Negative Urine Glucose (UA) Negative Urine Ketones Negative Urine Blood Negative Urine Nitrite Positive H Ur Leukocyte Esterase Small (1+) H Urine RBC 0-2 Urine WBC 0-5 Ur Squamous Epith Cells 0-2 Urine Bacteria 4+ Hyaline Casts 0-2 Blood Type A Positive Antibody Screen NEGATIVE Crossmatch See Detail 08/13/23 05:21 MCV 70.0 L MCH 20.3 L MCHC 29.1 L RDW 21.7 H Plt Count 301 MPV 10.3 Immature Gran % (Auto) 1.0 H Neut % (Auto) 81.3 H Lymph % (Auto) 13.7 L [place] % (Auto) 3.6 Eos % (Auto) 0.0 Baso % (Auto) 0.4 Lymph # (Auto) 0.7 L [place] # (Auto) 0.2 Eos # (Auto) 0.0 Baso # (Auto) 0.0 Abs Immat Gran (auto) 0.05 H Absolute Neuts (auto) 4.3 Absolute Nucleated RBC 0.020 H Nucleated RBC % (auto) 0.4 H Anion Gap 9 L Estim Creat Clear Calc 146.5 Estimated GFR > 60 Random Glucose 97 Calcium 8.3 L D Urine Color Urine Appearance Urine pH Ur Specific [place] Urine Protein Urine Glucose (UA) Urine Ketones Urine Blood Urine Nitrite Ur Leukocyte Esterase Urine RBC Urine WBC Ur Squamous Epith Cells Urine Bacteria Hyaline Casts Blood Type Antibody Screen Crossmatch Microbiology Microbiology Results: Microbiology 08/12/23 17:06 Urine Culture - Preliminary Urine clean catch - Urine black top Gram negative dario Assessment and Plan (1) Ulcerative colitis: Status: Acute (2) ABLA (acute blood loss anemia): Status: Acute (3) Anemia due to gastrointestinal blood loss: Status: Acute Plan 38 year old female with history of bipolar disorder, ADD, PMDD, menorrhagia, PHANI, and ulcerative colitis admitted for management of UC flare with acute on chronic blood loss anemia. #Acute on chronic iron deficiency anemia- due to acute on chronic GI bleeding as well as menorrhagia -feeling better, less weakness and shortness of breath -H/H 5.7/22.4% (baseline around 7.7/27.5%) -Iron 12, TIBC 339, 4%saturation, <2ng ferritin -s/p 2 units of packed RBC and 100mg venofer x1 -seen by Dr. Kimble she recommended repeat dose of Venofer at a.m. and recommend outpatient hematology follow-up - follow cbc #Acute ulcerative colitis flare -no recurrent bout of rectal bleeding, continue Hydrocortisone 100mg q8h -Clear liquid diet, mesalamine and balsalazide (recommend to bring mesalamine from home) -seen by Dr. Weeks he recommend to continue above treatment and recommend flexible sigmoidoscopy on # acute UTI will place on IV ceftriaxone follow urine culture. #Chronic constipation- complicated by above -hold ferrous sulfate as likely contributing to constipation and does not appear to be absorbing this well -on miralax and docusate #Bipolar disorder - stable, declines psychiatry consult in hospital -continue zoloft, fluphenazine #Chronic menorrhagia -contributing to above -recommend BATCH TESTER outpt DVT prophylaxis- SCPs Full code Pt requires continued inpatient stay for management of severe blood loss anemia with UC flare requiring blood transfusion, IV steroid, and expert consultation. Quality Stroke Does the patient have a stroke diagnosis?: No VTE Prior VTE?: No VTE Risk Level:: Medical - moderate - high VTE Device Contraindication: N/A - Device Ordered VTE Drug Contraindication: Treatment Not Indicated
[2023-08-13] MEDS: Magnesium Hydrox/Alum Hydrox 30 ML ORAL.SUSP PO (15:04)
[2023-08-13] MEDS: cefTRIAXone sodium 1 GM in 0.9 % Sodium Chloride 50 ML IV (15:05)
[2023-08-13 15:41] VITALS: BP 119/56; PULSE 87; RESP 16; TEMP 36.7; O2SAT 99
[2023-08-13 18:23] LABS: Transferrin 319 mg/dL (188-341)
--- NOTE | 2023-08-13 18:38 | MHC.SHP ---
Pre-Procedural Eval Section A - 24 Hr Update-Section A only Date of Service: 08/14/23 The patient is an INPATIENT: Yes The patient has been examined within 24 hours of the surgical procedure. The History & Physical has been completed within 30 days and I have reviewed it.: Yes Section B - Complete if H&P > 30 days Chief Complaint: blood loss anemia UC flare Allergies: Allergies Allergy/AdvReac Type Severity Reaction Status Date / Time Sulfa (Sulfonamide AdvReac Rash Verified 10/23/21 23:08 Antibiotics) Plan I have reviewed the history and physical and performed a pertinent physical examination on my patient. No changes have occurred unless specified. Time Spent With Patient Time: Total time managing care of this patient today ____ minutes.
[2023-08-13 19:17] VITALS: BP 109/62; PULSE 77; RESP 20; TEMP 36.4; O2SAT 95
[2023-08-13] MEDS: Docusate Sodium 100 MG CAPSULE PO (19:38)
[2023-08-13] MEDS: Melatonin 3 MG TABLET 6 MG PO (19:38)
[2023-08-13 23:05] VITALS: BP 121/57; PULSE 75; RESP 20; TEMP 36.4; O2SAT 98
--- NOTE | 2023-08-13 23:41 | PM.GIPN ---
Subjective Subjective Date of Service: 08/13/23 Interval History: Patient presently feels much better after transfusions. Tolerating liquids. She has had no BM's nor further bleeding since arrival in the ER. Critical Care Time (minutes): 0 Physical Exam Vital Signs: Vital Signs: Last Vital Signs Temp 97.5 F 08/13/23 23:05 Pulse 75 08/13/23 23:05 Resp 20 08/13/23 23:05 BP 121/57 L 08/13/23 23:05 Pulse Ox 98 08/13/23 23:05 O2 Del Method Room Air 08/13/23 23:05 BMI result Body Mass Index 29.0 Const: General: cooperative, healthy appearing, comfortable, no acute distress, well developed, alert and awake GI: Other: Abd-+BS, soft, NT, no masses, nondistended Objective Data Labs 08/13/23 05:21 08/13/23 05:21 Labs: Laboratory Results - last 24 hr 08/12/23 08/12/23 08/13/23 12:33 15:07 00:16 WBC 5.1 RBC 3.76 L Hgb 7.8 L D Hct 26.6 L MCV 70.7 L D MCH 20.7 L MCHC 29.3 L RDW 21.8 H Plt Count 296 MPV 11.4 Immature Gran % (Auto) 0.2 Neut % (Auto) 66.6 Lymph % (Auto) 27.3 [place] % (Auto) 5.5 Eos % (Auto) 0.0 Baso % (Auto) 0.4 Lymph # (Auto) 1.4 [place] # (Auto) 0.3 Eos # (Auto) 0.0 Baso # (Auto) 0.0 Abs Immat Gran (auto) 0.01 Absolute Neuts (auto) 3.4 Absolute Nucleated RBC 0.020 H Nucleated RBC % (auto) 0.4 H Sodium Potassium Chloride Carbon Dioxide Anion Gap BUN Creatinine Estim Creat Clear Calc Estimated GFR Random Glucose Calcium Transferrin 319 Crossmatch See Detail 08/13/23 05:21 WBC 5.3 RBC 4.03 L Hgb 8.2 L Hct 28.2 L MCV 70.0 L MCH 20.3 L MCHC 29.1 L RDW 21.7 H Plt Count 301 MPV 10.3 Immature Gran % (Auto) 1.0 H Neut % (Auto) 81.3 H Lymph % (Auto) 13.7 L [place] % (Auto) 3.6 Eos % (Auto) 0.0 Baso % (Auto) 0.4 Lymph # (Auto) 0.7 L [place] # (Auto) 0.2 Eos # (Auto) 0.0 Baso # (Auto) 0.0 Abs Immat Gran (auto) 0.05 H Absolute Neuts (auto) 4.3 Absolute Nucleated RBC 0.020 H Nucleated RBC % (auto) 0.4 H Sodium 139 Potassium 3.6 Chloride 109 H Carbon Dioxide 25 Anion Gap 9 L BUN 4 L Creatinine 0.55 Estim Creat Clear Calc 146.5 Estimated GFR > 60 Random Glucose 97 Calcium 8.3 L D Transferrin Crossmatch Microbiology Microbiology Results: Microbiology 08/12/23 17:06 Urine clean catch - Urine black top Urine Culture - Preliminary Gram negative dario Procedures Date of Service Date of Service: 08/13/23 Progress Note: A&P Assessment and plan (1) Proctitis: Status: Acute (2) Anemia due to gastrointestinal blood loss: Status: Acute Assessment and Plan: Imp/Recs: Proctitis with associated chronic GI bleeding and anemia. She has seemingly improved on the IV steroids and Steph is tolerating them thus far. She feels better after her blood transfusions and IV Iron infusions as well. Given her clinical history, I did review with her that we may very well need to start her on a biologic agent after discharge. Therefore, I think she should undergo a Flex sig on 08/13 to reassess the degree of the activity and extent of the disease before starting a biologic agent. Full consent has been obtained from her for this, including risks of bleeding and perforation. D/W patient in detail and she is comfortable with this plan.Thanks Time Spent With Patient Time: Total time managing care of this patient today ____ minutes. Quality Stroke Does the patient have a stroke diagnosis?: No VTE Prior VTE?: No VTE Risk Level:: Medical - moderate - high VTE Device Contraindication: N/A - Device Ordered VTE Drug Contraindication: Treatment Not Indicated
[2023-08-14 03:15] VITALS: BP 115/60; PULSE 71; RESP 20; TEMP 36.8; O2SAT 96
--- NOTE | 2023-08-14 05:45 | PC.NURSE ---
Tap water enema given this AM for Flex sigmoidoscopy. Pt tolerated well, stool clear stool with occasion small/scant bits of stool present. No blood noted in stool. NPO throughout the night.
[2023-08-14 06:29] VITALS: BP 123/61; PULSE 58; RESP 16; TEMP 36.5; O2SAT 97; BMI 29.9
[2023-08-14 06:39] LABS: Hematocrit 32.5 % (37.0-47.0); Hemoglobin 9.3 g/dl (12.0-16.0); Mean Corpuscular HGB Conc 28.6 g/dl (31.0-35.0); Mean Corpuscular Hemoglobin 20.1 pg (27.0-33.0); Mean Corpuscular Volume 70.2 fL (80.0-98.0); Mean Platelet Volume 10.4 fL (9.4-12.3); NRBC Pct Auto 0.5 /100WBC (0.0-0.2); Platelet Count 380 X10*3/uL (160-400); Red Blood Count 4.63 X10*6/uL (4.20-5.50); Red Cell Distribution Width 23.4 % (11.0-16.0); White Blood Count 10.7 X10*3/uL (4.8-10.8)
[2023-08-14] MEDS: Lactated Ringers 1,000 ML 80 ML IVCONT (06:42)
--- NOTE | 2023-08-14 07:00 | PC.NURSE ---
Addendum entered by Valerie Light RN 08/14/23 09:05: Pt back on unit at this time Original Note: Received report on this pt; pt not on unit at this time, pt at short stay for procedure
--- NOTE | 2023-08-14 07:58 | P.BOP_ITS ---
Brief Operative Note Date of Service: 08/14/23 Pre-op diagnosis: Proctitis Post-op diagnosis: same Procedure: Flex sig to 50cm Surgeon: Aidan Weeks MD Anesthesia: MAC Was an Asp Net C Developer used for this Procedure?: No Estimated blood loss (mL): 0 Pathology: none sent Condition: stable Disposition: PACU
[2023-08-14 07:59] VITALS: BP 102/65; PULSE 66; RESP 16; TEMP 36.9; O2SAT 97
--- NOTE | 2023-08-14 07:59 | P.EN_ITS ---
Event Note Date of Service: 08/14/23 Event Note: GI-Full note dictated Flex sig to 50cm Findings: 1. Patchy areas of proctitis in mid to distal rectum. No ulcers, no bleeding, no mass. Improved from previous findings in 2022. Rec: Advance diet, change to po prednisone with outpatient taper(I will send a Rx from my office), continue Balsalazide and Mesalamine suppository, continue oral Iron, F/U with Heme clinic for IV Iron infusions as needed, and D/C later today if stable. I will decide about possible biologic Rx as an outpatient. D/ W patient. 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 Thanks Time Spent With Patient Time: Total time managing care of this patient today ____ minutes.
[2023-08-14 08:14] VITALS: BP 106/70; PULSE 72; RESP 18; TEMP 36.6; O2SAT 97
--- NOTE | 2023-08-14 08:17 | P.CONAN_ITS ---
[facility] Active Problems Active Problems: All Active Problems (Updated 08/13/23 @ 07:47 by Ida Kimble MD) Menorrhagia (Acute) ABLA (acute blood loss anemia) (Acute) Proctitis (Acute) Anemia due to gastrointestinal blood loss (Acute) Anemia (Acute) Ulcerative colitis (Acute) Past Medical History Medical History PMDD (premenstrual dysphoric disorder) ADD (attention deficit disorder) Ulcerative colitis Bipolar 1 disorder Depression Anjali Family History Family history of problems with anesthesia: No Surgical History Surgical History S/P tubal ligation History of Problems with Anesthesia: No Social History Social History Household Members: Significant Other Household Members Other:: I live by myself Housing: House Do you presently have visiting nurse or other home services: No Patient Tobacco Use Status: Never used Tobacco Second Hand Smoke Exposure: No service: No Current occupational status: unemployed Sexual orientation: Straight/Heterosexual Meds Allergies Allergy/AdvReac Type Severity Reaction Status Date / Time Sulfa (Sulfonamide AdvReac Rash Verified 10/23/21 23:08 Antibiotics) Active Medications: Current Medications Acetaminophen (Acetaminophen 325 Mg Tablet) 650 mg PO Q6H PRN PRN Reason: Pain, Mild (Pain Scale 1-3) Last Admin: 08/13/23 04:38 Dose: 650 mg Al Hydroxide/Mg Hydroxide (Magnesium Hydrox/Alum Hydrox 30 Ml Oral.Susp) 30 ml PO Q6H PRN PRN Reason: Dyspepsia Last Admin: 08/13/23 15:04 Dose: 30 ml Balsalazide (Balsalazide Disodium 750 Mg Capsule) 2,250 mg PO TID REPLACED BY [facility] Last Admin: 08/13/23 19:38 Dose: 2,250 mg Carbamazepine (Carbamazepine 200 Mg Tablet) 600 mg PO BID REPLACED BY [facility] Last Admin: 08/13/23 19:38 Dose: 600 mg Docusate Sodium (Docusate Sodium 100 Mg Capsule) 100 mg PO BID REPLACED BY [facility] Last Admin: 08/13/23 19:38 Dose: 100 mg Fluphenazine HCl (Fluphenazine Hcl 5 Mg Tablet) 5 mg PO DAILY REPLACED BY [facility] Last Admin: 08/13/23 08:05 Dose: 5 mg Hydrocortisone Sodium Succinate (Hydrocortisone Sod Succ/Pf 100 Mg Vial) 100 mg IVPUSH Q8H REPLACED BY [facility] Last Admin: 08/13/23 22:30 Dose: 100 mg Ceftriaxone Sodium 1 gm/ (Sodium Chloride) 50 mls @ 100 mls/hr IV Q24H REPLACED BY [facility] Last Infusion: 08/13/23 15:59 Dose: Infused Lactated Ringer's (Lr) 1,000 mls @ 80 mls/hr IVCONT .[id number] REPLACED BY [facility] Last Admin: 08/14/23 06:42 Dose: 80 mls/hr Melatonin (Melatonin 3 Mg Tablet) 6 mg PO BEDTIME REPLACED BY [facility] Last Admin: 08/13/23 19:38 Dose: 6 mg Non-Formulary Medication (Mesalamine) 1,000 mg GA BEDTIME REPLACED BY [facility] Ondansetron HCl (Ondansetron Hcl 4 Mg/2 Ml Vial) 4 mg IVPUSH Q8H PRN PRN Reason: Nausea and Vomiting Polyethylene Glycol (Polyethylene Glycol 3350 17 Gm Powd.Pack) 17 gm PO DAILY@0730 PRN PRN Reason: Constipation Senna (Sennosides 8.6 Mg Tablet) 17.2 mg PO BEDTIME PRN PRN Reason: Constipation Sertraline HCl (Sertraline Hcl 50 Mg Tablet) 125 mg PO DAILY@1300 REPLACED BY [facility] Last Admin: 08/13/23 14:07 Dose: 125 mg Sodium Chloride (0.9 % Sodium Chloride Flush 3 Ml Syringe) 3 ml IVFLUSH QSHIFT REPLACED BY [facility] Last Admin: 08/13/23 22:30 Dose: 3 ml Trazodone HCl (Trazodone Hcl 50 Mg Tablet) 50 mg PO BEDTIME MRX1 PRN PRN Reason: Insomnia Last Admin: 08/12/23 21:11 Dose: 50 mg Home Medications Medication Instructions Recorded Confirmed Last Taken Type carbamazepine 200 mg tablet 600 mg PO BID 10/05/22 08/12/23 08/12/23 History melatonin 5 mg tablet 5 mg PO BEDTIME 10/05/22 08/12/23 08/11/23 History sertraline 50 mg tablet 125 mg PO DAILY@1300 10/05/22 08/12/23 10/05/22 History ascorbic acid (vitamin C) 1,000 mg 1,000 mg PO BID 08/12/23 08/12/23 08/12/23 History tablet balsalazide 750 mg capsule 2,250 mg PO TID 08/12/23 08/12/23 08/12/23 History fluphenazine HCl 5 mg tablet 5 mg PO DAILY 08/12/23 08/12/23 08/11/23 History mesalamine 1,000 mg rectal 1,000 mg GA BEDTIME 08/12/23 08/12/23 Unknown History suppository Exam Height,Weight and Vital Signs: Height 5 ft 6 in Weight 84.028 kg Last Vital Signs Temp 98 F 08/14/23 08:14 Pulse 72 08/14/23 08:14 Resp 18 08/14/23 08:14 BP 106/70 08/14/23 08:14 Pulse Ox 97 08/14/23 08:14 O2 Del Method Room Air 08/14/23 08:14 Pertinent Lab Results Pertinent Lab Results: Laboratory Tests 08/12/23 08/12/23 08/12/23 12:33 15:07 16:45 WBC RBC Hgb Hct MCV MCH MCHC RDW Plt Count MPV Immature Gran % (Auto) Neut % (Auto) Lymph % (Auto) Desha % (Auto) Eos % (Auto) Baso % (Auto) Lymph # (Auto) Desha # (Auto) Eos # (Auto) Baso # (Auto) Abs Immat Gran (auto) Absolute Neuts (auto) Absolute Nucleated RBC Nucleated RBC % (auto) PT 11.9 INR 1.0 Sodium Potassium Chloride Carbon Dioxide Anion Gap BUN Creatinine Estim Creat Clear Calc Estimated GFR Random Glucose Calcium Iron 12 L TIBC 339 % Saturation 4 L Unsat Iron Binding 327 Transferrin 319 Ferritin < 2 L Troponin I High Sens < 2.7 Urine Color Yellow Urine Appearance Clear Urine pH 6.5 Ur Specific [place] 1.015 Urine Protein Negative Urine Glucose (UA) Negative Urine Ketones Negative Urine Blood Negative Urine Nitrite Positive H Ur Leukocyte Esterase Small (1+) H Urine RBC 0-2 Urine WBC 0-5 Ur Squamous Epith Cells 0-2 Urine Bacteria 4+ Hyaline Casts 0-2 Blood Type A Positive Antibody Screen NEGATIVE Crossmatch See Detail 08/13/23 08/13/23 08/14/23 00:16 05:21 05:57 WBC 5.1 5.3 10.7 RBC 3.76 L 4.03 L 4.63 Hgb 7.8 L D 8.2 L 9.3 L Hct 26.6 L 28.2 L 32.5 L MCV 70.7 L D 70.0 L 70.2 L MCH 20.7 L 20.3 L 20.1 L MCHC 29.3 L 29.1 L 28.6 L RDW 21.8 H 21.7 H 23.4 H Plt Count 296 301 380 D MPV 11.4 10.3 10.4 Immature Gran % (Auto) 0.2 1.0 H Neut % (Auto) 66.6 81.3 H Lymph % (Auto) 27.3 13.7 L Desha % (Auto) 5.5 3.6 Eos % (Auto) 0.0 0.0 Baso % (Auto) 0.4 0.4 Lymph # (Auto) 1.4 0.7 L Desha # (Auto) 0.3 0.2 Eos # (Auto) 0.0 0.0 Baso # (Auto) 0.0 0.0 Abs Immat Gran (auto) 0.01 0.05 H Absolute Neuts (auto) 3.4 4.3 Absolute Nucleated RBC 0.020 H 0.020 H 0.050 H Nucleated RBC % (auto) 0.4 H 0.4 H 0.5 H PT INR Sodium 139 Potassium 3.6 Chloride 109 H Carbon Dioxide 25 Anion Gap 9 L BUN 4 L Creatinine 0.55 Estim Creat Clear Calc 146.5 Estimated GFR > 60 Random Glucose 97 Calcium 8.3 L D Iron TIBC % Saturation Unsat Iron Binding Transferrin Ferritin Troponin I High Sens Urine Color Urine Appearance Urine pH Ur Specific [place] Urine Protein Urine Glucose (UA) Urine Ketones Urine Blood Urine Nitrite Ur Leukocyte Esterase Urine RBC Urine WBC Ur Squamous Epith Cells Urine Bacteria Hyaline Casts Blood Type Antibody Screen Crossmatch Airway Mallampati Class: II TM Dist: >3cm Neck ROM: Full Heart: RRR Lungs: CTA Assessment and Plan Assessment Anesthesia Assessment: Anesthesia Plan Discussed Final Anesthetic Review Family History of Problems with Anesthesia: No History of Problems with Anesthesia: No ASA Class: II Final Preanesthetic Review: Meds/Allgs Chart Reviewed, Consent Obtained/Reviewed and Anes Risks/Benef Reviewed Patient Risk: Low Procedure Risk: Low Anesthetic Plan Anesthetic Plan: MAC: Disposition: Standard PACU
--- NOTE | 2023-08-14 08:18 | HO.POSTANES ---
Post Anesthesia Evaluation Post Anesthesia Evaluation Date of Service: 08/14/23 Vital Signs: Vital Signs Temp Pulse Resp BP Pulse Ox O2 Del Method 08/14/23 08:14 98 F 72 18 106/70 97 Room Air 08/14/23 07:59 98.5 F 66 16 102/65 97 Room Air 08/14/23 06:29 97.7 F 58 16 123/61 97 Room Air 08/14/23 03:15 98.2 F 71 20 115/60 96 Room Air 08/13/23 23:05 97.5 F 75 20 121/57 L 98 Room Air Anesthesia: Monitored Mental Status: Awake Pain Control: Satisfactory Nausea/Vomiting: None Hydration: Adequate Anesthesia-Related Issues: No Anes. Related Issues
[2023-08-14 08:31] VITALS: BP 128/65; PULSE 71; RESP 20; TEMP 36.3; O2SAT 98
--- NOTE | 2023-08-14 08:46 | OP_ITS ---
DATE OF SERVICE: 08/14/2023 SURGEON: Aidan Weeks MD INDICATIONS: The patient presents for evaluation of known proctitis with associated bleeding and anemia. Full consent has been obtained from her for this, including risks of bleeding and perforation. PREOPERATIVE DIAGNOSIS: POSTOPERATIVE DIAGNOSIS: PROCEDURE PERFORMED: Flexible sigmoidoscopy to 50 cm. ESTIMATED BLOOD LOSS: COMPLICATIONS: ANESTHESIA: Medication use, monitored anesthesia care. ASSISTANTS: SPECIMENS: PREOPERATIVE DIAGNOSES: 1. Proctitis. 2. Anemia. 3. Rectal bleeding. POSTOPERATIVE DIAGNOSES: 1. Proctitis, improved. 2. Anemia. 3. Rectal bleeding. DESCRIPTION OF PROCEDURE: The patient was placed in the left lateral decubitus position. The digital rectal exam revealed no perianal disease nor any other abnormalities. The Olympus video pediatric colonoscope was entered into the rectum, advanced to 50 cm. There was some formed stool above and below this, but visualization of the mucosa was obtained without problems. There was no sign of any inflammatory bowel disease in the sigmoid colon nor descending colon. The only area of abnormality was in the mid to distal rectum with some patchy areas of proctitis, but overall much improved compared to the exam when she was diagnosed with this last year. There was no evidence of any ulcerations, mass, nor bleeding. The tissue was not particularly friable. The scope was retroflexed visualizing some small internal hemorrhoids as well. There was no proctitis involving the distal most part of the rectum. The scope was straightened and withdrawn from the patient. She tolerated the procedure well and was returned to recovery area in stable condition. IMPRESSION: Proctitis, but improved compared to last year. PLAN: The patient will have her diet advanced. We will change her steroids to oral prednisone with an outpatient taper. She will continue her balsalazide and mesalamine suppository. She will continue her iron and follow up with Dr. Kimble in the [facility] as well for IV iron infusions as needed. She could be discharged later today from a GI standpoint. We will decide about biologic agent therapy as an outpatient. However at this point given the significantly improved findings on today's exam and the fact that she was not having any active proctitis symptoms when she came in the hospital, we may hold off on that. The main reason she came in the hospital was due to her significant anemia. If we can improve that and continue her on the balsalazide and mesalamine suppository, then we may be able to hold off on biologic agents for the time being. MD SEGUNDO Anglin/CLIFF / [id number]
[2023-08-14] MEDS: fluPHENAZine HCl 5 MG TABLET PO (09:08)
[2023-08-14] MEDS: predniSONE 20 MG TABLET 40 MG PO (09:08)
[2023-08-14] MEDS: carBAMazepine 200 MG TABLET 600 MG PO (09:08)
[2023-08-14] MEDS: Balsalazide Disodium 750 MG CAPSULE 2250 MG PO (09:09)
[2023-08-14] MEDS: 0.9 % Sodium Chloride Flush 3 ML SYRINGE IVFLUSH (09:10)
--- NOTE | 2023-08-14 10:39 | MHC.CM.PN ---
PER HOSPITALIST ANTIC PT TO BE MEDICALLY CLEARED FOR DC HOME SELF CARE W/PT ARRANGING TRANSPORT
--- NOTE | 2023-08-14 10:41 | P.DS_ITS ---
DS: Providers Provider Date of Service: 08/14/23 Date of admission: 08/12/23 15:33 Primary care physician: None Physician Consults: 08/12/23 15:33 Consult to Hematology / Oncology Routine Consulting Provider: Ida Kimble Reason for consultation: severe chronic PHANI 08/12/23 15:38 Consult to Gastroenterology Routine Consulting Provider: Aidan Weeks Reason for consultation: UC flare DS: Diagnosis Discharge Diagnosis (1) Proctitis: Status: Acute (2) Anemia due to gastrointestinal blood loss: Status: Acute DS: Summary Hospital Course Hospital Course: Date of Service: 08/12/23 Attending physician on admission: Dustin Sahu Chief Complaint: rectal bleeding 38 year old female with history of bipolar disorder, ADD, PMDD, menorrhagia, PHANI, and ulcerative colitis presented to the ED earlier today for evaluation of rectal bleeding. She had blood work this morning with critical h/h of 5.7/22.4%, baseline is around 7.7/27.5%. Reports chronic constipation secondary to her ferrous sulfate which she takes for chronic PHANI, though despite compliance remains quite anemic chronically. Due to the constipation she often strains resulting in BRBPR with most bowel movements, sometimes with clots. She was also diagnosed with ulcerative colitis 1 year ago with colonoscopy and has been following with Dr. Weeks. For the last two weeks as been experiencing severe lower abdominal pain after eating (regarding of what she eats) which improves with hot baths and repositioning. Bleeding has worsening during this period. On top of her rectal bleeding she has a long history of menorrhagia and does not follow with a INFORMATION SYSTEMS PROJECT MANAGER at this time. She has had recent stressors in her life including her mother having 2 back to back strokes about 3 months ago. Despite this she feels her mental health is stable with good support system, medication compliance, and her therapist whom she sees every other week. Denies any fevers, chills, nausea, vomiting, chest pain. Does endorse weakness, fatigue, pallor, AFRR, palpitations. States she is primarily experiencing constipation recently but does have history of diarrhea/constipation alternating. On arrival, pt initially tachycardic to 109, vitals otherwise stable. H/H as above. Renal function and lytes WNL. Iron 12, TIBC 339, 4% saturation, <2ng ferritin. Trop below detectable limits. In the ED, has received 100mg hy drocortisone and 1 L IVF. She will be transfused 2 units [facility]. She does have concerns about taking steroids citing insomnia in the past but is agreeable to trialing hydrocortisone per Dr. Weeks's recommendation. Hospital course: 38 year old female with history of bipolar disorder, ADD, PMDD, menorrhagia, PHANI, and ulcerative colitis admitted for management of UC flare with acute on chronic blood loss anemia. #Acute on chronic iron deficiency anemia- due to acute on chronic GI bleeding as well as menorrhagia , treated with 2 units of packed RBC hematocrit improved and remained stable, iron studies consistent with iron deficiency anemia, receive IV Venofer infusion x2 evaluated by Dr. Kimble she recommend outpatient follow-up with her, will continue iron supplements with vitamin-C. #Acute ulcerative colitis flare treated with IV steroids, and was continued on mesalamine and balsalazide, subsequently seen by Dr. Weeks underwent flexible sigmoidoscopy and diagnosed to have proctitis, Dr. Weeks recommend prednisone taper and to continue home medications and he will biological treatment as outpatient. Patient advised to avoid aspirin and all NSAIDs # acute e. coli UTI treated with IV ceftriaxone will be discharged home on by mouth Ceftin for 3 more days. #Chronic constipation- recommend high-fiber diet and MiraLax #Bipolar disorder - -continue zoloft, fluphenazine #Chronic menorrhagia -contributing to above recommend INFORMATION SYSTEMS PROJECT MANAGER follow-up outpatient. Time Attestation Discharge Coordination Time (in mins): 35 minutes Quality: Safe Use of Opioids Does Pt have an Active Cancer Diagnosis on the Problem List?: No Quality: Stroke Does the patient have a stroke diagnosis?: No Physical Exam Vital Signs: Vital Signs: Last Vital Signs Temp 97.4 F 08/14/23 08:31 Pulse 71 08/14/23 08:31 Resp 20 08/14/23 08:31 BP 128/65 08/14/23 08:31 Pulse Ox 98 08/14/23 08:31 O2 Del Method Room Air 08/14/23 08:31 BMI result Body Mass Index 29.9 Const: Other: General alert oriented x3, resting comfortably in no acute distress. Neck supple no JVD. CVS regular rate rhythm, Respiratory lungs clear to auscultation, no respiratory distress, no wheeze, no rhonchi. Gastrointestinal abdomen soft, non tender, bowel sounds audible, no guarding , no rigidity. Extremities no edema. Neuro non focal Skin pallor improved Psych appropriate affect DS: Data Data Completed and Pending Completed studies during hospitalization [Text1]: Procedures Excision of Rectum, Via Natural or Artificial Opening Endoscopic, Diagnostic (10/05/22) Transfusion of Nonautologous Red Blood Cells into Peripheral Vein, Percutaneous Approach (10/05/22) Labs on day of discharge: Laboratory Results - last 24 hr 08/12/23 08/14/23 12:33 05:57 WBC 10.7 RBC 4.63 Hgb 9.3 L Hct 32.5 L MCV 70.2 L MCH 20.1 L MCHC 28.6 L RDW 23.4 H Plt Count 380 D MPV 10.4 Absolute Nucleated RBC 0.050 H Nucleated RBC % (auto) 0.5 H Transferrin 319 Discharge Plan Discharge Anticipated Discharge Date/Time: 08/14/23 10:36 Patient Disposition: Home, Self-Care Discharge Diagnosis: Acute blood loss anemia Acute ulcerative colitis flare/Proctitis UTI Referrals: Physician,None [Primary Care Provider] - 1 Week Discharge Medications: New cefuroxime axetil 250 mg tablet 250 mg PO BID Qty: 6 0RF polyethylene glycol 3350 17 gram Powder In Packet 17 g PO DAILY@0730 PRN (Reason: Constipation) Qty: 30 0RF Continued melatonin 5 mg Tablet 5 mg PO BEDTIME sertraline 50 mg tablet 125 mg PO DAILY@1300 carbamazepine 200 mg tablet 600 mg PO BID ferrous sulfate 325 mg (65 mg iron) tablet 325 mg PO BID Qty: 60 0RF balsalazide 750 mg capsule 2,250 mg PO TID fluphenazine HCl 5 mg tablet 5 mg PO DAILY mesalamine 1,000 mg suppository 1,000 mg NE BEDTIME ascorbic acid (vitamin C) 1,000 mg Tablet 1,000 mg PO BID Discharge Orders: Discharge Order (Routine); Ordered 08/14/23 Ordered By: Dustin Sahu Diet: Advance to usual diet Activity on Discharge: As tolerated Stand Alone Forms: Patient Portal Discharge page Care Plan Goals: Continue vitamin-C and iron supplement Prednisone prescription will be sent by Dr. Weeks Continue home dose of mesalamine and balsalazide Avoid aspirin and all NSAIDs For UTI take Ceftin 250 mg b.i.d. for 3 more days Health Concerns: Anemia/menorrhagia Plan of Treatment: Outpatient follow-up with Dr. Weeks and Dr. Kimble call for appointment Assessment: As above
[2023-08-14] MEDS: cefTRIAXone sodium 1 GM in 0.9 % Sodium Chloride 50 ML IV (11:02)
--- NOTE | 2023-08-14 11:34 | HO.POSTANES ---
Post Anesthesia Evaluation Post Anesthesia Evaluation Date of Service: 08/14/23 Vital Signs: Vital Signs Temp Pulse Resp BP Pulse Ox O2 Del Method 08/14/23 08:31 97.4 F 71 20 128/65 98 Room Air 08/14/23 08:14 98 F 72 18 106/70 97 Room Air 08/14/23 07:59 98.5 F 66 16 102/65 97 Room Air 08/14/23 06:29 97.7 F 58 16 123/61 97 Room Air 08/14/23 03:15 98.2 F 71 20 115/60 96 Room Air Anesthesia: Monitored Mental Status: Awake Pain Control: Satisfactory Nausea/Vomiting: None Hydration: Adequate Anesthesia-Related Issues: No Anes. Related Issues
== END 2023-08-14 11:49 | disposition home or self-care (01) | DRG 245 ==
LOC: HO.ED 14:57 → HO.EDOVER 15:58 → HO.IMC 08-13 11:30
PROVIDERS: Internal Medicine; Physician Assistant; Admitting Provider Physician Assistant; Emergency Provider Student in an Organized Health Care Education/Training Program; Visit Provider Hospitalist
PROC: 0DJD8ZZ Inspection of Lower Intestinal Tract, Via Natural or Artificial Opening Endoscopic (ICD-10-PCS; CPT 45330; principal; 2023-08-14 07:30)
DX: K51.911 Ulcerative colitis, unspecified with rectal bleeding (principal); D62 Acute posthemorrhagic anemia; F31.9 Bipolar disorder, unspecified; N39.0 Urinary tract infection, site not specified; B96.20 Unspecified Escherichia coli [E. coli] as the cause of diseases classified elsewhere; K59.09 Other constipation; N92.0 Excessive and frequent menstruation with regular cycle; Z79.899 Other long term (current) drug therapy
CPT/HCPCS: 36415; 80048; 81001; 82728; 83540; 84466; 84484; 85025; 85027; 85610; 86850; 86900; 86901; 86923; 87086; 87088; 87186; 93005; 99285; J0696; J1720; J1756; J2704; J7120; P9016

== ENCOUNTER → 2023-08-12 12:20 | Outpatient (BNV) | payer OTHER, SELFPAY | PROVIDERS: Admitting Provider Physician Assistant; Emergency Provider Student in an Organized Health Care Education/Training Program; Visit Provider Internal Medicine Cardiovascular Disease | DX: K92.2 Gastrointestinal hemorrhage, unspecified (principal) | CPT/HCPCS: 93010 ==

== ENCOUNTER → 2023-08-12 15:33 | Outpatient (BNV) | payer MEDICAID, SELFPAY | PROVIDERS: Admitting Provider Physician Assistant; Emergency Provider Student in an Organized Health Care Education/Training Program; Visit Provider Internal Medicine | DX: D50.0 Iron deficiency anemia secondary to blood loss (chronic) (principal) | CPT/HCPCS: 99222 ==

== ENCOUNTER → 2023-08-12 15:33 | Outpatient (BNV) | payer MEDICAID, SELFPAY | PROVIDERS: Admitting Provider Physician Assistant; Emergency Provider Student in an Organized Health Care Education/Training Program; Visit Provider Physician Assistant | DX: K62.89 Other specified diseases of anus and rectum (principal); D50.0 Iron deficiency anemia secondary to blood loss (chronic) | CPT/HCPCS: 99223; 99233; 99239 ==

== ENCOUNTER 2023-12-09 15:39 | Outpatient (REF) | payer MEDICAID, SELFPAY ==
[2023-12-09 16:04] LABS: MANUAL DIFF FLAG NO
[2023-12-09 16:55] LABS: Eosinophils Absolute Auto 0.2 X10*3/uL (0.0-0.4); Eosinophils Percent Auto 3.7 % (0-4); Hematocrit 27.6 % (37.0-47.0); Hemoglobin 8.1 g/dl (12.0-16.0); Lymphocytes Absolute Auto 1.2 X10*3/uL (1.2-4.9); Lymphocytes Percent Auto 29.9 % (20-40); Mean Corpuscular HGB Conc 29.3 g/dl (31.0-35.0); Mean Corpuscular Hemoglobin 21.7 pg (27.0-33.0); Mean Corpuscular Volume 73.8 fL (80.0-98.0); Mean Platelet Volume 10.3 fL (9.4-12.3); Monocytes Absolute Auto 0.4 X10*3/uL (0.1-1.2); Monocytes Percent Auto 9.2 % (2-11); Neutrophils Absolute Auto 2.3 x10*3/uL (2.0-8.3); Neutrophils Percent Auto 56.2 % (45-73); Platelet Count 292 X10*3/uL (160-400); Red Blood Count 3.74 X10*6/uL (4.20-5.50); Red Cell Distribution Width 14.9 % (11.0-16.0)
[2023-12-09 17:25] LABS: Alanine Aminotransferase 10 U/L (0-31); Albumin Level 3.7 g/dL (3.5-5.0); Alkaline Phosphatase 52 U/L (39-117); Aspartate Amino Transferase 15 U/L (5-31); Bilirubin Direct < 0.2 mg/dL (0.0-0.5); Bilirubin Total 0.1 mg/dL (0.0-1.0); C Reactive Protein 0.85 mg/dL (< or = 0.50); Iron 12 mcg/dL (30-160); Percent Iron Saturation 4 % (15-50); Total Iron Binding Capacity 295 mcg/dL (228-428); Total Protein 6.8 g/dL (6.5-8.0); Unsaturated Iron Binding 283 ug/dL
[2023-12-09 17:39] LABS: Erythrocyte Sedimentation Rate 51 MM/HR (0-20); Ferritin 2 ng/mL (10-250)
== END 2023-12-09 15:40 | disposition home or self-care (01) ==
LOC: HO.LAB 15:39
PROVIDERS: Visit Provider Internal Medicine
DX: K51.211 Ulcerative (chronic) proctitis with rectal bleeding (principal); D50.0 Iron deficiency anemia secondary to blood loss (chronic)
CPT/HCPCS: 36415; 80076; 82728; 83540; 85025; 85652; 86140

== ENCOUNTER 2024-01-06 08:50 | Outpatient (RCR) | payer MEDICAID, SELFPAY ==
--- OUTSIDE RECORDS SUMMARY | 2024-01-06 08:53 | XMS_ITS ---
Author Organization [facility] Address [address] [place] [address] Care Team Providers Care National Park Ranger Name Role Phone LOC PARKER Primary Care Provider Aidan Rogers Unavailable [phone] REASON FOR VISIT Update-Needs Stelara infusion scheduled PEREZ/ future stelara infusion december Encounters Encounter Location Date Provider Diagnosis [facility] [address] [place] [address] 12/10/2023 Aidan Weeks PLAN OF TREATMENT Next Appt Details Provider Name:Aidan Weeks , 06/11/2024 01:00:00 PM, [address], [address], [place], [address],
--- OUTSIDE RECORDS SUMMARY | 2024-01-06 08:53 | XMS_ITS ---
Author Organization [facility] Address [address] [place] [address] Care Team Providers Care Tax Advisor Name Role Phone LOC PARKER Primary Care Provider Aidan Rogers Unavailable [phone] REASON FOR VISIT anemia Encounters Encounter Location Date Provider Diagnosis [facility] [address] [place] [address] 09/25/2023 Aidan Weeks PLAN OF TREATMENT Next Appt Details Provider Name:Aidan Weeks , 06/11/2024 01:00:00 PM, [address], [address], [place], [address],
--- OUTSIDE RECORDS SUMMARY | 2024-01-06 08:53 | XMS_ITS ---
Author Organization [facility] Address [address] [place] [address] Care Team Providers Care Informatics Physician Liaison Name Role Phone LOC PARKER Primary Care Provider Aidan Rogers [phone] ALLERGIES Allergen (clinical drug ingredient) Drug/Non Drug Allergy documented on EMR Reaction Allergy Type Onset Date Status Substance with sulfonamide structure and antibacterial mechanism of action (substance) Sulfa Antibiotics Unknown Drug Allergy Active RESULTS Component Value Reference Range Notes Ferritin Reviewed date:12/09/2023 07:56:16 PM Interpretation: Performing Lab:[facility], [address] [place] [id number] Notes/Report: Ferritin 2 10-250 ng/mL REASON FOR VISIT Patient presents today for anemia MEDICATIONS Medication SIG (Take, Route, Frequency, Duration) Notes Start Date End Date Status Balsalazide Disodium 750 MG 3 Orally Three times a day 05/08/2023 Active Mesalamine 1000 MG UNWRAP AND _insert 1 SUPPOSITORY RECTALLY EVERY NIGHT AT BEDTIME Active Iron (Ferrous Sulfate) 325 (65 Fe) MG 1 tablet Orally Three times a Week Active Multivitamin - 1 tablet Orally Once a day for 30 day(s) Active Tegretol XR Active Zoloft 100 MG 1 tablet Orally Once a day for 30 day(s) Active Mesalamine 800 MG 2 tablets Orally Thr ee times a day for 30 day(s) 04/23/2023 Not-Taking tylenol 1 tab Oral for 14 days prn Not-Taking SOCIAL HISTORY Tobacco Use: Social History Observation Description Date Details (start date - stop date) Never Smoker NA - NA Sex Assigned At : Social History Observation Description Sex Assigned At Unknown Tobacco Use/Smoking Question Answer Notes Patient is a nonsmoker Alcohol Screen Question Answer Notes Did you have a drink containing alcohol in the p ast year? No Points 0 Interpretation Negative VITAL SIGNS BMI 31.15 kg/m2 12/09/2023 Blood pressure systolic 00 mm Hg 12/09/19 24 Blood pressure diastolic 00 mm Hg 024 Height 5 ft 6 in in 12/09/2023 Weight 193 lbs 12/09/2023 Encounters Encounter Location Date Provider Diagnosis [facility] [address] [place] [address] 12/09/2023 Aidan Weeks Ulcerative proctitis with rectal bleeding K51.211 and Iron deficiency anemia due to chronic blood loss D50.0 ASSESSMENTS Encounter Date Diagnosis Assessment Notes Treatment Notes Treatment Clinical Notes 12/09/2023 Ulcerative proctitis with rectal bleeding (ICD-10 - K51.211) Stelara IV infusion and then Injections every 8 weeks 12/09/2023 Iron deficiency anemia due to chronic blood loss (ICD-10 - D50.0) PLAN OF TREATMENT Medication Medication Name Sig Start Date Stop Date Notes Balsalazide Disodium 750 MG 3 Orally Three times a day Mesalamine 1000 MG UNWRAP AND _insert 1 SUPPOSITORY RECTALLY EVERY NIGHT AT BEDTIME Iron (Ferrous Sulfate) 325 (65 Fe) MG 1 tablet Orally Three times a Week Treatment Notes Assessment Notes Ulcerative proctitis with rectal bleedin g Stelara IV infusion and then Injections every 8 weeks Pending Test Test Name Order Date LIVER PROFILE 12/09/2023 IRON + IBC (FE) 12/09/2023 CRP 12/09/2023 CBC w DIFF 12/09/2023 SED RATE (ESR) 12/09/2023 C DIFFICILE RFLX PCR 12/09/2023 Calprotectin, Fecal 12/09/2023 Next Appt Details Follow Up: 6 Months, Reason: Provider Name:Aidan Olmstead Micky , 06/11/2024 01:00:00 PM, [address], [address], [place], [address], Progress Notes * Examination Category Sub-Category Detail Notes General Examination GENERAL APPEARANCE: Pale, pl easant, well nourished, well developed, in no acute distress EYES: sclera non-icteric NECK/THYROID: no cervical lymphade nopathy, neck supple HEART: S1, S2 normal LUNGS: clear to auscultatio n bilaterally ABDOMEN: normal bowel sounds, no guarding or rigidity, no guarding or rigidity, no masses palpable, soft, nontender, nondistended NEUROLOGIC: alert and oriented SKIN: Pale, warm, dry, non jaundiced, no spider angiomata EXTREMITIES: no edema ORAL CAVITY: mucosa moist
--- OUTSIDE RECORDS SUMMARY | 2024-01-06 08:53 | XMS_ITS | Patient Health Record ---
Author Organization [facility] Address [address] [place] [address] Care Team Providers Care Industrial Psychologist Name Role Phone LOC PARKER Primary Care Provider Aidan Rogers [phone] ALLERGIES Allergen (clinical drug ingredient) Drug/Non Drug Allergy documented on EMR Reaction Allergy Type Onset Date Status Substance with sulfonamide structure and antibacterial mechanism of action (substance) Sulfa Antibiotics Unknown Drug Allergy Active RESULTS Component Value Reference Range Notes Complete Blood Count Auto Di ff Reviewed date:04/23/2023 05:11:19 PM Interpretation: Performing Lab:[facility], [address] [place] [phone] Notes/Report: White Blood Count 6.6 4.8-10.8 X10*3/uL Red Blood Count 3.85 4.20-5.50 X10*6/uL Hemoglobin 7.7 12.0-16.0 g/dl Hematocrit 27.5 37.0-47.0 % Mean Corpuscular Volume 71.4 80.0-98.0 fL Mean Corpuscular Hemoglobin 20.0 27.0-33.0 pg Mean Corpuscular HGB Conc 28.0 31.0-35.0 g/dl Red Cell Distribution Width 16.2 11.0-16.0 % Platelet Count 418 160-400 X10*3/uL Mean Platelet Volume 10.8 9.4-12.3 fL Neutrophils Percent Auto 55.1 45-73 % Imm Gran Pct Auto 0.3 0.0-0.4 % Lymphocytes Percent Auto 33.5 20-40 % Monocytes Percent Auto 7.8 2-11 % Eosinophils Percent Auto 2.7 0-4 % Basophils Percent Auto 0.6 0-2 % NRBC Pct Auto 0.0 0.0-0.2 /100WBC Neutrophils Absolute Auto 3.6 2.0-8.3 x10*3/u L Imm Gran Abs Auto 0.02 0.00-0.03 X10*3/uL Lymphocytes Absolute Auto 2.2 1.2-4.9 X10*3/u L Monocytes Absolute Auto 0.5 0.1-1.2 X10*3/uL Eosinophils Absolute Auto 0.2 0.0-0.4 X10*3/u L Basophils Absolute Auto 0.0 0.0-0.2 X10*3/uL NRBC Abs Auto 0.000 0.0-0.012 X10*3/uL IRON PROFILE Reviewed date:04/23/2023 05:11:32 PM Interpretation: Performing Lab:[facility], [address] [place] [phone] Notes/Report: Iron 15 30-160 mcg/dL Total Iron Binding Capacity 324 228-428 mcg/d L Percent Iron Saturation 5 15-50 % Unsaturated Iron Binding 309 Ferritin Reviewed date:04/23/2023 05:11:42 PM Interpretation: Performing Lab:[facility], [address] [place] [phone] Notes/Report: Ferritin 2 10-250 ng/mL Vitamin B12 and Folate Reviewed date:04/23/2023 05:11:53 PM Interpretation: Performing Lab:[facility], [address] [place] [phone] Notes/Report: Vitamin B12 350 200-900 pg/mL NORMAL 200-900 PG/ML INDETERMINATE 160-199 PG/ML DEFICIENT < 160 PG/ML Folate 14.5 > or = 4.0 ng/mL Reference Values: > or = 4.0 ng/mL < 4.0 ng/mL suggests folate deficiency Methotrexate, aminopterin and folinic acid (leucovorin) are chemotherapeutic agents whose molecular structures are similar to folate; therefore, the [employer] Associate folate assay cannot be used for patients using these drugs. Erythrocyte Sedimentation Ra te Reviewed date:08/12/2023 09:06:01 AM Interpretation: Performing Lab:[facility], [address] [place] [phone] Notes/Report: Erythrocyte Sedimentation Rate 10 0-20 MM/HR Patients with polycythemia and many hemoglobin abnormalities may have depressed sed rates whereas patients with anemia may have elevated sed rates. C Reactive Protein Reviewed date:08/12/2023 09:05:54 AM Interpretation: Performing Lab:[facility], [address] [place] [phone] Notes/Report: C Reactive Protein 0.26 < or = 0.50 mg/dL T Spot TB Reviewed date:08/15/2023 05:14:38 PM Interpretation: Performing Lab:[facility], [address] [place] [phone] Notes/Report: TSpotTB Negative Negative A negative test result does not exclude the possibility of exposure to or infection with Mycobacterium tuberculosis (M. tuberculosis). Patients with recent exposure to TB infected individuals exhibiting a negative T-SPOT.TB result should be considered for retesting within 6 weeks or if other relevant clinical symptoms indicate. Results from T-SPOT.TB testing must be used in conjunction with each individual's epidemiological history, current medical status, and results of other diagnostic evaluations. The T-SPOT.TB test is qualitative and results are reported as positive, borderline, or negative, given that the test controls perform as expected. In line with the Centers for Disease Control and Prevention's 2010 recommendation to report quantitative measurements alongside the qualitative result, the laboratory provides spot counts for informational purposes only. The T-SPOT.TB test should not be interpreted as a quantitative test. TS Panel A 1 TS Panel B 1 TS Negative Control Passed TS Positive Control Passed For additional information, please refer to http://education.Downloadperu.com.Acer/faq/ECH350 (This link is being provided for informational/ educational purposes only.) THIS TEST WAS PERFORMED AT: [facility] [facility] [address] [place] [phone] CARLOS FARIAS MD,PHD Hepatitis B Profile Reviewed date:08/12/2023 09:06:15 AM Interpretation: Performing Lab:[facility], [address] [place] [phone] Notes/Report: Hepatitis B Surface Antibody NONREACTIVE Nonreactive Nonreactive: < 8.00 mIU/mL Hepatitis B Core Antibody Nonreactive Nonreactive Hepatitis B Surface Antigen Negative Negative Ferritin Reviewed date:12/09/2023 07:56:16 PM Interpretation: Performing Lab:[facility], [address] [place] [phone] Notes/Report: Ferritin 2 10-250 ng/mL Complete Blood Count Auto Di ff (Not yet reviewed by provider) Interpretation: Performing Lab:[facility], [address] [place] [phone] Notes/Report: White Blood Count 4.0 4.8-10.8 X10*3/uL Red Blood Count 3.74 4.20-5.50 X10*6/uL Hemoglobin 8.1 12.0-16.0 g/dl Hematocrit 27.6 37.0-47.0 % Mean Corpuscular Volume 73.8 80.0-98.0 fL Mean Corpuscular Hemoglobin 21.7 27.0-33.0 pg Mean Corpuscular HGB Conc 29.3 31.0-35.0 g/dl Red Cell Distribution Width 14.9 11.0-16.0 % Platelet Count 292 160-400 X10*3/uL Mean Platelet Volume 10.3 9.4-12.3 fL Neutrophils Percent Auto 56.2 45-73 % Imm Gran Pct Auto 0.0 0.0-0.4 % Lymphocytes Percent Auto 29.9 20-40 % Monocytes Percent Auto 9.2 2-11 % Eosinophils Percent Auto 3.7 0-4 % Basophils Percent Auto 1.0 0-2 % NRBC Pct Auto 0.0 0.0-0.2 /100WBC Neutrophils Absolute Auto 2.3 2.0-8.3 x10*3/u L Imm Gran Abs Auto 0.00 0.00-0.03 X10*3/uL Lymphocytes Absolute Auto 1.2 1.2-4.9 X10*3/u L Monocytes Absolute Auto 0.4 0.1-1.2 X10*3/uL Eosinophils Absolute Auto 0.2 0.0-0.4 X10*3/u L Basophils Absolute Auto 0.0 0.0-0.2 X10*3/uL NRBC Abs Auto 0.000 0.0-0.012 X10*3/uL Erythrocyte Sedimentation Ra te Reviewed date:12/09/2023 07:55:47 PM Interpretation: Performing Lab:[facility], [address] [place] [phone] Notes/Report: Erythrocyte Sedimentation Rate 51 0-20 MM/HR Patients with polycythemia and many hemoglobin abnormalities may have depressed sed rates whereas patients with anemia may have elevated sed rates. Liver Panel Reviewed date:12/09/2023 07:55:54 PM Interpretation: Performing Lab:[facility], [address] [place] [phone] Notes/Report: Bilirubin Total 0.1 0.0-1.0 mg/dL Bilirubin Direct < 0.2 0.0-0.5 mg/dL Aspartate Amino Transferase 15 5-31 U/L Alanine Aminotransferase 10 0-31 U/L Total Protein 6.8 6.5-8.0 g/dL Albumin Level 3.7 3.5-5.0 g/dL Alkaline Phosphatase 52 39-117 U/L IRON PROFILE Reviewed date:12/09/2023 07:56:02 PM Interpretation: Performing Lab:[facility], [address] [place] [phone] Notes/Report: Iron 12 30-160 mcg/dL Total Iron Binding Capacity 295 228-428 mcg/d L Percent Iron Saturation 4 15-50 % Unsaturated Iron Binding 283 C Reactive Protein Reviewed date:12/09/2023 07:56:08 PM Interpretation: Performing Lab:[facility], [address] [place] [phone] Notes/Report: C Reactive Protein 0.85 < or = 0.50 mg/dL REASON FOR REFERRAL No Information MEDICATIONS Medication SIG (Take, Route, Frequency, Duration) Notes Start Date End Date Status Balsalazide Disodium 750 MG 3 Orally Three times a day 05/08/2023 Active Multivitamin - 1 tablet Orally Once a day for 30 day(s) Active Mesalamine 1000 MG UNWRAP AND _insert 1 SUPPOSITORY RECTALLY EVERY NIGHT AT BEDTIME Active Tegretol XR Active Iron (Ferrous Sulfate) 325 (65 Fe) MG 1 tablet Orally Three times a Week Active Zoloft 100 MG 1 tablet Orally Once a day for 30 day(s) Active Mesalamine 800 MG 2 tablets Orally Thr ee times a day for 30 day(s) 04/23/2023 Not-Taking tylenol 1 tab Oral for 14 days prn Not-Taking IMMUNIZATIONS Vaccine Route Administration Date Status Comme nts Influenza Unknown 04/23/2023 Refused SOCIAL HISTORY Tobacco Use: Social History Observation Description Date Details (start date - stop date) Never Smoker NA - NA Sex Assigned At : Social History Observation Description Sex Assigned At Unknown Tobacco Use/Smoking Question Answer Notes Patient is a nonsmoker Alcohol Screen Question Answer Notes Did you have a drink containing alcohol in the p ast year? 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) Active confirmed 9771106 Problem Iron deficiency anemia due to chronic blood loss (D50.0) Active confirmed 913346780 Problem Anemia due to blood loss (D50.0) Active confirmed Anemia due to blood loss (593598431) Problem 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) Active confirmed Chronic ulcerative proctitis (76694249) VITAL SIGNS Temperature 98.4 degrees Fahrenheit 04/23/2023 Blood pressure diastolic 00 mm Hg 12/09/2023 Height 5 ft 6 in in 12/09/2023 Blood pressure systolic 00 mm Hg 12/09/2023 Weight 193 lbs 12/09/2023 BMI 31.15 kg/m2 12/09/2023 Encounters Encounter Location Date Provider Diagnosis [facility] [address] [place] [phone] 07/01/2023 Aidan Weeks [facility] [address] [place] [address] 08/12/2023 Aidan Weeks [facility] [address] [place] [address] 09/25/2023 Aidan Weeks [facility] [address] [place] [address] 12/09/2023 Aidan Weeks Ulcerative proctitis with rectal bleeding K51.211 and Iron deficiency anemia due to chronic blood loss D50.0 [facility] [place] [address] [place] [id number] 08/14/2023 Aidan Weeks [facility] [address] [place] [address] 04/23/2023 Aidan Weeks Ulcerative proctitis with rectal bleeding K51.211 and Iron deficiency anemia due to chronic blood loss D50.0 [facility] [address] [facility] [place] [address] 04/23/2023 Aidan Weeks [facility] [address] [facility] [place] [address] 05/07/2023 Aidan Weeks [facility] [address] [place] [address] 06/30/2023 Aidan Weeks [facility] [address] [place] [address] [address] 08/12/2023 Aidan Weeks [facility] [address] [place] [phone] 08/14/2023 Aidan Weeks Iron deficiency anemia due to chronic blood loss D50.0 [facility] [address] [facility] [place] [address] 09/23/2023 Aidan Micky [facility] [address] [place] [address] 12/10/2023 Aidan Weeks ASSESSMENTS Encounter Date Diagnosis Assessment Notes Treatment Notes Treatment Clinical Notes 12/09/2023 Iron deficiency anemia due to chronic blood loss (ICD-10 - D50.0) 12/09/2023 Ulcerative proctitis with rectal bleeding (ICD-10 - K51.211) Stelara IV infusion and then Injections every 8 weeks 04/23/2023 Iron deficiency anemia due to chronic blood loss (ICD-10 - D50.0) We will try to get you set up for an Iron infusion with [place] Web Site Manager [place] [facility] [place] Continue the oral iron 04/23/2023 Ulcerative proctitis with rectal bleeding (ICD-10 - K51.211) Start the prednisone and oral mesalamine, and continue the mesalamine suppositories Call by early 05/2023 to let me know how you are doing 08/14/2023 Iron deficiency anemia due to chronic blood loss (ICD-10 - D50.0) PLAN OF TREATMENT Pending Test Test Name Order Date LIVER PROFILE 12/09/2023 IRON + IBC (FE) 10/08/2022 IRON + IBC (FE) 12/09/2023 CRP 04/23/2023 CRP 12/09/2023 CBC w DIFF 04/23/2023 CBC w DIFF 10/08/2022 CBC w DIFF 12/09/2023 CBC w DIFF 08/14/2023 SED RATE (ESR) 04/23/2023 SED RATE (ESR) 12/09/2023 HEPATITIS B PROFILE 04/23/2023 C DIFFICILE RFLX PCR 12/09/2023 Complete Blood Count Auto Diff Ferritin 10/08/2022 Vitamin B12 and Folate 10/08/2022 T Spot TB 04/23/2023 Calprotectin, Fecal 12/09/2023 Next Appt Details Provider Name:Aidan Weeks , 06/11/2024 01:00:00 PM, [address], [address], [place], [address], Insurance Providers Payer Name Payer Address Payer Phone Subscriber Number Group Number Insured Name Patient Relationship to Insured Coverage Start Date Coverage End Date [employer] [address] [place] [phone] [id number] DEEPA LERNER Self - patient is the insured MEDICAL (GENERAL) HISTORY Medical History History ICD Code Anemia Bipolar disease--sees Dr. Maria De Jesus Chacon at [facility] Denies AL,DM,CVA,Lung disease,renal dise ase Ulcerative proctitis diagnos ed during her hospitalization in late September of 2022. A colonoscopy revealed active ulcerative proctitis, but with a normal colon proximal to that and a normal terminal ileum. She did require blood transfusions and an iron infusion during that hospitalization as her admitting hemoglobin was 5.9. She was rehospitalized in [facility] of 2023 with hemoglobin of 5.7. She required transfusions. A flexible sigmoidoscopy revealed some active distal ulcerative proctitis but improved compared to 2022's above colonoscopy. She was started on prednisone and discharged. Her symptoms relapsed after the steroids finished in October of 2023. She was started on Stelara at the 12/09/2023 OV. Surgical History Surgery Date(Month/Year) 2008 Appy 2003 Hospitalization History Reason Date(Month/Year) Ulcerative proctitis with anemia in Apri l 2022
[2024-01-06 08:55] VITALS: BP 122/73; PULSE 109; RESP 14; TEMP 36.8; O2SAT 98
[2024-01-06] MEDS: Acetaminophen 325 MG TABLET 650 MG PO (09:42)
[2024-01-06] MEDS: Ustekinumab 520 MG in 0.9 % Sodium Chloride 146 ML 250 MG IV (09:44)
[2024-01-06] MEDS: 0.9 % Sodium Chloride Flush 10 ML SYRINGE 5 ML IVFLUSH (10:55)
== END 2024-01-06 14:31 | disposition home or self-care (01) ==
LOC: HO.INF 08:50
PROVIDERS: Visit Provider Internal Medicine
DX: K51.90 Ulcerative colitis, unspecified, without complications (principal); K62.89 Other specified diseases of anus and rectum
CPT/HCPCS: 96365; J3358

== ENCOUNTER → 2024-02-03 10:10 | Outpatient (BNV) | payer MEDICAID, SELFPAY | PROVIDERS: Referring Provider Internal Medicine; Visit Provider Internal Medicine | DX: D50.9 Iron deficiency anemia, unspecified (principal) | CPT/HCPCS: 99214; G2211 ==

== ENCOUNTER 2024-07-14 08:16 | Outpatient (REF) | payer MEDICAID, SELFPAY ==
[2024-07-14 08:28] LABS: MANUAL DIFF FLAG NO
[2024-07-14 08:58] LABS: Basophils Absolute Auto 0.1 X10*3/uL (0.0-0.2); Basophils Percent Auto 0.7 % (0-2); Eosinophils Absolute Auto 0.2 X10*3/uL (0.0-0.4); Eosinophils Percent Auto 1.5 % (0-4); Hematocrit 28.2 % (37.0-47.0); Hemoglobin 7.1 g/dl (12.0-16.0); Imm Gran Abs Auto 0.03 X10*3/uL (0.00-0.03); Imm Gran Pct Auto 0.3 % (0.0-0.4); Lymphocytes Absolute Auto 3.8 X10*3/uL (1.2-4.9); Mean Corpuscular HGB Conc 25.2 g/dl (31.0-35.0); Mean Corpuscular Hemoglobin 16.7 pg (27.0-33.0); Mean Corpuscular Volume 66.4 fL (80.0-98.0); Mean Platelet Volume 10.3 fL (9.4-12.3); Monocytes Absolute Auto 0.8 X10*3/uL (0.1-1.2); Monocytes Percent Auto 7.5 % (2-11); Neutrophils Absolute Auto 6.2 x10*3/uL (2.0-8.3); Platelet Count 691 X10*3/uL (160-400); Red Blood Count 4.25 X10*6/uL (4.20-5.50); Red Cell Distribution Width 19.9 % (11.0-16.0); White Blood Count 11.1 X10*3/uL (4.8-10.8)
[2024-07-14 09:42] LABS: Iron 20 mcg/dL (30-160); Percent Iron Saturation 5 % (15-50); Total Iron Binding Capacity 365 mcg/dL (228-428); Unsaturated Iron Binding 345 ug/dL
[2024-07-14 10:03] LABS: Ferritin < 2 ng/mL (10-250)
== END 2024-07-14 08:17 | disposition home or self-care (01) ==
LOC: HO.LAB 08:16
PROVIDERS: PCP Internal Medicine; Visit Provider Internal Medicine
DX: K51.211 Ulcerative (chronic) proctitis with rectal bleeding (principal); D50.0 Iron deficiency anemia secondary to blood loss (chronic)
CPT/HCPCS: 36415; 80299; 82542; 82728; 83540; 85025

== ENCOUNTER 2024-07-30 06:44 | Observation (INO) | payer MEDICAID, SELFPAY ==
[2024-07-30] VITALS (19 sets, daily range): BP systolic 112–135; BP diastolic 57–78; PULSE 82–167; RESP 12–25; TEMP 36.1–36.8; O2SAT 95–100; BMI 22.6
--- NOTE | ~2024-07-30 | CT_ITS ---
EXAMINATION: CT CHEST WITH CONTRAST CLINICAL INFORMATION: Short of breath and palpitations. COMPARISON: None available. TECHNIQUE: Multidetector volumetric CT imaging of the chest was obtained after the administration of 50 mL of Omnipaque 350 intravenous contrast without immediate adverse reactions. Axial MIP volume rendering provided. Sagittal and coronal reformatted images were obtained. This CT examination was performed using dose optimization techniques as appropriate, variously including the following: *Automated exposure control *Adjustment of mA and/or kV according to patient size (this includes techniques or standardized protocols for targeted exams where dose is matched to indication/reason for exam; i.e. extremities or head) *Use of iterative reconstruction technique FINDINGS: LUNGS: The lungs are clear with no evidence of inflammation or nodules. No abnormal opacities. No effusion or pneumothorax. Small airways appear normal. Central airways are patent. MEDIASTINUM: The mediastinum is normal. Normal thyroid. Normal esophagus. Trace pericardial effusion. PLEURA: There is no pleural effusion. No pleural mass or thickening. AXILLA/CHEST WALL: No lymphadenopathy. UPPER ABDOMEN: Top normal spleen at 12.0 cm. Mild diffuse fatty infiltration of the liver. Remainder the imaged upper abdominal contents appear normal. OSSEOUS STRUCTURES: No suspicious lytic or blastic bone lesion. Normal appearance. CT/CT chest w IV con IMPRESSION: 1. No acute pathology of the chest. The lungs are clear. 2. Trace pericardial effusion. 3. Borderline splenic enlargement. 4. Mild fatty infiltration of the liver. Electronically signed by: Justin White MD 07/30/2024 10:59 [facility]
--- NOTE | ~2024-07-30 | CT_ITS ---
EXAMINATION: CT ANGIOGRAM NECK CLINICAL INFORMATION: Right-sided facial droop. COMPARISON: None available. TECHNIQUE: Contiguous axial images through the brain using 2 mm collimation with soft tissue and bone algorithm. Sagittal and coronal reformatted images acquired. Contiguous axial images from the thoracic aortic arch to the skull vertex using 3 mm collimation following the IV contrast administration 70 cc Omnipaque 350 strength without reported immediate complications. Sagittal and coronal reformatted images acquired. Maximum intensity projections. Total DLP: 2042 mGy centimeter. The degree of stenosis determined by NASCET criteria. This CT examination was performed using dose optimization techniques as appropriate, variously including the following: *Automated exposure control *Adjustment of mA and/or kV according to patient size (this includes techniques or standardized protocols for targeted exams where dose is matched to indication/reason for exam; i.e. extremities or head) *Use of iterative reconstruction technique FINDINGS: CT brain: No acute intracranial hemorrhage or mass effect midline shift, hydrocephalus or herniation. 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 Bony calvarium is intact. Skull base is intact. Tympanic cavities and mastoid cells are aerated. No air-fluid levels in the included paranasal sinuses. CT angiogram of the thoracic aortic arch. Normal diameter without focal stenosis or intimal flap. CT angiogram neck: Right CCA: Normal. Right ICA: Normal. Retropharyngeal trajectory. Left CCA: Normal. Left ICA: Normal. V1/V2 segments demonstrated normal patency without intimal flap or focal stenosis. Both are orientating from the subclavian arteries. Left vertebral artery is dominant. CT angiogram head: Anterior cerebral circulation: ICAs: Calcified plaques in the cavernous supraclinoid segments. No focal stenosis. No abrupt cut off. MCA's: Normal patency. No focal stenosis or abrupt cut off. Bifurcation trifurcation demonstrated no gross irregularity. HANNAH: Normal patency. Small caliber left A1 segment. No focal stenosis. No abrupt cut off. Anterior communicating artery is small. Left posterior communicating artery is patent. The ophthalmic arteries are patent. The origin demonstrated no gross irregularity. Posterior cerebral circulation: V3/V4 segments are patent without focal stenosis or intimal flap. Left vertebral artery is dominant. Posterior inferior cerebellar arteries are patent without irregularity. Basilar artery is patent without focal stenosis or intimal flap. Superior cerebellar arteries are patent. 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 CT/CT angio head neck IMPRESSION: No dissection or high degree stenosis in the vessels of the neck. No main cerebral artery occlusion or embolus. Left vertebral artery is dominant. No main cerebral aneurysm. Electronically signed by: Ray Castillo MD 07/30/2024 11:06 AM [facility]
--- OUTSIDE RECORDS SUMMARY | 2024-07-30 07:23 | XMS_ITS ---
Author Organization [facility] Address [address] [place] [address] Care Team Providers Care Aerodynamics Teacher Name Role Phone LOC PARKER Primary Care Provider Aidan Rogers Unavailable [phone] REASON FOR VISIT reschedule Encounters Encounter Location Date Provider Diagnosis [facility] [address] [place] [address] 06/10/2024 Aidan Weeks Ulcerative (chronic) proctitis with rectal bleeding K51.211 and Iron deficiency anemia due to chronic blood loss D50.0 ASSESSMENTS Encounter Date Diagnosis Assessment Notes Treatment Notes Treatment Clinical Notes 06/10/2024 Ulcerative (chronic) proctitis with rectal bleeding (ICD-10 - K51.211) 06/10/2024 Iron deficiency anemia due to chronic blood loss (ICD-10 - D50.0) PLAN OF TREATMENT Pending Test Test Name Order Date IRON + IBC (FE) 06/10/2024 CBC w DIFF 06/10/2024 Ferritin 06/10/2024 [employer] UST 06/10/2024 Next Appt Details Provider Name:Aidan Weeks , 10/12/2024 01:00:00 PM, [address], [address], [place], [address],
--- OUTSIDE RECORDS SUMMARY | 2024-07-30 07:23 | XMS_ITS ---
Author Organization [facility] Address [address] [place] [address] Care Team Providers Care Money Market Dealer Name Role Phone LOC PARKER Primary Care Provider Aidan Rogers Unavailable [phone] REASON FOR VISIT Need to increase the Stelara injections to every 4 weeks PEREZ/ update Encounters Encounter Location Date Provider Diagnosis [facility] [address] [place] [address] 07/14/2024 Aidan Weeks PLAN OF TREATMENT Next Appt Details Provider Name:Aidan Weeks , 10/12/2024 01:00:00 PM, [address] [facility], [address], [place], [address],
--- OUTSIDE RECORDS SUMMARY | 2024-07-30 07:23 | XMS_ITS | Patient Health Record ---
Author Organization [facility] Address [address] [place] [address] Care Team Providers Care Elevator Examiner Name Role Phone LOC PARKER Primary Care Provider Aidan Rogers [phone] ALLERGIES Allergen (clinical drug ingredient) Drug/Non Drug Allergy documented on EMR Reaction Allergy Type Onset Date Status Substance with sulfonamide structure and antibacterial mechanism of action (substance) Sulfa Antibiotics Unknown Drug Allergy Active RESULTS Component Value Reference Range Notes Erythrocyte Sedimentation Ra te Reviewed date:08/12/2023 09:06:01 AM Interpretation: Performing Lab:[facility], [address] [place] [phone] Notes/Report: Erythrocyte Sedimentation Rate 10 0-20 MM/HR Patients with polycythemia and many hemoglobin abnormalities may have depressed sed rates whereas patients with anemia may have elevated sed rates. C Reactive Protein Reviewed date:08/12/2023 09:05:54 AM Interpretation: Performing Lab:[facility], [address] [place] [phone] Notes/Report: C Reactive Protein 0.26 < or = 0.50 mg/dL T Spot TB Reviewed date:08/15/2023 05:14:38 PM Interpretation: Performing Lab:[facility], [address] [place] [phone] Notes/Report: TSpotTB Negative Negative A negative test [...] Passed For additional information, please refer to http://education.Geeklist.The Huffington Post/faq/YAA508 (This link is being provided for informational/ educational purposes only.) THIS TEST WAS PERFORMED AT: [facility]/[address] [phone] CARLOS FARIAS MD,PHD Hepatitis B Profile Reviewed date:08/12/2023 09:06:15 AM Interpretation: Performing Lab:[address] [phone] Notes/Report: Hepatitis B Surface Antibody NONREACTIVE Nonreactive Nonreactive: < 8.00 mIU/mL Hepatitis B Core Antibody Nonreactive Nonreactive Hepatitis B Surface Antigen Negative Negative Ferritin Reviewed date:12/09/2023 07:56:16 PM Interpretation: Performing Lab:[facility], [address] [place] [phone] Notes/Report: Ferritin 2 10-250 ng/mL Complete Blood Count Auto Di ff Reviewed date:07/15/2024 09:43:59 AM Interpretation: Performing Lab:[address] [address] Notes/Report: White Blood Count 4.0 4.8-10.8 X10*3/uL [...] te Reviewed date:12/09/2023 07:55:47 PM Interpretation: Performing Lab:[address] [address] Notes/Report: Erythrocyte Sedimentation Rate 51 0-20 MM/HR Patients with polycythemia and many hemoglobin abnormalities may have depressed sed rates whereas patients with anemia may have elevated sed rates. Liver Panel Reviewed date:12/09/2023 07:55:54 PM Interpretation: Performing Lab:[address] [address] Notes/Report: Bilirubin Total 0.1 0.0-1.0 mg/dL Bilirubin Direct < 0.2 0.0-0.5 mg/dL Aspartate Amino Transferase 15 5-31 U/L Alanine Aminotransferase 10 0-31 U/L Total Protein 6.8 6.5-8.0 g/dL Albumin Level 3.7 3.5-5.0 g/dL Alkaline Phosphatase 52 39-117 U/L IRON PROFILE Reviewed date:12/09/2023 07:56:02 PM Interpretation: Performing Lab:[facility], [address] [place] [phone] Notes/Report: Iron 12 30-160 mcg/dL Total Iron Binding Capacity 295 228-428 mcg/d L Percent Iron Saturation 4 15-50 % Unsaturated Iron Binding 283 C Reactive Protein Reviewed date:12/09/2023 07:56:08 PM Interpretation: Performing Lab:[facility], [address] [place] [phone] Notes/Report: C Reactive Protein 0.85 < or = 0.50 mg/dL Complete Blood Count Auto Di ff Reviewed date:07/20/2024 03:54:56 PM Interpretation: Performing Lab:[facility], [address] [place] [phone] Notes/Report: White Blood Count 11.1 4.8-10.8 X10*3/uL Red Blood Count 4.25 4.20-5.50 X10*6/uL Hemoglobin 7.1 12.0-16.0 g/dl Hematocrit 28.2 37.0-47.0 % Mean Corpuscular Volume 66.4 80.0-98.0 fL Mean Corpuscular Hemoglobin 16.7 27.0-33.0 pg Mean Corpuscular HGB Conc 25.2 31.0-35.0 g/dl Red Cell Distribution Width 19.9 11.0-16.0 % Platelet Count 691 160-400 X10*3/uL Mean Platelet Volume 10.3 9.4-12.3 fL Neutrophils Percent Auto 56.0 45-73 % Imm Gran Pct Auto 0.3 0.0-0.4 % Lymphocytes Percent Auto 34.0 20-40 % Monocytes Percent Auto 7.5 2-11 % Eosinophils Percent Auto 1.5 0-4 % Basophils Percent Auto 0.7 0-2 % NRBC Pct Auto 0.0 0.0-0.2 /100WBC Neutrophils Absolute Auto 6.2 2.0-8.3 x10*3/u L Imm Gran Abs Auto 0.03 0.00-0.03 X10*3/uL Lymphocytes Absolute Auto 3.8 1.2-4.9 X10*3/u L Monocytes Absolute Auto 0.8 0.1-1.2 X10*3/uL Eosinophils Absolute Auto 0.2 0.0-0.4 X10*3/u L Basophils Absolute Auto 0.1 0.0-0.2 X10*3/uL NRBC Abs Auto 0.000 0.0-0.012 X10*3/uL IRON PROFILE Reviewed date:07/14/2024 07:01:59 PM Interpretation: Performing Lab:[facility], [address] [place] [phone] Notes/Report: Iron 20 30-160 mcg/dL Total Iron Binding Capacity 365 228-428 mcg/d L Percent Iron Saturation 5 15-50 % Unsaturated Iron Binding 345 Ferritin Reviewed date:07/14/2024 07:02:06 PM Interpretation: Performing Lab:[facility], [address] [place] [phone] Notes/Report: Ferritin < 2 10-250 ng/mL Ruddy Tabor UST Reviewed date:07/20/2024 03:55:13 PM Interpretation: Performing Lab:[facility], [address] [place] [phone] Notes/Report: Ruddy Tabor UST SEE NOTE SEE SCA NNED RESULTS IN EMR REASON FOR REFERRAL No Information MEDICATIONS Medication [...] proctitis with rectal bleeding (K51.211) Active confirmed 8831162 Problem Iron deficiency anemia due to chronic blood loss (D50.0) Active confirmed 382228410 Problem Anemia due to blood loss (D50.0) Active confirmed Anemia due to blood loss (131561261) Problem 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) Active confirmed Chronic ulcerative proctitis (78385380) VITAL SIGNS Blood pressure diastolic 00 mm Hg 12/09/2023 Height 5 ft 6 in in 12/09/2023 Blood pressure systolic 00 mm Hg 12/09/2023 Weight 193 lbs 12/09/2023 BMI 31.15 kg/m2 12/09/2023 Encounters Encounter Location Date Provider Diagnosis [facility] [address] [place] [phone] 08/12/2023 Aidan Weeks [facility] [address] [place] [phone] 09/25/2023 Aidan Weeks [facility] [address] [place] [phone] 12/09/2023 Aidan Weeks Ulcerative proctitis with rectal bleeding K51.211 and Iron deficiency anemia due to chronic blood loss D50.0 [facility] [address] [place] [phone] 06/11/2024 Aidan Weeks [facility] [address] [place] [phone] 08/14/2023 Aidan Weeks [facility] [address] [place] [phone] 08/12/2023 Aidan Weeks [facility] [address] [place] [phone] 08/14/2023 Aidan Weeks Iron deficiency anemia due to chronic blood loss D50.0 [facility] [address] [place] [phone] 09/23/2023 Aidan Weeks [facility] [address] [place] [phone] 12/10/2023 Aidan Weeks [facility] [address] [place] [phone] 06/10/2024 Aidan Weeks Ulcerative (chronic) proctitis with rectal bleeding K51.211 and Iron deficiency anemia due to chronic blood loss D50.0 [facility] [address] [place] [phone] 07/14/2024 Aidan Weeks ASSESSMENTS Encounter Date Diagnosis Assessment Notes Treatment Notes Treatment Clinical Notes 12/09/2023 Iron deficiency anemia due to chronic blood loss (ICD-10 - D50.0) 12/09/2023 Ulcerative proctitis with rectal bleeding (ICD-10 - K51.211) Stelara IV infusion and then Injections every 8 weeks 08/14/2023 Iron deficiency anemia due to chronic blood loss (ICD-10 - D50.0) 06/10/2024 Ulcerative (chronic) proctitis with rectal bleeding (ICD-10 - K51.211) 06/10/2024 Iron deficiency anemia due to chronic blood loss (ICD-10 - D50.0) PLAN OF TREATMENT Pending Test Test Name Order Date LIVER PROFILE 12/09/2023 IRON + IBC (FE) 10/08/2022 IRON + IBC (FE) 12/09/2023 IRON + IBC (FE) 06/10/2024 CRP 04/23/2023 CRP 12/09/2023 CBC w DIFF 04/23/2023 CBC w DIFF 10/08/2022 CBC w DIFF 06/10/2024 CBC w DIFF 12/09/2023 CBC w DIFF 08/14/2023 SED RATE (ESR) 04/23/2023 SED RATE (ESR) 12/09/2023 HEPATITIS B PROFILE 04/23/2023 C DIFFICILE RFLX PCR 12/09/2023 Ferritin 10/08/2022 Ferritin 06/10/2024 Vitamin B12 and Folate 10/08/2022 [facility] UST 06/10/2024 T Spot TB 04/23/2023 Calprotectin, Fecal 12/09/2023 Next Appt Details Provider Name:Aidan Weeks , 10/12/2024 01:00:00 PM, [address], [address], [place], [phone], Insurance Providers Payer Name Payer Address Payer Phone Subscriber Number Group Number Insured Name Patient Relationship to Insured Coverage Start Date Coverage End Date [employer] [address] [place] [phone] [id number] DEEPA LERNER Self - patient is the insured MEDICAL (GENERAL) HISTORY Medical History History ICD Code Anemia Bipolar disease--sees Dr. Maria De Jesus [place] at [facility] [place],DM,CVA,Lung disease,renal dise ase Ulcerative proctitis diagnos ed during her hospitalization in late September of 2022. A colonoscopy revealed active ulcerative proctitis, but with a normal colon proximal to that and a normal terminal ileum. She did require blood transfusions and an iron infusion during that hospitalization as her admitting hemoglobin was 5.9. She was rehospitalized in [facility] of 2023 with hemoglobin of 5.7. She [...]
--- OUTSIDE RECORDS SUMMARY | 2024-07-30 07:23 | XMS_ITS ---
Author Organization [facility] Address [address] [place] [address] Care Team Providers Care New Car Inspector Name Role Phone LOC PARKER Primary Care Provider Aidan Rogers Unavailable [phone] REASON FOR VISIT Patient presents today for anemia Encounters Encounter Location Date Provider Diagnosis [facility] [address] [place] [address] 06/11/2024 Aidan Weeks PLAN OF TREATMENT Next Appt Details Provider Name:Aidan Weeks , 10/12/2024 01:00:00 PM, [address], [address], [place], [address],
[2024-07-30] MEDS: diphenhydrAMINE HCL 25 MG CAPSULE PO (07:37)
[2024-07-30] MEDS: LORazepam 1 MG TABLET PO ×2 (07:37→15:02)
[2024-07-30 07:49] LABS: MANUAL DIFF FLAG NO
[2024-07-30 07:56] LABS: INTERNATIONAL NORM RATIO 1.2 (0.9-1.1); Prothrombin Time 13.7 SEC (10.9-12.4)
--- NOTE | 2024-07-30 07:56 | ED.GENADULT ---
HPI - General Adult General Chief complaint: General Medical Stated complaint: SOB Time Seen by Provider: 07/30/24 07:09 Source: patient and family Mode of arrival: ambulatory Limitations: no limitations History of Present Illness ED Provider: KEY Robison HPI narrative: This is a 39-year-old female past medical history significant for ulcerative colitis on immunosuppressive therapy, anemia, bipolar disorder on multiple psychiatric medications presenting to the emergency department with concerns that the right side of my face is not moving . Patient reports she got into the bathtub and started feeling weird, she felt like she could not move the right side of her face subsequently she became short of breath and started to panic. She reports this lasted a few minutes, then she reports her legs started shaking and she has been feeling very anxious. She tells me for the past few days she has been feeling unwell, unable to really elaborate on what feels unwell but she tells me she has not been eating or drinking as much as usual and she feels like she may be getting sick. She tells me she is back to normal however she is still feeling shaky. She denies fevers, chills, recent sick contacts, headache, vision changes, dizziness, weakness, nausea, vomiting, abdominal pain, chest pain and shortness of breath. LKWT 0700 NIH stroke scale is 0 Related Data Home Medications ?Medication ?Instructions ?Recorded ?Confirmed carbamazepine 200 mg tablet 600 mg PO BID 10/05/22 02/03/24 melatonin 5 mg tablet 5 mg PO BEDTIME 10/05/22 02/03/24 sertraline 50 mg tablet 125 mg PO DAILY@1300 10/05/22 02/03/24 ascorbic acid (vitamin C) 1,000 mg 1,000 mg PO BID 08/12/23 02/03/24 tablet balsalazide 750 mg capsule 2,250 mg PO TID 08/12/23 02/03/24 fluphenazine HCl 5 mg tablet 5 mg PO DAILY 08/12/23 02/03/24 mesalamine 1,000 mg rectal 1,000 mg DC BEDTIME 08/12/23 02/03/24 suppository Previous Rx's ?Medication ?Instructions ?Recorded ferrous sulfate 325 mg (65 mg 325 mg PO BID #60 tabs 10/07/22 iron) tablet cefuroxime axetil 250 mg tablet 250 mg PO BID #6 tabs 08/14/23 Allergies Allergy/AdvReac Type Severity Reaction Status Date / Time Sulfa (Sulfonamide AdvReac Rash Verified 07/30/24 06:47 Antibiotics) Review of Systems Review of Systems: Yes all other systems are reviewed and are negative [facility] Past Medical History Attestation statement: The following information was validated with the patient. Source: old records reviewed and nursing notes reviewed Medical History PMDD (premenstrual dysphoric disorder) ADD (attention deficit disorder) Ulcerative colitis Bipolar 1 disorder Depression Anjali Surgical History S/P tubal ligation Family History Family History Maternal Grandmother Pancreatic cancer Paternal Grandfather Pancreatic cancer Paternal Grandmother Breast cancer Uterine cancer Social History Social History Household Members: Significant Other Household Members Other:: I live by myself Housing: House Do you presently have visiting nurse or other home services: No Patient Tobacco Use Status: Never used Tobacco Smoked in Last 30 Days: No Second Hand Smoke Exposure: No Use of substances other than those prescribed or required for medical reasons: No Advance Directives: No Advance Directives Information Provided: No Patient : No service: No Current occupational status: unemployed Sexual orientation: Straight/Heterosexual Physical Exam ED Vital Signs: Vital Signs - 24 hr 07/30/24 06:45 07/30/24 08:28 07/30/24 08:29 Temperature 97.4 F 97.0 F Pulse Rate 167 H 153 H 155 H Respiratory Rate 20 19 18 Blood Pressure 130/70 135/70 Pulse Oximetry 95 96 99 Oxygen Delivery Method Room Air Room Air Room Air 07/30/24 08:37 07/30/24 09:17 07/30/24 09:32 Temperature 98.3 F 98.3 F Pulse Rate 135 H 112 H 107 H Respiratory Rate 25 H 18 16 Blood Pressure 130/75 120/69 124/72 Pulse Oximetry 97 Oxygen Delivery Method Room Air 07/30/24 10:08 07/30/24 10:28 07/30/24 10:43 Temperature Pulse Rate 133 H 108 H 102 H Respiratory Rate 20 20 12 Blood Pressure 118/73 124/67 120/69 Pulse Oximetry 100 99 95 Oxygen Delivery Method Room Air Room Air Room Air 07/30/24 11:43 07/30/24 12:30 Temperature 98.1 F Pulse Rate 104 H 107 H Respiratory Rate 17 18 Blood Pressure 131/74 112/64 Pulse Oximetry 95 Oxygen Delivery Method Room Air BMI result Body Mass Index 22.6 vss Appearance: Alert.? Oriented X3.? No acute distress.? Head: Normocephalic, atraumatic, no step-offs or deformities Eyes: Pupils equal, round and reactive to light.? CVS: Normal heart rate and rhythm.? Pulses normal.? Respiratory: No respiratory distress.? Breath sounds normal.? Abdomen: Soft and nontender.? Skin: Skin warm and dry.? Normal skin color.? Normal skin turgor.? Extremities: No lower extremity edema.? No calf ttp. 5/5 strength to bilateral upper and lower extremities Neuro: Oriented X 3.? No motor deficit.? No sensory deficit. CN 2-12 intact Course Reevaluation(s) Reevaluation #1: Patient having palpitations. Heart rate on the monitor 155. SVT noted. Valsalva attempted with some improvement. Will continue to monitor. Patient receiving IV fluids at this time. Patient's CBC with a microcytic anemia hemoglobin 6.7 hematocrit 25.9. Chemistry unremarkable. Time: 08:42 Reevaluation #2: Patient receiving blood transfusion heart rate going down however still tachycardic. Patient tells me she still does not feel right. She feels weak and unwell. Will discuss this case with hospitalist for admission. Patient does not want a rectal exam and tells me she just had a bowel movement earlier today. Time: 11:47 Reevaluation #3: Discuss this case with hospitalist Betty who accepts admission Medications Administered Discontinued Medications Generic Name Dose Route Start Last Admin Trade Name Freq PRN Reason Stop Dose Admin Diphenhydramine HCl 25 mg 07/30/24 07:27 07/30/24 07:37 Diphenhydramine Hcl 25 Mg Capsule PO 07/30/24 07:28 25 mg ONCE ONE Administration Sodium Chloride 1,000 mls @ 999 mls/hr 07/30/24 08:45 07/30/24 11:31 Ns IV 07/30/24 09:45 Infused .Q1H1M LOGAN Infusion Iohexol 100 ml 07/30/24 10:47 07/30/24 10:47 Iohexol 350 Mg/Ml 100 Ml Infus..Btl IV 07/30/24 10:48 70 ml ONCE ONE Administration Lorazepam 1 mg 07/30/24 07:27 07/30/24 07:37 Lorazepam 1 Mg Tablet PO 07/30/24 07:28 1 mg ONCE ONE Administration Medical Decision Making Medical Decision Making [facility] Narrative: 39-year-old female presents with concerns of the right side of her face was not moving for a short period of time. Back to normal however still very anxious. PE- patient anxious and pale apeparing Hx and PE concerning for possible panic attack versus adverse reaction from psychiatric medicine. I do not suspect acute stroke, intracranial hemorrhage, dissection, CVA, TIA. Panic attack most likely. Due to patient's significant history of anemia will rule out anemia and other metabolic derangements. Plan labs, imaging. Differential Diagnosis Differential Diagnoses: The differential diagnosis associated with the presentation includes (Hx and PE concerning for possible panic attack versus adverse reaction from psychiatric medicine. I do not suspect acute stroke, intracranial hemorrhage, dissection, CVA, TIA. Panic attack most likely. Due to patient's significant history of anemia will rule out anemia and other metabolic derange) Admission/Observation Consideration of admission/observation: Escalation of care including admission/observation considered (Possible) Lab Data [facility] Lab Attestation statement: I reviewed the patient's lab results. 07/30/24 07:44 07/30/24 07:44 Labs: Lab Results 07/30/24 07/30/24 07/30/24 Range/Units 07:44 08:19 11:43 WBC 8.6 (4.8-10.8) X10*3/uL RBC 3.99 L (4.20-5.50) X10*6/uL Hgb 6.7 L* (12.0-16.0) g/dl Hct 25.9 L (37.0-47.0) % MCV 64.9 L (80.0-98.0) fL MCH 16.8 L (27.0-33.0) pg MCHC 25.9 L (31.0-35.0) g/dl RDW 19.9 H (11.0-16.0) % Plt Count 589 H (160-400) X10*3/uL MPV 9.9 (9.4-12.3) fL Immature Gran % (Auto) 0.5 H (0.0-0.4) % Neut % (Auto) 79.5 H (45-73) % Lymph % (Auto) 12.1 L (20-40) % [place] % (Auto) 6.5 (2-11) % Eos % (Auto) 0.9 (0-4) % Baso % (Auto) 0.5 (0-2) % Lymph # (Auto) 1.0 L (1.2-4.9) X10*3/uL [place] # (Auto) 0.6 (0.1-1.2) X10*3/uL Eos # (Auto) 0.1 (0.0-0.4) X10*3/uL Baso # (Auto) 0.0 (0.0-0.2) X10*3/uL Abs Immat Gran (auto) 0.04 H (0.00-0.03) X10*3/uL Absolute Neuts (auto) 6.8 (2.0-8.3) x10*3/uL Absolute Nucleated RBC 0.000 (0.0-0.012) X10*3/uL Nucleated RBC % (auto) 0.0 (0.0-0.2) /100WBC PT 13.7 H (10.9-12.4) SEC INR 1.2 H (0.9-1.1) Sodium 140 (135-145) mmol/L Potassium 3.8 (3.3-5.1) mmol/L Chloride 105 (96-108) mmol/L Carbon Dioxide 21 L (22-29) mmol/L Anion Gap 18 (12-20) BUN 8 L (9-16) mg/dL Creatinine 0.70 (0.5-1.4) mg/dL Estim Creat Clear Calc 98.9 Estimated GFR > 60 Random Glucose 113 (60-115) mg/dL Calcium 9.3 D (8.4-10.2) mg/dL Magnesium 1.9 (1.6-2.6) mg/dL Iron 11 L (30-160) mcg/dL TIBC 328 (228-428) mcg/dL % Saturation 3 L (15-50) % Unsat Iron Binding 317 ug/dL Total Bilirubin 0.1 (0.0-1.0) mg/dL AST 21 (5-31) U/L ALT 15 (0-31) U/L Alkaline Phosphatase 65 (39-117) U/L Troponin I High Sens < 2.7 (<3.5-17.0) ng/L B-Natriuretic Peptide < 10 (<100) pg/mL Total Protein 7.8 (6.5-8.0) g/dL Albumin 4.1 (3.5-5.0) g/dL Beta HCG, Quant < 2 mIU/mL Influenza Type A (PCR) NEGATIVE (Negative) Influenza Type B (PCR) NEGATIVE (Negative) RSV RNA Qual (PCR) NEGATIVE (Negative) SARS-CoV-2 RNA (RT-PCR) NEGATIVE (Negative) Blood Type A Positive Antibody Screen NEGATIVE Crossmatch See Detail Independent Interpretation I performed an independent interpretation of an: CT Scan Radiology Impression Discussion of test interpretation with radiology: I have reviewed the radiologist's reading. Independent Historian Clinical information obtained from an independent historian. History obtained from or confirmed by: Friend (Significant other) External Record Review External record reviewed: Inpatient record, Office record, Outpatient record, Prior outpatient labs, Prior outpatient radiology, Primary care record and Outside ED record Chronic Conditions Patient?s care impacted by: Other (See HPI) Critical Care Time Critical Care Time Critical Care Time: Yes Total Critical Care Time: 35 Attestation: I attest to this time spent taking care of the patient, obtaining history, physical, reviewing labs, imaging, speaking to my attending, speaking to specialist. Discharge Plan Discharge Clinical Impression: Anemia, SVT (supraventricular tachycardia), Anxiety Patient Disposition: Admitted As Inpatient Prescriptions: No Action melatonin 5 mg Tablet 5 mg PO BEDTIME sertraline 50 mg tablet 125 mg PO DAILY@1300 carbamazepine 200 mg tablet 600 mg PO BID ferrous sulfate 325 mg (65 mg iron) tablet 325 mg PO BID Qty: 60 0RF balsalazide 750 mg capsule 2,250 mg PO TID fluphenazine HCl 5 mg tablet 5 mg PO DAILY mesalamine 1,000 mg suppository 1,000 mg DC BEDTIME ascorbic acid (vitamin C) 1,000 mg Tablet 1,000 mg PO BID cefuroxime axetil 250 mg tablet 250 mg PO BID Qty: 6 0RF Print Language: Turkish
[2024-07-30 07:58] LABS: Basophils Percent Auto 0.5 % (0-2); Eosinophils Absolute Auto 0.1 X10*3/uL (0.0-0.4); Eosinophils Percent Auto 0.9 % (0-4); Hematocrit 25.9 % (37.0-47.0); Imm Gran Abs Auto 0.04 X10*3/uL (0.00-0.03); Imm Gran Pct Auto 0.5 % (0.0-0.4); Lymphocytes Percent Auto 12.1 % (20-40); Mean Corpuscular HGB Conc 25.9 g/dl (31.0-35.0); Mean Corpuscular Hemoglobin 16.8 pg (27.0-33.0); Mean Platelet Volume 9.9 fL (9.4-12.3); Monocytes Absolute Auto 0.6 X10*3/uL (0.1-1.2); Monocytes Percent Auto 6.5 % (2-11); Neutrophils Absolute Auto 6.8 x10*3/uL (2.0-8.3); Neutrophils Percent Auto 79.5 % (45-73); Platelet Count 589 X10*3/uL (160-400); Red Blood Count 3.99 X10*6/uL (4.20-5.50); Red Cell Distribution Width 19.9 % (11.0-16.0); White Blood Count 8.6 X10*3/uL (4.8-10.8)
[2024-07-30 08:00] LABS: Hemoglobin 6.7 g/dl (12.0-16.0); Mean Corpuscular Volume 64.9 fL (80.0-98.0)
[2024-07-30 08:05] LABS: Alanine Aminotransferase 15 U/L (0-31); Albumin Level 4.1 g/dL (3.5-5.0); Alkaline Phosphatase 65 U/L (39-117); Anion Gap 18 (12-20); Aspartate Amino Transferase 21 U/L (5-31); Bilirubin Total 0.1 mg/dL (0.0-1.0); Blood Urea Nitrogen 8 mg/dL (9-16); Calcium 9.3 mg/dL (8.4-10.2); Carbon Dioxide 21 mmol/L (22-29); Chloride 105 mmol/L (96-108); Creatinine Clr Calc Pharmacy 98.9; Estimated Glomerular Filt Rate > 60; Glucose Random 113 mg/dL (60-115); Magnesium 1.9 mg/dL (1.6-2.6); Potassium 3.8 mmol/L (3.3-5.1); Sodium 140 mmol/L (135-145); Total Protein 7.8 g/dL (6.5-8.0)
[2024-07-30 08:10] LABS: B Type Natriuretic Peptide < 10 pg/mL (<100)
[2024-07-30 08:13] LABS: Troponin-I High Sensitivity < 2.7 ng/L (<3.5-17.0)
--- NOTE | 2024-07-30 08:28 | ECG_ITS ---
Test Reason : TACHYCARDIA Blood Pressure : */* mmHG Vent. Rate : 139 BPM Atrial Rate : * BPM P-R Int : * ms QRS Dur : 70 ms QT Int : 358 ms P-R-T Axes : * 26 34 degrees QTcB Int : 544 ms Sinus tachycardia Otherwise normal EKG When compared with ECG of 12-Aug-2023 12:30, Increase in ventricular rate Referred By: Peggy Robison Electronically Signed By: DOC COYNE
[2024-07-30] MEDS: 0.9 % Sodium Chloride 1,000 ML 999 ML IV (08:43)
--- NOTE | 2024-07-30 08:44 | PC.NURSE ---
assumed care of patient, patient moved into room 13 for cardiac monitoring. Ed provider attempted valsava, patient remains in sinus tach 130s-150s. patient bp stable. fluid bolus started per MAR, patient is alert and orientedx4, skin dusky but dry and intact. patient has bilat IV access. blood transfusion consent signed
[2024-07-30 08:57] LABS: HCG Quantitative < 2 mIU/mL
[2024-07-30 09:09] LABS: Iron 11 mcg/dL (30-160); Percent Iron Saturation 3 % (15-50); Total Iron Binding Capacity 328 mcg/dL (228-428); Unsaturated Iron Binding 317 ug/dL
--- NOTE | 2024-07-30 09:41 | PC.NURSE ---
patient blood transfusion started per TAR. VSS, patient is awake and alert, resp even and unlabored.
--- NOTE | 2024-07-30 10:08 | MHC.EDTECH ---
upon return from CT scan, pt requested to use bathroom, ambulated steadily and now is at rest in bed
[2024-07-30] MEDS: iohexoL 350 MG/ML 100 ML INFUS..BTL IV (10:47)
[2024-07-30 12:29] LABS: Influenza A PCR NEGATIVE (Negative); Influenza B PCR NEGATIVE (Negative); Resp Syncy Virus RNA Qual PCR NEGATIVE (Negative); SARS COV2 PCR INHOUSE NEGATIVE (Negative)
--- NOTE | 2024-07-30 14:06 | P.HPHOSP_ITS ---
History of Present Illness Date of Service: 07/30/24 Chief Complaint: multiple issues The patient is a 39-year-old female with a past medical history of ulcerative colitis on Stelara, bipolar disorder, anxiety, ADD who presents to the emergency room with complaints of multiple issues. The patient reports that she was taking a bath this morning when she felt an unusual sensation in her body and subsequently felt that her mild/face were ?not moving.? She states that she notified her boyfriend who was home and subsequently presented to the emergency room. The ED the patient had NIH stroke scale of 0. Neurologically she had no deficits. However she was found to be tachycardic with SVT going up to 150s. She was found to be anemic with a hemoglobin less than 7. She deferred rectal exam. But denied any rectal bleeding. In the emergency room she was treated with p.o. Ativan x2, Benadryl x1, 1 L of IV fluids and is being transfused 1 unit of packed red cells. She will now be placed under observation for further monitoring and evaluation. Review of Systems 2 Review of Systems: Negative except HPI/interval history. [facility] Medical History PMDD (premenstrual dysphoric disorder) ADD (attention deficit disorder) Ulcerative colitis Bipolar 1 disorder Depression Anjali Family History Maternal Grandmother Pancreatic cancer Paternal Grandfather Pancreatic cancer Paternal Grandmother Breast cancer Uterine cancer Surgical History S/P tubal ligation Social History Household Members: Significant Other Household Members Other:: I live by myself Housing: House Do you presently have visiting nurse or other home services: No Patient Tobacco Use Status: Never used Tobacco Smoked in Last 30 Days: No Second Hand Smoke Exposure: No Use of substances other than those prescribed or required for medical reasons: No Advance Directives: No Advance Directives Information Provided: No Patient : No service: No Current occupational status: unemployed Sexual orientation: Straight/Heterosexual Meds Allergies Allergy/AdvReac Type Severity Reaction Status Date / Time Sulfa (Sulfonamide AdvReac Rash Verified 07/30/24 06:47 Antibiotics) Home Medications ?Medication ?Instructions ?Recorded ?Confirmed ?Last Taken ?Type carbamazepine 200 mg tablet 600 mg PO BID 10/05/22 07/30/24 07/30/24 07:00 History melatonin 5 mg tablet 5 mg PO BEDTIME 10/05/22 07/30/24 07/29/24 History sertraline 50 mg tablet 125 mg PO DAILY@1300 10/05/22 07/30/24 07/29/24 History ascorbic acid (vitamin C) 1,000 mg 1,000 mg PO DAILY 08/12/23 07/30/24 07/30/24 07:00 History tablet mesalamine 1,000 mg rectal 1,000 mg KS BEDTIME 08/12/23 07/30/24 07/29/24 History suppository hydroxyzine HCl 25 mg tablet 25 mg PO BID PRN Anxiety 07/30/24 07/30/24 Unknown History ustekinumab 90 mg/mL subcutaneous 90 mg subcut Q4W 07/30/24 07/30/24 07/14/24 History syringe (Stelara) Physical Exam 2 Vital Signs and Narrative: Vital Signs: Last Vital Signs Temp 98.3 F 07/30/24 13:13 Pulse 103 H 07/30/24 13:13 Resp 18 07/30/24 13:13 BP 122/61 07/30/24 13:13 Pulse Ox 95 07/30/24 11:43 O2 Del Method Room Air 07/30/24 11:43 BMI result Body Mass Index 22.6 Const: Other: Constitutional - Awake and Alert, No apparent distress Eyes - PERRLA, EOMI Cardiovascular - S1S2, RRR, No edema Respiratory - Normal lung expansion, Normal respiratory effort, No respiratory distress, CTA bilaterally Gastrointestinal - NT / ND; +BS; No rebound or guarding - No CVA tenderness Extremities - no calf tenderness bilaterally, no swelling Musculoskeletal - Normal inspection, normal ROM Skin - Warm/Dry Neurological - Alert & oriented x3, No focal deficit Psychological - Appropriate affect Results Labs 07/30/24 07:44 07/30/24 07:44 Labs: Laboratory Results - last 24 hr 07/30/24 07/30/24 07/30/24 07:44 08:19 11:43 MCV 64.9 L MCH 16.8 L MCHC 25.9 L RDW 19.9 H Plt Count 589 H MPV 9.9 Immature Gran % (Auto) 0.5 H Neut % (Auto) 79.5 H Lymph % (Auto) 12.1 L Kimble % (Auto) 6.5 Eos % (Auto) 0.9 Baso % (Auto) 0.5 Lymph # (Auto) 1.0 L Kimble # (Auto) 0.6 Eos # (Auto) 0.1 Baso # (Auto) 0.0 Abs Immat Gran (auto) 0.04 H Absolute Neuts (auto) 6.8 Absolute Nucleated RBC 0.000 Nucleated RBC % (auto) 0.0 PT 13.7 H INR 1.2 H Anion Gap 18 Estim Creat Clear Calc 98.9 Estimated GFR > 60 Random Glucose 113 Calcium 9.3 D Magnesium 1.9 Iron 11 L TIBC 328 % Saturation 3 L Unsat Iron Binding 317 Total Bilirubin 0.1 AST 21 ALT 15 Alkaline Phosphatase 65 B-Natriuretic Peptide < 10 Total Protein 7.8 Albumin 4.1 Beta HCG, Quant < 2 Influenza Type A (PCR) NEGATIVE Influenza Type B (PCR) NEGATIVE RSV RNA Qual (PCR) NEGATIVE SARS-CoV-2 RNA (RT-PCR) NEGATIVE Blood Type A Positive Antibody Screen NEGATIVE Crossmatch See Detail Imaging Radiologist's Impressions: Impressions Chest CT 07/30/24 08:42 IMPRESSION: 1. No acute pathology of the chest. The lungs are clear. 2. Trace pericardial effusion. 3. Borderline splenic enlargement. 4. Mild fatty infiltration of the liver. Electronically signed by: Justin White MD 07/30/2024 10:59 AM [facility] Head/Neck CTA 07/30/24 09:48 IMPRESSION: No dissection or high degree stenosis in the vessels of the neck. No main cerebral artery occlusion or embolus. Left vertebral artery is dominant. No main cerebral aneurysm. Electronically signed by: Ray Castillo MD 07/30/2024 11:06 AM [facility] Assessment and Plan (1) Acute on chronic anemia: Status: Acute Plan 39-year-old female with ulcerative colitis and multiple psychiatric diagnoses who presents with reports of ?the right side of my face not moving. She appears to be significantly anxious. Her workup in the emergency room showed SVT and anemia. 1. Acute on chronic PHANI no current evidence of acute blood loss Patient has deferred rectal exam but denies rectal bleeding Has known anemia due to her difficult to control ulcerative colitis Being transfused 1 unit packed red cells, we will repeat H and H tomorrow morning 2. SVT Rates as high as 155, now improved Monitor on tele Further workup if ongoing 3. UC continue baseline meds 4. mood continue baseline meds Full Code DVT pptx - low risk, early ambulation Quality Stroke Does the patient have a stroke diagnosis?: No VTE Prior VTE?: No VTE Risk Level:: Medical - low VTE Device Contraindication: N/A - Device Ordered VTE Drug Contraindication: Treatment Not Indicated
--- NOTE | 2024-07-30 14:18 | PHA.MEDREC ---
Addendum entered by Mario Braga 07/30/24 14:27: reviewed Original Note: Pharmacy Consult ? Medication Reconciliation Pharmacy has completed the medication reconciliation. Spoke with patient and she confirmed her medications. She confirmed her Stelara injection once every 4 weeks and confirmed she last got the dose on 07/14. She confirmed she took her morning medications this morning and everything else yesterday.
[2024-07-30] MEDS: carBAMazepine 200 MG TABLET 600 MG PO (20:29)
[2024-07-30] MEDS: Ferrous Sulfate 324 MG TABLET.DR PO (20:29)
[2024-07-31 01:03] VITALS: BP 131/77; PULSE 102; RESP 20; TEMP 36.8; O2SAT 96
--- NOTE | 2024-07-31 01:03 | PC.NURSE ---
this rn assumed care of pt @ [id number] pt denies pain at this time report given awaiting transport to bed assignment [id number]
[2024-07-31] MEDS: 0.9 % Sodium Chloride Flush 3 ML SYRINGE IVFLUSH ×2 (01:04→08:55)
[2024-07-31 01:43] VITALS: BP 137/84; PULSE 96; RESP 16; TEMP 37.1; O2SAT 95
[2024-07-31 01:47] VITALS: BMI 28.0
[2024-07-31] MEDS: hydrOXYzine HCL 25 MG TABLET PO ×2 (02:04→09:05)
[2024-07-31 07:25] LABS: Hemoglobin 8.1 g/dl (12.0-16.0); Mean Corpuscular HGB Conc 28.9 g/dl (31.0-35.0); Platelet Count 350 X10*3/uL (160-400); Red Blood Count 4.06 X10*6/uL (4.20-5.50); Red Cell Distribution Width 21.2 % (11.0-16.0); White Blood Count 5.3 X10*3/uL (4.8-10.8)
[2024-07-31 08:00] VITALS: BP 111/72; PULSE 105; RESP 18; TEMP 36.5; O2SAT 98
--- NOTE | 2024-07-31 08:02 | MHC.CM.PN ---
CM met with Patient at bedside and addressed TELLEZ with her, providing Patient with the original and a copy has been placed on the chart. Patient lives in a house with her Boyfriend, who will transport Patient home at time of dc. Patient required no services nor DME OFFICE COPY SELECTOR and home/self care is her goal. CM has initiated and will follow for dc planning. PCP is Dr. Ida Kimble.
[2024-07-31] MEDS: Sodium Ferric Gluconat/Sucrose 125 MG in 0.9 % Sodium Chloride 100 ML 100 MG IV (08:54)
[2024-07-31] MEDS: Ascorbic Acid 500 MG TABLET 1000 MG PO (08:55)
[2024-07-31] MEDS: carBAMazepine 200 MG TABLET 600 MG PO (08:55)
[2024-07-31 10:08] LABS: Free T4 (Free Thyroxine) 0.91 ng/dL (0.71-1.85)
--- NOTE | 2024-07-31 10:49 | P.DS_ITS ---
DS: Providers Provider Date of Service: 07/31/24 Date of admission: 07/30/24 14:05 Date of discharge: 07/31/24 Primary care physician: Ida Kimble MD DS: Diagnosis Discharge Diagnosis (1) Acute on chronic anemia: Status: Acute (2) Symptomatic anemia: Status: Acute (3) SVT (supraventricular tachycardia): Status: Acute DS: Summary Hospital Course Hospital Course: Admission note HPI The patient is a 39-year-old female with a past medical history of ulcerative colitis on Stelara, bipolar disorder, anxiety, ADD who presents to the emergency room with complaints of multiple issues. The patient reports that she was taking a bath this morning when she felt an unusual sensation in her body and subsequently felt that her mild/face were ?not moving.? She states that she notified her boyfriend who was home and subsequently presented to the emergency room. The ED the patient had NIH stroke scale of 0. Neurologically she had no deficits. However she was found to be tachycardic with SVT going up to 150s. She was found to be anemic with a hemoglobin less than 7. She deferred rectal exam. But denied any rectal bleeding. In the emergency room she was treated with p.o. Ativan x2, Benadryl x1, 1 L of IV fluids and is being transfused 1 unit of packed red cells. She will now be placed under observation for further monitoring and evaluation. Hospital course The patient was admitted for treatment of symptomatic Acute on chronic anemia with iron deficiency. no current evidence of acute blood loss. Patient has deferred rectal exam but denies rectal bleeding. likely progressive anemia due to ulcerative colitis. transfused 1 unit packed red cells with good response as Hb improved to 8.1 from 6.7. Started on IV IRon supplement. To be discharged home on PO Iron, Omeprazole. to repeat CBC next week. Evaluated for SVT at presentation. resovled without intervention. no recurrence. likely related to anemia. TSH and T4 acceptable levels. History of UC to continue home medications and follow up with GI as scheduled. Discharge plan Take Iron supplement as prescribed Omeprazole daily for stomach protection repeat blood work next week Follow with GI as outpatient as scheduled Time Attestation Discharge Coordination Time (in mins): 27 Quality: Safe Use of Opioids Does Pt have an Active Cancer Diagnosis on the Problem List?: No Quality: Stroke Does the patient have a stroke diagnosis?: No Physical Exam Vital Signs: Vital Signs: Last Vital Signs Temp 97.7 F 07/31/24 08:00 Pulse 105 H 07/31/24 08:00 Resp 18 07/31/24 08:00 BP 111/72 07/31/24 08:00 Pulse Ox 98 07/31/24 08:00 O2 Del Method Room Air 07/31/24 08:00 BMI result Body Mass Index 28.0 Const: Other: Constitutional : interactive, not in distress Cardiovascular : no JVP, no lower extremity edema Respiratory : bilateral chest movement, not in resp distress Gastrointestinal: soft, lax, Non tender Skin : Warm, Dry Neurological : Alert & oriented , No focal deficit , continously shaking lower extremities DS: Data Data Completed and Pending Completed studies during hospitalization [Text1]: Procedures Excision of Rectum, Via Natural or Artificial Opening Endoscopic, Diagnostic (10/05/22) Inspection of Lower Intestinal Tract, Via Natural or Artificial Opening Endoscopic (08/12/23) Transfusion of Nonautologous Red Blood Cells into Peripheral Vein, Percutaneous Approach (08/12/23) Labs on day of discharge: Laboratory Results - last 24 hr 07/30/24 07/30/24 07/31/24 08:19 11:43 06:25 WBC 5.3 RBC 4.06 L Hgb 8.1 L D Hct 28.0 L MCV 69.0 L MCH 20.0 L MCHC 28.9 L RDW 21.2 H Plt Count 350 D MPV 10.0 Absolute Nucleated RBC 0.000 Nucleated RBC % (auto) 0.0 TSH Free T4 Influenza Type A (PCR) NEGATIVE Influenza Type B (PCR) NEGATIVE RSV RNA Qual (PCR) NEGATIVE SARS-CoV-2 RNA (RT-PCR) NEGATIVE Blood Type A Positive Antibody Screen NEGATIVE Crossmatch See Detail 07/31/24 08:43 WBC RBC Hgb Hct MCV MCH MCHC RDW Plt Count MPV Absolute Nucleated RBC Nucleated RBC % (auto) TSH 0.30 L Free T4 0.91 Influenza Type A (PCR) Influenza Type B (PCR) RSV RNA Qual (PCR) SARS-CoV-2 RNA (RT-PCR) Blood Type Antibody Screen Crossmatch Imaging Chest x-ray: Radiologist's impression: ITS Impressions Chest CT 07/30/24 08:42 IMPRESSION: 1. No acute pathology of the chest. The lungs are clear. 2. Trace pericardial effusion. 3. Borderline splenic enlargement. 4. Mild fatty infiltration of the liver. Electronically signed by: Justin White MD 07/30/2024 10:59 AM EST [facility] Head/Neck CTA 07/30/24 09:48 IMPRESSION: No dissection or high degree stenosis in the vessels of the neck. No main cerebral artery occlusion or embolus. Left vertebral artery is dominant. No main cerebral aneurysm. Electronically signed by: Ray Castillo MD 07/30/2024 11:06 AM EST RP Discharge Plan Discharge Anticipated Discharge Date/Time: 07/31/24 10:39 Patient Disposition: Home, Self-Care Discharge Diagnosis: Symptomatic anemia Palpitations Referrals: Ida Kimble MD [Primary Care Provider] - 1 Week Discharge Medications: New omeprazole 20 mg capsule,delayed release(DR/EC) 20 mg PO DAILY Qty: 90 0RF Continued melatonin 5 mg Tablet 5 mg PO BEDTIME sertraline 50 mg tablet 125 mg PO DAILY@1300 carbamazepine 200 mg tablet 600 mg PO BID hydroxyzine HCl 25 mg tablet 25 mg PO BID PRN (Reason: Anxiety) Stelara 90 mg/mL syringe 90 mg subcut Q4W ferrous sulfate 325 mg (65 mg iron) tablet 325 mg PO BID Qty: 60 0RF mesalamine 1,000 mg suppository 1,000 mg MA BEDTIME ascorbic acid (vitamin C) 1,000 mg Tablet 1,000 mg PO DAILY Discharge Orders: Discharge Order (Routine); Ordered 07/31/24 Ordered By: Jignesh Matthews Diet: Advance to usual diet Activity on Discharge: As tolerated Stand Alone Forms: Patient Portal Discharge page Print Language: Ghanaian Other Ambulatory Orders: Complete Blood Count Auto Diff (Routine) Timeframe: 1 Week Facility: [facility] - Location: Laboratory Ordered By: Jignesh Matthews Care Plan Goals: Take Iron supplement as prescribed Omeprazole daily for stomach protection repeat blood work next week Follow with GI as outpatient as scheduled Health Concerns: Symptomatic anemia Palpitations Plan of Treatment: Iron supplement Omeprazole repeat labs Assessment: as above
--- NOTE | 2024-07-31 11:01 | MHC.CM.PN ---
Patient has been medically cleared for dc to home today, self care.
[2024-07-31 11:28] VITALS: BP 121/70; PULSE 89; RESP 18; TEMP 36.4; O2SAT 98
== END 2024-07-31 11:15 | disposition home or self-care (01) ==
LOC: HO.ED 12:37 → HO.EDOVER 14:29 → HO.IMC 07-31 00:52
PROVIDERS: Physician Assistant; Admitting Provider Family Medicine; Emergency Provider Emergency Medicine; PCP Internal Medicine; Visit Provider Student in an Organized Health Care Education/Training Program
DX: D50.9 Iron deficiency anemia, unspecified (principal); R00.2 Palpitations; I47.10 Supraventricular tachycardia, unspecified; K51.90 Ulcerative colitis, unspecified, without complications; F39 Unspecified mood [affective] disorder; R06.02 Shortness of breath; R29.810 Facial weakness; Z79.899 Other long term (current) drug therapy
CPT/HCPCS: 0241U; 36415; 36430; 70496; 70498; 71260; 80053; 83540; 83735; 83880; 84439; 84443; 84484; 84702; 85025; 85027; 85610; 86850; 86900; 86901; 86923; 93005; 96361; 96365; 96366; 99222; 99285; J2916; P9016; Q9967

== ENCOUNTER → 2024-07-30 07:27 | Outpatient (BNV) | payer MEDICAID, SELFPAY | PROVIDERS: Emergency Provider Emergency Medicine; PCP Internal Medicine; Visit Provider Radiology Diagnostic Radiology | DX: R29.810 Facial weakness (principal); R06.02 Shortness of breath; R00.2 Palpitations | CPT/HCPCS: 70496; 70498; 71260 ==

== ENCOUNTER → 2024-07-30 08:28 | Outpatient (BNV) | payer MEDICAID, SELFPAY | PROVIDERS: Admitting Provider Family Medicine; Emergency Provider Emergency Medicine; PCP Internal Medicine; Visit Provider Internal Medicine | DX: R00.0 Tachycardia, unspecified (principal) | CPT/HCPCS: 93010 ==

== ENCOUNTER → 2024-07-30 14:05 | Outpatient (BNV) | payer MEDICAID, SELFPAY | PROVIDERS: Admitting Provider Family Medicine; Emergency Provider Emergency Medicine; PCP Internal Medicine; Visit Provider Family Medicine | DX: D64.9 Anemia, unspecified (principal) | CPT/HCPCS: 99222; 99238 ==

== ENCOUNTER 2024-10-27 09:24 | Outpatient (REF) | payer MEDICAID, SELFPAY ==
--- OUTSIDE RECORDS SUMMARY | 2024-10-27 10:43 | XMS_ITS ---
Author Organization [facility] Address [address] [place] [phone] Care Team Providers Care Crm System Administrator Name Role Phone CECILDinaLOC Primary Care Provider Aidan Rogers Unavailable [phone] REASON FOR VISIT Need to increase the Stelara injections to every 4 weeks PEREZ/ update Encounters Encounter Location Date Provider Diagnosis [facility] [address] [place] [address] [place] [phone] 07/14/2024 Aidan Weeks Plan Of Treatment Next Appt Details Provider Name:Aidan Weeks , 12/20/2024 01:20:00 PM, [address] [place] [address] , [place], [place], [phone], Progress Notes * DEEPA LERNERDOB:1985 ( 39 yo F)Acc No.[id number]:07/14/2024 Patient:?DEEPA LERNER :1985???Age:39 Y???Sex:Female Address:[address] [place] [address], [id number] * true * Date:? Generated for Printi ng/Faxing/eTransmitting on:?10/27/2024 10:43 AM EDT
--- OUTSIDE RECORDS SUMMARY | 2024-10-27 10:43 | XMS_ITS | Patient Health Record ---
Author Organization [facility] Address [address] [place] [address] Care Team Providers Care Building Official Name Role Phone LOC PARKER Primary Care Provider Aidan Rogers [phone] Allergies Allergen (clinical drug ingredient) Drug/Non Drug Allergy documented on EMR Reaction Allergy Type Onset Date Status Substance with sulfonamide structure and antibacterial mechanism of action (substance) Sulfa Antibiotics Unknown Drug Allergy Active Results Component Value Reference Range Notes Ferritin Reviewed date:12/09/2023 07:56:16 PM Interpretation: Performing Lab:[facility], [address] [place] [phone] Notes/Report: Ferritin 2 10-250 ng/mL Complete Blood Count Auto Di ff Reviewed date:07/15/2024 09:43:59 AM Interpretation: Performing Lab:[facility], [address] [place] [phone] Notes/Report: White Blood Count 4.0 4.8-10.8 X10*3/uL [...] te Reviewed date:12/09/2023 07:55:47 PM Interpretation: Performing Lab:[facility], [address] [place] [phone] Notes/Report: Erythrocyte Sedimentation Rate 51 0-20 MM/HR Patients with polycythemia and many hemoglobin abnormalities may have depressed sed rates whereas patients with anemia may have elevated sed rates. Liver Panel Reviewed date:12/09/2023 07:55:54 PM Interpretation: Performing Lab:[facility], [address] [place] [phone] Notes/Report: Bilirubin Total 0.1 0.0-1.0 mg/dL Bilirubin Direct < 0.2 0.0-0.5 mg/dL Aspartate Amino Transferase 15 5-31 U/L Alanine Aminotransferase 10 0-31 U/L Total Protein 6.8 6.5-8.0 g/dL Albumin Level 3.7 3.5-5.0 g/dL Alkaline Phosphatase 52 39-117 U/L IRON PROFILE Reviewed date:12/09/2023 07:56:02 PM Interpretation: Performing Lab:[facility], [address] [place] [phone] Notes/Report: Iron 12 30-160 mcg/dL Total Iron Binding Capacity 295 228-428 mcg/d L Percent Iron Saturation 4 15-50 % Unsaturated Iron Binding 283 C Reactive Protein Reviewed date:12/09/2023 07:56:08 PM Interpretation: Performing Lab:[facility], [address] [place] [phone] Notes/Report: C Reactive Protein 0.85 < or = 0.50 mg/dL Complete Blood Count Auto Di ff Reviewed date:07/20/2024 03:54:56 PM Interpretation: Performing Lab:[facility], [address] [place] [phone] Notes/Report: White Blood Count 11.1 4.8-10.8 X10*3/uL [...] PROFILE Reviewed date:07/14/2024 07:01:59 PM Interpretation: Performing Lab:[facility], [address] [place] [phone] Notes/Report: Iron 20 30-160 mcg/dL Total Iron Binding Capacity 365 228-428 mcg/d L Percent Iron Saturation 5 15-50 % Unsaturated Iron Binding 345 Ferritin Reviewed date:07/14/2024 07:02:06 PM Interpretation: Performing Lab:[facility], [address] [place] [phone] Notes/Report: Ferritin < 2 10-250 ng/mL Ruddy MCBRIDE Reviewed date:07/20/2024 03:55:13 PM Interpretation: Performing Lab:[facility], [address] [place] [phone] Notes/Report: Ruddy MCBRIDE SEE NOTE SEE SCA NNED RESULTS IN EMR Reason For Referral No Information Medications Medication SIG (Take, Route, Frequency, Duration) Notes Start Date End Date Status Lomotil 2.5-0.025 MG 1 or 2 tablets if n eeded for diarrhea Orally Every 4 to 6 hours if needed for diarrhea. You can take 1 or 2 every morning and afternoon on a regular basis to try to prevent the diarrhea for 30 days 10/12/2024 Active Mesalamine 800 MG 2 tablets Orally Thr ee times a day for 30 day(s) 04/23/2023 Not-Taking tylenol 1 tab Oral for 14 days prn Not-Taking Iron (Ferrous Sulfate) 325 (65 Fe) MG 1 tablet Orally Three times a Week Active Mesalamine 1000 MG UNWRAP AND _insert 1 SUPPOSITORY RECTALLY EVERY NIGHT AT BEDTIME Not-Takin g Tegretol XR Active Balsalazide Disodium 750 MG 3 Orally Three times a day 05/08/2023 Active Multivitamin - 1 tablet Orally Once a day for 30 day(s) Active Zoloft 100 MG 1 tablet Orally Once a day for 30 day(s) Active Stelara 90 MG/ML as directed Subcutan eous every 4 weeks 10/12/2024 Active Immunizations Vaccine Route Administration Date Status Comme nts Influenza Unknown 04/23/2023 Refused Social History Tobacco Use: Social History Observation Description Date Details (start date - stop date) Never Smoker NA - NA Tobacco Use/Smoking Question Answer Notes Patient is a nonsmoker AUDIT-C (Standard) Question Answer Notes Did you have a drink containing alcohol in the p ast year? No Points 0 Interpretation Negative Problems Problem Type SNOMED Code ICD Code Onset Dates Problem Status W/U Status Risk Notes Problem Chronic ulcerative proctitis (23086764) 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) Active confirmed Problem 149641126 Iron deficiency anemia due to chronic blood loss (D50.0) Active confirmed Problem 2344623 Ulcerative proctitis with rectal bleeding (K51.211) Active confirmed Problem Anemia due to blood loss (483794407) Anemia due to blood loss (D50.0) Active confirmed Vital Signs Blood pressure diastolic 77 mm Hg 10/12/2024 Height 5 ft 6 in in 10/12/2024 Blood pressure systolic 111 mm Hg 10/12/2024 Weight 180 lbs 10/12/2024 BMI 29.05 kg/m2 10/12/2024 Procedures Procedure Date Ordered Date Performed Result Body Sit e UPPER GI ENDOSCOPY 10/12/2024 N/A COLONOSCOPY 10/12/2024 N/A Encounters Encounter Location Date Provider Diagnosis [facility] [address] [place] [phone] 12/09/2023 Aidan Weeks Ulcerative proctitis with rectal bleeding K51.211 and Iron deficiency anemia due to chronic blood loss D50.0 [facility] [address] [place] [phone] 10/12/2024 Aidan Weeks Ulcerative (chronic) proctitis with rectal bleeding K51.211 and Anemia due to blood loss D50.0 [facility] [address] [place] [phone] 12/10/2023 Aidan Weeks [facility] [address] [place] [phone] 06/10/2024 Aidan Weeks Ulcerative (chronic) proctitis with rectal bleeding K51.211 and Iron deficiency anemia due to chronic blood loss D50.0 [facility] [address] [place] [phone] 07/14/2024 Aidan Weeks Assessments Encounter Date Diagnosis (ICD Code) Assessment Notes Treatment Notes Treatment Clinical Notes Section Notes 12/09/2023 Iron deficiency anemia due to chronic blood loss (ICD-10 - D50.0) Drew ulcerative proctitis has clearly relapsed after finishing her course of prednisone back in October. She continues with urgency, diarrhea, and bleeding. Given her clinical appearance she remains anemic as well. At this point, given her significant symptomatology that has been refractory to mesalamine and steroids, I have recommended that she start a biologic agent. I shall start her on Stelara as soon as possible with an initial infusion and then SQ injections every 8 weeks. I did advise her to continue her balsalazide and mesalamine suppository in the meantime. I did offer to get her back on prednisone but she really wants to avoid that due to side effects including weight gain and increased anxiety. In the meantime, I shall check the below stool specimens and laboratories today including a CBC and iron studies to be sure she does not need any blood transfusions. She does advise me that she is scheduled to see Dr. Kimble at the end of this month. Depending upon the results of her blood work we may try to get her in sooner for at least an iron infusion. Once she starts the Stelara SQ injections I will check a trough level to see if we need to increase them to every 4 weeks. I have given her an office visit to see me again in 6 months but will be in touch with her prior to that regarding adjustment of her Stelara injections. I did advise her to definitely call me before that if she is having any questions or worsening symptoms that might require prednisone or rehospitalization . Steph was comfortable with this plan. Thank you again for allowing me to participate in Steph's care. I shall continue to keep you advised of her progress as needed. 12/09/2023 Ulcerative proctitis with rectal bleeding (ICD-10 - K51.211) Stelara IV infusion and then Injections every 8 weeks Drew ulcerative proctitis has clearly relapsed after finishing her course of prednisone back in October. She continues with urgency, diarrhea, and bleeding. Given her clinical appearance she remains anemic as well. At this point, given her significant symptomatology that has been refractory to mesalamine and steroids, I have recommended that she start a biologic agent. I shall start her on Stelara as soon as possible with an initial infusion and then SQ injections every 8 weeks. I did advise her to continue her balsalazide and mesalamine suppository in the meantime. I did offer to get her back on prednisone but she really wants to avoid that due to side effects including weight gain and increased anxiety. In the meantime, I shall check the below stool specimens and laboratories today including a CBC and iron studies to be sure she does not need any blood transfusions. She does advise me that she is scheduled to see Dr. Kimble at the end of this month. Depending upon the results of her blood work we may try to get her in sooner for at least an iron infusion. Once she starts the Stelara SQ injections I will check a trough level to see if we need to increase them to every 4 weeks. I have given her an office visit to see me again in 6 months but will be in touch with her prior to that regarding adjustment of her Stelara injections. I did advise her to definitely call me before that if she is having any questions or worsening symptoms that might require prednisone or rehospitalization . Steph was comfortable with this plan. Thank you again for allowing me to participate in Steph's care. I shall continue to keep you advised of her progress as needed. 10/12/2024 Ulcerative (chronic) proctitis with rectal bleeding (ICD-10 - K51.211) I will send over a prescription for a new medicine for the diarrhea that you can use 2 or 3 times regularly throughout y day Overall, Steph's ulcerative proctitis has improved from a symptomatic standpoint. However, her current symptoms still remain problematic for her in regard to the urgency, diarrhea, and bleeding. As she states things are definitely dramatically better than they were when I first met her in 2022, but nonetheless she thinks they could definitely be better so as to allow a better lifestyle for self. We did review that hopefully the every 4-week regimen of the Stelara will help to improve things further as time goes on. I am going to check another trough level and antibody level just before her next injection at the end of October. She will be having blood work at that time for a blood count and iron profile and I did advise her to ask the lab to send me a copy. I have also recommended a follow-up colonoscopy to reassess the proctitis. I think that would be helpful information to have such that if her symptoms continue we could then decide about switching her to a different biologic such as Skyrizi or Rinvoq. She definitely does not want to use prednisone due to the previous side effects. On the same day as her colonoscopy have also recommended an upper endoscopy to definitively rule out any upper GI pathology that could be contributing to her GI symptoms and anemia as well. Full consent has been attained from her for both procedures, including risks of bleeding and perforation. The procedures will be done with monitored anesthesia care. Of note, I shall switch her from the Imodium to a trial of Lomotil on a regular basis to see if that gives her better control of the urgency and diarrhea as well. I did advise Steph to contact me prior to the procedures if she has any problems or questions I can be of assistance with. Steph was comfortable with this plan. Thank you again for allowing me to participate in Steph's care. I shall continue to keep you advised of her progress. 06/10/2024 Ulcerative (chronic) proctitis with rectal bleeding (ICD-10 - K51.211) 06/10/2024 Iron deficiency anemia due to chronic blood loss (ICD-10 - D50.0) 10/12/2024 Anemia due to blood loss (ICD-10 - D50.0) Send me a copy of Dr. Kimble's lab work later this month Overall, Steph's ulcerative proctitis has improved from a symptomatic standpoint. However, her current symptoms still remain problematic for her in regard to the urgency, diarrhea, and bleeding. As she states things are definitely dramatically better than they were when I first met her in 2022, but nonetheless she thinks they could definitely be better so as to allow a better lifestyle for self. We did review that hopefully the every 4-week regimen of the Stelara will help to improve things further as time goes on. I am going to check another trough level and antibody level just before her next injection at the end of October. She will be having blood work at that time for a blood count and iron profile and I did advise her to ask the lab to send me a copy. I have also recommended a follow-up colonoscopy to reassess the proctitis. I think that would be helpful information to have such that if her symptoms continue we could then decide about switching her to a different biologic such as Skyrizi or Rinvoq. She definitely does not want to use prednisone due to the previous side effects. On the same day as her colonoscopy have also recommended an upper endoscopy to definitively rule out any upper GI pathology that could be contributing to her GI symptoms and anemia as well. Full consent has been attained from her for both procedures, including risks of bleeding and perforation. The procedures will be done with monitored anesthesia care. Of note, I shall switch her from the Imodium to a trial of Lomotil on a regular basis to see if that gives her better control of the urgency and diarrhea as well. I did advise Steph to contact me prior to the procedures if she has any problems or questions I can be of assistance with. Steph was comfortable with this plan. Thank you again for allowing me to participate in Steph's care. I shall continue to keep you advised of her progress. Plan Of Treatment Pending Test Test Name Order Date UPPER GI ENDOSCOPY 10/12/2024 COLONOSCOPY 10/12/2024 LIVER PROFILE 12/09/2023 IRON + IBC (FE) 10/08/2022 IRON + IBC (FE) 12/09/2023 IRON + IBC (FE) 06/10/2024 CRP 04/23/2023 CRP 12/09/2023 CBC w DIFF 08/14/2023 CBC w DIFF 04/23/2023 CBC w DIFF 10/08/2022 CBC w DIFF 06/10/2024 CBC w DIFF 12/09/2023 SED RATE (ESR) 12/09/2023 SED RATE (ESR) 04/23/2023 HEPATITIS B PROFILE 04/23/2023 C DIFFICILE RFLX PCR 12/09/2023 Ferritin 06/10/2024 Ferritin 10/08/2022 Vitamin B12 and Folate 10/08/2022 Prometheus Anser UST 06/10/2024 Prometheus Anser UST 10/12/2024 T Spot TB 04/23/2023 Calprotectin, Fecal 12/09/2023 Next Appt Details Provider Name:Aidan Weeks , 12/20/2024 01:20:00 PM, [address] [place] [address] , [place], [place], [phone], Insurance Providers Payer Name Payer Address Payer Phone Subscriber Number Group Number Insured Name Patient Relationship to Insured Coverage Start Date Coverage End Date [employer] [address] [place] [phone] [id number] YANN STEPH Self - patient is the insured Medical (General) History Medical History History ICD Code Anemia Bipolar disease--[facility] [place],DM,CVA,Lung disease,renal dise ase Ulcerative proctitis diagnos ed during her hospitalization in late September of 2022. A colonoscopy revealed active ulcerative proctitis, but with a normal colon proximal to that and a normal terminal ileum. She did require blood transfusions and an iron infusion during that hospitalization as her admitting hemoglobin was 5.9. She was rehospitalized in [facility] of 2023 with hemoglobin of 5.7. She required transfusions. A flexible sigmoidoscopy revealed some active distal ulcerative proctitis but improved compared to 2022's above colonoscopy. She was started on prednisone and discharged. Her symptoms relapsed after the steroids finished in October of 2023. She was started on Stelara at the 12/09/2023 OV. Stelara increased to every 4th week in Surgical History Surgery Date(Month/Year) Appy 2004 2009 Hospitalization History Reason Date(Month/Year) Ulcerative proctitis with anemia in Apri l 2022
--- OUTSIDE RECORDS SUMMARY | 2024-10-27 10:43 | XMS_ITS ---
Author Organization [facility] Address [address] [facility] [address] [place] [phone] Care Team Providers Care Buzzsaw Operator Helper Name Role Phone LOC PARKER Primary Care Provider Aidan Rogers [phone] REASON FOR VISIT Patient presents today for anemia Encounters Encounter Location Date Provider Diagnosis [facility] [address] [facility] [address] [place] [phone] 06/11/2024 Aidan Weeks Plan Of Treatment Next Appt Details Provider Name:Aidan Weeks , 12/20/2024 01:20:00 PM, [address] [place] [address] , [place], [place], [phone], Progress Notes * VIRGINIA LERNERKASSIDOB:1985 ( 39 yo F)Acc No.[id number]:06/11/2024 Progress Notes Patient:?DEEPA LERNER Provider:?Aidan Weeks MD :1985???Age:39 Y???Sex:Female D ate:06/11/2024 Address:[address] [place], [place] [phone] Pcp:LOC PARKER Subjective: * Chief Complaints: * ???1. Patient presents today for anemia. * Medical History:? Objective: * Vitals:? Assessment: Plan: * Treatment: * * The named appointment provid er may or may not be the originator of this progress note, and it is not deemed complete until electronically signed by the appointment provider. Sign off status: Pending * Provider:?Aidan Weeks MD Date:? 025 Generated for Marielle cardenas/José Luis/Jordanitting on:?10/27/2024 10:43 AM EDT
[2024-10-27 10:48] LABS: Alanine Aminotransferase 21 U/L (0-31); Alkaline Phosphatase 44 U/L (39-117); Anion Gap 11 (12-20); Aspartate Amino Transferase 24 U/L (5-31); Bilirubin Total 0.2 mg/dL (0.0-1.0); Blood Urea Nitrogen 10 mg/dL (9-16); Carbamazepine Tegretol 7.2 mcg/mL (5.0-12.0); Carbon Dioxide 26 mmol/L (22-29); Chloride 106 mmol/L (96-108); Estimated Glomerular Filt Rate > 60; Glucose Random 88 mg/dL (60-115); Sodium 139 mmol/L (135-145); Total Protein 6.7 g/dL (6.5-8.0)
== END 2024-10-27 09:25 | disposition home or self-care (01) ==
LOC: HO.LAB 09:24
PROVIDERS: PCP Internal Medicine; Visit Provider Registered Nurse
DX: D64.9 Anemia, unspecified (principal); D50.0 Iron deficiency anemia secondary to blood loss (chronic); Z79.899 Other long term (current) drug therapy
CPT/HCPCS: 36415; 80053; 80156

== ENCOUNTER 2025-02-03 03:12 | Inpatient (IN) | payer MEDICAID, SELFPAY ==
--- OUTSIDE RECORDS SUMMARY | 2024-06-11 09:00 | XMS_ITS ---
Author Organization [facility] Address [address] [facility] [address] [place] [address] Care Team Providers Care Principal Accounts Clerk Name Role Phone NONE, NONE Primary Care Provider Aidan Rogers [phone] REASON FOR VISIT Patient presents today for anemia Encounters Encounter Location Date Provider Diagnosis [facility] [address] [facility] [address] [place] [phone] 06/11/2024 Aidan Weeks Plan Of Treatment Next Appt Details Provider Name:Aidan Weeks , 04/15/2025 09:30:00 AM, [address] [place] [address] , [place], [place], [phone], Progress Notes * DEEPA LERNERDOB:1985 ( 39 yo F)Acc No.[id number]:06/11/2024 Progress Notes Patient: DEEPA CONNER Provider: Ye Weeks MD :1985 A ge:39 Y S ex:Female Date:06/11/2024 Address:[address] [place], [place] [id number] Subjective: * Chief Complaints: * 1 . Patient presents today for anemia. * Medical History: Objective: * Vitals: Assessment: Plan: * Treatment: * * The named appointment provid er may or may not be the originator of this progress note, and it is not deemed complete until electronically signed by the appointment provider. Sign off status: Pending * Provider: Ye Weeks MD Date: 0 06/11/2024 Generated for Printi ng/Faxing/eTransmitting on: 0 02/03/2025 04:46 AM EDT
--- OUTSIDE RECORDS SUMMARY | 2024-12-20 08:20 | XMS_ITS ---
Author Organization [facility] Address [address] [place] [address] Care Team Providers Care Barrel Charrer Name Role Phone NONE, NONE Primary Care Provider Aidan Rogers [phone] REASON FOR VISIT anemia due to blood loss, ulcerative proctitis w/ rectal bleeding Encounters Encounter Location Date Provider Diagnosis [facility] Outpatient [address] [place] [phone] 12/20/2024 Aidan Weeks Plan Of Treatment Next Appt Details Provider Name:Aidan Weeks , 04/15/2025 09:30:00 AM, [address] [place] [address], [phone], Progress Notes * DEEPA LERNERDOB:1985 ( 39 yo F)Acc No.[id number]:12/20/2024 EGD and COL/MAC Patient: DEEPA CONNER Provider: Ye Weeks MD :1985 A ge:39 Y S ex:Female Date:12/20/2024 Address:[address] [place] [address] [id number] Subjective: * Chief Complaints: * 1 . Anemia due to blood loss, ulcerative proctitis w/ rectal bleeding. * Medical History: Objective: * Vitals: Assessment: Plan: * Treatment: * * The named appointment provid er may or may not be the originator of this progress note, and it is not deemed complete until electronically signed by the appointment provider. Sign off status: Pending * Provider: Ye Weeks MD Date: 0 12/20/2024 Generated for Marielle cardenas/José Luis/Jordanitting on: 0 02/03/2025 04:46 AM EDT
[2025-02-03] VITALS (19 sets, daily range): BP systolic 105–150; BP diastolic 47–73; PULSE 77–130; RESP 14–26; TEMP 36.1–37.2; O2SAT 96–100; BMI 29.7
[2025-02-03 03:28] LABS: Imm Gran Abs Auto 0.03 X10*3/uL (0.00-0.03); Imm Gran Pct Auto 0.3 % (0.0-0.4); Lymphocytes Absolute Auto 2.3 X10*3/uL (1.2-4.9); MANUAL DIFF FLAG NO; Mean Corpuscular HGB Conc 27.6 g/dl (31.0-35.0); Mean Corpuscular Hemoglobin 19.0 pg (27.0-33.0); Mean Corpuscular Volume 69.0 fL (80.0-98.0); NRBC Abs Auto 0.070 X10*3/uL (0.0-0.012); NRBC Pct Auto 0.8 /100WBC (0.0-0.2); Platelet Count 493 X10*3/uL (160-400); Red Blood Count 2.10 X10*6/uL (4.20-5.50); White Blood Count 9.3 X10*3/uL (4.8-10.8)
[2025-02-03 03:36] LABS: Hemoglobin 4.0 g/dl (12.0-16.0)
[2025-02-03 03:37] LABS: Hematocrit 14.5 % (37.0-47.0)
[2025-02-03 03:47] LABS: Alanine Aminotransferase 27 U/L (0-31); Albumin Level 4.2 g/dL (3.5-5.0); Alkaline Phosphatase 37 U/L (39-117); Anion Gap 13 (12-20); Aspartate Amino Transferase 20 U/L (5-31); Blood Urea Nitrogen 7 mg/dL (9-16); Calcium 8.3 mg/dL (8.4-10.2); Carbon Dioxide 21 mmol/L (22-29); Chloride 107 mmol/L (96-108); Creatinine Clr Calc Pharmacy 122.1; Estimated Glomerular Filt Rate > 60; Potassium 3.3 mmol/L (3.3-5.1); Sodium 138 mmol/L (135-145); Total Protein 6.6 g/dL (6.5-8.0)
--- NOTE | 2025-02-03 03:55 | ED.GENADULT ---
HPI - General Adult General Chief complaint: General Medical Stated complaint: dizziness Time Seen by Provider: 02/03/25 03:50 Source: patient Mode of arrival: ambulatory Limitations: no limitations History of Present Illness ED Provider: DR. aBum HPI narrative: 39-year-old female history of bipolar disorder, ADD, menorrhagia, ulcerative colitis causing chronic anemia require multiple blood transfusion in the past, presented today for evaluation of feeling dizzy and very weak. Patient reported blood clots with every bowel movement. No chest pain, no shortness of breath. Related Data Home Medications ?Medication ?Instructions ?Recorded ?Confirmed carbamazepine 200 mg tablet 600 mg PO BID 10/05/22 12/16/24 melatonin 5 mg tablet 5 mg PO BEDTIME 10/05/22 10/27/24 sertraline 50 mg tablet 200 mg PO DAILY@1300 10/05/22 12/16/24 ascorbic acid (vitamin C) 1,000 mg 1,000 mg PO DAILY 08/12/23 10/27/24 tablet mesalamine 1,000 mg rectal 1,000 mg LA BEDTIME 08/12/23 10/27/24 suppository hydroxyzine HCl 25 mg tablet 25 mg PO BID PRN Anxiety 07/30/24 10/27/24 ustekinumab 90 mg/mL subcutaneous 90 mg subcut Q4W 07/30/24 12/16/24 syringe (Stelara) Previous Rx's ?Medication ?Instructions ?Recorded ferrous sulfate 325 mg (65 mg 325 mg PO BID #60 tabs 07/31/24 iron) tablet omeprazole 20 mg capsule,delayed 20 mg PO DAILY #90 caps 07/31/24 release Allergies Allergy/AdvReac Type Severity Reaction Status Date / Time Sulfa (Sulfonamide AdvReac Rash Verified 02/03/25 03:23 Antibiotics) Review of Systems Review of Systems: All other systems are reviewed and are negative Constitutional: Reports as per HPI and Reports no additional constitutional complaints Eyes: Reports as per HPI and Reports no additional eye complaints Reports system reviewed and no additional complaints, except as documented Cardiovascular: Reports as per HPI and Reports no additional cardiovascular complaints Respiratory: Reports as per HPI and Reports no additional respiratory complaints Gastrointestinal: Reports as per HPI and Reports no additional gastrointestinal complaints Genitourinary: Reports no additional female genitourinary complaints Musculoskeletal: Reports no additional musculoskeletal complaints Skin/Breast: Reports system reviewed and no additional complaints, except as docu Psychiatric: Reports no additional psychiatric complaints Endocrine: Reports no additional endocrine complaints Hematologic/Lymphatic: Reports no additional hematologic/lymphatic complaints Allergic/Immunologic: Reports no additional allergic/immunologic complaints Reports system reviewed and no additional complaints, except as documented and Reports Abnormal speech present PMFSH Past Medical History Medical History Anxiety Anemia PMDD (premenstrual dysphoric disorder) ADD (attention deficit disorder) Ulcerative colitis Bipolar 1 disorder Depression Anjali Surgical History S/P tubal ligation Family History Family History Maternal Grandmother Pancreatic cancer Paternal Grandfather Pancreatic cancer Paternal Grandmother Breast cancer Uterine cancer Social History Social History Household Members: Other Household Members Other:: boyfriend Housing: House Do you presently have visiting nurse or other home services: No Patient Tobacco Use Status: Never used Tobacco Smoked in Last 30 Days: No Second Hand Smoke Exposure: No Use of substances other than those prescribed or required for medical reasons: No Advance Directives: No Advance Directives Information Provided: Yes Do you have a plan to hurt others: No Plan Patient : No (pt hx tubal ligation) service: No Current occupational status: unemployed Sexual orientation: Straight/Heterosexual Physical Exam ED Vital Signs: Vital Signs - 24 hr 02/03/25 03:21 02/03/25 03:44 02/03/25 03:50 Temperature 97.0 F 98.9 F Pulse Rate 130 H 125 H Pulse Rate [Monitor] 126 H Respiratory Rate 20 26 H Blood Pressure 139/73 136/67 Pulse Oximetry 96 96 Oxygen Delivery Method Room Air Room Air 02/03/25 03:50 02/03/25 04:54 02/03/25 05:13 Temperature 98.9 F 98.4 F 98.7 F Pulse Rate 125 H 97 103 H Pulse Rate [Monitor] Respiratory Rate 26 H 20 18 Blood Pressure 136/67 115/64 120/58 L Pulse Oximetry 96 Oxygen Delivery Method Room Air 02/03/25 05:37 02/03/25 05:50 02/03/25 06:05 Temperature 98.6 F 98.6 F 98.3 F Pulse Rate 91 89 85 Pulse Rate [Monitor] Respiratory Rate 20 20 20 Blood Pressure 119/68 123/59 L 114/47 L Pulse Oximetry Oxygen Delivery Method 02/03/25 06:18 Temperature 98.7 F Pulse Rate 90 Pulse Rate [Monitor] Respiratory Rate 16 Blood Pressure 118/64 Pulse Oximetry Oxygen Delivery Method BMI result Body Mass Index 30.0 Vital signs have been reviewed and appear to be correct. Blood pressure elevated. Heart rate normal. Respiratory rate normal. Temperature normal. Oxygen saturation normal. Appearance: Pale, Alert. Oriented X3. No acute distress. Head: Normal external exam. Normocephalic. Atraumatic. No Davila signs noted. No raccoon eyes noted Eyes: PERRLA. EOMI. Conjunctiva and sclera normal. Eyelids normal. ENT: TM's Normal. Pharynx normal. Uvula midline. Moist mucous membranes. No trismus noted. No drooling noted. No muffled voice noted. Neck: Normal inspection. Neck supple. FROM. No adenopathy. Thyroid Normal. No meningeal signs. No neck mass noted. CVS: Normal heart rate and rhythm. Heart sound normal. No murmurs noted. Pulses normal throughout. Respiratory: No respiratory distress. Painless inspiration. Breath sounds normal. No wheezes/rales/rhonchi noted. Chest nontender. No accessory muscle usage noted or decreased air movement noted. Abdomen: Soft and nontender. Bowel sounds normal in all 4 quadrants. No distention noted. No organomegaly noted. No visible injury noted. Rectal exam: Brown stool with no blood in the stool Back: No CVA tenderness. Full range of motion noted. Skin: Skin warm and dry. Normal skin color. Normal skin turgor. No rashes/lesions/lacerations noted. Extremities: No lower extremity edema. Extremities exhibit normal range of motion. Extremities nontender. Neuro: Oriented X 3. Cranial nerve exam: II-XII are grossly intact No motor deficit. No sensory deficit. Reflexes normal. Course Reevaluation(s) Reevaluation #1: 39-year-old female history of ulcerative colitis and chronic blood loss via GI presented with severe anemia with hemoglobin of 4 patient is receiving 2 units of RBCs. Will be admitted to the medical service for serial CBCs and possible more transfusion. Rectal exam today shows no acute bleeding. Time: 05:46 Reevaluation #2: Patient received 2 units of RBCs were repeat CBC improvement of hemoglobin to 6.7 Time: 06:30 Medications Administered Generic Name Dose Route Start Last Admin Trade Name Freq PRN Reason Stop Dose Admin Lactated Ringer's 1,000 mls @ 100 mls/hr 02/03/25 06:30 02/03/25 06:44 Lr IVCONT 100 mls/hr .Q10H LOGAN Administration Pantoprazole Sodium 40 mg 02/03/25 06:30 02/03/25 06:43 Pantoprazole Sodium 40 Mg/10 Ml Vial IVPUSH 40 mg DAILY@0630 LOGAN Administration Discontinued Medications Generic Name Dose Route Start Last Admin Trade Name Freq PRN Reason Stop Dose Admin Ondansetron HCl 4 mg 02/03/25 04:23 02/03/25 04:32 Ondansetron Hcl 4 Mg/2 Ml Vial IVPUSH 02/03/25 04:24 4 mg ONCE ONE Administration Medical Decision Making Differential Diagnosis Differential Diagnoses: The differential diagnosis associated with the presentation includes (Severe anemia, active GI bleed, electrolyte derangement, blood transfusion.) Admission/Observation Consideration of admission/observation: Escalation of care including admission/observation considered Consult Healthcare Provider Management of the patient was discussed with: Hospitalist (Lavinia) Lab Data MDM Lab Attestation statement: I reviewed the patient's lab results. 02/03/25 06:18 02/03/25 03:22 Labs: Lab Results 02/03/25 02/03/25 02/03/25 Range/Units 03:22 03:56 06:18 WBC 9.3 6.4 (4.8-10.8) X10*3/uL RBC 2.10 L D 2.75 L D (4.20-5.50) X10*6/uL Hgb 4.0 L* D 6.7 L* D (12.0-16.0) g/dl Hct 14.5 L* D 21.3 L D (37.0-47.0) % MCV 69.0 L 77.5 L D (80.0-98.0) fL MCH 19.0 L 24.4 L (27.0-33.0) pg MCHC 27.6 L 31.5 (31.0-35.0) g/dl RDW 19.4 H 21.8 H (11.0-16.0) % Plt Count 493 H D 286 D (160-400) X10*3/uL MPV 10.3 11.4 (9.4-12.3) fL Immature Gran % (Auto) 0.3 0.5 H (0.0-0.4) % Neut % (Auto) 68.9 72.4 (45-73) % Lymph % (Auto) 25.1 19.9 L (20-40) % [place] % (Auto) 4.6 6.1 (2-11) % Eos % (Auto) 0.8 0.6 (0-4) % Baso % (Auto) 0.3 0.5 (0-2) % Lymph # (Auto) 2.3 1.3 (1.2-4.9) X10*3/uL [place] # (Auto) 0.4 0.4 (0.1-1.2) X10*3/uL Eos # (Auto) 0.1 0.0 (0.0-0.4) X10*3/uL Baso # (Auto) 0.0 0.0 (0.0-0.2) X10*3/uL Abs Immat Gran (auto) 0.03 0.03 (0.00-0.03) X10*3/uL Absolute Neuts (auto) 6.4 4.6 (2.0-8.3) x10*3/uL Absolute Nucleated RBC 0.070 H 0.020 H (0.0-0.012) X10*3/uL Nucleated RBC % (auto) 0.8 H 0.3 H (0.0-0.2) /100WBC Sodium 138 (135-145) mmol/L Potassium 3.3 (3.3-5.1) mmol/L Chloride 107 (96-108) mmol/L Carbon Dioxide 21 L (22-29) mmol/L Anion Gap 13 (12-20) BUN 7 L (9-16) mg/dL Creatinine 0.64 (0.5-1.4) mg/dL Estim Creat Clear Calc 122.1 Estimated GFR > 60 Random Glucose 118 H (60-115) mg/dL Calcium 8.3 L D (8.4-10.2) mg/dL Total Bilirubin 0.2 (0.0-1.0) mg/dL AST 20 (5-31) U/L ALT 27 (0-31) U/L Alkaline Phosphatase 37 L (39-117) U/L Total Protein 6.6 (6.5-8.0) g/dL Albumin 4.2 (3.5-5.0) g/dL Stool Occult Blood NEGATIVE (NEGATIVE) Blood Type A Positive Antibody Screen NEGATIVE Crossmatch See Detail Critical Care Time Critical Care Time Critical Care Time: Yes Total Critical Care Time: 60 Attestation: The patient was critically ill with a high probability of imminent or life-threatening deterioration. I spent greater than 30 minutes of discontinuous time evaluating the patient, delivering critical care at the bedside, discussing evaluating data with consultants. Critical care time does not include time spent performing separately billable procedures or teaching. Time spent performing critical care was 60 minutes. Discharge Plan Discharge Clinical Impression: Anemia due to gastrointestinal blood loss Patient Disposition: Admitted As Inpatient
[2025-02-03 04:02] LABS: OBS1 NEGATIVE (NEGATIVE)
[2025-02-03 04:03] LABS: OBS Int Ctl Valid YES
--- NOTE | 2025-02-03 04:24 | PC.NURSE ---
Lab notified of stat need for blood.
--- OUTSIDE RECORDS SUMMARY | 2025-02-03 04:46 | XMS_ITS | Encounter Summary ---
Author Organization [facility] Address [address] [place] [address] [place] [phone] Phone Care Team Providers Care Physician Ophthalmologist Name Role Phone Merna Conn MD Primary Care Provider Merna Conn MD Unavailable [phone] Encounter Details Date Type Department Care Team (Late st Contact Info) Description 08/23/2020 Procedure Pass [address] [address] Social History Tobacco Use Types Packs/Day Years Used Date Smoking Tobacco: Never Smokeless Tobacco: Never Alcohol Use Standard Drinks/Week Comments Yes 0 (1 standard drink = 0.6 oz pur e alcohol) glass of wine every two weeks. Child or Family Care Answer Date Record ed Do you have problems with on e of the following making it difficult for you to work, study, or receive health care? No 08/23/2020 Education Answer Date Recorded Are you interested in help w ith more adult education (for example, completing high school, GED, job training, learning the Urdu language, technical skills, or developing parenting skills)? No 08/23/2020 Are you concerned about learning? Not on file 08/23/2020 Not on file 08/23/2020 Not on file 08/23/2020 Food Answer Date Recorded Within the past 6 months we worried whether our food would run out before we got money to buy more. Never True 08/23/2020 Within the past 6 months the food we bought just didn't last and we didn't have enough money to get more. Never True Paying for Meds Answer Date Recorded Do you have trouble paying for medicines? No 08/23/2020 Paying Utility Bills Answer Date Record ed Do you have trouble paying your heating or elect ricity bill? No 08/23/2020 Transportation Answer Date Recorded Has the lack of transportati on kept you from medical appointments or from getting medications? No 08/23/2020 Comments No Sex and Gender Information Value Date Recorded Sex Assigned at Female 01/10/2021 6:49 AM EDT Legal Sex Female 2:08 PM EDT Gender Identity Female 01/10/2021 6:49 AM EDT Sexual Orientation Straight 01/10/2021 6: 49 AM EDT documented as of this encounter Plan of Treatment Not on file documented as of this encounter Visit Diagnoses Not on filedocumented in this encounter Additional Health Concerns Assessment Noted Time PHQ-2 Depression Total Score: 0 08/24/19 21 10:04 AM EDT documented as of this encounter Care Teams Physician Ophthalmologist Relationship Specialty Start Date End Date Merna Conn MD [address] [place] [phone] [email or web address] PCP - General Family Medicine 07/28/20 07/12/24 Merna Conn MD [address] [phone] Insurance Assigned Provider 12/16/20 documented as of this encounter Additional Source Comments The information contained in this document represents components of the legal health record. It is not the complete legal health record.[facility]
--- OUTSIDE RECORDS SUMMARY | 2025-02-03 04:46 | XMS_ITS | Patient Health Record ---
Author Organization [facility] Address [address] [place] [address] Care Team Providers Care Medical Office Asst Name Role Phone NONE, NONE Primary Care Provider Aidan Rogers Unavailable [phone] Allergies Allergen (clinical drug ingredient) Drug/Non Drug Allergy documented on EMR Reaction Allergy Type Onset Date Status Substance with sulfonamide structure and antibacterial mechanism of action (substance) Sulfa Antibiotics Unknown Drug Allergy Active Results Component Value Reference Range Notes Complete Blood Count Auto Di ff Reviewed date:07/20/2024 03:54:56 PM Interpretation: Performing Lab:[facility], [address] [place] [phone] Notes/Report: White Blood Count 11.1 4.8-10.8 X10*3/uL [...] PROFILE Reviewed date:07/14/2024 07:01:59 PM Interpretation: Performing Lab:[facility], [address] [place] [phone] Notes/Report: Iron 20 30-160 mcg/dL Total Iron Binding Capacity 365 228-428 mcg/d L Percent Iron Saturation 5 15-50 % Unsaturated Iron Binding 345 Ferritin Reviewed date:07/14/2024 07:02:06 PM Interpretation: Performing Lab:[facility], [address] [place] [phone] Notes/Report: Ferritin < 2 10-250 ng/mL Ruddy MCBRIDE Reviewed date:07/20/2024 03:55:13 PM Interpretation: Performing Lab:[facility], [address] [place] [phone] Notes/Report: Ruddy MCBRIDE SEE NOTE SEE SCA [...] Status Risk Notes Problem Chronic ulcerative proctitis (38545859) 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) Active confirmed Problem 234223203 Iron deficiency anemia due to chronic blood loss (D50.0) Active confirmed Problem 6339840 Ulcerative proctitis with rectal bleeding (K51.211) Active confirmed Problem Anemia due to blood loss (218994367) Anemia due to blood loss (D50.0) Active confirmed Vital Signs Blood pressure diastolic 77 mm Hg 10/12/2024 Height 5 ft 6 in in 10/12/2024 Blood pressure systolic 111 mm Hg 10/12/2024 Weight 180 lbs 10/12/2024 BMI 29.05 kg/m2 10/12/2024 Procedures Procedure Date Ordered Date Performed Result Body Sit e UPPER GI ENDOSCOPY 10/12/2024 N/A COLONOSCOPY 10/12/2024 N/A Encounters Encounter Location Date Provider Diagnosis [facility] [address] [place] [phone] 10/12/2024 Aidan Weeks Ulcerative (chronic) proctitis with rectal bleeding K51.211 and Anemia due to blood loss D50.0 [facility] [address] [place] [phone] 06/10/2024 Aidan Weeks Ulcerative (chronic) proctitis with rectal bleeding K51.211 and Iron deficiency anemia due to chronic blood loss D50.0 [facility] [address] [place] [phone] 07/14/2024 Aidan Weeks [facility] [address] [place] [phone] 12/20/2024 Aidan Weeks [facility] [address] [place] [address] 01/27/2025 Aidan Weeks Assessments Encounter Date Diagnosis (ICD Code) Assessment Notes Treatment Notes Treatment Clinical Notes Section Notes 10/12/2024 Ulcerative (chronic) proctitis with rectal bleeding (ICD-10 - K51.211) I will send over a prescription for a new medicine for the diarrhea that you can use 2 or 3 times regularly throughout day Overall, Dustins ulcerative proctitis has improved from a symptomatic [...] CRP 04/23/2023 CRP 12/09/2023 CBC w DIFF 12/09/2023 CBC w DIFF 08/14/2023 CBC w DIFF 04/23/2023 CBC w DIFF 10/08/2022 CBC w DIFF 06/10/2024 SED RATE (ESR) 12/09/2023 SED RATE (ESR) 04/23/2023 HEPATITIS B PROFILE 04/23/2023 C DIFFICILE RFLX PCR 12/09/2023 Ferritin 06/10/2024 Ferritin 10/08/2022 Vitamin B12 and Folate 10/08/2022 Prometheus Anser UST 06/10/2024 Prometheus Anser UST 10/12/2024 T Spot TB 04/23/2023 Calprotectin, Fecal 12/09/2023 Next Appt Details Provider Name:Aidan Weeks , 04/15/2025 09:30:00 AM, [address] [place] [address] , [place], [place], [id number], Insurance Providers Payer Name Payer Address Payer Phone Subscriber Number Group Number Insured Name Patient Relationship to Insured Coverage Start Date Coverage End Date [employer] [address] [place] [phone] [id number] [place] Self - patient is the insured Medical (General) History Medical History History ICD Code Anemia Bipolar disease--sees Dr. Maria De Jesus [facility] at [facility] Denies GA,DM,CVA,Lung disease,renal dise ase Ulcerative proctitis diagnos ed during her hospitalization in late September of 2022. A colonoscopy revealed active ulcerative proctitis, but with a normal colon proximal to that and a normal terminal ileum. She did require blood transfusions and an iron infusion during that hospitalization as her admitting hemoglobin was 5.9. She was rehospitalized in [facility] 2023 with hemoglobin of 5.7. [...] week in Surgical History Surgery Date(Month/Year) Appy 2003 2008 Hospitalization History Reason Date(Month/Year) Ulcerative proctitis with anemia in Apri l 2022
--- OUTSIDE RECORDS SUMMARY | 2025-02-03 04:46 | XMS_ITS | Encounter Summary ---
Author Organization [facility] Address [address] [place] [address] [place] [phone] Phone Care Team Providers Care System Planning Engineer Name Role Phone Merna Conn MD Primary Care Provider Merna Conn MD Unavailable [phone] Encounter Details Date Type Department Care Team (Late st Contact Info) Description 08/23/2020 Procedure Pass [address] [address] Social History Tobacco Use Types Packs/Day Years [...] high school, GED, job training, learning the Malay language, technical skills, or developing parenting skills)? [...] documented as of this encounter Care Teams System Planning Engineer Relationship Specialty Start Date End Date Merna Conn MD [address] [place] [phone] [email or web address] PCP - General Family Medicine 07/28/20 07/12/24 Merna Conn MD [address] [phone] Insurance Assigned Provider 12/16/20 documented as of this encounter Additional Source Comments The information contained in this document represents components of the legal health record. It is not the complete legal health record.[facility]
--- OUTSIDE RECORDS SUMMARY | 2025-02-03 04:46 | XMS_ITS | Encounter Summary ---
Author Organization [facility] Address [address] [place] [address] Phone Care Team Providers Care Die Designer Apprentice Name Role Phone Merna Conn MD Primary Care Provider [phone] Merna Conn MD Unavailable [phone] Encounter Details Date Type Department Care Team (Late st Contact Info) Description 08/28/2020 Ancillary Orders [facility] [address] [place] [address] Merna Conn MD [address] [facility] [address] [place] [address] [email or web address] Social History Tobacco Use Types Packs/Day Years [...] high school, GED, job training, learning the Turkmen language, technical skills, or developing parenting skills)? [...] documented as of this encounter Care Teams Die Designer Apprentice Relationship Specialty Start Date End Date Merna Conn MD [address] [address] PCP - General Family Medicine 07/28/20 07/12/24 Merna Conn MD [address] [address] Insurance Assigned Provider 12/16/20 documented as of this encounter Additional Source Comments The information contained in this document represents components of the legal health record. It is not the complete legal health record.[facility]
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
--- OUTSIDE RECORDS SUMMARY | 2025-02-03 04:47 | XMS_ITS | Encounter Summary ---
Author Organization [facility] Address [address] [place] [address] Phone Care Team Providers Care Academic Physician Name Role Phone Merna Conn MD Primary Care Provider [phone] Merna Conn MD Unavailable [phone] Reason for Referral * Outpatient Procedure - Closed Specialty Diagnoses / Procedures Referred By Contac t Referred To Contact Radiology Diagnoses Breast mass, right Solitary cyst of right breast Procedures CUSTODIAL Breast Aspiration of Cyst (Right) Merna Conn MD Phone: tel: fax: mailto:[email or web address] Referral ID Status Reason Start Date Expiration Date Visits Re quested Visits Authorized [id number] Closed 08/28/2020 08/28/2021 1 1 * Outpatient Procedure - Closed Specialty Diagnoses / Procedures Referred By Leanne graves Referred To Contact Radiology Diagnoses Breast mass, right Procedures CUSTODIAL Biopsy of Breast (Right) Merna Conn MD Phone: tel: fax: mailto:[email or web address] Referral ID Status Reason Start Date Expiration Date Visits Re quested Visits Authorized [id number] Closed 08/28/2020 08/28/2021 1 1 Encounter Details Date Type Department Care Team (Late st Contact Info) Description 08/28/2020 Ancillary Orders [facility] [address] [address] Merna Conn MD [address] [address] [email or web address] Breast mass, right; Solitary cyst of right breast Social History Tobacco Use Types Packs/Day Years [...] high school, GED, job training, learning the Frisian language, technical skills, or developing parenting skills)? [...] on file documented as of this encounter Results * CUSTODIAL Breast Aspiration of Cyst (Right) (09/07/2020 9:57 AM EDT) Anatomical Region Laterality Modality Breast Right, Breast Bilateral Right U ltrasound 09/07/2020 2:47 PM EDT Addenda Addendum by Skylar Hodges MD on 09/14/2020 4:52 PM EDT ADDENDUM: Site #1 -- a cyst in the right breast at 8:00: This result is: Benign. Recommendation for site 1: Recommend routine screening. 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 This result is: Benign and concordant. Recommendation for site 2: Recommend routine screening. Overall recommendation: Recommend routine screening mammography at age 40. Communication of results: The patient has already been informed of the results as documented in the EHR. Impressions 09/08/2020 10:36 AM EDT Site #1 -- a cyst in the right breast at 8:00: This result is: Benign. Recommendation for site 1: Pending and will be reported in an addendum. Site #2 -- a mass in the right breast at 10:00: Pathology findings: Pending and will be reported in an addendum. This result is: Pending and will be reported in an addendum. Recommendation for site 2: Pending and will be reported in an addendum. Overall recommendation: Pending Communication of results: Pending. Narrative 09/08/2020 10:36 AM EDT Reason for exam (per EHR order): breast mass right MULTI-SITE CORE BIOPSY: Recent imaging performed within our system demonstrates the following findings: Site #1: A cyst in the right breast 8:00 4 to 5 cm from the nipple measuring 0.8 cm, for which aspiration is recommended. Site #2: A mass in the right breast 10:00 to 3 cm from the nipple measuring 1.5 cm, for which ultrasound-guided core biopsy is recommended. Pertinent imaging studies and/or documents were reviewed. The patient identification and procedure were verified. The patient's known allergies, current medications and adverse medication reactions were reviewed. The procedure was explained to the patient, including benefits, risks, and alternatives, and written consent was obtained. A safety pause was observed immediately prior to the procedure. SITE #1-- Right 8:00, ULTRASOUND-GUIDED ASPIRATION: The patient was positioned and images of the cyst in the right breast at 8:00 were obtained. The breast was prepped for the procedure using standard aseptic technique. Local anesthesia was achieved with 2 mL of 2% lidocaine in the skin, superficial and deeper tissues. The target was aspirated to complete resolution using a lateral approach, ultrasound guidance and a 18 gauge needle. 1 cc of serous fluid was obtained and discarded. SITE #2-- RIGHT 10:00, ULTRASOUND-GUIDED CORE BIOPSY BREAST WITH MARKER: The patient was positioned and images of the mass in the right breast at 10:00 were obtained. The breast was prepped for the procedure using standard aseptic technique. Local anesthesia was achieved with injection of 1 mL of 2% lidocaine in the skin and superficial tissues followed by injection of 5 mL of 2% lidocaine to the deeper tissues. The mass was biopsied under ultrasound guidance using a lateral approach, a 13-gauge introducer, and a 14-gauge automated biopsy device. Multiple tissue samples were obtained. Adequate lesion sampling was confirmed by orthogonal ultrasound images. A wing-shaped tissue marker was placed and was directly observed to deploy at the biopsy site. CC and lateral digital mammographic views of the right breast were obtained and show the wing-shaped marker at the expected location of the biopsy site. The teaching physician, Dr. Skylar Hodges, performed the entire procedure and was immediately available before and afterward. The patient tolerated the procedure well. There were no immediate complications. Discharge instructions were reviewed and all patient questions were answered. The patient left the department in good condition. Procedure Note Skylar Hodges MD - 09/08/2020 Reason for exam (per EHR order): breast mass right MULTI-SITE CORE BIOPSY: Recent imaging performed within our system demonstrates the followingfindings: Site #1: A cyst in the right breast 8:00 4 to 5 cm from the nipplemeasuring 0.8 cm, for which aspiration is recommended. Site #2: A mass in the right breast 10:00 to 3 cm from the nipplemeasuring 1.5 cm, for which ultrasound-guided core biopsy isrecommended. Pertinent imaging studies and/or documents were reviewed. The patientidentification and procedure were verified. The patient's known allergies,current medications and adverse medication reactions were reviewed. Theprocedure was explained to the patient, including benefits, risks, andalternatives, and written consent was obtained. A safety pause wasobserved immediately prior to the procedure. SITE #1-- Right 8:00, ULTRASOUND-GUIDED ASPIRATION: The patient was positioned and images of the cyst in the right breast at8:00 were obtained. The breast was prepped for the procedure usingstandard aseptic technique. Local anesthesia was achieved with 2 mL of 2%lidocaine in the skin, superficial and deeper tissues. The target wasaspirated to complete resolution using a lateral approach, ultrasoundguidance and a 18 gauge needle. 1 cc of serous fluid was obtained anddiscarded. SITE #2-- RIGHT 10:00, ULTRASOUND-GUIDED CORE BIOPSY BREAST WITH MARKER: The patient was positioned and images of the mass in the right breast at10:00 were obtained. The breast was prepped for the procedure usingstandard aseptic technique. Local anesthesia was achieved with injectionof 1 mL of 2% lidocaine in the skin and superficial tissues followed byinjection of 5 mL of 2% lidocaine to the deeper tissues. The mass wasbiopsied under ultrasound guidance using a lateral approach, a 13-gaugeintroducer, and a 14-gauge automated biopsy device. Multiple tissuesamples were obtained. Adequate lesion sampling was confirmed byorthogonal ultrasound images. A wing-shaped tissue marker was placed andwas directly observed to deploy at the biopsy site. CC and lateral digital mammographic views of the right breast wereobtained and show the wing-shaped marker at the expected location of thebiopsy site. The teaching physician, Dr. Skylar Hodges, performed the entireprocedure and was immediately available before and afterward. The patient tolerated the procedure well. There were no immediatecomplications. Discharge instructions were reviewed and all patientquestions were answered. The patient left the department in goodcondition. IMPRESSION: Site #1 -- a cyst in the right breast at 8:00: This result is: Benign. Recommendation for site 1: Pending and will be reported in an addendum. Site #2 -- a mass in the right breast at 10:00: Pathology findings: Pending and will be reported in an addendum. This result is: Pending and will be reported in an addendum. Recommendation for site 2: Pending and will be reported in an addendum. Overall recommendation: Pending Communication of results: Pending. us Merna Conn MD IMG BI IRP GUIDED BREAST PRO C Edited Result - Final * CUSTODIAL Biopsy of Breast (Right) (09/07/2020 9:56 AM EDT) Anatomical Region Laterality Modality Breast Right, Breast Bilateral Right U ltrasound 09/07/2020 2:47 PM EDT Addenda Addendum by Skylar Hodges MD on 09/14/2020 4:52 PM EDT ADDENDUM: Site #1 -- a cyst in the right breast at 8:00: This result is: Benign. Recommendation for site 1: Recommend routine screening. 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 This result is: Benign and concordant. Recommendation for site 2: Recommend routine screening. Overall recommendation: Recommend routine screening mammography at age 40. Communication of results: The patient has already been informed of the results as documented in the EHR. Impressions 09/08/2020 10:36 AM EDT Site #1 -- a cyst in the right breast at 8:00: This result is: Benign. Recommendation for site 1: Pending and will be reported in an addendum. Site #2 -- a mass in the right breast at 10:00: Pathology findings: Pending and will be reported in an addendum. This result is: Pending and will be reported in an addendum. Recommendation for site 2: Pending and will be reported in an addendum. Overall recommendation: Pending Communication of results: Pending. Narrative 09/08/2020 10:36 AM EDT Reason for exam (per EHR order): breast mass right MULTI-SITE CORE BIOPSY: Recent imaging performed within our system demonstrates the following findings: Site #1: A cyst in the right breast 8:00 4 to 5 cm from the nipple measuring 0.8 cm, for which aspiration is recommended. Site #2: A mass in the right breast 10:00 to 3 cm from the nipple measuring 1.5 cm, for which ultrasound-guided core biopsy is recommended. Pertinent imaging studies and/or documents were reviewed. The patient identification and procedure were verified. The patient's known allergies, current medications and adverse medication reactions were reviewed. The procedure was explained to the patient, including benefits, risks, and alternatives, and written consent was obtained. A safety pause was observed immediately prior to the procedure. SITE #1-- Right 8:00, ULTRASOUND-GUIDED ASPIRATION: The patient was positioned and images of the cyst in the right breast at 8:00 were obtained. The breast was prepped for the procedure using standard aseptic technique. Local anesthesia was achieved with 2 mL of 2% lidocaine in the skin, superficial and deeper tissues. The target was aspirated to complete resolution using a lateral approach, ultrasound guidance and a 18 gauge needle. 1 cc of serous fluid was obtained and discarded. SITE #2-- RIGHT 10:00, ULTRASOUND-GUIDED CORE BIOPSY BREAST WITH MARKER: The patient was positioned and images of the mass in the right breast at 10:00 were obtained. The breast was prepped for the procedure using standard aseptic technique. Local anesthesia was achieved with injection of 1 mL of 2% lidocaine in the skin and superficial tissues followed by injection of 5 mL of 2% lidocaine to the deeper tissues. The mass was biopsied under ultrasound guidance using a lateral approach, a 13-gauge introducer, and a 14-gauge automated biopsy device. Multiple tissue samples were obtained. Adequate lesion sampling was confirmed by orthogonal ultrasound images. A wing-shaped tissue marker was placed and was directly observed to deploy at the biopsy site. CC and lateral digital mammographic views of the right breast were obtained and show the wing-shaped marker at the expected location of the biopsy site. The teaching physician, Dr. Skylar Hodges, performed the entire procedure and was immediately available before and afterward. The patient tolerated the procedure well. There were no immediate complications. Discharge instructions were reviewed and all patient questions were answered. The patient left the department in good condition. Procedure Note Skylar Hodges MD - 09/08/2020 Reason for exam (per EHR order): breast mass right MULTI-SITE CORE BIOPSY: Recent imaging performed within our system demonstrates the followingfindings: Site #1: A cyst in the right breast 8:00 4 to 5 cm from the nipplemeasuring 0.8 cm, for which aspiration is recommended. Site #2: A mass in the right breast 10:00 to 3 cm from the nipplemeasuring 1.5 cm, for which ultrasound-guided core biopsy isrecommended. Pertinent imaging studies and/or documents were reviewed. The patientidentification and procedure were verified. The patient's known allergies,current medications and adverse medication reactions were reviewed. Theprocedure was explained to the patient, including benefits, risks, andalternatives, and written consent was obtained. A safety pause wasobserved immediately prior to the procedure. SITE #1-- Right 8:00, ULTRASOUND-GUIDED ASPIRATION: The patient was positioned and images of the cyst in the right breast at8:00 were obtained. The breast was prepped for the procedure usingstandard aseptic technique. Local anesthesia was achieved with 2 mL of 2%lidocaine in the skin, superficial and deeper tissues. The target wasaspirated to complete resolution using a lateral approach, ultrasoundguidance and a 18 gauge needle. 1 cc of serous fluid was obtained anddiscarded. SITE #2-- RIGHT 10:00, ULTRASOUND-GUIDED CORE BIOPSY BREAST WITH MARKER: The patient was positioned and images of the mass in the right breast at10:00 were obtained. The breast was prepped for the procedure usingstandard aseptic technique. Local anesthesia was achieved with injectionof 1 mL of 2% lidocaine in the skin and superficial tissues followed byinjection of 5 mL of 2% lidocaine to the deeper tissues. The mass wasbiopsied under ultrasound guidance using a lateral approach, a 13-gaugeintroducer, and a 14-gauge automated biopsy device. Multiple tissuesamples were obtained. Adequate lesion sampling was confirmed byorthogonal ultrasound images. A wing-shaped tissue marker was placed andwas directly observed to deploy at the biopsy site. CC and lateral digital mammographic views of the right breast wereobtained and show the wing-shaped marker at the expected location of thebiopsy site. The teaching physician, Dr. Skylar Hodges, performed the entireprocedure and was immediately available before and afterward. The patient tolerated the procedure well. There were no immediatecomplications. Discharge instructions were reviewed and all patientquestions were answered. The patient left the department in goodcondition. IMPRESSION: Site #1 -- a cyst in the right breast at 8:00: This result is: Benign. Recommendation for site 1: Pending and will be reported in an addendum. Site #2 -- a mass in the right breast at 10:00: Pathology findings: Pending and will be reported in an addendum. This result is: Pending and will be reported in an addendum. Recommendation for site 2: Pending and will be reported in an addendum. Overall recommendation: Pending Communication of results: Pending. Merna Conn MD IMG BI IRP GUIDED BREAST PRO C Edited Result - Final documented in this encounter Visit Diagnoses Diagnosis Breast mass, right Lump or mass in breast Solitary cyst of right breast Breast mass, right Lump or mass in breast Breast mass, right Lump or mass in breast Solitary cyst of right breast documented in this encounter Additional Health Concerns Assessment Noted Time PHQ-2 Depression Total Score: 0 08/24/19 21 10:04 AM EDT documented as of this encounter Care Teams Academic Physician Relationship Specialty Start Date End Date Merna Conn MD [address] [place] [id number] PCP - General Family Medicine 07/28/20 07/12/24 Merna Conn MD [address] [address] [email or web address] Insurance Assigned Provider 12/16/20 documented as of this encounter Additional Source Comments The information contained in this document represents components of the legal health record. It is not the complete legal health record.[facility]
--- OUTSIDE RECORDS SUMMARY | 2025-02-03 04:47 | XMS_ITS | Encounter Summary ---
Author Organization [facility] Address [address] [place] [address] Phone Care Team Providers Care Obstetrics Scrub Nurse Name Role Phone Merna Conn MD Primary Care Provider [phone] Merna Conn MD Unavailable [phone] Reason for Referral * - Closed Specialty Diagnoses / Procedures Referred By Contac t Referred To Contact Radiology Diagnoses Abnormal finding on imaging Procedures Mammogram Diagnostic Post Procedure (Right) Merna Conn MD Phone: tel: fax: mailto:[email or web address] Referral ID Status Reason Start Date Expiration Date Visits Re quested Visits Authorized [id number] Closed 08/28/2020 08/28/2021 1 1 Encounter Details Date Type Department Care Team (Late st Contact Info) Description 08/28/2020 Ancillary Orders [facility] [address] [place] [address] Merna Conn MD [address] [facility] [address] [place] [address] [email or web address] Abnormal finding on imaging Social History Tobacco Use Types Packs/Day Years [...] high school, GED, job training, learning the Yoruba language, technical skills, or developing parenting skills)? [...] documented as of this encounter Results * BI MAMMOGRAM DIAGNOSTIC POST PROCEDURE NO TOMOSYNTHESIS WITH CAD (RIGHT) (09/07/2020 10:12 AM EDT) Anatomical Region Laterality Modality Breast Right, Breast Bilateral Right M ammography 09/07/2020 2:47 PM EDT Addenda Addendum by [...] recommendation: Pending Communication of results: Pending. Merna LAZAROG MG EXAMS Edited Resul t - Final documented in this encounter Visit Diagnoses Diagnosis Abnormal finding on imaging Other nonspecific (abnormal) findings on radiological and other examinations of body structure Abnormal finding on imaging Other nonspecific (abnormal) findings on radiological and other examinations of body structure documented in this encounter Additional Health Concerns Assessment Noted Time PHQ-2 Depression Total Score: 0 08/24/19 21 10:04 AM EDT documented as of this encounter Care Teams Obstetrics Scrub Nurse Relationship Specialty Start Date End Date Merna Conn MD [address] [address] PCP - General Family Medicine 07/28/20 07/12/24 Merna Conn MD [address] [address] Insurance Assigned Provider 12/16/20 documented as of this encounter Additional Source Comments The information contained in this document represents components of the legal health record. It is not the complete legal health record.[facility]
--- NOTE | 2025-02-03 05:14 | PC.NURSE ---
Addendum entered by Clarisa Hilario RN 02/03/25 05:16: Rate change to 340mL/ per hr. Physician order for transfusion over an hour Original Note: Post 15 min vitals, lung sounds clear5
--- NOTE | 2025-02-03 05:26 | PC.NURSE ---
per , run pt blood over 15 minutes at this time. pt tolerating well. vss.
--- NOTE | 2025-02-03 05:45 | PC.NURSE ---
per , administer second unit of PRBC over 30 minutes
--- NOTE | 2025-02-03 06:11 | PC.NURSE ---
Post Q15 vitals, lung sound clear, stable.
[2025-02-03 06:29] LABS: Hematocrit 21.3 % (37.0-47.0); Imm Gran Abs Auto 0.03 X10*3/uL (0.00-0.03); Imm Gran Pct Auto 0.5 % (0.0-0.4); Lymphocytes Absolute Auto 1.3 X10*3/uL (1.2-4.9); MANUAL DIFF FLAG SCAN; Mean Corpuscular HGB Conc 31.5 g/dl (31.0-35.0); Mean Corpuscular Hemoglobin 24.4 pg (27.0-33.0); Mean Corpuscular Volume 77.5 fL (80.0-98.0); NRBC Abs Auto 0.020 X10*3/uL (0.0-0.012); NRBC Pct Auto 0.3 /100WBC (0.0-0.2); Platelet Count 286 X10*3/uL (160-400); Red Blood Count 2.75 X10*6/uL (4.20-5.50); SCAN SMEAR FLAG 1; White Blood Count 6.4 X10*3/uL (4.8-10.8)
[2025-02-03 06:30] LABS: PLT ABN DIST 1
[2025-02-03 06:31] LABS: Hemoglobin 6.7 g/dl (12.0-16.0)
[2025-02-03] MEDS: Lactated Ringers 1,000 ML 100 ML IVCONT (06:44)
--- NOTE | 2025-02-03 08:35 | PC.NURSE ---
patient a&ox3, vss, rr equal/non labored, lungs clear/diminished, pt ambulated with steady gait to bathroom, ekg monitor intact- nsr, ivf running per order, pt currently denying pain/discomfort, pt remains NPO until gastro consults- pt aware, pt states her rectal bleeding is not constant/occurs only when using the bathroom, call page within reach, plan of care ongoing.
[2025-02-03 08:51] LABS: Iron 11 mcg/dL (30-160); Percent Iron Saturation 3 % (15-50); Total Iron Binding Capacity 331 mcg/dL (228-428); Unsaturated Iron Binding 320 ug/dL
[2025-02-03 09:07] LABS: Ferritin < 2 ng/mL (10-250)
--- NOTE | 2025-02-03 10:31 | PHA.MEDREC ---
Pharmacy Consult ? Medication Reconciliation Pharmacy has completed the medication reconciliation.
--- NOTE | 2025-02-03 10:43 | PC.NURSE ---
patient c/o nausea, dr. Riojas was notified and asked for PRN zofran, will await orders
--- NOTE | 2025-02-03 11:35 | P.HPHOSP_ITS ---
History of Present Illness Date of Service: 02/03/25 Chief Complaint: anemia 39F PMH ulcerative colitis, chronic iron-deficiency anemia, bipolar disorder presented with anemia. Patient has chronic ongoing iron-deficiency anemia due to ulcerative colitis with proctitis and daily hematochezia with blood clots. Does report that it has been improved since starting Stelara, however, still has daily bleeding. Patient states she does not tolerate IV iron. She does take oral iron. She has a home hemoglobin monitor which read 4.3. She checked because she was feeling weak and dizzy. In ED hemoglobin confirmed to be 4, with labs consistent with iron-deficiency. Review of Systems 2 Review of Systems: Yes all other systems are reviewed and are negative [facility] Medical History Anxiety Anemia PMDD (premenstrual dysphoric disorder) ADD (attention deficit disorder) Ulcerative colitis Bipolar 1 disorder Depression Anjali Family History Maternal Grandmother Pancreatic cancer Paternal Grandfather Pancreatic cancer Paternal Grandmother Breast cancer Uterine cancer Surgical History S/P tubal ligation Social History Household Members: Other Household Members Other:: boyfriend Housing: House Do you presently have visiting nurse or other home services: No Patient Tobacco Use Status: Never used Tobacco Smoked in Last 30 Days: No Second Hand Smoke Exposure: No Use of substances other than those prescribed or required for medical reasons: No Advance Directives: No Advance Directives Information Provided: Yes Do you have a plan to hurt others: No Plan Patient : No (pt hx tubal ligation) service: No Current occupational status: unemployed Sexual orientation: Straight/Heterosexual Meds Allergies Allergy/AdvReac Type Severity Reaction Status Date / Time Sulfa (Sulfonamide AdvReac Rash Verified 02/03/25 03:23 Antibiotics) Active Medications: Current Medications Acetaminophen (Acetaminophen 325 Mg Tablet) 650 mg PO Q6H PRN PRN Reason: Pain, Mild 1-3,fever,headache Calcium Carbonate (Calcium Carbonate 750 Mg Tab.Chew) 750 mg PO Q4H PRN PRN Reason: Heartburn Carbamazepine (Carbamazepine 200 Mg Tablet) 600 mg PO BID [facility] Diphenoxylate HCl/Atropine (Diphenoxylate/Atrop 2.5/0.025 Tablet) 1 tab PO Q6H [facility] Ferrous Sulfate (Ferrous Sulfate 324 Mg Tablet.Dr) 324 mg PO BID [facility] Hydroxyzine HCl (Hydroxyzine Hcl 25 Mg Tablet) 25 mg PO BID PRN PRN Reason: Anxiety Magnesium Hydroxide (Milk Of Magnesia 30 Ml Oral.Susp) 30 ml PO DAILY PRN PRN Reason: Constipation Melatonin (Melatonin 3 Mg Tablet) 6 mg PO BEDTIME PRN PRN Reason: Insomnia Ondansetron HCl (Ondansetron Hcl 4 Mg/2 Ml Vial) 4 mg IVPUSH Q6H PRN PRN Reason: Nausea Pantoprazole Sodium (Pantoprazole Sodium 40 Mg/10 Ml Vial) 40 mg IVPUSH DAILY@0630 [facility] Last Admin: 02/03/25 06:43 Dose: 40 mg Sertraline HCl (Sertraline Hcl 100 Mg Tablet) 200 mg PO DAILY [facility] Sodium Chloride (0.9 % Sodium Chloride Flush 3 Ml Syringe) 3 ml IVFLUSH QSHIFT [facility] Last Admin: 02/03/25 07:06 Dose: Not Given Home Medications ?Medication ?Instructions ?Recorded ?Confirmed ?Last Taken ?Type carbamazepine 200 mg tablet 600 mg PO BID 10/05/2202/02/25 History melatonin 5 mg tablet 5 mg PO BEDTIME 10/05/2202/02/25 History hydroxyzine HCl 25 mg tablet 25 mg PO BID PRN Anxiety 07/30/24 02/03/25 02/02/25 History ustekinumab 90 mg/mL subcutaneous 90 mg subcut Q4W 02/03/25 02/02/25 History syringe (Stelara) diphenoxylate-atropine 2.5 1 tab PO Q6H 02/03/2502/0302/02/25 History mg-0.025 mg tablet sertraline 100 mg tablet 200 mg PO QAM 02/03/2502/0302/02/25 History Physical Exam 2 Vital Signs and Narrative: Vital Signs: Last Vital Signs Temp 98.2 F 02/03/25 08:00 Pulse 87 02/03/25 08:00 Resp 20 02/03/25 08:00 BP 124/69 02/03/25 08:00 Pulse Ox 97 02/03/25 08:00 O2 Del Method Room Air 02/03/25 08:00 BMI result Body Mass Index 30.0 General: AO X 3, no acute distress, pallor Resp: CTA bilateral, no accessory muscles used CVS: S1,S2,RRR GI: soft, non tender, non distended Neuro: motor grossly intact, alert Psych: appropriate affect, appropriate insight Results Labs 02/03/25 06:18 02/03/25 03:22 Labs: Laboratory Results - last 24 hr 02/03/25 02/03/25 02/03/25 03:22 03:56 06:18 MCV 69.0 L 77.5 L D MCH 19.0 L 24.4 L MCHC 27.6 L 31.5 RDW 19.4 H 21.8 H Plt Count 493 H D 286 D MPV 10.3 11.4 Immature Gran % (Auto) 0.3 0.5 H Neut % (Auto) 68.9 72.4 Lymph % (Auto) 25.1 19.9 L [place] % (Auto) 4.6 6.1 Eos % (Auto) 0.8 0.6 Baso % (Auto) 0.3 0.5 Lymph # (Auto) 2.3 1.3 [place] # (Auto) 0.4 0.4 Eos # (Auto) 0.1 0.0 Baso # (Auto) 0.0 0.0 Abs Immat Gran (auto) 0.03 0.03 Absolute Neuts (auto) 6.4 4.6 Absolute Nucleated RBC 0.070 H 0.020 H Nucleated RBC % (auto) 0.8 H 0.3 H Smear Tech's Comments VERIFIED Smear Path Review SEE NOTE Anion Gap 13 Estim Creat Clear Calc 122.1 Estimated GFR > 60 Random Glucose 118 H Calcium 8.3 L D Iron 11 L TIBC 331 % Saturation 3 L Unsat Iron Binding 320 Ferritin < 2 L Total Bilirubin 0.2 AST 20 ALT 27 Alkaline Phosphatase 37 L Total Protein 6.6 Albumin 4.2 Stool Occult Blood NEGATIVE Blood Type A Positive Antibody Screen NEGATIVE Crossmatch See Detail Assessment and Plan (1) Anemia due to gastrointestinal blood loss: Status: Acute Plan 39F PMH ulcerative colitis, chronic iron-deficiency anemia, bipolar disorder presented with anemia Acute on chronic blood loss anemia due to ulcerative colitis Transfused 2 units PRBC in ED, hemoglobin improved from 4-6.7 We will transfuse 1 more unit GI eval Bipolar Continue carbamazepine, sertraline DVT prophylaxis-mechanical due to bleed Full Code Quality Stroke Does the patient have a stroke diagnosis?: No VTE Prior VTE?: No VTE Risk Level:: Medical - moderate - high VTE Device Contraindication: N/A - Device Ordered VTE Drug Contraindication: Treatment Not Indicated
--- NOTE | 2025-02-03 11:35 | MHC.CM.PN ---
PT REPORTS SHE LIVES AT HOME WITH HER S/O SHE IS INDEPENDENT WITH CARE, HAS NO DME AND NO SERVICES PT DOES NOT HAVE A PCP DECLINES A HCP DCP: HOME VIA PRIVATE TRANSPORT
--- NOTE | 2025-02-03 15:19 | PC.NURSE ---
Pt called RN in to report that her right palm was itchy, redness noted. blood transfusion almost finished. Pt reporting no airway issues at that time. Rn called back in approx 5 minutes later, pt reporting her throat was itching, redness noted from itching, pt reporting she feels like her whole body is on fire. Blood transfusion finished, flushed, vitals stable, O2 100%, placed on 2L NC at this time for comfort. Pt reporting some relief. MD notified, 25mg benadryl ordered, primary nurse made aware.
--- NOTE | 2025-02-03 15:25 | PC.NURSE ---
pt a&ox3, pt given 25mg benadryl per order- pt had noticeable hives and had c/o itchiness, left upper lung had ins. wheezing. when the pt was given the ivp benadryl she began hyperventilating. Vitals were stable, provider notified and came to evaluate the patient. Upon the provider evaluating the patient she was back to baseline and no longer had wheezing she was sitting calmly and speaking in full sentences. Blood bank was called to ask if they needed the empty bag back and they stated that unless Dr. Riojas wanted a blood reaction study it was not needed. Dr. Riojas was asked if he wished to do a blood reaction study on the patient and he declined and believes this was more anxiety than the transfusion.
[2025-02-03] MEDS: 0.9 % Sodium Chloride Flush 3 ML SYRINGE IVFLUSH ×2 (17:16→20:42)
--- NOTE | 2025-02-03 17:17 | PM.EVENT ---
Event Note Date of Service: 02/03/25 Event Note: GI Consult-Full note dictated-History from patient and EMR Imp: 39 yo female with chronic anemia, proctitis, and rectal bleeding. Things had improved both clinically and endoscopically early last year in 2023 as compared to her previous evaluations, but her rectal bleeding and anemia have worsened despite being on the Stelara Q 4 weeks since spring and receiving IV Iron. Her last Stelara was earlier this week and her last Iron infusion was in approximately November. She comes in with significant anemia again and has received 3 units of PRBC's in the ER. Rec: Will plan for a Flex sig tomorrow to reassess the proctitis activity and then decide about keeping her on the Stelara or switching to a different biologic such as Skyrizi. Full consent is obtained for this, including risks of bleeding and perforation. We may want to add steroids but she has a very hard time tolerating them due to mental health issues. Will hold Lomotil and Iron for now, and switch her back to a po PPI. D/W patient in detail and she is comfortable with this plan. Thanks Time Spent With Patient Time: Total time managing care of this patient today ____ minutes.
--- NOTE | 2025-02-03 18:43 | MHC.SHP ---
Pre-Procedural Eval Section A - 24 Hr Update-Section A only Date of Service: 02/03/25 The patient is an INPATIENT: Yes The patient has been examined within 24 hours of the surgical procedure. The History & Physical has been completed within 30 days and I have reviewed it.: Yes Section B - Complete if H&P > 30 days Chief Complaint: Anemia Allergies: Allergies Allergy/AdvReac Type Severity Reaction Status Date / Time Sulfa (Sulfonamide AdvReac Rash Verified 02/03/25 03:23 Antibiotics) Plan I have reviewed the history and physical and performed a pertinent physical examination on my patient. No changes have occurred unless specified. Time Spent With Patient Time: Total time managing care of this patient today ____ minutes.
--- NOTE | 2025-02-03 22:55 | PC.NURSE ---
Addendum entered by Angeles Orozco RN 02/03/25 23:34: Per hospitalist, keep monitoring engineer in use overnight. Order entered by storage battery charger. Rhythm SR Original Note: [place] text sent to Hospitalist on duty to inquire if he wanted tele-monitoring to continue on this patient. Patient admitted on day shift with monitor in place, cardiac rhythm of SR as per [facility] [place] TECHNICAL ADMINISTRATIVE ASSISTANT. Will keep in place until further input/response. Nursing char house supervisor aware and replied to check with
[2025-02-04] VITALS (9 sets, daily range): BP systolic 110–140; BP diastolic 51–88; PULSE 73–102; RESP 18–20; TEMP 36.2–36.9; O2SAT 95–99
--- NOTE | 2025-02-04 03:17 | CONS_ITS ---
DATE OF SERVICE: 02/03/2025 REASON FOR CONSULTATION: Rectal bleeding, history of proctitis, and anemia. HISTORY OF PRESENT ILLNESS: This has been obtained from the patient and the medical record. The patient is a 39-year-old female, well known to me with a known history of proctitis. This was initially diagnosed in the spring. A colonoscopy at that time revealed active proctitis with ulcerations, but a normal colon proximal to that. She was started on treatment with balsalazide orally and mesalamine suppositories. She was admitted to the hospital again in August 2023, with a recurrent significant anemia with a hemoglobin of 5.7. At that time, her proctitis symptoms had seemingly improved, but was still having daily bleeding. She underwent a flexible sigmoidoscopy during that admission in August 2023, with the finding of a much-improved proctitis with some patchy areas, but no sign of any significant ulcerations as had been seen on her examination with colonoscopy in 2022. Subsequent to that, she was started on Stelara every 8 weeks, but this was ultimately increased to every 4 weeks due to very low levels of the Stelara in July of this year despite negative antibodies for Stelara. She was to have had a colonoscopy and upper endoscopy earlier this year for further evaluation of her ongoing problems with anemia, but she had to cancel that as she was not feeling well and they were rescheduled for this coming fall. She came to the ER today due to weakness and was found to have a hemoglobin of 4.0. She does report that she was having at least 2 liquid type stools with bright red blood and blood clots on a daily basis. She denies any melena. She has had occasional vomiting, but no hematemesis nor coffee-ground emesis. She is not using any aspirin nor NSAIDs. She does not smoke nor use any significant amounts of alcohol. She denies any abdominal pain. She does continue to see Dr. Kimble in the [facility] for her anemia and last received IV iron in approximately November. She describes that she has a hard time after each infusion with some myalgias and other constitutional symptoms. Since in the ER, she did receive 3 units of blood and her hemoglobin gisela to 6.7 as of 6 a.m. Her iron studies early today when she arrived showed an iron of 11, iron saturation of 3%, and a ferritin of less than 2. She denies any known family history of colorectal cancer. No inflammatory bowel disease. MEDICATIONS: At home included the Stelara every 4 weeks, diphenoxylate/atropine p.r.n. for diarrhea, iron, omeprazole 20 mg daily, and carbamazepine. PAST MEDICAL HISTORY: Proctitis, probably Crohn's judging endoscopically on her 1st exam in 2022. Bipolar disease, anemia. She denies history of NM, diabetes, stroke, lung disease, or kidney disease. She has had and appendectomy. FAMILY HISTORY: As above. SOCIAL HISTORY: She is single. She does not smoke nor use any significant amounts of alcohol. REVIEW OF SYSTEMS: CONSTITUTIONAL: She has been feeling quite tired and weak from her anemia. CARDIAC: No chest pain. PULMONARY: No coughing, nor hemoptysis. GI: As above. URINARY: No dysuria, no hematuria. PHYSICAL EXAMINATION: GENERAL: Patient is a pleasant, but pale female, in no distress. SKIN: Warm and dry. Anicteric sclerae. NECK: Supple. ABDOMEN: Soft, nondistended, nontender without palpable mass. EXTREMITIES: Without edema. NEUROLOGIC: She is alert and oriented. LABORATORY DATA: As above. Normal chemistries. BUN 7, creatinine 0.6. Iron of 11, TIBC 331, iron saturation 3%, ferritin of less than 2. LFTs normal. Normal electrolytes. Stool was actually Hemoccult negative. ASSESSMENT/PLAN: Patient is a 39-year-old female presenting with the recurrent and significant anemia, requiring transfusions. She has a known history of significant proctitis that has been somewhat refractory to medical therapy. She has been on Stelara every 4 weeks, but nonetheless does continue to have ongoing issues with diarrhea and rectal bleeding at least twice a day. Her Stelara level early this year was minimally found to be 1 and that is when her Stelara was increased from every 8 weeks to every 4 weeks. She has not had any followup Stelara levels despite my ordering them as she has been intermittently not feeling well. At this point, based on her clinical history, it does appear that she clearly has ongoing active proctitis. I have recommended a flexible sigmoidoscopy while she is here in the hospital, so we can reassess the activity of this and then decide about further treatment options including steroids and changing to a different biologic agent. If active proctitis is found and seemed to be worse than it was last year, I would then recommend changing the Stelara to a different biologic agent such as Skyrizi. Full consent has been obtained from her for the sigmoidoscopy including risks of bleeding and perforation. If active proctitis is seen, we could add steroids, although again in the past, she has had a hard time tolerating them and really could not tolerate a very long course of prednisone. That is due to her mental health issues. I will hold her Lomotil and iron therapy for now in the hospital. I shall switch her back to a p.o. PPI as I don't think she is having any active upper GI issues at the present time. This has all been discussed in detail with the patient and she is comfortable with the plan. Thank you for the consultation. MD SEGUNDO Anlgin/CLIFF / [phone]
--- NOTE | 2025-02-04 04:40 | PC.NURSE ---
0434- [facility] [place] [employer] reported on this patient of a (6 second run of atrial tachycardia). Awakened pt, stated to have no complaints and also Hospitalist was on unit, showed him the strip and note and he said okay we will continue to monitor.
[2025-02-04 06:22] LABS: MANUAL DIFF FLAG NO
[2025-02-04 06:56] LABS: Alanine Aminotransferase 14 U/L (0-31); Albumin Level 3.6 g/dL (3.5-5.0); Alkaline Phosphatase 31 U/L (39-117); Anion Gap 11 (12-20); Aspartate Amino Transferase 18 U/L (5-31); Blood Urea Nitrogen 6 mg/dL (9-16); Calcium 8.1 mg/dL (8.4-10.2); Carbon Dioxide 23 mmol/L (22-29); Chloride 112 mmol/L (96-108); Creatinine Clr Calc Pharmacy 129.7; Estimated Glomerular Filt Rate > 60; Potassium 3.5 mmol/L (3.3-5.1); Sodium 142 mmol/L (135-145); Total Protein 5.8 g/dL (6.5-8.0)
[2025-02-04 07:02] LABS: Hematocrit 26.2 % (37.0-47.0); Hemoglobin 8.5 g/dl (12.0-16.0); Imm Gran Abs Auto 0.02 X10*3/uL (0.00-0.03); Imm Gran Pct Auto 0.5 % (0.0-0.4); Lymphocytes Absolute Auto 1.3 X10*3/uL (1.2-4.9); Mean Corpuscular HGB Conc 32.4 g/dl (31.0-35.0); Mean Corpuscular Hemoglobin 24.6 pg (27.0-33.0); Mean Corpuscular Volume 75.7 fL (80.0-98.0); NRBC Abs Auto 0.030 X10*3/uL (0.0-0.012); NRBC Pct Auto 0.7 /100WBC (0.0-0.2); Platelet Count 255 X10*3/uL (160-400); Red Blood Count 3.46 X10*6/uL (4.20-5.50); White Blood Count 4.2 X10*3/uL (4.8-10.8)
--- NOTE | 2025-02-04 08:22 | P.PNIM_ITS ---
Subjective Subjective Date of Service: 02/04/25 Interval History: feeling better Physical Exam 2 Exam: Exam: General: AO X 3, no acute distress Resp: CTA bilateral, no accessory muscles used CVS: S1,S2,RRR GI: soft, non tender, non distended Neuro: motor grossly intact, alert Psych: appropriate affect, appropriate insight Vital Signs: Vital Signs: Last Vital Signs Temp 97.3 F 02/04/25 07:34 Pulse 78 02/04/25 07:34 Resp 18 02/04/25 07:34 BP 122/59 L 02/04/25 07:34 Pulse Ox 96 02/04/25 07:34 O2 Del Method Room Air 02/04/25 07:34 O2 Flow Rate 2 02/03/25 15:17 BMI result Body Mass Index 29.7 Objective Data Active Medications Acetaminophen (Acetaminophen 325 Mg Tablet) 650 mg PO Q6H PRN PRN Reason: Pain, Mild 1-3,fever,headache Calcium Carbonate (Calcium Carbonate 750 Mg Tab.Chew) 750 mg PO Q4H PRN PRN Reason: Heartburn Carbamazepine (Carbamazepine 200 Mg Tablet) 600 mg PO BID [facility] Last Admin: 02/03/25 20:41 Dose: 600 mg Documented By: PAT Hydroxyzine HCl (Hydroxyzine Hcl 25 Mg Tablet) 25 mg PO BID PRN PRN Reason: Anxiety Last Admin: 02/03/25 20:48 Dose: 25 mg Documented By: PAT Magnesium Hydroxide (Milk Of Magnesia 30 Ml Oral.Susp) 30 ml PO DAILY PRN PRN Reason: Constipation Melatonin (Melatonin 3 Mg Tablet) 6 mg PO BEDTIME PRN PRN Reason: Insomnia Last Admin: 02/03/25 21:57 Dose: 6 mg Documented By: PAT Omeprazole (Omeprazole 20 Mg Capsule.Dr) 20 mg PO DAILY@0630 [facility] Last Admin: 02/04/25 05:48 Dose: Not Given Documented By: PAT Non-Admin Reason: NPO Ondansetron HCl (Ondansetron Hcl 4 Mg/2 Ml Vial) 4 mg IVPUSH Q6H PRN PRN Reason: Nausea Last Admin: 02/03/25 11:51 Dose: 4 mg Documented By: TEJ Sertraline HCl (Sertraline Hcl 100 Mg Tablet) 200 mg PO DAILY [facility] Last Admin: 02/03/25 11:51 Dose: 200 mg Documented By: TEJ Sodium Chloride (0.9 % Sodium Chloride Flush 3 Ml Syringe) 3 ml IVFLUSH QSHIFT [facility] Last Admin: 02/03/25 20:42 Dose: 3 ml Documented By: PAT Labs 02/04/25 06:02 02/04/25 06:02 Labs: Laboratory Results - last 24 hr 02/03/25 02/03/25 02/03/25 03:22 03:56 17:30 MCV MCH MCHC RDW Plt Count MPV Immature Gran % (Auto) Neut % (Auto) Lymph % (Auto) [place] % (Auto) Eos % (Auto) Baso % (Auto) Lymph # (Auto) [place] # (Auto) Eos # (Auto) Baso # (Auto) Abs Immat Gran (auto) Absolute Neuts (auto) Absolute Nucleated RBC Nucleated RBC % (auto) Smear Path Review SEE NOTE Hold Purple Top SEE NOTE Anion Gap Estim Creat Clear Calc Estimated GFR Random Glucose Calcium Iron 11 L TIBC 331 % Saturation 3 L Unsat Iron Binding 320 Ferritin < 2 L Total Bilirubin AST ALT Alkaline Phosphatase Total Protein Albumin Hold Red Top See Note Urine Hemoglobin Blood Type A Positive Antibody Screen NEGATIVE Crossmatch See Detail Clerical Work Check Hemolysis Bld Bag Check Icterus Blood Bag Check Pre-Trans Blood Type Post-Trans Blood Type Post-Trans CARLOS Poly Post-Trans Add Testing Post-Tx Rxn CARLOS Result 02/03/25 02/03/25 02/04/25 18:10 Unknown 06:02 MCV 75.7 L MCH 24.6 L MCHC 32.4 RDW 19.5 H Plt Count 255 MPV 10.4 Immature Gran % (Auto) 0.5 H Neut % (Auto) 57.3 Lymph % (Auto) 30.9 [place] % (Auto) 8.4 Eos % (Auto) 2.2 Baso % (Auto) 0.7 Lymph # (Auto) 1.3 [place] # (Auto) 0.4 Eos # (Auto) 0.1 Baso # (Auto) 0.0 Abs Immat Gran (auto) 0.02 Absolute Neuts (auto) 2.4 Absolute Nucleated RBC 0.030 H Nucleated RBC % (auto) 0.7 H Smear Path Review Hold Purple Top Anion Gap 11 L Estim Creat Clear Calc 129.7 Estimated GFR > 60 Random Glucose 89 Calcium 8.1 L Iron TIBC % Saturation Unsat Iron Binding Ferritin Total Bilirubin 0.4 AST 18 ALT 14 Alkaline Phosphatase 31 L Total Protein 5.8 L Albumin 3.6 Hold Red Top Urine Hemoglobin Negative Blood Type Antibody Screen Crossmatch Clerical Work Check No Error Found Hemolysis Bld Bag Check No in Pre and Post Icterus Blood Bag Check No in Pre and Post Pre-Trans Blood Type A POSITIVE Post-Trans Blood Type A Positive Post-Trans CARLOS Poly NEGATIVE Post-Trans Add Testing No Post-Tx Rxn CARLOS Result TNP Assessment and Plan (1) Proctitis: Status: Acute Plan 39F PMH IBD proctitis, chronic iron-deficiency anemia, bipolar disorder presented with anemia Acute on chronic blood loss anemia due to IBD proctitis Transfused 3 units PRBC in ED, hemoglobin improved from 4 to 8.5 plan for flex sigmoidoscopy continue iron supplement likely plan to change biologic from stellara to skyrizzi Bipolar Continue carbamazepine, sertraline DVT prophylaxis-mechanical due to bleed Full Code reason for continued hospitalization:flex sigmoid Quality Stroke Does the patient have a stroke diagnosis?: No VTE Prior VTE?: No VTE Risk Level:: Medical - moderate - high VTE Device Contraindication: N/A - Device Ordered VTE Drug Contraindication: Treatment Not Indicated
--- NOTE | 2025-02-04 08:26 | PM.DS ---
DS: Providers Provider Date of Service: 02/04/25 Date of admission: 02/03/25 06:28 Date of discharge: 02/04/25 Primary care physician: Unknown Physician Consults: 02/03/25 06:28 Consult to Gastroenterology Routine Consulting Provider: [facility] Reason for consultation: Chrons; GI bleed; Anemia DS: Diagnosis Discharge Diagnosis (1) Proctitis: Status: Acute DS: Summary Hospital Course Hospital Course: from initial hpi: 39F PMH IBD/proctitis, chronic iron-deficiency anemia, bipolar disorder presented with anemia. Patient has chronic ongoing iron-deficiency anemia due to ulcerative colitis with proctitis and daily hematochezia with blood clots. Does report that it has been improved since starting Stelara, however, still has daily bleeding. Patient states she does not tolerate IV iron. She does take oral iron. She has a home hemoglobin monitor which read 4.3. She checked because she was feeling weak and dizzy. In ED hemoglobin confirmed to be 4, with labs consistent with iron-deficiency. hospital course: Patient was admitted for acute on chronic blood loss anemia due to inflammatory bowel disease/proctitis. Was transfused 3 units PRBC total and hemoglobin improved from 4-8.5. Symptoms resolved. Underwent flexible sigmoidoscopy which revealed Active proctitis with areas of ulcerations in the rectum but no active bleeding. However, there were some purplish areas under some of the ulcerations Patient will follow up with Gastroenterology likely to change biologic from Stelara to Skyrizi. and restart rectal mesalamine For bipolar was continued on carbamazepine and sertraline. Time Attestation Discharge Coordination Time (in mins): 32 Quality: Safe Use of Opioids Does Pt have an Active Cancer Diagnosis on the Problem List?: No Quality: Stroke Does the patient have a stroke diagnosis?: No Physical Exam Exam: Exam: General: AO X 3, no acute distress Resp: CTA bilateral, no accessory muscles used CVS: S1,S2,RRR GI: soft, non tender, non distended Neuro: motor grossly intact, alert Psych: appropriate affect, appropriate insight Vital Signs: Vital Signs: Last Vital Signs Temp 97.3 F 02/04/25 07:34 Pulse 78 02/04/25 07:34 Resp 18 02/04/25 07:34 BP 122/59 L 02/04/25 07:34 Pulse Ox 96 02/04/25 07:34 O2 Del Method Room Air 02/04/25 07:34 O2 Flow Rate 2 02/03/25 15:17 BMI result Body Mass Index 29.7 DS: Data Data Completed and Pending Completed studies during hospitalization [Text1]: Procedures Excision of Rectum, Via Natural or Artificial Opening Endoscopic, Diagnostic (10/05/22) Inspection of Lower Intestinal Tract, Via Natural or Artificial Opening Endoscopic (08/12/23) Transfusion of Nonautologous Red Blood Cells into Peripheral Vein, Percutaneous Approach (08/12/23) Labs on day of discharge: Laboratory Results - last 24 hr 02/03/25 02/03/25 02/03/25 03:22 03:56 17:30 WBC RBC Hgb Hct MCV MCH MCHC RDW Plt Count MPV Immature Gran % (Auto) Neut % (Auto) Lymph % (Auto) [place] % (Auto) Eos % (Auto) Baso % (Auto) Lymph # (Auto) [place] # (Auto) Eos # (Auto) Baso # (Auto) Abs Immat Gran (auto) Absolute Neuts (auto) Absolute Nucleated RBC Nucleated RBC % (auto) Smear Path Review SEE NOTE Hold Purple Top SEE NOTE Sodium Potassium Chloride Carbon Dioxide Anion Gap BUN Creatinine Estim Creat Clear Calc Estimated GFR Random Glucose Calcium Iron 11 L TIBC 331 % Saturation 3 L Unsat Iron Binding 320 Ferritin < 2 L Total Bilirubin AST ALT Alkaline Phosphatase Total Protein Albumin Hold Red Top See Note Urine Hemoglobin Blood Type A Positive Antibody Screen NEGATIVE Crossmatch See Detail Clerical Work Check Hemolysis Bld Bag Check Icterus Blood Bag Check Pre-Trans Blood Type Post-Trans Blood Type Post-Trans CARLOS Poly Post-Trans Add Testing Post-Tx Rxn CARLOS Result 02/03/25 02/03/25 02/04/25 18:10 Unknown 06:02 WBC 4.2 L RBC 3.46 L D Hgb 8.5 L D Hct 26.2 L D MCV 75.7 L MCH 24.6 L MCHC 32.4 RDW 19.5 H Plt Count 255 MPV 10.4 Immature Gran % (Auto) 0.5 H Neut % (Auto) 57.3 Lymph % (Auto) 30.9 [place] % (Auto) 8.4 Eos % (Auto) 2.2 Baso % (Auto) 0.7 Lymph # (Auto) 1.3 [place] # (Auto) 0.4 Eos # (Auto) 0.1 Baso # (Auto) 0.0 Abs Immat Gran (auto) 0.02 Absolute Neuts (auto) 2.4 Absolute Nucleated RBC 0.030 H Nucleated RBC % (auto) 0.7 H Smear Path Review Hold Purple Top Sodium 142 Potassium 3.5 Chloride 112 H Carbon Dioxide 23 Anion Gap 11 L BUN 6 L Creatinine 0.60 Estim Creat Clear Calc 129.7 Estimated GFR > 60 Random Glucose 89 Calcium 8.1 L Iron TIBC % Saturation Unsat Iron Binding Ferritin Total Bilirubin 0.4 AST 18 ALT 14 Alkaline Phosphatase 31 L Total Protein 5.8 L Albumin 3.6 Hold Red Top Urine Hemoglobin Negative Blood Type Antibody Screen Crossmatch Clerical Work Check No Error Found Hemolysis Bld Bag Check No in Pre and Post Icterus Blood Bag Check No in Pre and Post Pre-Trans Blood Type A POSITIVE Post-Trans Blood Type A Positive Post-Trans CARLOS Poly NEGATIVE Post-Trans Add Testing No Post-Tx Rxn CARLOS Result TNP Discharge Plan Discharge Anticipated Discharge Date/Time: 02/04/25 08:24 Patient Disposition: Home, Self-Care Discharge Diagnosis: anemia Referrals: Physician,Isabelle Kay [Primary Care Provider, Medical] - 1 Week Aidan Weeks MD [Physician, Gastroenterology] - 1 Week Discharge Medications: Continued melatonin 5 mg Tablet 5 mg PO BEDTIME carbamazepine 200 mg tablet 600 mg PO BID hydroxyzine HCl 25 mg tablet 25 mg PO BID PRN (Reason: Anxiety) ustekinumab [Stelara] 90 mg/mL syringe 90 mg subcut Q4W omeprazole 20 mg capsule,delayed release(DR/EC) 20 mg PO DAILY Qty: 90 0RF ferrous sulfate 325 mg (65 mg iron) tablet 325 mg PO BID Qty: 60 0RF sertraline 100 mg tablet 200 mg PO QAM diphenoxylate-atropine 2.5-0.025 mg tablet 1 tab PO Q6H Discharge Orders: Discharge Order (Routine); Ordered 02/04/25 Ordered By: Servando Riojas Diet: Advance to usual diet Activity on Discharge: As tolerated Stand Alone Forms: Patient Portal Discharge page Print Language: Nepalese Care Plan Goals: recovery Health Concerns: proctitis, anemia Plan of Treatment: follow up with gi, continue iron Assessment: see above
--- NOTE | 2025-02-04 09:08 | HO.ANESPROP2 ---
HPI - Anesthesia Eval Consult details Narrative: 39 yr old female for Sigmoidoscopy Flexible No recent illness. No CP, SOB or palpitations. She was SOB when arriving to ED with minimal exertion, found to have Hgb in 4s, improved to 8.5 with trransfusions Reports multiple surgical procedures without any complications or trouble with anesthesia ?reaction to protonix vs blood transfusion 02/03/25: pt reports feeling tingling in arms, chest & throat that resolved with IV benadryl PMFSH Active Problems Active Problems: All Active Problems (Updated 02/03/25 @ 05:55 by Jatin Baum MD) Symptomatic anemia (Acute) Menorrhagia (Acute) Proctitis (Acute) Anemia due to gastrointestinal blood loss (Acute) Past Medical History Medical History Anxiety Anemia PMDD (premenstrual dysphoric disorder) ADD (attention deficit disorder) Ulcerative colitis Bipolar 1 disorder Depression Anjali Family History Family History Maternal Grandmother Pancreatic cancer Paternal Grandfather Pancreatic cancer Paternal Grandmother Breast cancer Uterine cancer Family history of problems with anesthesia: No Surgical History Surgical History S/P tubal ligation History of Problems with Anesthesia: No Social History Social History Household Members: Significant Other Household Members Other:: boyfriend Housing: House Do you presently have visiting nurse or other home services: No Patient Tobacco Use Status: Never used Tobacco Second Hand Smoke Exposure: No service: No Current occupational status: unemployed Sexual orientation: Straight/Heterosexual Meds Allergies Allergy/AdvReac Type Severity Reaction Status Date / Time Sulfa (Sulfonamide AdvReac Rash Verified 02/03/25 03:23 Antibiotics) Active Medications: Current Medications Acetaminophen (Acetaminophen 325 Mg Tablet) 650 mg PO Q6H PRN PRN Reason: Pain, Mild 1-3,fever,headache Calcium Carbonate (Calcium Carbonate 750 Mg Tab.Chew) 750 mg PO Q4H PRN PRN Reason: Heartburn Carbamazepine (Carbamazepine 200 Mg Tablet) 600 mg PO BID [facility] Last Admin: 02/03/25 20:41 Dose: 600 mg Hydroxyzine HCl (Hydroxyzine Hcl 25 Mg Tablet) 25 mg PO BID PRN PRN Reason: Anxiety Last Admin: 02/03/25 20:48 Dose: 25 mg Magnesium Hydroxide (Milk Of Magnesia 30 Ml Oral.Susp) 30 ml PO DAILY PRN PRN Reason: Constipation Melatonin (Melatonin 3 Mg Tablet) 6 mg PO BEDTIME PRN PRN Reason: Insomnia Last Admin: 02/03/25 21:57 Dose: 6 mg Omeprazole (Omeprazole 20 Mg Capsule.Dr) 20 mg PO DAILY@0630 [facility] Last Admin: 02/04/25 05:48 Dose: Not Given Ondansetron HCl (Ondansetron Hcl 4 Mg/2 Ml Vial) 4 mg IVPUSH Q6H PRN PRN Reason: Nausea Last Admin: 02/03/25 11:51 Dose: 4 mg Sertraline HCl (Sertraline Hcl 100 Mg Tablet) 200 mg PO DAILY [facility] Last Admin: 02/03/25 11:51 Dose: 200 mg Sodium Chloride (0.9 % Sodium Chloride Flush 3 Ml Syringe) 3 ml IVFLUSH QSHIFT [facility] Last Admin: 02/03/25 20:42 Dose: 3 ml Home Medications ?Medication ?Instructions ?Recorded ?Confirmed ?Last Taken ?Type carbamazepine 200 mg tablet 600 mg PO BID 10/05/22 02/03/25 02/02/25 History melatonin 5 mg tablet 5 mg PO BEDTIME 10/05/22 02/03/25 02/02/25 History hydroxyzine HCl 25 mg tablet 25 mg PO BID PRN Anxiety 07/30/24 02/03/25 02/02/25 History ustekinumab 90 mg/mL subcutaneous 90 mg subcut Q4W 07/30/24 02/03/25 02/02/25 History syringe (Stelara) diphenoxylate-atropine 2.5 1 tab PO Q6H 02/03/25 02/03/25 02/02/25 History mg-0.025 mg tablet sertraline 100 mg tablet 200 mg PO QAM 02/03/25 02/03/25 02/02/25 History Exam Height,Weight and Vital Signs: Height 5 ft 5 in Weight 81 kg Last Vital Signs Temp 97.3 F 02/04/25 07:34 Pulse 78 02/04/25 07:34 Resp 18 02/04/25 07:34 BP 122/59 L 02/04/25 07:34 Pulse Ox 96 02/04/25 07:34 O2 Del Method Room Air 02/04/25 07:34 O2 Flow Rate 2 02/03/25 15:17 Pertinent Lab Results Pertinent Lab Results: Laboratory Tests 02/03/25 02/03/25 02/03/25 03:22 03:56 06:18 WBC 9.3 6.4 RBC 2.10 L D 2.75 L D Hgb 4.0 L* D 6.7 L* D Hct 14.5 L* D 21.3 L D MCV 69.0 L 77.5 L D MCH 19.0 L 24.4 L MCHC 27.6 L 31.5 RDW 19.4 H 21.8 H Plt Count 493 H D 286 D MPV 10.3 11.4 Immature Gran % (Auto) 0.3 0.5 H Neut % (Auto) 68.9 72.4 Lymph % (Auto) 25.1 19.9 L [place] % (Auto) 4.6 6.1 Eos % (Auto) 0.8 0.6 Baso % (Auto) 0.3 0.5 Lymph # (Auto) 2.3 1.3 [place] # (Auto) 0.4 0.4 Eos # (Auto) 0.1 0.0 Baso # (Auto) 0.0 0.0 Abs Immat Gran (auto) 0.03 0.03 Absolute Neuts (auto) 6.4 4.6 Absolute Nucleated RBC 0.070 H 0.020 H Nucleated RBC % (auto) 0.8 H 0.3 H Smear Tech's Comments VERIFIED Smear Path Review SEE NOTE Hold Purple Top Sodium 138 Potassium 3.3 Chloride 107 Carbon Dioxide 21 L Anion Gap 13 BUN 7 L Creatinine 0.64 Estim Creat Clear Calc 122.1 Estimated GFR > 60 Random Glucose 118 H Calcium 8.3 L D Iron 11 L TIBC 331 % Saturation 3 L Unsat Iron Binding 320 Ferritin < 2 L Total Bilirubin 0.2 AST 20 ALT 27 Alkaline Phosphatase 37 L Total Protein 6.6 Albumin 4.2 Hold Red Top Urine Hemoglobin Stool Occult Blood NEGATIVE Blood Type A Positive Antibody Screen NEGATIVE Crossmatch See Detail Clerical Work Check Hemolysis Bld Bag Check Icterus Blood Bag Check Pre-Trans Blood Type Post-Trans Blood Type Post-Trans CARLOS Poly Post-Trans Add Testing Post-Tx Rxn CARLOS Result 02/03/25 02/03/25 02/03/25 17:30 18:10 Unknown WBC RBC Hgb Hct MCV MCH MCHC RDW Plt Count MPV Immature Gran % (Auto) Neut % (Auto) Lymph % (Auto) [place] % (Auto) Eos % (Auto) Baso % (Auto) Lymph # (Auto) [place] # (Auto) Eos # (Auto) Baso # (Auto) Abs Immat Gran (auto) Absolute Neuts (auto) Absolute Nucleated RBC Nucleated RBC % (auto) Smear Tech's Comments Smear Path Review Hold Purple Top SEE NOTE Sodium Potassium Chloride Carbon Dioxide Anion Gap BUN Creatinine Estim Creat Clear Calc Estimated GFR Random Glucose Calcium Iron TIBC % Saturation Unsat Iron Binding Ferritin Total Bilirubin AST ALT Alkaline Phosphatase Total Protein Albumin Hold Red Top See Note Urine Hemoglobin Negative Stool Occult Blood Blood Type Antibody Screen Crossmatch Clerical Work Check No Error Found Hemolysis Bld Bag Check No in Pre and Post Icterus Blood Bag Check No in Pre and Post Pre-Trans Blood Type A POSITIVE Post-Trans Blood Type A Positive Post-Trans CARLOS Poly NEGATIVE Post-Trans Add Testing No Post-Tx Rxn CARLOS Result TNP 02/04/25 06:02 WBC 4.2 L RBC 3.46 L D Hgb 8.5 L D Hct 26.2 L D MCV 75.7 L MCH 24.6 L MCHC 32.4 RDW 19.5 H Plt Count 255 MPV 10.4 Immature Gran % (Auto) 0.5 H Neut % (Auto) 57.3 Lymph % (Auto) 30.9 [place] % (Auto) 8.4 Eos % (Auto) 2.2 Baso % (Auto) 0.7 Lymph # (Auto) 1.3 [place] # (Auto) 0.4 Eos # (Auto) 0.1 Baso # (Auto) 0.0 Abs Immat Gran (auto) 0.02 Absolute Neuts (auto) 2.4 Absolute Nucleated RBC 0.030 H Nucleated RBC % (auto) 0.7 H Smear Tech's Comments Smear Path Review Hold Purple Top Sodium 142 Potassium 3.5 Chloride 112 H Carbon Dioxide 23 Anion Gap 11 L BUN 6 L Creatinine 0.60 Estim Creat Clear Calc 129.7 Estimated GFR > 60 Random Glucose 89 Calcium 8.1 L Iron TIBC % Saturation Unsat Iron Binding Ferritin Total Bilirubin 0.4 AST 18 ALT 14 Alkaline Phosphatase 31 L Total Protein 5.8 L Albumin 3.6 Hold Red Top Urine Hemoglobin Stool Occult Blood Blood Type Antibody Screen Crossmatch Clerical Work Check Hemolysis Bld Bag Check Icterus Blood Bag Check Pre-Trans Blood Type Post-Trans Blood Type Post-Trans CARLOS Poly Post-Trans Add Testing Post-Tx Rxn CARLOS Result Assessment and Plan Final Anesthetic Review Family History of Problems with Anesthesia: No History of Problems with Anesthesia: No
[2025-02-04] MEDS: 0.9 % Sodium Chloride Flush 3 ML SYRINGE IVFLUSH (09:44)
--- NOTE | 2025-02-04 10:26 | PC.NURSE ---
Patient off unit for procedure.
--- NOTE | 2025-02-04 10:54 | HO.ANESPROP2 ---
[facility] Active Problems Active Problems: All Active Problems Symptomatic anemia (Acute) Menorrhagia (Acute) Proctitis (Acute) Anemia due to gastrointestinal blood loss (Acute) Past Medical History Medical History Anxiety Anemia PMDD (premenstrual dysphoric disorder) ADD (attention deficit disorder) Ulcerative colitis Bipolar 1 disorder Depression Anjali Family History Family History Maternal Grandmother Pancreatic cancer Paternal Grandfather Pancreatic cancer Paternal Grandmother Breast cancer Uterine cancer Family history of problems with anesthesia: No Surgical History Surgical History S/P tubal ligation History of Problems with Anesthesia: No Social History Social History Household Members: Significant Other Household Members Other:: boyfriend Housing: House Do you presently have visiting nurse or other home services: No Patient Tobacco Use Status: Never used Tobacco Second Hand Smoke Exposure: No service: No Current occupational status: unemployed Sexual orientation: Straight/Heterosexual Meds Allergies Allergy/AdvReac Type Severity Reaction Status Date / Time Sulfa (Sulfonamide AdvReac Rash Verified 02/03/25 03:23 Antibiotics) Active Medications: Current Medications Acetaminophen (Acetaminophen 325 Mg Tablet) 650 mg PO Q6H PRN PRN Reason: Pain, Mild 1-3,fever,headache Calcium Carbonate (Calcium Carbonate 750 Mg Tab.Chew) 750 mg PO Q4H PRN PRN Reason: Heartburn Carbamazepine (Carbamazepine 200 Mg Tablet) 600 mg PO BID [facility] Last Admin: 02/04/25 09:43 Dose: 600 mg Hydroxyzine HCl (Hydroxyzine Hcl 25 Mg Tablet) 25 mg PO BID PRN PRN Reason: Anxiety Last Admin: 02/03/25 20:48 Dose: 25 mg Magnesium Hydroxide (Milk Of Magnesia 30 Ml Oral.Susp) 30 ml PO DAILY PRN PRN Reason: Constipation Melatonin (Melatonin 3 Mg Tablet) 6 mg PO BEDTIME PRN PRN Reason: Insomnia Last Admin: 02/03/25 21:57 Dose: 6 mg Omeprazole (Omeprazole 20 Mg Capsule.Dr) 20 mg PO DAILY@0630 [facility] Last Admin: 02/04/25 05:48 Dose: Not Given Ondansetron HCl (Ondansetron Hcl 4 Mg/2 Ml Vial) 4 mg IVPUSH Q6H PRN PRN Reason: Nausea Last Admin: 02/03/25 11:51 Dose: 4 mg Sertraline HCl (Sertraline Hcl 100 Mg Tablet) 200 mg PO DAILY [facility] Last Admin: 02/04/25 09:44 Dose: 200 mg Sodium Chloride (0.9 % Sodium Chloride Flush 3 Ml Syringe) 3 ml IVFLUSH QSHIFT [facility] Last Admin: 02/04/25 09:44 Dose: 3 ml Home Medications ?Medication ?Instructions ?Recorded ?Confirmed ?Last Taken ?Type carbamazepine 200 mg tablet 600 mg PO BID 10/05/22 02/03/25 02/02/25 History melatonin 5 mg tablet 5 mg PO BEDTIME 10/05/22 02/03/25 02/02/25 History hydroxyzine HCl 25 mg tablet 25 mg PO BID PRN Anxiety 07/30/24 02/03/25 02/02/25 History ustekinumab 90 mg/mL subcutaneous 90 mg subcut Q4W 07/30/24 02/03/25 02/02/25 History syringe (Stelara) diphenoxylate-atropine 2.5 1 tab PO Q6H 02/03/25 02/03/25 02/02/25 History mg-0.025 mg tablet sertraline 100 mg tablet 200 mg PO QAM 02/03/25 02/03/25 02/02/25 History Exam Height,Weight and Vital Signs: Height 5 ft 5 in Weight 81 kg Last Vital Signs Temp 98.5 F 02/04/25 10:37 Pulse 77 02/04/25 10:37 Resp 20 02/04/25 10:37 BP 117/72 02/04/25 10:37 Pulse Ox 96 02/04/25 10:37 O2 Del Method Room Air 02/04/25 10:37 O2 Flow Rate 2 02/03/25 15:17 Pertinent Lab Results Pertinent Lab Results: Laboratory Tests 02/03/25 02/03/25 02/03/25 03:22 03:56 06:18 WBC 9.3 6.4 RBC 2.10 L D 2.75 L D Hgb 4.0 L* D 6.7 L* D Hct 14.5 L* D 21.3 L D MCV 69.0 L 77.5 L D MCH 19.0 L 24.4 L MCHC 27.6 L 31.5 RDW 19.4 H 21.8 H Plt Count 493 H D 286 D MPV 10.3 11.4 Immature Gran % (Auto) 0.3 0.5 H Neut % (Auto) 68.9 72.4 Lymph % (Auto) 25.1 19.9 L [place] % (Auto) 4.6 6.1 Eos % (Auto) 0.8 0.6 Baso % (Auto) 0.3 0.5 Lymph # (Auto) 2.3 1.3 [place] # (Auto) 0.4 0.4 Eos # (Auto) 0.1 0.0 Baso # (Auto) 0.0 0.0 Abs Immat Gran (auto) 0.03 0.03 Absolute Neuts (auto) 6.4 4.6 Absolute Nucleated RBC 0.070 H 0.020 H Nucleated RBC % (auto) 0.8 H 0.3 H Smear Tech's Comments VERIFIED Smear Path Review SEE NOTE Hold Purple Top Sodium 138 Potassium 3.3 Chloride 107 Carbon Dioxide 21 L Anion Gap 13 BUN 7 L Creatinine 0.64 Estim Creat Clear Calc 122.1 Estimated GFR > 60 Random Glucose 118 H Calcium 8.3 L D Iron 11 L TIBC 331 % Saturation 3 L Unsat Iron Binding 320 Ferritin < 2 L Total Bilirubin 0.2 AST 20 ALT 27 Alkaline Phosphatase 37 L Total Protein 6.6 Albumin 4.2 Hold Red Top Urine Hemoglobin Stool Occult Blood NEGATIVE Blood Type A Positive Antibody Screen NEGATIVE Crossmatch See Detail Clerical Work Check Hemolysis Bld Bag Check Icterus Blood Bag Check Pre-Trans Blood Type Post-Trans Blood Type Post-Trans CARLOS Poly Post-Trans Add Testing Post-Tx Rxn CARLOS Result Pathologist Comment ASHLEY 02/03/25 02/03/25 02/03/25 17:30 18:10 Unknown WBC RBC Hgb Hct MCV MCH MCHC RDW Plt Count MPV Immature Gran % (Auto) Neut % (Auto) Lymph % (Auto) [place] % (Auto) Eos % (Auto) Baso % (Auto) Lymph # (Auto) [place] # (Auto) Eos # (Auto) Baso # (Auto) Abs Immat Gran (auto) Absolute Neuts (auto) Absolute Nucleated RBC Nucleated RBC % (auto) Smear Tech's Comments Smear Path Review Hold Purple Top SEE NOTE Sodium Potassium Chloride Carbon Dioxide Anion Gap BUN Creatinine Estim Creat Clear Calc Estimated GFR Random Glucose Calcium Iron TIBC % Saturation Unsat Iron Binding Ferritin Total Bilirubin AST ALT Alkaline Phosphatase Total Protein Albumin Hold Red Top See Note Urine Hemoglobin Negative Stool Occult Blood Blood Type Antibody Screen Crossmatch Clerical Work Check No Error Found Hemolysis Bld Bag Check No in Pre and Post Icterus Blood Bag Check No in Pre and Post Pre-Trans Blood Type A POSITIVE Post-Trans Blood Type A Positive Post-Trans CARLOS Poly NEGATIVE Post-Trans Add Testing No Post-Tx Rxn CARLOS Result TNP Pathologist Comment ASHLEY SN 02/04/25 06:02 WBC 4.2 L RBC 3.46 L D Hgb 8.5 L D Hct 26.2 L D MCV 75.7 L MCH 24.6 L MCHC 32.4 RDW 19.5 H Plt Count 255 MPV 10.4 Immature Gran % (Auto) 0.5 H Neut % (Auto) 57.3 Lymph % (Auto) 30.9 [place] % (Auto) 8.4 Eos % (Auto) 2.2 Baso % (Auto) 0.7 Lymph # (Auto) 1.3 [place] # (Auto) 0.4 Eos # (Auto) 0.1 Baso # (Auto) 0.0 Abs Immat Gran (auto) 0.02 Absolute Neuts (auto) 2.4 Absolute Nucleated RBC 0.030 H Nucleated RBC % (auto) 0.7 H Smear Tech's Comments Smear Path Review Hold Purple Top Sodium 142 Potassium 3.5 Chloride 112 H Carbon Dioxide 23 Anion Gap 11 L BUN 6 L Creatinine 0.60 Estim Creat Clear Calc 129.7 Estimated GFR > 60 Random Glucose 89 Calcium 8.1 L Iron TIBC % Saturation Unsat Iron Binding Ferritin Total Bilirubin 0.4 AST 18 ALT 14 Alkaline Phosphatase 31 L Total Protein 5.8 L Albumin 3.6 Hold Red Top Urine Hemoglobin Stool Occult Blood Blood Type Antibody Screen Crossmatch Clerical Work Check Hemolysis Bld Bag Check Icterus Blood Bag Check Pre-Trans Blood Type Post-Trans Blood Type Post-Trans CARLOS Poly Post-Trans Add Testing Post-Tx Rxn CARLOS Result Pathologist Comment ASHLEY Airway Mallampati Class: II TM Dist: >3cm Neck ROM: Full Assessment and Plan Assessment Anesthesia Assessment: Anesthesia Plan Discussed and Chart Reviewed Final Anesthetic Review Family History of Problems with Anesthesia: No History of Problems with Anesthesia: No NPO: Yes ASA Class: III Final Preanesthetic Review: No Changes in Pt Med Stat, Meds/Allgs Chart Reviewed, Consent Obtained/Reviewed and Anes Risks/Benef Reviewed Patient Risk: Intermediate Procedure Risk: Low Anesthetic Plan Anesthetic Plan: TIVA Disposition: Standard PACU
--- NOTE | 2025-02-04 12:16 | PM.EVENT ---
Event Note Date of Service: 02/04/25 Event Note: GI-Colonoscopy to the cecum and TI Full note dictated Findings: 1. Active proctitis with areas of ulcerations in the rectum but no active bleeding. However, there were some purplish areas under some of the ulcerations. 2. Very distal sigmoid with edema and minimal ulcerations 3. Remainder of the colon from distal sigmoid to the cecum , and the TI, appeared normal--no blood anywhere in colon or the TI Plan: Advance diet, resume iron, F/U Hgb, F/U as an outpatient and I will look to change her Stelara to a different biologic such as Skyrizi. Will restart Mesalamine suppositories as an outpatient as well. She can go home later today or by tomorrow if stable. Thanks Time Spent With Patient Time: Total time managing care of this patient today ____ minutes.
--- NOTE | 2025-02-04 12:22 | PM.OP ---
Brief Operative Note Date of Service: 02/04/25 Pre-op diagnosis: Proctitis, rectal bleeding Post-op diagnosis: same Procedure: Colonoscopy to the cecum and TI Surgeon: Aidan Weeks MD Anesthesia: MAC Was an Hide And Skin Colerer used for this Procedure?: No Estimated blood loss (mL): 0 Pathology: none sent Condition: stable Disposition: PACU
--- NOTE | 2025-02-04 12:48 | PC.NURSE ---
patient returned to unit from procedure.
--- NOTE | 2025-02-04 14:38 | MHC.CM.PN ---
Addendum entered by Dara Garcia 02/04/25 16:17: A discharge order has been received. DP home self care private transport. Original Note: Per MD rounds patient is scheduled for a Flex Sig today. Discharge is anticipated later today. DP Home self care private transport.
--- NOTE | 2025-02-04 17:10 | PC.NURSE ---
Patient went up to bathroom to have a bowel movement before discharge, patient used bathroom call page to ring for nurse, reporting that she was not feeling well, actively having loose stool, complaining of cramping and patient visibly shaking. After bowel movement patient was escorted back to bed, patient steady, denies dizziness/light headedness. Patient reported feeling better but requested tylenol for the abdominal cramping pain and PRN anxiety medication. Provider Shine notified of event via [employer] connect. Patient reports still feeling well enough to go home and wants to go home.
--- NOTE | 2025-02-04 22:49 | OP_ITS ---
DATE OF SERVICE: 02/03/2025 SURGEON: Aidan Weeks MD INDICATIONS: The patient presents for evaluation of recurrent anemia and rectal bleeding with an underlying history of proctitis. Full consent was obtained from her for this, including risks of bleeding and perforation. PREOPERATIVE DIAGNOSIS: POSTOPERATIVE DIAGNOSIS: PROCEDURE PERFORMED: Colonoscopy to cecum and terminal ileum. ESTIMATED BLOOD LOSS: COMPLICATIONS: ANESTHESIA: Medication used, monitored anesthesia care. ASSISTANTS: SPECIMENS: PREOPERATIVE DIAGNOSES: History of proctitis with associated rectal bleeding and severe anemia. POSTOPERATIVE DIAGNOSES: History of proctitis with associated rectal bleeding and severe anemia, proctitis. DESCRIPTION OF PROCEDURE: The patient was placed in the left lateral decubitus position. The digital rectal exam revealed no perianal disease. The digital exam was nontender, although she was under monitored anesthesia. The Olympus video pediatric colonoscope was entered into the rectum and advanced easily to the cecum. Once in the cecum, I did identify cecal pouch with appendiceal orifice and a normal-appearing ileocecal valve. The preparation was quite good. The terminal ileum was cannulated and appeared normal without any sign of ileitis. The scope was withdrawn back in the colon. Of note, there was no blood in the ileum nor cecum. The entire cecum again appeared normal. The scope was then slowly withdrawn assessing all mucosal surfaces carefully. Preparation was excellent. In the very distal sigmoid were some areas of edema and slight areas of minimal ulceration; however, from [address] to the cecum and terminal ileum, the mucosa appeared normal. I did not visualize any sign of polyps, colitis, nor angiodysplasia. Once in the rectum, this area was notable for significant ulcerations with some underlying purplish areas, but no sign of any active bleeding nor old blood. The ulcerations and inflammation were not circumferential. There was no sign of mass. I did not do biopsies as we had done that last time and given the appearance of these with some purplish areas under the ulcers, I did not want to increase the risk of bleeding as she was already anemic. The scope was withdrawn from the patient. She tolerated the procedure well and was returned to recovery area in stable condition. IMPRESSION: Proctitis. PLAN: At this point, the patient has been stable and could probably be discharged later today or by tomorrow. Her diet will be advanced. Her hemoglobin today was 8.5. She has been on Stelara every 4 weeks for quite a while now and clearly things remain active. As such, I will look to switch her to a different biologic agents such as Skyrizi. I will also look to start her back on a mesalamine suppository and oral mesalamine just to maximize treatment. She does not want to use prednisone as that causes a lot of issues with her mental health issues. We will try to hold off on that. She will continue her iron orally at least twice a day, but also possibly see Dr. Kimble in followup in regard to any potential iron infusions if she can tolerate that. She will be followed up in the office as well. She has been advised not to use any aspirin and NSAIDs long-term. MD SEGUNDO Anglin/CLIFF / [phone]
== END 2025-02-04 17:29 | disposition home or self-care (01) | DRG 245 ==
LOC: HO.ED 05:55 → HO.EDOVER 06:34 → HO.S3 15:24
PROVIDERS: Internal Medicine; Admitting Provider Hospitalist; Emergency Provider Emergency Medicine; Visit Provider Internal Medicine
PROC: 0DJD8ZZ Inspection of Lower Intestinal Tract, Via Natural or Artificial Opening Endoscopic (ICD-10-PCS; CPT 45330; principal; 2025-02-04 11:30)
DX: K51.20 Ulcerative (chronic) proctitis without complications (principal); D62 Acute posthemorrhagic anemia; F31.9 Bipolar disorder, unspecified; Z79.620 Long term (current) use of immunosuppressive biologic; Z79.899 Other long term (current) drug therapy
CPT/HCPCS: 36415; 80053; 82272; 82728; 83540; 85025; 86078; 86850; 86900; 86901; 86923; 99285; J1200; J2003; J2405; J2470; J2704; J3010; J7120; P9016

== ENCOUNTER → 2025-02-03 06:28 | Outpatient (BNV) | payer MEDICAID, SELFPAY | PROVIDERS: Admitting Provider Hospitalist; Emergency Provider Emergency Medicine; Visit Provider Internal Medicine | DX: K62.89 Other specified diseases of anus and rectum (principal) | CPT/HCPCS: 99499 ==

== ENCOUNTER 2025-04-18 13:18 | Outpatient (REF) | payer MEDICAID, SELFPAY ==
[2025-04-18 13:56] LABS: MANUAL DIFF FLAG NO
[2025-04-18 14:13] LABS: Alanine Aminotransferase 9 U/L (0-31); Albumin Level 3.8 g/dL (3.5-5.0); Alkaline Phosphatase 40 U/L (39-117); Aspartate Amino Transferase 17 U/L (5-31); Total Protein 6.3 g/dL (6.5-8.0)
[2025-04-18 14:23] LABS: Imm Gran Abs Auto 0.01 X10*3/uL (0.00-0.03); Imm Gran Pct Auto 0.2 % (0.0-0.4); Lymphocytes Absolute Auto 1.3 X10*3/uL (1.2-4.9); Mean Corpuscular HGB Conc 26.6 g/dl (31.0-35.0); Mean Corpuscular Hemoglobin 19.1 pg (27.0-33.0); Mean Corpuscular Volume 71.8 fL (80.0-98.0); NRBC Abs Auto 0.000 X10*3/uL (0.0-0.012); NRBC Pct Auto 0.0 /100WBC (0.0-0.2); Platelet Count 311 X10*3/uL (160-400); Red Blood Count 2.41 X10*6/uL (4.20-5.50); White Blood Count 4.6 X10*3/uL (4.8-10.8)
[2025-04-18 14:34] LABS: Hemoglobin 4.6 g/dl (12.0-16.0)
[2025-04-18 14:35] LABS: Hematocrit 17.3 % (37.0-47.0)
--- OUTSIDE RECORDS SUMMARY | 2025-04-18 15:25 | XMS_ITS | Encounter Summary ---
Author Organization [facility] Address [address] [place] [address] Phone Care Team Providers Care Oil And Gas Exploration Technician Name Role Phone Merna Conn MD Primary Care Provider [phone] Merna Conn MD Unavailable [phone] María Sims MD Primary Care Provider + Encounter Details Date Type Department Care Team (Late st Contact Info) Description 08/28/2020 Ancillary Orders [facility] [place] [facility] [address] [place], [place] [id number] Merna Conn MD [address] [facility] [address] [place] [address] [email or web address] Social History Tobacco Use Types Packs/Day Years [...] high school, GED, job training, learning the Kiswahili language, technical skills, or developing parenting skills)? [...] as of this encounter Plan of Treatment Upcoming Encounters Date Type Department Care Team (Late st Contact Info) Description 02/18/2025 Procedure [address] [address] 10/13/2025 8:00 AM EDT Appointment [address] [address] Phs Mammo Self, Referral 03/31/2026 8:30 AM EDT Office Visit [facility] [address] [place] [address] María Sims MD [address], [address] [place] [address] documented as of this encounter Visit Diagnoses Not on filedocumented in this encounter Additional Health Concerns Assessment Noted Time PHQ-2 Depression Total Score: 0 08/24/19 21 10:04 AM EDT documented as of this encounter Care Teams Oil And Gas Exploration Technician Relationship Specialty Start Date End Date Merna Conn MD 15 [facility] [address] [place] [address] [email or web address] PCP - General Family Medicine 07/28/20 07/12/24 María Sims MD [address] [place] [address], [facility] [address] [place] [address] [email or web address] PCP - General Family Medicine 03/03/25 Merna Conn MD [address] [address] [email or web address] Insurance Assigned Provider 12/16/20 documented as of this encounter Additional Source Comments The information contained in this document represents components of the legal health record. It is not the complete legal health record.[facility]
--- OUTSIDE RECORDS SUMMARY | 2025-04-18 15:25 | XMS_ITS | Encounter Summary ---
Author Organization [facility] Address [address] [place] [address] [place] [address] Phone Care Team Providers Care Autistic Teacher Name Role Phone Merna Conn MD Primary Care Provider [phone] Merna Conn MD Unavailable [phone] María Sims MD Primary Care Provider + Encounter Details Date Type Department Care Team (Late st Contact Info) Description 08/23/2020 Procedure Pass [address] [phone] Social History Tobacco Use Types Packs/Day Years [...] high school, GED, job training, learning the Swedish language, technical skills, or developing parenting skills)? [...] st Contact Info) Description 02/18/2025 Procedure Pass [address] [address] 10/13/2025 8:00 AM EDT Appointment [address] [address] Phs Mammo Self, Referral 03/31/2026 8:30 AM EDT Office Visit [facility] [address] [place] [address] María Sims MD [address] [place] [address], [address] [place] [address] [email or web address] documented as of this encounter Visit Diagnoses Not on filedocumented in this encounter Additional Health Concerns Assessment Noted Time PHQ-2 Depression Total Score: 0 08/24/19 21 10:04 AM EDT documented as of this encounter Care Teams Autistic Teacher Relationship Specialty Start Date End Date Merna Conn MD [address] [place] [address] PCP - General Family Medicine 07/28/20 07/12/24 María Sims MD [address] [place] [address] [address] [place] [address] PCP - General Family Medicine 03/03/25 Merna Conn MD [address] [place] [address] [email or web address] Insurance Assigned Provider 12/16/20 documented as of this encounter Additional Source Comments The information contained in this document represents components of the legal health record. It is not the complete legal health record.[facility]
--- OUTSIDE RECORDS SUMMARY | 2025-04-18 15:25 | XMS_ITS | Encounter Summary ---
Author Organization [facility] Address [address] [place] [address] [place] [address] Phone Care Team Providers Care Operative Supervisor Name Role Phone Merna Conn MD Primary Care Provider [phone] Merna Conn MD Unavailable [phone] María Sims MD Primary Care Provider + Encounter Details Date Type Department Care Team (Late st Contact Info) Description 08/23/2020 Procedure Pass [address] [phone] Social History Tobacco Use Types Packs/Day Years [...] high school, GED, job training, learning the Guatemalan language, technical skills, or developing parenting skills)? [...] st Contact Info) Description 02/18/2025 Procedure Pass [address] [address] 10/13/2025 8:00 AM EDT Appointment [address] [address] Phs Mammo Self, Referral 03/31/2026 8:30 AM EDT Office Visit [facility] Medicine [address] [place] [address] María Sims MD [address] [place] [address], [address] [place] [address] [email or web address] documented as of this encounter Visit Diagnoses Not on filedocumented in this encounter Additional Health Concerns Assessment Noted Time PHQ-2 Depression Total Score: 0 08/24/19 21 10:04 AM EDT documented as of this encounter Care Teams Operative Supervisor Relationship Specialty Start Date End Date Merna Conn MD [address] [place] [address] PCP - General Family Medicine 07/28/20 07/12/24 María Sims MD [address] [place] [address] 7 [place] [address] PCP - General Family Medicine 03/03/25 Merna Conn MD [address] [place] [address] [email or web address] Insurance Assigned Provider 12/16/20 documented as of this encounter Additional Source Comments The information contained in this document represents components of the legal health record. It is not the complete legal health record.[facility]
--- OUTSIDE RECORDS SUMMARY | 2025-04-18 15:25 | XMS_ITS | Clinical Summary ---
Author Organization [facility] Address [address] [place] [address] Phone Care Team Providers Care Glazier Structural Glass Name Role Phone María Sims MD Primary Care Provider + Allergies Active Allergy Reactions Criticality Noted Date [...] her to the pulmonary [place] [facility]. Iron deficiency anemia due to chronic [...] Attention deficit hyperactivity disorder (ADHD) Overview (08/24/2020): adderall makes her shake Depressive disorder Overview (08/24/2020): with PMDD; sees psych Dr Lawrence Endometriosis determined by laparoscopy Encounters Date Type Department Care Team Description 04/11/2025 [facility] RISK SCORES SYSTEM GENERATED External System Generated Encounter [address] [place] [address] Unknown, [place], 03/07/2025 [facility] RISK SCORES SYSTEM GENERATED External System Generated Encounter [address] [place] [address] Unknown, Unknown, from Last 3 Months Immunizations Immunization Administration Dates Next Due COVID-19 [...] 05/06/2021 6:35 PM EST Plan of Treatment Upcoming Encounters Date Type Department Care Team (Late st Contact Info) Description 02/18/2025 Procedure Pass [address] [address] 10/13/2025 8:00 AM EDT Appointment [address] [address] Phs Mammo Self, Referral 03/31/2026 8:30 AM EDT Office Visit [facility] [address] [place] [address] María Sims MD [address] [place] [address], [address] [place] [address] [email or web address] Health Maintenance Due Date Last Done Comments Adult Td,Tdap Booster 1983 HEPATITIS C SCREENING 2001 HIV ONE-TIME SCREENING (18-6 5 YEARS) 2001 PAP SMEAR 2004 DEPRESSION SCREENING 08/23/2021 08/23/2020 MAMMOGRAM 2023 08/28/2020 INFLUENZA VACCINE (#1) 2025 COVID-19 VACCINE (3 2024-2 6 season) 2025 12/23/2020, 12/02/2020 SMOKING STATUS SCREENING (On ce [...] system. OVERALL ASSESSMENT -- BI-RADS 4B SUSPICIOUS us Merna Conn MD IMG MG EXAMS Final Result from Last 3 Months or Most Recently Relevant to Health Maintenance Insurance [facility] [place] [address] [place] [address] ACO PROGRESSIVE INSURANCE Care Teams Glazier Structural Glass Relationship Specialty Start Date End Date María Sims MD [address] [place] [address], [address] [place] [address] [email or web address] PCP - General Family Medicine 03/03/25 Additional Source Comments The information contained in this document represents components of the legal health record. It is not the complete legal health record.[facility]
--- OUTSIDE RECORDS SUMMARY | 2025-04-18 15:25 | XMS_ITS | Encounter Summary ---
Author Organization [facility] Address [address] [place] [address] Phone Care Team Providers Care House Player Name Role Phone Merna Conn MD Primary Care Provider [phone] Merna Conn MD Unavailable [phone] María Sims MD Primary Care Provider + Reason for Referral * - Closed Specialty Diagnoses / Procedures Referred By Contac t Referred To Contact Radiology Diagnoses Abnormal finding on imaging Procedures Mammogram Diagnostic Post Procedure (Right) Merna Conn MD Phone: tel: fax: [email or web address]:[email or web address] Referral ID Status Reason Start Date Expiration Date Visits Re quested Visits Authorized [id number] Closed 08/28/2020 08/28/2021 1 1 Encounter Details Date Type Department Care Team (Late st Contact Info) Description 08/28/2020 Ancillary Orders [facility] [address] [place] [address] Merna Conn MD [address] [facility] [address] [place] [address] Abnormal finding on imaging Social History Tobacco [...] high school, GED, job training, learning the Andorran language, technical skills, or developing parenting skills)? [...] st Contact Info) Description 02/18/2025 Procedure Pass [address] [address] 10/13/2025 8:00 AM EDT Appointment [address] [address] Phs Mammo Self, Referral 03/31/2026 8:30 AM EDT Office Visit [facility] [address] [place] [address] María Sims MD [address] [facility], [address] [place] [address] [email or web address] documented as of this encounter Results * BI MAMMOGRAM DIAGNOSTIC POST PROCEDURE NO TOMOSYNTHESIS WITH CAD (RIGHT) (09/07/2020 10:12 AM EDT) Anatomical Region Laterality Modality Breast Right, Breast Bilateral Right M ammography 09/07/2020 2:4 7 PM EDT Addenda Addendum by Skylar Hodges [...] of results: Pending. Merna Conn MD IMG MG EXAMS Edited Resul t - Final documented in this encounter Visit Diagnoses Diagnosis Abnormal finding on imaging Other nonspecific (abnormal) findings on radiological and other examinations of body structure Abnormal finding on imaging Other nonspecific (abnormal) findings on radiological and other examinations of body structure Visit for screening mammogram documented in this encounter Additional Health Concerns Assessment Noted Time PHQ-2 Depression Total Score: 0 08/24/19 21 10:04 AM EDT documented as of this encounter Care Teams House Player Relationship Specialty Start Date End Date Merna Conn MD [address] [address] [email or web address] PCP - General Family Medicine 07/28/20 07/12/24 María Sims MD [address] [place] [address] 7 [place] [address] PCP - General Family Medicine 03/03/25 Merna Conn MD [address] [address] [email or web address] Insurance Assigned Provider 12/16/20 documented as of this encounter Additional Source Comments The information contained in this document represents components of the legal health record. It is not the complete legal health record.[facility]
--- OUTSIDE RECORDS SUMMARY | 2025-04-18 15:25 | XMS_ITS | Encounter Summary ---
Author Organization [facility] Address [address] [place], [place] [address] [place] [address] Phone Care Team Providers Care Contracts Attorney Name Role Phone Merna Conn MD Primary Care Provider [phone] Merna Conn MD Unavailable [phone] María Sims MD Primary Care Provider + Reason for Referral * Outpatient Procedure - Closed Specialty Diagnoses / Procedures Referred By Leanne graves Referred To Contact Radiology Diagnoses Breast mass, right Solitary cyst of right breast Procedures [facility]ARE [facility] Breast Aspiration of Cyst (Right) Merna Conn MD Phone: tel: fax: mailto:[email or web address] Referral ID Status Reason Start Date Expiration Date Visits Re quested Visits Authorized [id number] Closed 08/28/2020 08/28/2021 1 1 * Outpatient Procedure - Closed Specialty Diagnoses / Procedures Referred By Leanne graves Referred To Contact Radiology Diagnoses Breast mass, right Procedures [facility] Biopsy of Breast (Right) Merna Conn MD Phone: tel: fax: mailto:[email or web address] Referral ID Status Reason Start Date Expiration Date Visits Re quested Visits Authorized [id number] Closed 08/28/2020 08/28/2021 1 1 Encounter Details Date Type Department Care Team (Late st Contact Info) Description 08/28/2020 Ancillary Orders [facility] [address] [address] Merna Conn MD [address] [place] [address] Breast mass, right; Solitary cyst of right [...] high school, GED, job training, learning the Burkinan language, technical skills, or developing parenting skills)? [...] st Contact Info) Description 02/18/2025 Procedure Pass [address] [address] 10/13/2025 8:00 AM EDT Appointment [address] [address] Phs Mammo Self, Referral 03/31/2026 8:30 AM EDT Office Visit [address] [address] María Sims MD [address] [place] [address], [address] [place] [address] [email or web address] documented as of this encounter Results * [facility] Breast Aspiration of Cyst (Right) (09/07/2020 9:57 [...] PRO C Edited Result - Final * CARE HOME Biopsy of Breast (Right) (09/07/2020 9:56 AM [...] Communication of results: Pending. Merna Conn MD [facility] PRO C Edited Result - Final documented in this encounter Visit Diagnoses Diagnosis Breast mass, right Lump or mass in breast Solitary cyst of right breast Breast mass, right Lump or mass in breast Breast mass, right Lump or mass in breast Solitary cyst of right breast Visit for screening mammogram documented in this encounter Additional Health Concerns Assessment Noted Time PHQ-2 Depression Total Score: 0 08/24/19 21 10:04 AM EDT documented as of this encounter Care Teams Contracts Attorney Relationship Specialty Start Date End Date Merna Conn MD [address] [place] [address] PCP - General Family Medicine 07/28/20 07/12/24 María Sims MD [address] [place] [address] 7 [place] [address] PCP - General Family Medicine 03/03/25 Meran Conn MD [address] [place] [phone] Insurance Assigned Provider 12/16/20 documented as of this encounter Additional Source Comments The information contained in this document represents components of the legal health record. It is not the complete legal health record.[facility]
[2025-04-21 11:44] LABS: TS Negative Control Passed; TS Panel A 0; TS Panel B 1; TS Positive Control Passed; TSpotTB Negative (Negative)
== END 2025-04-18 13:19 | disposition home or self-care (01) ==
LOC: HO.LAB 13:18
PROVIDERS: Visit Provider Internal Medicine
DX: K51.211 Ulcerative (chronic) proctitis with rectal bleeding (principal)
CPT/HCPCS: 36415; 80076; 85025; 86481

== ENCOUNTER 2025-04-18 15:13 | Emergency (ER) | payer MEDICAID, SELFPAY ==
[2025-04-18] VITALS (14 sets, daily range): BP systolic 96–126; BP diastolic 45–72; PULSE 64–98; RESP 12–20; TEMP 36.6–36.8; O2SAT 97–100
--- NOTE | 2025-04-18 15:25 | ECG_ITS ---
Test Reason : SOB Blood Pressure : */* mmHG Vent. Rate : 98 BPM Atrial Rate : 98 BPM P-R Int : 170 ms QRS Dur : 70 ms QT Int : 334 ms P-R-T Axes : 61 1 -8 degrees QTcB Int : 426 ms Normal sinus rhythm Possible Inferior infarct (cited on or before 30-Jul-2024) Anterior infarct (cited on or before 30-Jul-2024) Abnormal ECG When compared with ECG of 30-Jul-2024 08:33, Questionable change in initial forces of Inferior leads Referred By: Carolyn Rodriguez Electronically Signed By: ADRIAN RYAN MD
--- NOTE | 2025-04-18 15:29 | ED_ITS ---
HPI - General Adult General Chief complaint: General Medical Stated complaint: transfusion Time Seen by Provider: 04/18/25 15:26 Source: patient and old records reviewed Mode of arrival: wheelchair Limitations: no limitations History of Present Illness ED Provider: CAMI BRAR narrative: 40-year-old female with past medical history of ulcerative colitis who follows with Dr. Weeks, chronic anemia due to GI blood loss her baseline hemoglobin is around 8. She was getting her first Skyrizi infusion. She notes she is to have 10 bloody stools a day now it is more dark with clots and it only happens twice a day. She is here referred by GI as routine labs showed a hemoglobin around 4, she does report some shortness of breath but no chest pain. She really does not want to stay she just wants to be transfused I spoke to Dr. Weeks he agrees he feels like there is nothing else to do she already had a colonoscopy he wants her to get blood in them he DC home patient is aware given the 3 units of blood she is finally going to be here for 8 hours. She has no other complaints MD complaint: anemia Onset (ago): year(s) Radiation: non-radiation Severity: moderate Relieving factors: none Exacerbating factors: other (Bowel movement) Associated symptoms: shortness of breath Treatments prior to arrival: other (Skyrizi) Related Data Home Medications ?Medication ?Instructions ?Recorded ?Confirmed carbamazepine 200 mg tablet 600 mg PO BID 10/05/22 melatonin 5 mg tablet 5 mg PO BEDTIME 10/05/22 hydroxyzine HCl 25 mg tablet 25 mg PO BID PRN Anxiety 07/30/24 02/03/25 ustekinumab 90 mg/mL subcutaneous 90 mg subcut Q4W 02/03/25 syringe (Stelara) diphenoxylate-atropine 2.5 1 tab PO Q6H 02/03/2502/03 mg-0.025 mg tablet sertraline 100 mg tablet 200 mg PO QAM 02/03/2502/03 Previous Rx's ?Medication ?Instructions ?Recorded ferrous sulfate 325 mg (65 mg 325 mg PO BID #60 tabs 0 07/31/24 iron) tablet omeprazole 20 mg capsule,delayed 20 mg PO DAILY #90 ca ps 07/31/24 release Allergies Allergy/AdvReac Type Severity Reaction Status Date / Time Sulfa (Sulfonamide AdvReac Rash Verified 04/18/25 15:21 Antibiotics) Review of Systems 2 Review of Systems: Constitutional : No Fever, No Chills, No Fatigue ENT/Mouth : No sore throat, No Rhinorrhea Eyes: No Eye Pain, No Swelling, No Redness Cardiovascular : No Chest Pain, positive SOB, positive Dyspnea on Exertion Respiratory : No Cough, No Sputum Gastrointestinal : No Nausea, No Vomiting, No Diarrhea, No abdominal Pain, positive hematochezia Genitourinary : No Dysuria, No Urinary Frequency, No Hematuria, Musculoskeletal : No joint pain, No Myalgias, No Joint Swelling Skin : No Skin Lesions, No rash Neuro : No Weakness, No Numbness, No Dizziness, no Headache All other systems reviewed and are negative [facility] Past Medical History Attestation statement: The following information was validated with the patient. Source: old records reviewed Medical History Anxiety Anemia PMDD (premenstrual dysphoric disorder) ADD (attention deficit disorder) Ulcerative colitis Bipolar 1 disorder Depression Anjali Surgical History S/P tubal ligation Family History Family History Maternal Grandmother Pancreatic cancer Paternal Grandfather Pancreatic cancer Paternal Grandmother Breast cancer Uterine cancer Social History Social History Household Members: Significant Other Household Members Other:: boyfriend Housing: House Do you presently have visiting nurse or other home services: No Patient Tobacco Use Status: Never used Tobacco Smoked in Last 30 Days: No Second Hand Smoke Exposure: No Use of substances other than those prescribed or required for medical reasons: No Advance Directives: No Advance Directives Information Provided: No Do you have a plan to hurt others: No Plan Patient : No service: No Current occupational status: unemployed Sexual orientation: Straight/Heterosexual Physical Exam ED Vital Signs: Vital Signs - 24 hr 04/18/25 15:19 04/18/25 15:34 04/18/25 17:00 Temperature 98.2 F 97.8 F Pulse Rate 95 97 98 Respiratory Rate 20 20 18 Blood Pressure 111/55 L 114/72 126/45 L Pulse Oximetry 99 100 Oxygen Delivery Method Room Air Room Air 04/18/25 17:19 04/18/25 18:20 04/18/25 19:27 Temperature 97.8 F 98.2 F Pulse Rate 93 82 84 Respiratory Rate 18 14 14 Blood Pressure 112/67 108/54 L 103/50 L Pulse Oximetry 97 Oxygen Delivery Method Room Air 04/18/25 19:37 04/18/25 19:53 04/18/25 23:08 Temperature 98.2 F 97.8 F 97.8 F Pulse Rate 64 82 82 Respiratory Rate 14 12 12 Blood Pressure 96/52 L 106/54 L 107/48 L Pulse Oximetry Oxygen Delivery Method 04/18/25 23:09 04/18/25 23:16 04/18/25 23:25 Temperature 97.8 F 98.1 F 98.1 F Pulse Rate 80 81 Respiratory Rate 12 12 Blood Pressure 106/58 L 106/58 L Pulse Oximetry Oxygen Delivery Method 04/18/25 23:33 04/18/25 23:40 04/19/25 01:57 Temperature 98.1 F 98.1 F 98 F Pulse Rate 83 81 77 Respiratory Rate 18 18 18 Blood Pressure 106/58 L 105/70 104/65 Pulse Oximetry 98 Oxygen Delivery Method Room Air BMI result Body Mass Index 30.0 Appearance: Alert. Oriented X3. No acute distress. Eyes: Pupils equal, round and reactive to light. ENT: Pharynx normal. Neck: Normal inspection. Neck supple. CVS: Normal heart rate and rhythm. Pulses normal. Respiratory: No respiratory distress. Breath sounds normal. Abdomen: Soft and nontender. Skin: Skin warm and dry. Pale skin color. Extremities: No lower extremity edema. Neuro: Oriented X 3. No motor deficit. No sensory deficit. Course Course Course Narrative: Signed out to Dr. Vargas pending transfusion and repeat CBC 3:55 PM 04/18/2025 (CAMI BADILLO): Medications Administered Discontinued Medications Generic Name Dose Route Start Last Admin Trade Name Freq PRN Reason Stop Dose Admin Diphenhydramine HCl 50 mg 04/18/25 16:50 04/18/25 16:56 Diphenhydramine Hcl 50 Mg/Ml Vial IVPUSH 04/18/25 16:51 50 mg ONCE ONE Administration Ondansetron HCl 4 mg 04/18/25 16:59 11/10/25 16:59 Ondansetron Hcl 4 Mg/2 Ml Vial IVPUSH 04/18/25 17:00 4 mg ONCE ONE Administration Medical Decision Making Medical Decision Making [facility] Narrative: 40-year-old female with past medical history of ulcerative colitis who follows with Dr. Weeks, chronic anemia here with recurrent symptomatic anemia she has shortness of breath but no chest pain, she was referred here by her GI doctor and short stay after Skyrizi and fusion. She is hemodynamically stable she has been this low before in the past, she just had a colonoscopy she has chronic GI bleeding due to her ulcerative colitis. She will get transfused in the ED at her request with a follow-up CBC afterwards if she responds well she can be discharged home as she requests. Dr. Weeks is on board and aware I received sign-out from my colleague Dr. Rodriguez Patient completed her blood transfusion. Patient states that she feels much better. Tolerated well the transfusion Patient was premedicated with Benadryl 50 mg IV. The lab called us and informed us that in her prior admission, patient had a reaction to the blood transfusion. This time, the patient did not have any adverse reactions to the blood transfusion CBC was rechecked, now 9.1. Patient was able to ambulate to the bathroom, steady, no dizziness chest pain or palpitations. Patient feels well to go home Patient's took the follow-up with her primary care physician and Dr. Weeks from Gastroenterology Differential Diagnosis Differential Diagnoses: The differential diagnosis associated with the presentation includes Anemia due to chronic ulcerative colitis Admission/Observation Consideration of admission/observation: Escalation of care including admission/observation considered She does not want to be admitted I spoke to Dr. Weeks they both agree there is no further intervention as an inpatient we will transfuse and repeat CBC Please send physician observation at 15:55 pending transfusion repeat CBC Consult Healthcare Provider Management of the patient was discussed with: Network Firewall Engineer Lab Data [facility] Lab Attestation statement: I reviewed the patient's lab results. 04/19/25 01:28 Labs: Lab Results 04/18/25 04/19/25 Range/Units 15:48 01:28 WBC 4.7 L (4.8-10.8) X10*3/uL RBC 3.64 L D (4.20-5.50) X10*6/uL Hgb 9.1 L D (12.0-16.0) g/dl Hct 29.3 L D (37.0-47.0) % MCV 80.5 D (80.0-98.0) fL MCH 25.0 L (27.0-33.0) pg MCHC 31.1 (31.0-35.0) g/dl RDW 20.6 H (11.0-16.0) % Plt Count 273 (160-400) X10*3/uL MPV 10.9 (9.4-12.3) fL Absolute Nucleated RBC 0.000 (0.0-0.012) X10*3/uL Nucleated RBC % (auto) 0.0 (0.0-0.2) /100WBC Troponin I High Sens < 2.7 (<3.5-17.0) ng/L Blood Type A Positive Antibody Screen NEGATIVE Crossmatch See Detail Independent Interpretation I performed an independent interpretation of an: EKG Interpretation: Rate: 98 Rhythm: Normal sinus rhythm Jordan: Normal Normal P waves. Normal VIKRAM. Normal QRS complex. ST T wave : Inverted T-waves III and AVF, no ST elevation qTC: 426 prior studies: History of same in past The study has been interpreted contemporaneously by me. . External Record Review External record reviewed: Inpatient record, Outpatient record and Prior outpatient labs Critical Care Time Critical Care Time Critical Care Time: Yes Total Critical Care Time: 60 Attestation: I have personally provided critical care time. Time includes review of lab data, radiology results, discussion with consultants, and monitoring for potential decompensation. Intervention performed as documented. Discharge Plan Discharge Clinical Impression: Anemia due to gastrointestinal blood loss Patient Disposition: Home, Self-Care Instructions: Anemia (ED), Blood Transfusion (DC) Additional Instructions: On arrival your hemoglobin was low around 4.6. You were transfused blood in the emergency department we repeated her CBC with an appropriate rise. At this time please follow up with your outpatient providers including gastrointestinal doctor, return for any worsening symptoms or concerns Prescriptions: No Action melatonin 5 mg Tablet 5 mg PO BEDTIME carbamazepine 200 mg tablet 600 mg PO BID hydroxyzine HCl 25 mg tablet 25 mg PO BID PRN (Reason: Anxiety) ustekinumab [Stelara] 90 mg/mL syringe 90 mg subcut Q4W omeprazole 20 mg capsule,delayed release(DR/EC) 20 mg PO DAILY Qty: 90 0RF ferrous sulfate 325 mg (65 mg iron) tablet 325 mg PO BID Qty: 60 0RF sertraline 100 mg tablet 200 mg PO QAM diphenoxylate-atropine 2.5-0.025 mg tablet 1 tab PO Q6H Referrals: [facility] [Provider Group, Infectious Disease] Referral Note: Recurrent fever of unknown origin Print Language: Cymraes
[2025-04-18 16:25] LABS: Troponin-I High Sensitivity < 2.7 ng/L (<3.5-17.0)
--- NOTE | 2025-04-18 16:50 | PC.NURSE ---
Pt pre medicated due to previous blood transfusion reaction. Two IVs established, consent form signed, VSS.
--- NOTE | 2025-04-18 18:37 | PC.NURSE ---
Pt tolerating blood transfusion well, no reactions or issues. Alert and oriented, VSS, no signs of SOB. NSR on bedside monitor.
--- NOTE | 2025-04-18 19:25 | PC.NURSE ---
assumed care of pt. pt concerned with food, regular diet pt in, pt states she cant eat any meat or sugar as this triggers her ulcerative colitis. Pt given cheese sticks and crackers as she thinks she can tolerate this well. Pt tolerated 1st unit of RBC's well, second unit to be infused.
--- NOTE | 2025-04-18 20:32 | PC.NURSE ---
pt ambulated to bathroom with steady gate.
[2025-04-19 01:42] LABS: Hematocrit 29.3 % (37.0-47.0); Hemoglobin 9.1 g/dl (12.0-16.0); Mean Corpuscular HGB Conc 31.1 g/dl (31.0-35.0); Mean Corpuscular Hemoglobin 25.0 pg (27.0-33.0); Mean Corpuscular Volume 80.5 fL (80.0-98.0); NRBC Abs Auto 0.000 X10*3/uL (0.0-0.012); NRBC Pct Auto 0.0 /100WBC (0.0-0.2); Platelet Count 273 X10*3/uL (160-400); Red Blood Count 3.64 X10*6/uL (4.20-5.50); White Blood Count 4.7 X10*3/uL (4.8-10.8)
[2025-04-19 01:57] VITALS: BP 104/65; PULSE 77; RESP 18; TEMP 36.6
[2025-04-19 02:33] VITALS: BP 106/70; PULSE 77; RESP 18; TEMP 36.8; O2SAT 98
== END 2025-04-19 02:34 | disposition home or self-care (01) ==
PROVIDERS: Emergency Medicine; Emergency Provider Emergency Medicine; PCP Family Medicine
DX: D50.0 Iron deficiency anemia secondary to blood loss (chronic) (principal); K51.90 Ulcerative colitis, unspecified, without complications; Z88.2 Allergy status to sulfonamides
CPT/HCPCS: 36415; 36430; 84484; 85027; 86850; 86900; 86901; 86923; 93005; 96374; 96375; 99284; 99285; J1200; J2405; P9016

== ENCOUNTER → 2025-04-18 15:25 | Outpatient (BNV) | payer MEDICAID, SELFPAY | PROVIDERS: Emergency Provider Emergency Medicine; PCP Family Medicine; Visit Provider Internal Medicine Cardiovascular Disease | DX: I25.2 Old myocardial infarction (principal) | CPT/HCPCS: 93010 ==

== ENCOUNTER 2025-06-04 18:37 | Inpatient (IN) | payer MEDICAID, SELFPAY ==
--- OUTSIDE RECORDS SUMMARY | 2024-06-11 08:00 | XMS_ITS ---
Author Organization [facility] Address [address] [place] [address] Care Team Providers Care Gimp Buttonhole Machine Operator Name Role Phone NONE, NONE Primary Care Provider Aidan Rogers [phone] REASON FOR VISIT Patient presents today for anemia Encounters Encounter Location Date Provider Diagnosis [facility] [address] [facility] [address] [place] [address] 06/11/2024 Aidan Weeks Plan Of Treatment Next Appt Details Provider Name:Aidan Weeks , 08/02/2025 02:40:00 PM, [address], [address], [place], [address], Progress Notes * DEEPA LERNERDOB:1985 ( 40 yo F)Acc No.[id number]:06/11/2024 Progress Notes Patient: DEEPA CONNER Provider: Ye Weeks MD :1985 A ge:39 Y S ex:Female Date:06/11/2024 Address:[address] [place] [address] [facility] Subjective: * Chief Complaints: * P atient presents today for anemia * The named appointment provid er may or may not be the originator of this progress note, and it is not deemed complete until electronically signed by the appointment provider. Sign off status: Pending * Provider: Ye Weeks MD Date: 0 06/11/2024 Generated for Printi ronald/José Luis/eTransmitting on: 1 08/05/2024 07:51 PM EST
[2025-06-04] VITALS (8 sets, daily range): BP systolic 113–160; BP diastolic 62–77; PULSE 83–125; RESP 14–18; TEMP 36.6–36.9; O2SAT 96–99; BMI 30.9
--- NOTE | ~2025-06-04 | CT_ITS ---
CLINICAL HISTORY: Lower GI Bleed CT abdomen and pelvis with and without contrast Comparison: CT/CA/SR - CT CHEST WITH IV CONTRAST - 07/30/24 09:48 EST Findings: The lung bases are clear. Trace pericardial effusion. The gallbladder and solid organs are within normal limits. No renal stones. Circumferential wall thickening and submucosal edema of the rectum with few small perirectal lymph nodes. No contrast extravasation or evidence of active bleed. No bowel obstruction, pneumatosis or pneumoperitoneum. Pelvic contents unremarkable. Normal appendix. The bones are intact. IMPRESSION: Rectal wall thickening and submucosal edema with small perirectal lymph nodes concerning for proctitis or rectal malignancy. No evidence of active bleeding. This document has been electronically signed by: Efren Cloud MD on 06/04/2025 22:17:13
--- NOTE | 2025-06-04 18:43 | ED_ITS ---
HPI - General Adult General Chief complaint: Abdominal Pain Stated complaint: bleeding a lot Time Seen by Provider: 06/04/25 19:51 Source: patient Mode of arrival: ambulatory Limitations: no limitations History of Present Illness ED Provider: Dr. Davis [facility] narrative: This is a 40-year-old female history ulcer colitis on Skyrizi follows the GI team here presents to ER today for rectal bleeding. Patient stated that this rectal bleeding has improved when she get the 2nd dose of Skyrizi however it has been worsening. She has symptoms of tenesmus. She has been having frequent bowel movement after eating. She is also complaining of abdominal tenderness. Patient stated that she is passing a combination of dark blood and bright blood. And clots. Patient states she feels exertionally short of breath and weak. Related Data Home Medications ?Medication ?Instructions ?Recorded ?Confirmed carbamazepine 200 mg tablet 600 mg PO BID 10/05/22 melatonin 5 mg tablet 5 mg PO BEDTIME 10/05/22 hydroxyzine HCl 25 mg tablet 25 mg PO BID PRN Anxiety 07/30/24 02/03/25 ustekinumab 90 mg/mL subcutaneous 90 mg subcut Q4W 02/03/25 syringe (Stelara) diphenoxylate-atropine 2.5 1 tab PO Q6H 02/03/2502/03 mg-0.025 mg tablet sertraline 100 mg tablet 200 mg PO QAM 02/03/2502/03 Previous Rx's ?Medication ?Instructions ?Recorded ferrous sulfate 325 mg (65 mg 325 mg PO BID #60 tabs 0 07/31/24 iron) tablet omeprazole 20 mg capsule,delayed 20 mg PO DAILY #90 ca ps 07/31/24 release Allergies Allergy/AdvReac Type Severity Reaction Status Date / Time Sulfa (Sulfonamide AdvReac Rash Verified 06/04/25 18:46 Antibiotics) Review of Systems 2 Review of Systems: Pertinent review of systems as mentioned in [facility]. All other system otherwise negative. [facility] Past Medical History [facility] Narrative: Medical history as mentioned in HPI Medical History Anxiety Anemia PMDD (premenstrual dysphoric disorder) ADD (attention deficit disorder) Ulcerative colitis Bipolar 1 disorder Depression Anjali Surgical History S/P tubal ligation Family History Family History Maternal Grandmother Pancreatic cancer Paternal Grandfather Pancreatic cancer Paternal Grandmother Breast cancer Uterine cancer Social History Social History Household Members: Significant Other Household Members Other:: boyfriend Housing: House Do you presently have visiting nurse or other home services: No Patient Tobacco Use Status: Never used Tobacco Second Hand Smoke Exposure: No Advance Directives: No Advance Directives Information Provided: No Do you have a plan to hurt others: No Plan Patient : No service: No Current occupational status: unemployed Sexual orientation: Straight/Heterosexual Physical Exam ED Exam Exam: General: Pale-appearing Head: Normacephalic, atraumatic ENT: oral mucosa moist, neck supple, no tracheal deviation Cardiovascular: regular rate, regular rhythm, no murmurs, rubbing, gallops Respiratory: CTAB, no wheeze, rales, rhonchi Gastrointestinal: Soft diffusely tender on exam Neurological: Awake and alert, no facial droop noted Skin: Warm and dry Psychiatric: Appropriate mood and thoughts Vital Signs: Vital Signs - 24 hr 06/04/25 18:42 06/04/25 19:58 06/04/25 21:19 Temperature 97.8 F 98.3 F 98.2 F Pulse Rate 125 H 88 95 Respiratory Rate 18 14 16 Blood Pressure 160/77 H 118/76 133/73 Pulse Oximetry 98 96 Oxygen Delivery Method Room Air Room Air 06/04/25 21:34 06/04/25 22:52 06/04/25 23:17 Temperature 98.4 F 97.9 F 97.9 F Pulse Rate 95 87 85 Respiratory Rate 14 16 16 Blood Pressure 118/62 116/66 113/68 Pulse Oximetry Oxygen Delivery Method 06/04/25 23:32 06/04/25 23:34 Temperature 98.4 F 98.4 F Pulse Rate 83 85 Respiratory Rate 18 16 Blood Pressure 113/68 113/68 Pulse Oximetry 99 Oxygen Delivery Method Room Air BMI result Body Mass Index 30.9 Course Course Course Narrative: RME, this is a rapid medical exam performed by Bryson Quiroz please refer to primary provider for complete H&P- 40-year-old female with a past medical history significant for ulcerative colitis with severe anemia presents for evaluation of weakness, shortness of breath with the exertion. She was recently admitted for anemia requiring blood transfusion. She denies any active bloody stool. Plan for labs, type and screen Medications Administered Discontinued Medications Generic Name Dose Route Start Last Admin Trade Name Freq PRN Reason Stop Dose Admin Famotidine 20 mg 06/04/25 20:50 06/04/25 21:08 Famotidine/Pf 20 Mg/2 Ml Vial IVPUSH 06/04/25 20:51 20 mg ONCE ONE Administration Iohexol 85 ml 06/04/25 20:59 06/04/25 20:59 Iohexol 350 Mg/Ml 100 Ml Infus..Btl IV 06/04/25 21:00 85 ml ONCE ONE Administration Ondansetron HCl 4 mg 06/04/25 22:55 06/04/25 23:04 Ondansetron Hcl 4 Mg/2 Ml Vial IVPUSH 06/04/25 22:56 4 mg ONCE ONE Administration Medical Decision Making Medical Decision Making [facility] Narrative: 40-year-old female history of ulcer colitis on skyrizi see presented hospital today for evaluation of rectal bleeding. Patient's hemoglobin is 6.9. We will obtain a CT imaging for lower GI bleed to see if there was any active bleeding on imaging. Patient has consented we will plan to transfuse 2 units of PRBC. Patient will likely need to be admitted for symptomatic anemia secondary to rectal bleed. Review patient's last colonoscopy. She has signs of proctitis with the ulcers. CT imaging shows rectal wall thickening. Patient will be admitted to the hospital at this time. IV Solu-Medrol will be given to the patient. Differential Diagnosis Differential Diagnoses: The differential diagnosis associated with the presentation includes Proctitis, rectal bleeding, lower GI bleed, upper GI bleed Lab Data [facility] Lab Attestation statement: I reviewed the patient's lab results. 06/04/25 19:27 06/04/25 19:27 Labs: Lab Results 06/04/25 Range/Units 19: WBC 5.5 (4.8-10.8) X10*3/uL RBC 3.20 L (4.20-5.50) X10*6/uL Hgb 6.9 L* (12.0-16.0) g/dl Hct 24.3 L (37.0-47.0) % MCV 75.9 L (80.0-98.0) fL MCH 21.6 L (27.0-33.0) pg MCHC 28.4 L (31.0-35.0) g/dl RDW 20.1 H (11.0-16.0) % Plt Count 323 D (160-400) X10*3/uL MPV 10.6 (9.4-12.3) fL Immature Gran % (Auto) 0.0 (0.0-0.4) % Neut % (Auto) 81.1 H (45-73) % Lymph % (Auto) 12.2 L (20-40) % [place] % (Auto) 5.5 (2-11) % Eos % (Auto) 0.7 (0-4) % Baso % (Auto) 0.5 (0-2) % Lymph # (Auto) 0.7 L (1.2-4.9) X10*3/uL [place] # (Auto) 0.3 (0.1-1.2) X10*3/uL Eos # (Auto) 0.0 (0.0-0.4) X10*3/uL Baso # (Auto) 0.0 (0.0-0.2) X10*3/uL Abs Immat Gran (auto) 0.00 (0.00-0.03) X10*3/uL Absolute Neuts (auto) 4.4 (2.0-8.3) x10*3/uL Absolute Nucleated RBC 0.000 (0.0-0.012) X10*3/uL Nucleated RBC % (auto) 0.0 (0.0-0.2) /100WBC PT 12.2 (11.2-13.5) SEC INR 1.0 (0.9-1.1) Sodium 139 (135-145) mmol/L Potassium 3.9 (3.3-5.1) mmol/L Chloride 106 (96-108) mmol/L Carbon Dioxide 26 (22-29) mmol/L Anion Gap 11 L (12-20) BUN 11 (9-16) mg/dL Creatinine 0.68 (0.5-1.4) mg/dL Estim Creat Clear Calc 115.3 Estimated GFR > 60 Random Glucose 92 (60-115) mg/dL Calcium 8.7 D (8.4-10.2) mg/dL Total Bilirubin 0.2 (0.0-1.0) mg/dL AST 24 (5-31) U/L ALT 19 (0-31) U/L Alkaline Phosphatase 35 L (39-117) U/L Total Protein 6.8 (6.5-8.0) g/dL Albumin 4.1 (3.5-5.0) g/dL Lipase 25 (8-78) U/L Beta HCG, Quant < 2 mIU/mL Urine Color Dark Yellow Urine Appearance Cloudy Urine pH 5.5 (5.0-9.0) Ur Specific [place] 1.025 (1.005-1.025) Urine Protein 100 (2+) H (Neg-Trace) mg/dL Urine Glucose (UA) Negative (Negative) mg/dL Urine Ketones Trace (Negative) mg/dL Urine Blood Large (3+) H (Negative) Urine Nitrite Negative (Negative) Ur Leukocyte Esterase Small (1+) H (Negative) Urine RBC >20 H (0-2) /HPF Urine WBC 6-10 H (0-5) /HPF Ur Squamous Epith Cells 11-20 (0-2) /HPF Urine Bacteria Trace (None Seen) Hyaline Casts 6-10 (0-2) /LPF Influenza Type A (PCR) NEGATIVE (Negative) Influenza Type B (PCR) NEGATIVE (Negative) RSV RNA Qual (PCR) NEGATIVE (Negative) SARS-CoV-2 RNA (RT-PCR) NEGATIVE (Negative) Blood Type A Positive Antibody Screen NEGATIVE Crossmatch See Detail Independent Interpretation I performed an independent interpretation of an: CT Scan Radiology Impression Discussion of test interpretation with radiology: I have reviewed the radiologist's reading. Critical Care Time Critical Care Time Critical Care Time: Yes Total Critical Care Time: 36 Attestation: Time is exclusive of separately billable procedures. Time includes: direct patient care, patient reassessment, coordination of patient care, interpretation of data (laboratory data, pulse oximetry, arterial blood gases and chest xrays), review of patient's medical records, medical consultation and documentation of patient care. Procedures excluded from critical care time: central intravenous line placement and electrocardiography. Discharge Plan Discharge Clinical Impression: Proctitis, Rectal bleed, Ulcerative colitis, Severe anemia Patient Disposition: Admitted As Inpatient Print Language: Mauritian
--- NOTE | 2025-06-04 18:44 | ECG_ITS ---
Test Reason : dyspena Blood Pressure : */* mmHG Vent. Rate : 88 BPM Atrial Rate : 88 BPM P-R Int : 154 ms QRS Dur : 64 ms QT Int : 346 ms P-R-T Axes : 64 -3 4 degrees QTcB Int : 418 ms Normal sinus rhythm Possible Inferior infarct (cited on or before 30-Jul-2024) Abnormal ECG When compared with ECG of 18-Apr-2025 15:36, Criteria for Anterior infarct are no longer Present Referred By: Pedro Quiroz Electronically Signed By: ADRIAN RYAN MD
[2025-06-04 19:35] LABS: Hematocrit 24.3 % (37.0-47.0); Imm Gran Abs Auto 0.00 X10*3/uL (0.00-0.03); Imm Gran Pct Auto 0.0 % (0.0-0.4); Lymphocytes Absolute Auto 0.7 X10*3/uL (1.2-4.9); Mean Corpuscular HGB Conc 28.4 g/dl (31.0-35.0); Mean Corpuscular Hemoglobin 21.6 pg (27.0-33.0); Mean Corpuscular Volume 75.9 fL (80.0-98.0); NRBC Abs Auto 0.000 X10*3/uL (0.0-0.012); NRBC Pct Auto 0.0 /100WBC (0.0-0.2); Platelet Count 323 X10*3/uL (160-400); Red Blood Count 3.20 X10*6/uL (4.20-5.50); White Blood Count 5.5 X10*3/uL (4.8-10.8)
[2025-06-04 19:36] LABS: MANUAL DIFF FLAG NO
[2025-06-04 19:37] LABS: Appearance Urine Cloudy; Glucose Urine UA Negative (Negative); PH 5.5 (5.0-9.0); Specific Gravity - Urine 1.025 (1.005-1.025); UMIC TRIGGER UACC YES
[2025-06-04 19:39] LABS: Hemoglobin 6.9 g/dl (12.0-16.0)
[2025-06-04 19:42] LABS: INTERNATIONAL NORM RATIO 1.0 (0.9-1.1); Prothrombin Time 12.2 SEC (11.2-13.5)
[2025-06-04 19:49] LABS: UACC Culture Trigger YES
--- OUTSIDE RECORDS SUMMARY | 2025-06-04 19:51 | XMS_ITS | Encounter Summary ---
Author Organization [facility] Address [address] [place] [id number] Phone Care Team Providers Care It Support Manager Name Role Phone Merna Conn MD Primary Care Provider + [phone] Merna Conn MD Unavailable [phone] María Sims MD Primary Care Provider + Kajal Waters MD Unavailable Reason for Referral * Outpatient Procedure - Closed Specialty Diagnoses / Procedures Referred By Leanne graves Referred To Contact Radiology Diagnoses Breast mass, right Solitary cyst of right breast Procedures RETIREMENT Breast Aspiration of Cyst (Right) Merna Conn MD Phone: tel: fax: mailto:[email or web address] Referral ID Status Reason Start Date Expiration Date Visits Re quested Visits Authorized [id number] Closed 08/28/2020 08/28/2021 1 1 * Outpatient Procedure - Closed Specialty Diagnoses / Procedures Referred By Leanne graves Referred To Contact Radiology Diagnoses Breast mass, right Procedures RETIREMENT Biopsy of Breast (Right) Merna Conn MD Phone: tel: fax: mailto:[email or web address] Referral ID Status Reason Start Date Expiration Date Visits Re quested Visits Authorized [id number] Closed 08/28/2020 08/28/2021 1 1 Encounter Details Date Type Department Care Team (Late st Contact Info) Description 08/28/2020 Ancillary Orders [facility] [address] Merna Conn MD [address] [place] [id number] [email or web address] Breast mass, right; Solitary cyst of right [...] high school, GED, job training, learning the Pakistani language, technical skills, or developing parenting skills)? [...] st Contact Info) Description 02/18/2025 Procedure Pass [address] [address] 10/13/2025 8:00 AM EDT Appointment [address] [address] Phs Mammo Self, Referral 03/31/2026 8:30 AM EDT Office Visit [facility] [address] [place] [phone] María Sims MD [address], [address] [place] [address] [email or web address] documented as of this encounter Results * RETIREMENT Breast Aspiration of Cyst (Right) (09/07/2020 9:57 [...] PRO C Edited Result - Final * RETIREMENT Biopsy of Breast (Right) (09/07/2020 9:56 AM [...] Communication of results: Pending. Merna Conn MD [facility] IR[facility] GUIDED BREAST PRO C Edited [...] documented as of this encounter Care Teams It Support Manager Relationship Specialty Start Date End Date Merna Conn MD [address] [place] [id number] PCP - General Family Medicine 07/28/20 07/12/24 María Sims MD [address] [place] [address] [address] [place] [address] PCP - General Family Medicine 03/03/25 Merna Conn MD [address] [place] [phone] Insurance Assigned Provider 12/16/20 Kajal Waters MD [address] [place] [phone] Insurance Assigned Provider 04/23/25 documented as of this encounter Additional Source Comments The information contained in this document represents components of the legal health record. It is not the complete legal health record.[facility]
--- OUTSIDE RECORDS SUMMARY | 2025-06-04 19:51 | XMS_ITS | Clinical Summary ---
Author Organization [facility] Address [address] [place], [place] [address] [place] [address] Phone Care Team Providers Care Residential Framing Carpenter Name Role Phone María Sims MD Primary Care Provider + Kajal Waters MD Unavailable Allergies Active Allergy Reactions Criticality Noted Date [...] her to the pulmonary [place] [facility]. Iron deficiency anemia due to chronic blood [...] Encounters Date Type Department Care Team Description 05/09/2025 [facility] RISK SCORES SYSTEM GENERATED External System Generated Encounter [address] [place] [address] Unknown, Unknown, 04/18/2025 [facility] RISK SCORES SYSTEM GENERATED External System Generated Encounter [address] [place] [address] Unknown, Unknown, 04/11/2025 [facility] RISK SCORES SYSTEM GENERATED External System Generated Encounter [address] [place] [address] Unknown, Isabelle, 03/07/2025 [facility] RISK SCORES SYSTEM GENERATED External System Generated Encounter [address] [place] [address] Unknown, Unknown, from Last 3 Months Immunizations [...] st Contact Info) Description 02/18/2025 Procedure Pass [address] [address] 10/13/2025 8:00 AM EDT Appointment [address] [address] Phs Mammo Self, Referral 03/31/2026 8:30 AM EDT Office Visit [facility] [address] [place] [address] María Sims MD [address] [facility], [address] [place] [address] [email or web address] Health Maintenance Due Date Last Done Comments Adult Td,Tdap Booster 1983 HEPATITIS C SCREENING 2001 HIV ONE-TIME SCREENING (18-6 5 YEARS) 2001 PAP SMEAR 2004 DEPRESSION SCREENING 08/23/2021 08/23/2020 MAMMOGRAM 2023 08/28/2020 INFLUENZA VACCINE (#1) 2025 COVID-19 VACCINE (2024-2 6 season) 2025 12/23/2020, 12/02/2020 SMOKING STATUS [...] to Health Maintenance Insurance ACO ACO ACO PROGRESSIVE INSURANCE Care Teams Residential Framing Carpenter Relationship Specialty Start Date End Date María Sims MD [address] [place] [address] 7 [place] [address] [email or web address] PCP - General Family Medicine 03/03/25 Kajal Waters MD [address] [place] [address] [email or web address] Insurance Assigned Provider 04/23/25 Additional Source Comments The information contained in this document represents components of the legal health record. It is not the complete legal health record.[facility]
--- OUTSIDE RECORDS SUMMARY | 2025-06-04 19:51 | XMS_ITS | Encounter Summary ---
Author Organization [facility] Address [address] [place] [address] [place] [address] Phone Care Team Providers Care Stock Handler Name Role Phone Merna Conn MD Primary Care Provider [phone] Merna Conn MD Unavailable [phone] María Sims MD Primary Care Provider + Kajal Waters MD Unavailable Encounter Details Date Type Department Care Team (Late st Contact Info) Description 08/23/2020 Procedure Pass [address] [address] Social History Tobacco Use Types Packs/Day Years [...] high school, GED, job training, learning the Macedonian language, technical skills, or developing parenting skills)? [...] st Contact Info) Description 02/18/2025 Procedure Pass [address] [address] 10/13/2025 8:00 AM EDT Appointment [address] [address] Phs Mammo Self, Referral 03/31/2026 8:30 AM EDT Office Visit [facility] [address] [place] [address] María Sims MD [address] [place] [address], [address] [place] [address] [email or web address] documented as of this encounter Visit Diagnoses Not on filedocumented in this encounter Additional Health Concerns Assessment Noted Time PHQ-2 Depression Total Score: 0 08/24/19 21 10:04 AM EDT documented as of this encounter Care Teams Stock Handler Relationship Specialty Start Date End Date Merna Conn MD [address] [place] [address] PCP - General Family Medicine 07/28/20 07/12/24 María Sims MD [address] [place] [address] 7 [place] [address] PCP - General Family Medicine 03/03/25 Merna Conn MD [address] [place] [phone] Insurance Assigned Provider 12/16/20 Kajal Waters MD [address] [place] [address] [email or web address] Insurance Assigned Provider 04/23/25 documented as of this encounter Additional Source Comments The information contained in this document represents components of the legal health record. It is not the complete legal health record.[facility]
--- OUTSIDE RECORDS SUMMARY | 2025-06-04 19:51 | XMS_ITS | Encounter Summary ---
Author Organization [facility] Address [address] [place] [address] [place] [address] Phone Care Team Providers Care Lumpia Wrapper Maker Name Role Phone Merna Conn MD Primary Care Provider [phone] Merna Conn MD Unavailable [phone] María Sims MD Primary Care Provider + Kajal Waters MD Unavailable Encounter Details Date Type Department Care Team (Late st Contact Info) Description 08/23/2020 Procedure Pass [address] [address] Social History Tobacco Use Types Packs/Day Years [...] high school, GED, job training, learning the Tajik language, technical skills, or developing parenting skills)? [...] st Contact Info) Description 02/18/2025 Procedure Pass [address] [address] 10/13/2025 8:00 AM EDT Appointment [address] [address] Phs Mammo Self, Referral 03/31/2026 8:30 AM EDT Office Visit [facility] [address] [place] [address] María Sims MD [address] [place] [address], [address] [place] [address] [email or web address] documented as of this encounter Visit Diagnoses Not on filedocumented in this encounter Additional Health Concerns Assessment Noted Time PHQ-2 Depression Total Score: 0 08/24/19 21 10:04 AM EDT documented as of this encounter Care Teams Lumpia Wrapper Maker Relationship Specialty Start Date End Date Merna Conn MD [address] [place] [address] PCP - General Family Medicine 07/28/20 07/12/24 María Sims MD [address] [place] [address] 7 [place] [address] PCP - General Family Medicine 03/03/25 Merna Conn MD [address] [place] [phone] Insurance Assigned Provider 12/16/20 Kajal Waters MD [address] [place] [phone] [email or web address] Insurance Assigned Provider 04/23/25 documented as of this encounter Additional Source Comments The information contained in this document represents components of the legal health record. It is not the complete legal health record.[facility]
--- OUTSIDE RECORDS SUMMARY | 2025-06-04 19:51 | XMS_ITS | Encounter Summary ---
Author Organization [facility] Address [address] [facility] [address] [place] [address] Phone Care Team Providers Care Flatwork Supervisor Name Role Phone Merna Conn MD Primary Care Provider [phone] Merna Conn MD Unavailable María Sims MD Primary Care Provider + Kajal Waters MD Unavailable Encounter Details Date Type Department Care Team (Late st Contact Info) Description 08/28/2020 Ancillary Orders [facility] [address] [facility] [address] [place] [address] Merna Conn MD [address] [facility] [address] [place] [address] Social History Tobacco Use Types Packs/Day Years [...] high school, GED, job training, learning the Lithuanian language, technical skills, or developing parenting skills)? [...] st Contact Info) Description 02/18/2025 Procedure Pass [address] [address] 10/13/2025 8:00 AM EDT Appointment [address] [address] Phs Mammo Self, Referral 03/31/2026 8:30 AM EDT Office Visit [facility] [address] [place] [address] María Sims MD [address] [facility], [address] [place] [address] documented as of this encounter Visit Diagnoses Not on filedocumented in this encounter Additional Health Concerns Assessment Noted Time PHQ-2 Depression Total Score: 0 08/24/19 21 10:04 AM EDT documented as of this encounter Care Teams Flatwork Supervisor Relationship Specialty Start Date End Date Merna Conn MD [address] [place] [address] PCP - General Family Medicine 07/28/20 07/12/24 María Sims MD [address] [place] [address] 7 [place] [address] PCP - General Family Medicine 03/03/25 Merna Conn MD [address] [place] [phone] Insurance Assigned Provider 12/16/20 Kajal Waters MD [address] [place] [address] [email or web address] Insurance Assigned Provider 04/23/25 documented as of this encounter Additional Source Comments The information contained in this document represents components of the legal health record. It is not the complete legal health record.[facility]
--- OUTSIDE RECORDS SUMMARY | 2025-06-04 19:51 | XMS_ITS | Patient Health Record ---
Author Organization [facility] Address [address] [place] [address] Care Team Providers Care Pinking Sewing Machine Operator Name Role Phone NONE, NONE Primary Care Provider Aidan Rogers Unavailable [phone] Allergies Allergen (clinical drug ingredient) Drug/Non Drug Allergy documented on EMR Reaction Allergy Type Onset Date Status Substance with sulfonamide structure and antibacterial mechanism of action (substance) Sulfa Antibiotics Unknown Drug Allergy Active Results Component Value Reference Range Flag Notes Complete Blood Count Auto Di ff Reviewed date:04/18/2025 10:28:40 PM Interpretation: Performing Lab:[facility], [address] [place] [phone] Notes/Report: White Blood Count 4.6 4.8-10.8 X10*3/uL L Red Blood Count 2.41 4.20-5.50 X10*6/uL L Hemoglobin 4.6 12.0-16.0 g/dl LL Results of HGB called to and read back by ACE on 04/18/25 at 1433 by SUNSHINE. Hematocrit 17.3 37.0-47.0 % LL Results of HCT called to and read back by ACE on 04/18/25 at 1432 by SUNSHINE. Mean Corpuscular Volume 71.8 80.0-98.0 fL L Mean Corpuscular Hemoglobin 19.1 27.0-33.0 pg L Mean Corpuscular HGB Conc 26.6 31.0-35.0 g/dl L Red Cell Distribution Width 18.8 11.0-16.0 % H Platelet Count 311 160-400 X10*3/uL N Mean Platelet Volume 11.5 9.4-12.3 fL N Neutrophils Percent Auto 61.9 45-73 % N Imm Gran Pct Auto 0.2 0.0-0.4 % N Lymphocytes Percent Auto 28.0 20-40 % N Monocytes Percent Auto 7.8 2-11 % N Eosinophils Percent Auto 1.7 0-4 % N Basophils Percent Auto 0.4 0-2 % N NRBC Pct Auto 0.0 0.0-0.2 /100WBC N Neutrophils Absolute Auto 2.8 2.0-8.3 x10*3/uL N Imm Gran Abs Auto 0.01 0.00-0.03 X10*3/uL N Lymphocytes Absolute Auto 1.3 1.2-4.9 X10*3/uL N Monocytes Absolute Auto 0.4 0.1-1.2 X10*3/uL N Eosinophils Absolute Auto 0.1 0.0-0.4 X10*3/uL N Basophils Absolute Auto 0.0 0.0-0.2 X10*3/uL N NRBC Abs Auto 0.000 0.0-0.012 X10*3/uL N Liver Panel Reviewed date:04/18/2025 10:28:51 PM Interpretation: Performing Lab:[address] [phone] Notes/Report: Bilirubin Total 0.1 0.0-1.0 mg/dL N Bilirubin Direct < 0.2 0.0-0.5 mg/dL N Aspartate Amino Transferase 17 5-31 U/L N Alanine Aminotransferase 9 0-31 U/L N Total Protein 6.3 6.5-8.0 g/dL L Albumin Level 3.8 3.5-5.0 g/dL N Alkaline Phosphatase 40 39-117 U/L N T Spot TB Reviewed date:04/21/2025 02:59:02 PM Interpretation: Performing Lab:[address] [phone] Notes/Report: TSpotTB Negative Negative A negative test [...] as a quantitative test. TS Panel A 0 TS Panel B 1 TS Negative Control Passed TS Positive Control Passed For additional information, please refer to http://education.RUN/faq/UGG041 (This link is being provided for informational/ educational purposes only.) THIS TEST WAS PERFORMED AT: [facility]/[address] CARLOS FARIAS MD,PHD Complete Blood Count Auto Di ff (Not yet reviewed by provider) Interpretation: Performing Lab:[facility], [address] [place] [phone] Notes/Report: White Blood Count 3.6 4.8-10.8 X10*3/uL L Red Blood Count 3.18 4.20-5.50 X10*6/uL L Hemoglobin 7.3 12.0-16.0 g/dl L Hematocrit 24.6 37.0-47.0 % L Mean Corpuscular Volume 77.4 80.0-98.0 fL L Mean Corpuscular Hemoglobin 23.0 27.0-33.0 pg L Mean Corpuscular HGB Conc 29.7 31.0-35.0 g/dl L Red Cell Distribution Width 19.9 11.0-16.0 % H Platelet Count 212 160-400 X10*3/uL N Mean Platelet Volume 10.9 9.4-12.3 fL N Neutrophils Percent Auto 52.0 45-73 % N Imm Gran Pct Auto 0.3 0.0-0.4 % N Lymphocytes Percent Auto 35.1 20-40 % N Monocytes Percent Auto 9.3 2-11 % N Eosinophils Percent Auto 2.5 0-4 % N Basophils Percent Auto 0.8 0-2 % N NRBC Pct Auto 0.0 0.0-0.2 /100WBC N Neutrophils Absolute Auto 1.9 2.0-8.3 x10*3/uL L Imm Gran Abs Auto 0.01 0.00-0.03 X10*3/uL N Lymphocytes Absolute Auto 1.3 1.2-4.9 X10*3/uL N Monocytes Absolute Auto 0.3 0.1-1.2 X10*3/uL N Eosinophils Absolute Auto 0.1 0.0-0.4 X10*3/uL N Basophils Absolute Auto 0.0 0.0-0.2 X10*3/uL N NRBC Abs Auto 0.000 0.0-0.012 X10*3/uL N Brandyetheuvikas Tabor UST Reviewed date:07/20/2024 03:55:13 PM Interpretation: Performing Lab:[facility], [address] [place] [phone] Notes/Report: Ruddy Tabor UST SEE NOTE SEE SCANNED RESULTS IN EMR Complete Blood Count Auto Di ff Reviewed date:07/20/2024 03:54:56 PM Interpretation: Performing Lab:[facility], [address] [place] [phone] Notes/Report: White Blood Count 11.1 4.8-10.8 X10*3/uL H Red Blood Count 4.25 4.20-5.50 X10*6/uL Hemoglobin 7.1 12.0-16.0 g/dl L Hematocrit 28.2 37.0-47.0 % L Mean Corpuscular Volume 66.4 80.0-98.0 fL L Mean Corpuscular Hemoglobin 16.7 27.0-33.0 pg L Mean Corpuscular HGB Conc 25.2 31.0-35.0 g/dl L Red Cell Distribution Width 19.9 11.0-16.0 % H Platelet Count 691 160-400 X10*3/uL H Mean Platelet Volume 10.3 9.4-12.3 fL N Neutrophils Percent Auto 56.0 45-73 % N Imm Gran Pct Auto 0.3 0.0-0.4 % N Lymphocytes Percent Auto 34.0 20-40 % N Monocytes Percent Auto 7.5 2-11 % N Eosinophils Percent Auto 1.5 0-4 % N Basophils Percent Auto 0.7 0-2 % N NRBC Pct Auto 0.0 0.0-0.2 /100WBC N Neutrophils Absolute Auto 6.2 2.0-8.3 x10*3/uL N Imm Gran Abs Auto 0.03 0.00-0.03 X10*3/uL N Lymphocytes Absolute Auto 3.8 1.2-4.9 X10*3/uL N Monocytes Absolute Auto 0.8 0.1-1.2 X10*3/uL N Eosinophils Absolute Auto 0.2 0.0-0.4 X10*3/uL N Basophils Absolute Auto 0.1 0.0-0.2 X10*3/uL N NRBC Abs Auto 0.000 0.0-0.012 X10*3/uL N IRON PROFILE Reviewed date:07/14/2024 07:01:59 PM Interpretation: Performing Lab:[facility], [address] [place] [phone] Notes/Report: Iron 20 30-160 mcg/dL L Total Iron Binding Capacity 365 228-428 mcg/dL N Percent Iron Saturation 5 15-50 % L Unsaturated Iron Binding 345 Ferritin Reviewed date:07/14/2024 07:02:06 PM Interpretation: Performing Lab:[address] [phone] Notes/Report: Ferritin < 2 10-250 ng/mL L Reason For Referral No Information Medications Medication SIG (Take, Route, Frequency, Duration) Notes Start Date End Date Status Rinvoq 30 MG Tablet Extended Release 24 Hour 1 tablet Orally Once a day; Duration: 30 days She should start this Rx after the 8 weeks of the 45mg dose 03/03/2025 Active Rinvoq 45 MG Tablet Extended Release 24 Hour 1 Orally Daily; Duration: 28 days 03/02/2025 Active Stelara 90 MG/ML Solution Prefilled Syringe as directed Subcutaneous every 4 weeks 10/12/2024 Active Balsalazide Disodium 750 MG Capsule TAKE 3 CAPSULES BY MOUTH 3 TIMES A DAY; Duration: 90 Active Mesalamine 1000 MG Suppository UNWRAP AND INSERT 1 SUPPOSITORY RECTALLY ONCE EVERY NIGHT AT BEDTIME FOR 30 DAYS; Duration: 90 Active Mesalamine 800 MG Tablet Delayed Release 2 tablets Orally Three times a day; Duration: 30 day(s) 04/23/2023 Not-Taking/P R N Iron (Ferrous Sulfate) 325 (65 Fe) MG Tablet 1 tablet Orally Three times a Week Active Lomotil 2.5-0.025 MG Tablet 1 or 2 tablets if needed for diarrhea Orally Every 4 to 6 hours if needed for diarrhea. You can take 1 or 2 every morning and afternoon on a regular basis to try to prevent the diarrhea; Duration: 30 days 10/12/2024 Active tylenol 1 tab Oral; Duration: 14 days prn Not-Taking/ND N Zoloft 100 MG Tablet 1 tablet Orally Once a day; Duration: 30 day(s) Active Multivitamin - Tablet 1 tablet Orally Once a day; Duration: 30 day(s) Active Xeljanz 10 MG Tablet 1 tablet Orally Twice a day; Duration: 30 days 03/13/2025 Active Tegretol XR Active Skyrizi 180 MG/1.2ML Solution Cartridge 1.2 mL Subcutaneous Every 8 weeks; Duration: 56 days 03/22/2025 Active Skyrizi 600 MG/10ML Solution 600mg/10ml Intravenous Every 4 weeks for 3 doses; Duration: 28 days 03/22/2025 Active Immunizations Vaccine Route Administration Date Status Comme nts Influenza Unknown 04/23/2023 Refused Social History Tobacco Use: Social History Observation Description Date Details (start date - stop date) Never Smoker NA - NA Social History Drug/Alcohol: Social Info Question Answer Notes AUDIT-C (Standard) Did you have a drink containing alcohol in the past year? No Points 0 Interpretation Negative Tobacco Use: Social Info Question Answer Notes Tobacco Use/Smoking Patient is a nonsmoker Additional Details Category Social Info Options Details Miscellaneous: Marital status: Occupation: unemployed Problems Problem Type SNOMED Code ICD Code Onset Dates Problem Status W/U Status Risk Notes Problem Chronic ulcerative proctitis (24085016) 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) Active confirmed Problem Iron deficiency anemia due to chronic blood loss (558468351) Iron deficiency anemia due to chronic blood loss (D50.0) Active confirmed Problem Chronic ulcerative proctitis (67405438) Ulcerative proctitis with rectal bleeding (K51.211) Active confirmed Problem Hepatic cyst (87038719) Hepatic cyst (K76.89) Active confirmed Problem Anemia due to blood loss (747533391) Anemia due to blood loss (D50.0) Active confirmed Problem Crohn's disease of large bowel (8315536) Crohn's disease of colon with rectal bleeding (K50.111) Active confirmed Vital Signs Blood pressure diastolic 77 mm Hg 10/12/2024 Height 5 ft 6 in in 10/12/2024 Blood pressure systolic 111 mm Hg 10/12/2024 Weight 180 lbs 10/12/2024 BMI 29.05 kg/m2 10/12/2024 Procedures Procedure Date Ordered Date Performed Result Body Sit e UPPER GI ENDOSCOPY 10/12/2024 N/A COLONOSCOPY 10/12/2024 N/A Encounters Encounter Location Date Provider Diagnosis [facility] [address] [place] [phone] 10/12/2024 Aidan Weeks Ulcerative (chronic) proctitis with rectal bleeding K51.211 and Anemia due to blood loss D50.0 [facility] [address] [place] [phone] 06/10/2024 Aidan Weeks Ulcerative (chronic) proctitis with rectal bleeding K51.211 and Iron deficiency anemia due to chronic blood loss D50.0 [facility] [address] [place] [phone] 07/14/2024 Aidan Weeks [facility] [address] [place] [phone] 12/20/2024 Aidan Weeks [facility] [address] [place] [phone] 01/27/2025 Aidan Weeks [facility] [address] [place] [phone] 02/04/2025 Aidan Weeks Ulcerative proctitis with rectal bleeding K51.211 [facility] [address] [place] [phone] 03/03/2025 Aidan Weeks [facility] [address] [place] [phone] 03/04/2025 Aidan Weeks [facility] [address] [place] [phone] 03/22/2025 Aidan Weeks Crohn's disease of colon with rectal bleeding K50.111 [facility] [address] [place] [phone] 03/30/2025 Aidan Weeks [facility] [address] [place] [address] 04/19/2025 Aidan Weeks Anemia due to blood loss D50.0 Assessments Encounter Date Diagnosis (ICD Code) Assessment Notes Treatment Notes Treatment Clinical Notes Section Notes 06/10/2024 Ulcerative (chronic) proctitis with rectal bleeding (ICD-10 - K51.211) 06/10/2024 Iron deficiency anemia due to chronic blood loss (ICD-10 - D50.0) 02/04/2025 Ulcerative proctitis with rectal bleeding (ICD-10 - K51.211) 03/22/2025 Crohn's disease of colon with rectal bleeding (ICD-10 - K50.111) 04/19/2025 Anemia due to blood loss (ICD-10 - D50.0) 10/12/2024 Ulcerative (chronic) proctitis with rectal bleeding (ICD-10 - K51.211) I will send over a prescription for a new medicine for the diarrhea that you can use 2 or 3 times regularly throughout day Overall, Steph's ulcerative proctitis has improved [...] to keep you advised of her progress. 10/12/2024 Anemia due to blood loss (ICD-10 [...] ENDOSCOPY 10/12/2024 COLONOSCOPY 10/12/2024 LIVER PROFILE 12/09/2023 LIVER PROFILE 02/04/2025 IRON + IBC (FE) 06/10/2024 IRON + IBC (FE) 10/08/2022 IRON + IBC (FE) 12/09/2023 CRP 12/09/2023 CRP 04/23/2023 CBC w DIFF 12/09/2023 CBC w DIFF 04/23/2023 CBC w DIFF 06/10/2024 CBC w DIFF 10/08/2022 CBC w DIFF 08/14/2023 CBC w DIFF 02/04/2025 CBC w DIFF 04/19/2025 SED RATE (ESR) 04/23/2023 SED RATE (ESR) 12/09/2023 HEPATITIS B PROFILE 04/23/2023 C DIFFICILE RFLX PCR 12/09/2023 Complete Blood Count Auto Diff Ferritin 06/10/2024 Ferritin 10/08/2022 Vitamin B12 and Folate 10/08/2022 Prometheus Anser UST 10/12/2024 Prometheus Anser UST 06/10/2024 T Spot TB 02/04/2025 T Spot TB 04/23/2023 Calprotectin, Fecal 12/09/2023 Next Appt Details Provider Name:Aidan Weeks , 08/02/2025 02:40:00 PM, [address] [place] [address], [address], [place], [phone], Insurance Providers Payer Name Payer Address Payer Phone Subscriber Number Group Number Insured Name Patient Relationship to Insured Coverage Start Date Coverage End Date [employer] [address] [place] [phone] [id number] STEPH LERNER Self - patient is the insured Medical (General) History Medical History History ICD Code Anemia Bipolar disease--sees Dr. Maria De Jesus [place] at [facility] Denies [place],DM,CVA,Lung disease,renal dise ase Ulcerative proctitis diagnos ed during her hospitalization in late September of 2022. A colonoscopy revealed active ulcerative proctitis, but with a normal colon proximal to that and a normal terminal ileum. She did require blood transfusions and an iron infusion during that hospitalization as her admitting hemoglobin was 5.9. She was rehospitalized in [facility] of 2023 with hemoglobin of 5.7. [...] 4th week in Surgical History Surgery Date(Month/Year) 2008 Appy 2003 Hospitalization History Reason Date(Month/Year) Ulcerative proctitis with anemia in Apri l 2022
--- OUTSIDE RECORDS SUMMARY | 2025-06-04 19:51 | XMS_ITS | Encounter Summary ---
Author Organization [facility] Address [address] [place] [address] Phone Care Team Providers Care Bush Regenerator Name Role Phone Merna Conn MD Primary Care Provider [phone] Merna Conn MD Unavailable [phone] María Sims MD Primary Care Provider + Kajal Waters MD Unavailable Reason for Referral * - Closed Specialty Diagnoses / Procedures Referred By Leanne graves Referred To Contact Radiology Diagnoses Abnormal finding on imaging Procedures Mammogram Diagnostic Post Procedure (Right) Merna Conn MD Phone: tel: fax: [email or web address] Referral ID Status Reason Start Date Expiration Date Visits Re quested Visits Authorized [id number] Closed 08/28/2020 08/28/2021 1 1 Encounter Details Date Type Department Care Team (Late st Contact Info) Description 08/28/2020 Ancillary Orders [facility] [address] [place] [id number] Merna Conn MD [address] [facility] [address] [place] [address] [email or web address] Abnormal finding on imaging Social History [...] high school, GED, job training, learning the Ukrainian language, technical skills, or developing parenting skills)? [...] st Contact Info) Description 02/18/2025 Procedure Pass [address] [address] 10/13/2025 8:00 AM EDT Appointment [address] [address] Phs Mammo Self, Referral 03/31/2026 8:30 AM EDT Office Visit [facility] [address] [place] [address] María Sims MD [address] [facility], [address] [place] [address] [email or web address] documented as of this encounter Results * [...] Communication of results: Pending. Merna Conn MD IM MG EXAMS Edited Resul t - Final [...] documented as of this encounter Care Teams Bush Regenerator Relationship Specialty Start Date End Date Merna Conn MD [address] [place] [id number] [email or web address] PCP - General Family Medicine 07/28/20 07/12/24 María Sims MD [address] [place] [address], [facility] [address] [place] [address] PCP - General Family Medicine 03/03/25 Merna Conn MD [address] [place] [id number] [email or web address] Insurance Assigned Provider 12/16/20 Kajal Waters MD [address] [address] [email or web address] Insurance Assigned Provider 04/23/25 documented as of this encounter Additional Source Comments The information contained in this document represents components of the legal health record. It is not the complete legal health record.[facility]
[2025-06-04 19:57] LABS: Alanine Aminotransferase 19 U/L (0-31); Albumin Level 4.1 g/dL (3.5-5.0); Alkaline Phosphatase 35 U/L (39-117); Anion Gap 11 (12-20); Aspartate Amino Transferase 24 U/L (5-31); Blood Urea Nitrogen 11 mg/dL (9-16); Calcium 8.7 mg/dL (8.4-10.2); Carbon Dioxide 26 mmol/L (22-29); Chloride 106 mmol/L (96-108); Creatinine Clr Calc Pharmacy 115.3; Estimated Glomerular Filt Rate > 60; Lipase 25 U/L (8-78); Potassium 3.9 mmol/L (3.3-5.1); Sodium 139 mmol/L (135-145); Total Protein 6.8 g/dL (6.5-8.0)
[2025-06-04 20:11] LABS: Resp Syncy Virus RNA Qual PCR NEGATIVE (Negative); SARS COV2 PCR INHOUSE NEGATIVE (Negative)
[2025-06-04] MEDS: iohexoL 350 MG/ML 100 ML INFUS..BTL 85 ML IV (20:59)
[2025-06-05] VITALS (10 sets, daily range): BP systolic 103–138; BP diastolic 52–87; PULSE 70–99; RESP 16–19; TEMP 36.4–37.1; O2SAT 93–98; BMI 30.5
--- NOTE | 2025-06-05 00:36 | PM.IMHP ---
History of Present Illness Date of Service: 06/05/25 Attending physician on admission: Roldan Lowery Chief Complaint: Rectal bleeding Steph Brady is a very pleasant 40 years old woman with a past medical history significant for ulcerative colitis on Skyrizi and chronic anemia on iron pills presents to the emergency department complaining of worsening rectal bleeding. She usually have daily events of rectal bleeding but today was quite significant. She does experience abdominal pain when eating. She also reports tiredness, weakness and shortness on breath with ambulation. She is also on her menstrual period. She denied nausea or vomiting. She did not report any fever or chills. She has not had history of severe anemia secondary to bleeding requiring blood transfusions. In the ED, she was found to have WBC count of 5.5 and hemoglobin of 6.9 with a hematocrit 24.3. MCV is low 75.9. Platelets are 323. INR is normal. There are no electrolyte imbalances. BUN is 11 and creatinine 0.68. LFTs are unremarkable. test is negative. UA showed protein 2+, blood 3+, leukocyte esterase 1+, RBC > 20, WBC count 6-10, squamous epithelials 11-20 and bacteria trace. Viral testing for COVID-19, influenza RSV is negative. Abdominal pelvis CT scan showed rectal wall thickening and submucosal edema with small perirectal lymph nodes concerning for proctitis and rectal malignancy. ED Tx: Zofran 4 mg IV, Solu-Medrol 60 mg IV Review of Systems Review of Systems: All 12 systems were reviewed and normal except as noted in HPI. [facility] Medical History Anxiety Anemia PMDD (premenstrual dysphoric disorder) ADD (attention deficit disorder) Ulcerative colitis Bipolar 1 disorder Depression Anjali Family History Maternal Grandmother Pancreatic cancer Paternal Grandfather Pancreatic cancer Paternal Grandmother Breast cancer Uterine cancer Surgical History S/P tubal ligation Social History Household Members: Significant Other Household Members Other:: boyfriend Housing: House Do you presently have visiting nurse or other home services: No Patient Tobacco Use Status: Never used Tobacco Second Hand Smoke Exposure: No Advance Directives: No Advance Directives Information Provided: No Do you have a plan to hurt others: No Plan Nutrition Risks: No Nutritional Risk Patient : No service: No Current occupational status: unemployed Sexual orientation: Straight/Heterosexual Meds Allergies Allergy/AdvReac Type Severity Reaction Status Date / Time Sulfa (Sulfonamide AdvReac Rash Verified 06/04/25 18:46 Antibiotics) Home Medications ?Medication ?Instructions ?Recorded ?Confirmed ?Last Taken ?Type carbamazepine 200 mg tablet 600 mg PO BID 10/05/22 02/03/25 02/02/25 History melatonin 5 mg tablet 5 mg PO BEDTIME 10/05/22 02/03/25 02/02/25 History hydroxyzine HCl 25 mg tablet 25 mg PO BID PRN Anxiety 07/30/24 02/03/25 02/02/25 History ustekinumab 90 mg/mL subcutaneous 90 mg subcut Q4W 07/30/24 02/03/25 02/02/25 History syringe (Stelara) diphenoxylate-atropine 2.5 1 tab PO Q6H 02/03/25 02/03/25 02/02/25 History mg-0.025 mg tablet sertraline 100 mg tablet 200 mg PO QAM 02/03/25 02/03/25 02/02/25 History Physical Exam Vital Signs and Narrative: Vital Signs: Last Vital Signs Temp 98.4 F 06/04/25 23:34 Pulse 85 06/04/25 23:34 Resp 16 06/04/25 23:34 BP 113/68 06/04/25 23:34 Pulse Ox 99 06/04/25 23:34 O2 Del Method Room Air 06/04/25 23:34 BMI result Body Mass Index 30.9 General: Alert, oriented, in no acute distress. Well nourished and cooperative. Pleasant. Afebrile. HEENT: Head normocephalic, atraumatic. PER, EOMI. Sclerae anicteric, conjunctiva clear. Oropharynx without erythema or exudate. Mucous membranes moist. Neck: Supple or JVD. Heart: RRR, no murmurs, rubs or gallops. Lungs: Clear to auscultation bilaterally. No wheezes, rales, or rhonchi. Normal respiratory effort. Abdomen: Soft, non tenderness, nondistended, normoactive bowel sounds. Extremities: No calf tenderness bilaterally, no swelling Musculoskeletal: Full range of motion. No joint swelling, deformity, or tenderness. Normal muscle tone and strength. Skin: Warm/Dry. (+) pallor. No jaundice. Neurologic: Alert & oriented x4. Moving all extremities spontaneously. Normal speech. Psychological: Normal mood and affect. Thought process coherent. Results Labs 06/04/25 19:27 06/04/25 19:27 Labs: Laboratory Results - last 24 hr 06/04/25 19:27 MCV 75.9 L MCH 21.6 L MCHC 28.4 L RDW 20.1 H Plt Count 323 D MPV 10.6 Immature Gran % (Auto) 0.0 Neut % (Auto) 81.1 H Lymph % (Auto) 12.2 L [place] % (Auto) 5.5 Eos % (Auto) 0.7 Baso % (Auto) 0.5 Lymph # (Auto) 0.7 L [place] # (Auto) 0.3 Eos # (Auto) 0.0 Baso # (Auto) 0.0 Abs Immat Gran (auto) 0.00 Absolute Neuts (auto) 4.4 Absolute Nucleated RBC 0.000 Nucleated RBC % (auto) 0.0 PT 12.2 INR 1.0 Anion Gap 11 L Estim Creat Clear Calc 115.3 Estimated GFR > 60 Random Glucose 92 Calcium 8.7 D Total Bilirubin 0.2 AST 24 ALT 19 Alkaline Phosphatase 35 L Total Protein 6.8 Albumin 4.1 Lipase 25 Beta HCG, Quant < 2 Urine Color Dark Yellow Urine Appearance Cloudy Urine pH 5.5 Ur Specific [place] 1.025 Urine Protein 100 (2+) H Urine Glucose (UA) Negative Urine Ketones Trace Urine Blood Large (3+) H Urine Nitrite Negative Ur Leukocyte Esterase Small (1+) H Urine RBC >20 H Urine WBC 6-10 H Ur Squamous Epith Cells 11-20 Urine Bacteria Trace Hyaline Casts 6-10 Influenza Type A (PCR) NEGATIVE Influenza Type B (PCR) NEGATIVE RSV RNA Qual (PCR) NEGATIVE SARS-CoV-2 RNA (RT-PCR) NEGATIVE Blood Type A Positive Antibody Screen NEGATIVE Crossmatch See Detail Assessment and Plan (1) Rectal bleed: Status: Acute (2) Ulcerative colitis: Qualifiers: Digestive disease complication type: unspecified complication Ulcerative colitis location: ulcerative proctitis Qualified Code(s): 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 Diet as tolerated. Solu-Medrol 60 mg IV daily. GI consult -Dr. Weeks is her GI. Blood loss anemia, symptomatic due to above (she is currently menstruating as well). PRBC transfusions as needed. Keep hemoglobin > 7. Continue to monitor H&H,. Bipolar disorder. Continue carbamazepine and sertraline. Code status: Full DVT prophylaxis: SCDs Patient will need hospitalization due to acute severe acute colitis causing symptomatic anemia treatment with IV steroids and PRBC transfusions as well as Gastroenterology evaluation. Quality Stroke Does the patient have a stroke diagnosis?: No VTE Prior VTE?: No VTE Risk Level:: Medical - moderate - high VTE Device Contraindication: N/A - Device Ordered VTE Drug Contraindication: Treatment Not Indicated
[2025-06-05 04:37] LABS: Hematocrit 34.0 % (37.0-47.0); Hemoglobin 10.2 g/dl (12.0-16.0); Mean Corpuscular HGB Conc 30.0 g/dl (31.0-35.0); Mean Corpuscular Hemoglobin 23.8 pg (27.0-33.0); Mean Corpuscular Volume 79.4 fL (80.0-98.0); NRBC Abs Auto 0.000 X10*3/uL (0.0-0.012); NRBC Pct Auto 0.0 /100WBC (0.0-0.2); Platelet Count 332 X10*3/uL (160-400); Red Blood Count 4.28 X10*6/uL (4.20-5.50); White Blood Count 5.8 X10*3/uL (4.8-10.8)
[2025-06-05 04:54] LABS: Anion Gap 12 (12-20); Blood Urea Nitrogen 8 mg/dL (9-16); Calcium 9.0 mg/dL (8.4-10.2); Carbon Dioxide 27 mmol/L (22-29); Chloride 106 mmol/L (96-108); Creatinine Clr Calc Pharmacy 117.1; Estimated Glomerular Filt Rate > 60; Magnesium 2.1 mg/dL (1.6-2.6); Potassium 4.0 mmol/L (3.3-5.1); Sodium 141 mmol/L (135-145)
[2025-06-05] MEDS: 0.9 % Sodium Chloride Flush 3 ML SYRINGE IVFLUSH ×3 (08:40→20:24)
--- NOTE | 2025-06-05 09:13 | PHA.MEDREC ---
Pharmacy Consult ? Medication Reconciliation Pharmacy has completed the medication reconciliation. Spoke to patient to confirm medication list. Per patient, she hasn't started taking bupropion SR 100 mg yet and she no longer takes stelara. She takes DHEA 25 mg capsule once a day and vitron-C 1 tablet twice a day. Last dose of medications was yesterday morning 06/04/25.
--- NOTE | 2025-06-05 14:44 | PM.EVENT ---
Event Note Date of Service: 06/05/25 Event Note: Patient seen and examined Still has abdominal pain and slightly improvement Status post 2 PRBC H&H is 10 range Physical exam, assessment and plan per h&P note Time Spent With Patient Time: Total time managing care of this patient today ____ minutes.
--- NOTE | 2025-06-05 18:37 | PM.EVENT ---
Event Note Date of Service: 06/05/25 Event Note: GI Consult-Full note dictated-History from patient, her RN, and the EMR. Imp: Refractory proctitis and significant anemia. Presently stable after transfusions. Rec: Low residue diet, IV Iron and continue po Iron, continue Skyrizi with the 3rd and final infusion scheduled for 06/2025 and the start of the SQ injections in 08/2025, continue the oral mesalamine and resume the nightly mesalamine suppositories, and try to arrange for outpatient IV Iron infusions as well. She has a F/U appointment with me in 07/2025. If stable she can be discharged tomorrow, 06/06.I would hold prednisone as she does not tolerate that from a psych standpoint. D/W patient in detail and she is comfortable with this plan. Thanks Time Spent With Patient Time: Total time managing care of this patient today ____ minutes.
--- NOTE | 2025-06-06 02:21 | CONS_ITS ---
DATE OF SERVICE: 06/05/2025 REASON FOR CONSULTATION: History of proctitis, rectal bleeding, and anemia. HISTORY OF PRESENT ILLNESS: This has been obtained from the patient and the medical record. The patient is a 40-year-old female, well known to me with a known history of proctitis that has been refractory to aggressive treatment including previous Stelara and most recently initiation of Skyrizi. The patient was diagnosed with proctitis in spring in 2022. A colonoscopy at that time revealed active proctitis with ulcerations, but a normal colon proximal to that. She was started on treatment with balsalazide and mesalamine suppositories. She was admitted to the hospital in August 2019 for recurrent significant anemia with a hemoglobin of 5.7. She was having ongoing bleeding and a flexible sigmoidoscopy at that time in August 2023 revealed an actually improved proctitis with just patchy areas, but no significant ulcerations. Subsequent to that, she was started on Stelara every 8 weeks, but that was ultimately increased to every 4 weeks due to low levels and ongoing issues with the proctitis. She was readmitted to the hospital in January 2025 with weakness and a hemoglobin of 4.0. She was having ongoing issues with proctitis symptoms with urgency, diarrhea, and bleeding. She did receive transfusions and IV iron at that time. She underwent a colonoscopy during that admission, which revealed very active proctitis with areas of ulceration in the rectum, but no active bleeding. There was some very distal sigmoid edema and minimal ulcerations. The remainder of the colon from the distal sigmoid to the cecum and terminal ileum appeared normal. Since then, she did start Skyrizi infusions as the Stelara was stopped. She received the first Skyrizi infusion in early April and received the second infusion earlier this month. She is scheduled for the third infusion in June and will then start the subcutaneous injections in August. She reports that after the first infusion of the Skyrizi in April, she started doing better with 3 to 4 loose brown stools daily and no sign of bleeding. However, over the past few days, she has again had recurrent bleeding, some abdominal cramps, and weakness and was admitted to the ER and hospital with a hemoglobin of 6.9. Of note, her hemoglobin had dropped to 7.3 on May 24. She does report that since admission and receiving 2 units of blood, she is feeling better. She has not had any further bleeding over the course of today. She does not use any NSAIDs at home. MEDICATIONS: At home included the balsalazide, carbamazepine, oral iron, omeprazole, sertraline, and the Skyrizi. PAST MEDICAL HISTORY: Refractory proctitis with significant anemia as described above. 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 She does have bipolar disease. Anemia as mentioned above. She has had and appendectomy. She denies any history of [place], diabetes, stroke, lung disease, or kidney disease. SOCIAL HISTORY: She is single. She does not smoke nor use any significant amounts of alcohol. FAMILY HISTORY: Negative for GI malignancy or inflammatory bowel disease. REVIEW OF SYSTEMS: CONSTITUTIONAL: She has been feeling fatigued, particularly lately. SKIN: Without rash or pruritus. CARDIAC: No chest pain. PULMONARY: No cough or hemoptysis. GI: As above. URINARY: No dysuria. No hematuria. PHYSICAL EXAMINATION: GENERAL: The patient is a pleasant, pale, alert female. SKIN: Warm and dry. ABDOMEN: Soft, nondistended, and with some mild diffuse tenderness, but without mass, rebound, or guarding. LABORATORY DATA: As above. Followup labs today showed a white blood cell count of 5.8, hemoglobin up to 10.2 from the 6.9 yesterday, platelets 232,000. PT 12.2 with INR 1.0. Normal electrolytes. BUN of 8, creatinine 0.7. Normal LFTs. Lipase 25. Negative test. A CT scan done in the ER described circumferential wall thickening and submucosal edema of the rectum with a few small perirectal lymph nodes. There was no sign of any active bleeding, bowel obstruction, or abscess. IMPRESSION: The patient presents with ongoing issues with her proctitis, bleeding, and anemia. She just completed her second infusion of the Skyrizi and is scheduled for the third infusion in June. At this point, I would recommend continuation of the plan of observation and followup laboratories tomorrow. In the past, she has not tolerated steroids due to her underlying psychiatric issues and would like to continue to hold off on that if possible. Therefore, I would continue the planned outpatient Skyrizi infusion and eventual subcutaneous injections, as well as her balsalazide and I did advise her to reinitiate the mesalamine suppository that she had been on in the past. Hopefully, as time goes on, the Skyrizi will be, effective for her in suppressing the proctitis with associated bleeding and recurrent anemia. In the meantime, I will continue her low residue diet. She will continue her iron orally and I did ask the hospitalist to order some IV iron while she is here. I did advise her that she should follow up with Hematology Clinic regarding outpatient IV iron infusions as well. She will continue to have outpatient CBCs and does have an appointment to see me in followup in July. Patient was comfortable with this plan. Thank you for the consultation. MD SEGUNDO Anglin/CLIFF / [phone]
[2025-06-06 03:30] VITALS: BP 114/64; PULSE 91; RESP 16; TEMP 36.7; O2SAT 99
[2025-06-06 06:32] LABS: Hematocrit 30.7 % (37.0-47.0); Hemoglobin 9.4 g/dl (12.0-16.0); Mean Corpuscular HGB Conc 30.6 g/dl (31.0-35.0); Mean Corpuscular Hemoglobin 24.4 pg (27.0-33.0); Mean Corpuscular Volume 79.5 fL (80.0-98.0); NRBC Abs Auto 0.000 X10*3/uL (0.0-0.012); NRBC Pct Auto 0.0 /100WBC (0.0-0.2); Platelet Count 316 X10*3/uL (160-400); Red Blood Count 3.86 X10*6/uL (4.20-5.50); White Blood Count 4.3 X10*3/uL (4.8-10.8)
[2025-06-06 06:47] LABS: Anion Gap 12 (12-20); Blood Urea Nitrogen 9 mg/dL (9-16); Calcium 8.7 mg/dL (8.4-10.2); Carbon Dioxide 26 mmol/L (22-29); Chloride 107 mmol/L (96-108); Creatinine Clr Calc Pharmacy 114.8; Estimated Glomerular Filt Rate > 60; Magnesium 2.0 mg/dL (1.6-2.6); Potassium 3.5 mmol/L (3.3-5.1); Sodium 141 mmol/L (135-145)
[2025-06-06 07:28] VITALS: BP 119/67; PULSE 88; RESP 16; TEMP 36.7; O2SAT 95
[2025-06-06 08:46] LABS: Hematocrit 32.7 % (37.0-47.0); Hemoglobin 9.7 g/dl (12.0-16.0)
[2025-06-06] MEDS: 0.9 % Sodium Chloride Flush 3 ML SYRINGE IVFLUSH ×2 (09:44→20:41)
--- NOTE | 2025-06-06 12:59 | MHC.CM.PN ---
pt is indepedent will not need services when dcd may need a ride home dc plan home n/s
--- NOTE | 2025-06-06 13:03 | MHC.CM.PN ---
pt lives with s/o expects she will need a ride when dcd dc plan home n/s
[2025-06-06] MEDS: oxyCODONE HCl Immed Release 5 MG TABLET PO ×2 (13:10→20:40)
--- NOTE | 2025-06-06 15:16 | PM.DS ---
DS: Providers Provider Date of admission: 06/05/25 00:00 Date of discharge: 06/06/25 Primary care physician: Kajal Waters MD Consults: 06/05/25 00:48 Consult to Gastroenterology Routine Consulting Provider: Aidan Weeks Reason for consultation: Hx UC, acute flare, marked rectal bleed causing significant anemia Has provider been notified: No Attending physician on discharge: Perla Nevarez Discharging clinician: Perla Nevarez DS: Diagnosis Discharge Diagnosis (1) Rectal bleed: Status: Acute (2) Ulcerative colitis: Status: Acute (3) Anemia due to gastrointestinal blood loss: Status: Acute DS: Summary Hospital Course Hospital Course: HPI:40 years old woman with a past medical history significant for ulcerative colitis on Skyrizi and chronic anemia on iron pills presents to the emergency department complaining of worsening rectal bleeding. She usually have daily events of rectal bleeding but today was quite significant. She does experience abdominal pain when eating. She also reports tiredness, weakness and shortness on breath with ambulation. She is also on her menstrual period. She denied nausea or vomiting. She did not report any fever or chills. She has not had history of severe anemia secondary to bleeding requiring blood transfusions. In the ED, she was found to have WBC count of 5.5 and hemoglobin of 6.9 with a hematocrit 24.3. MCV is low 75.9. Platelets are 323. INR is normal. There are no electrolyte imbalances. BUN is 11 and creatinine 0.68. LFTs are unremarkable. test is negative. UA showed protein 2+, blood 3+, leukocyte esterase 1+, RBC > 20, WBC count 6-10, squamous epithelials 11-20 and bacteria trace. Viral testing for COVID-19, influenza RSV is negative. Abdominal pelvis CT scan showed rectal wall thickening and submucosal edema with small perirectal lymph nodes concerning for proctitis and rectal malignancy. ED Tx: Zofran 4 mg IV, Solu-Medrol 60 mg IV Hospital course:40 y/o female with a past medical history of ulcerative colitis on Skyrizi and chronic anemia on iron pills : Patient was admitted for acute blood loss anemia in the setting of proctitis: Patient out patiently completed her second infusion of the Skyrizi and is scheduled for the third infusion in June.: Patient was admitted due to symptomatic anemia in the setting of proctitis CTabdomen reviewed by GI: Anemia in the setting of proctitis -given PRBC as well as IV iron and steroids-subsequently GI recommended to stop steroids due to patient unable to tolerate due to underlying psych issues. Subsequently patient H&H monitored and remained stable in 9.7 range. Tolerating diet, minimal abdominal soreness. d/w Gi dr weeks :Refractory proctitis and significant anemia. Presently stable after transfusions. Received 2 PRBC 'sH&H is stable around 9.7 range.received iv infusionx2 ,also outpatient IV Iron infusions . Monitor CBC outpatient, resume home mesalamine and resume the nightly mesalamine suppositories. Ct abd reviewed by GI -changes thought to be secondary to proctitis, Patient is to follow up with Dr. Weeks office for follow-up as well as forSkyrizi infusion. Monitor CBC outpatient Above plan discussed with the patient detail length she understand and in agreement with the above plan, time spent 45 minute. Time Attestation Total time managing care of this patient today: 45 mintues. Discharge Coordination Time (in mins): 45 min Quality: Safe Use of Opioids Does Pt have an Active Cancer Diagnosis on the Problem List?: No Quality: Stroke Does the patient have a stroke diagnosis?: No Physical Exam Exam: Exam: Appearance: Alert.? Oriented X3.? cvs: rrr, [id number] . res: clear to auscultation ,no rhonchii or wheezing abd: no rebound or guarding ,minimum tenderness left lower quadrent , bs present. ext pulses present , no cyanosis . neuro: axo3 , nonfocal. Vital Signs: Vital Signs: Last Vital Signs Temp 98.0 F 06/06/25 07:28 Pulse 88 06/06/25 07:28 Resp 16 06/06/25 07:28 BP 119/67 06/06/25 07:28 Pulse Ox 95 06/06/25 07:28 O2 Del Method Room Air 06/06/25 07:28 BMI result Body Mass Index 30.5 DS: Data Data Completed and Pending Completed studies during hospitalization [Text1]: Procedures Excision of Rectum, Via Natural or Artificial Opening Endoscopic, Diagnostic (10/05/22) Inspection of Lower Intestinal Tract, Via Natural or Artificial Opening Endoscopic (02/03/25) Transfusion of Nonautologous Red Blood Cells into Peripheral Vein, Percutaneous Approach (02/03/25) Labs on day of discharge: Laboratory Results - last 24 hr 06/06/25 06/06/25 05:53 08:25 WBC 4.3 L RBC 3.86 L Hgb 9.4 L 9.7 L Hct 30.7 L 32.7 L MCV 79.5 L MCH 24.4 L MCHC 30.6 L RDW 19.2 H Plt Count 316 MPV 10.4 Absolute Nucleated RBC 0.000 Nucleated RBC % (auto) 0.0 Sodium 141 Potassium 3.5 Chloride 107 Carbon Dioxide 26 Anion Gap 12 BUN 9 Creatinine 0.68 Estim Creat Clear Calc 114.8 Estimated GFR > 60 Random Glucose 82 Calcium 8.[address] scan - abdomen: My impression: ct abd: Rectal wall thickening and submucosal edema with small perirectal lymph nodes concerning for proctitis or rectal malignancy. No evidence of active bleeding. Discharge Plan Discharge Anticipated Discharge Date/Time: 06/06/25 15:07 Patient Disposition: Home, Self-Care Discharge Diagnosis: Proctitis, anemia Referrals: Kajal Waters MD [Primary Care Provider, Internal Medicine] - 1 Week Aidan Weeks MD [Physician, Gastroenterology] - 1 Week Discharge Medications: New potassium chloride 10 mEq capsule, extended release 10 meq PO DAILY Qty: 3 0RF Continued melatonin 5 mg Tablet 5 mg PO BEDTIME carbamazepine 200 mg tablet 600 mg PO BID sertraline 100 mg tablet 200 mg PO QAM prasterone (DHEA) 25 mg Capsule 25 mg PO DAILY balsalazide 750 mg capsule 2,250 mg PO TID Vitron-C 65 mg iron- 125 mg Tablet,Delayed Release (Dr/Ec) 1 tab PO BID omeprazole 20 mg capsule,delayed release(DR/EC) 20 mg PO DAILY@0630 Discharge Orders: Discharge Order (Routine); Ordered 06/07/25 Ordered By: Perla Nevarez Diet: Advance to usual diet Activity on Discharge: As tolerated Stand Alone Forms: Patient Portal Discharge page Print Language: Georgian Other Ambulatory Orders: Basic Metabolic Panel (Routine) Timeframe: 1 Week Facility: [facility] - Location: Laboratory Ordered By: Perla Nevarez Complete Blood Count no Diff (Routine) Timeframe: 1 Week Facility: [facility] - Location: Laboratory Ordered By: Perla Nevarez Care Plan Goals: Refractory proctitis and significant anemia. Presently stable after transfusions. Received 2 PRBC H&H is stable around 9.7 range.received iv infusionx2 ,also outpatient IV Iron infusions . Monitor CBC outpatient, resume home mesalamine and resume the nightly mesalamine suppositories. [facility] outpatient Health Concerns: as above . Plan of Treatment: as above. Assessment: as above. Patient Instructions: Ulcerative Colitis (DC) Discharge Date/Time: 06/07/25 10:51
[2025-06-06 15:31] VITALS: BP 118/73; PULSE 84; RESP 18; TEMP 36.9; O2SAT 93
--- NOTE | 2025-06-06 16:49 | HO.PM.IMPN ---
Subjective Subjective Date of Service: 06/07/25 Interval History: anemia Review of Systems feels tired Review of Systems: Yes all other systems are reviewed and are negative Physical Exam Exam: Exam: Appearance: Alert.? Oriented X3.? cvs: rrr, [id number] . res: clear to auscultation ,no rhonchii or wheezing abd: no rebound or guarding ,minimum tenderness left lower quadrent , bs present. ext pulses present , no cyanosis . neuro: axo3 , nonfocal. Vital Signs: Vital Signs: Last Vital Signs Temp 98.4 F 06/06/25 15:31 Pulse 84 06/06/25 15:31 Resp 18 06/06/25 15:31 BP 118/73 06/06/25 15:31 Pulse Ox 93 06/06/25 15:31 O2 Del Method Room Air 06/06/25 15:31 BMI result Body Mass Index 30.5 Objective Data Active Medications Acetaminophen (Acetaminophen 325 Mg Tablet) 975 mg PO Q6H PRN PRN Reason: Pain, Mild 1-3,fever,headache Last Admin: 06/06/25 13:11 Dose: 975 mg Documented By: ELEAZAR Balsalazide (Balsalazide Disodium 750 Mg Capsule) 2,250 mg PO TID [facility] Last Admin: 06/06/25 15:46 Dose: 2,250 mg Documented By: ELEAZAR Calcium Carbonate (Calcium Carbonate 750 Mg Tab.Chew) 750 mg PO Q4H PRN PRN Reason: Heartburn Carbamazepine (Carbamazepine 200 Mg Tablet) 600 mg PO BID [facility] Last Admin: 06/06/25 09:45 Dose: 600 mg Documented By: ELEAZAR Magnesium Hydroxide (Milk Of Magnesia 30 Ml Oral.Susp) 30 ml PO DAILY PRN PRN Reason: Constipation Melatonin (Melatonin 3 Mg Tablet) 6 mg PO BEDTIME PRN PRN Reason: Insomnia Last Admin: 06/05/25 20:23 Dose: 6 mg Documented By: ARRON Omeprazole (Omeprazole 20 Mg Capsule.Dr) 20 mg PO DAILY@0630 [facility] Last Admin: 06/06/25 04:54 Dose: 20 mg Documented By: SHIMON Oxycodone HCl (Oxycodone Hcl Immed Release 5 Mg Tablet) 5 mg PO Q6H PRN PRN Reason: Pain, Severe (Pain Scale 7-10) Last Admin: 06/06/25 13:10 Dose: 5 mg Documented By: ELEAZAR Sertraline HCl (Sertraline Hcl 100 Mg Tablet) 200 mg PO DAILY [facility] Last Admin: 06/06/25 09:45 Dose: 200 mg Documented By: ELEAZAR Sodium Chloride (0.9 % Sodium Chloride Flush 3 Ml Syringe) 3 ml IVFLUSH QSHIFT [facility] Last Admin: 06/06/25 09:44 Dose: 3 ml Documented By: ELEAZAR Labs 06/07/25 06:00 06/07/25 06:00 Labs: Laboratory Results - last 24 hr 06/06/25 05:53 MCV 79.5 L MCH 24.4 L MCHC 30.6 L RDW 19.2 H Plt Count 316 MPV 10.4 Absolute Nucleated RBC 0.000 Nucleated RBC % (auto) 0.0 Anion Gap 12 Estim Creat Clear Calc 114.8 Estimated GFR > 60 Random Glucose 82 Calcium 8.7 Magnesium 2.0 Microbiology Microbiology Results: Microbiology 06/04/25 19:27 Urine Culture - Final Urine clean catch - Clean Catch Midstream Assessment and Plan (1) Proctitis: Status: Acute (2) Rectal bleed: Status: Acute Plan 40 y/o female with a past medical history of ulcerative colitis on Skyrizi and chronic anemia on iron pills : Patient was admitted for acute blood loss anemia in the setting of proctitis: Patient out patiently completed her second infusion of the Skyrizi and is scheduled for the third infusion in June.: Patient was admitted due to symptomatic anemia in the setting of proctitis CTabdomen reviewed by GI: Anemia in the setting of proctitis -given PRBC as well as IV iron and steroids-subsequently GI recommended to stop steroids due to patient unable to tolerate due to underlying psych issues. Subsequently patient H&H monitored and remained stable in 9.7 range. Tolerating diet, minimal abdominal soreness. d/w Gi dr lerma :Refractory proctitis and significant anemia. Presently stable after transfusions. Received 2 PRBC 'sH&H is stable around 9.7 range.received iv infusionx2 ,also outpatient IV Iron infusions . continue mesalamine and resume the nightly mesalamine suppositories.moniter cbc closely Quality Stroke Does the patient have a stroke diagnosis?: No VTE Prior VTE?: No VTE Risk Level:: Medical - moderate - high VTE Device Contraindication: N/A - Device Ordered VTE Drug Contraindication: Treatment Not Indicated
--- NOTE | 2025-06-06 16:51 | PC.NURSE ---
Pt has tolerated meals today no N& no reports of bloody stools. . Completed 2/2 Iron infusions . pt stating this evening she feeling extremely tired said she would be more comfortable with discharging tomorrow morning and that she can arrange for a ride by 10 am. Md Nevarez notified
[2025-06-06 20:00] VITALS: BP 104/55; PULSE 69; RESP 18; TEMP 36.3; O2SAT 95
[2025-06-07] MEDS: oxyCODONE HCl Immed Release 5 MG TABLET PO ×2 (04:11→10:39)
[2025-06-07 07:23] LABS: Anion Gap 9 (12-20); Blood Urea Nitrogen 8 mg/dL (9-16); Calcium 8.7 mg/dL (8.4-10.2); Carbon Dioxide 28 mmol/L (22-29); Chloride 108 mmol/L (96-108); Creatinine Clr Calc Pharmacy 127.9; Estimated Glomerular Filt Rate > 60; Magnesium 2.2 mg/dL (1.6-2.6); Potassium 3.2 mmol/L (3.3-5.1); Sodium 142 mmol/L (135-145)
[2025-06-07 07:57] VITALS: BP 118/70; PULSE 75; RESP 18; TEMP 36.5; O2SAT 94
[2025-06-07 08:02] LABS: Hematocrit 34.0 % (37.0-47.0); Hemoglobin 10.2 g/dl (12.0-16.0); Mean Corpuscular HGB Conc 30.0 g/dl (31.0-35.0); Mean Corpuscular Hemoglobin 24.0 pg (27.0-33.0); Mean Corpuscular Volume 80.0 fL (80.0-98.0); NRBC Abs Auto 0.000 X10*3/uL (0.0-0.012); NRBC Pct Auto 0.0 /100WBC (0.0-0.2); Platelet Count 399 X10*3/uL (160-400); Red Blood Count 4.25 X10*6/uL (4.20-5.50); White Blood Count 4.7 X10*3/uL (4.8-10.8)
[2025-06-07] MEDS: 0.9 % Sodium Chloride Flush 3 ML SYRINGE IVFLUSH (08:10)
--- NOTE | 2025-06-07 08:54 | MHC.CM.PN ---
pt dcd home self care
[2025-06-07] MEDS: Potassium Chloride ER 20 MEQ TAB.ER.PRT PO (09:04)
== END 2025-06-07 10:51 | disposition home or self-care (01) | DRG 245 ==
LOC: HO.ED 23:49 → HO.EDOVER 06-05 00:13 → HO.S3 06-05 12:52
PROVIDERS: Physician Assistant; Admitting Provider Internal Medicine; Emergency Provider Student in an Organized Health Care Education/Training Program; PCP Family Medicine; Visit Provider Internal Medicine
DX: K51.211 Ulcerative (chronic) proctitis with rectal bleeding (principal); D62 Acute posthemorrhagic anemia; F31.9 Bipolar disorder, unspecified; Z20.822 Contact with and (suspected) exposure to COVID-19; Z79.899 Other long term (current) drug therapy
CPT/HCPCS: 36415; 74178; 80048; 80053; 81001; 83690; 83735; 84702; 85014; 85018; 85025; 85027; 85610; 86850; 86900; 86901; 86923; 87086; 87637; 93005; 99285; J1308; J1756; J2405; J2919; P9016; Q9967

== ENCOUNTER → 2025-06-04 18:44 | Outpatient (BNV) | payer MEDICAID, SELFPAY | PROVIDERS: Admitting Provider Internal Medicine; Emergency Provider Student in an Organized Health Care Education/Training Program; PCP Family Medicine; Visit Provider Internal Medicine Cardiovascular Disease | DX: R94.31 Abnormal electrocardiogram [ECG] [EKG] (principal); R06.00 Dyspnea, unspecified | CPT/HCPCS: 93010 ==

== ENCOUNTER → 2025-06-04 20:41 | Outpatient (BNV) | payer MEDICAID, SELFPAY | PROVIDERS: Emergency Provider Student in an Organized Health Care Education/Training Program; PCP Family Medicine; Visit Provider Radiology Diagnostic Radiology | DX: R60.0 Localized edema (principal); R59.9 Enlarged lymph nodes, unspecified | CPT/HCPCS: 74178 ==

== ENCOUNTER → 2025-06-05 | Outpatient (BNV) | payer MEDICAID, SELFPAY | PROVIDERS: Admitting Provider Internal Medicine; Emergency Provider Student in an Organized Health Care Education/Training Program; PCP Family Medicine; Visit Provider Internal Medicine | DX: K51.211 Ulcerative (chronic) proctitis with rectal bleeding (principal); D50.0 Iron deficiency anemia secondary to blood loss (chronic) | CPT/HCPCS: 99222; 99232; 99239; 99499 ==